=== PATIENT | male | born 1960 | race Caucasian/White ===

== ENCOUNTER 2019-08-20 09:41 | Observation (INO) ==
[2019-08-20] MEDS ORDERED: DiphenhydrAMINE HCL 50 MG/ML VIAL IV STA (10:19)
[2019-08-20] MEDS ORDERED: METOCLOPRAMIDE HCL INJ 5 MG/ML 2 ML VIAL IV STA (10:19)
[2019-08-20] MEDS ORDERED: ACETAMINOPHEN 1,000 MG/100 ML VIAL IV STA (10:19)
[2019-08-20] MEDS ORDERED: SODIUM CHLORIDE 0.9% 500 ML IV ONE (10:19)
[2019-08-20] MEDS ORDERED: FAMOTIDINE 20MG IV PUSH 20 MG/5 ML SYR IV STA (10:23)
[2019-08-20 10:32] LABS: Basophils # (auto) 0.02 K/uL (0-0.2); Basophils % (auto) 0.2 %; Eosinophils # (auto) 0.07 K/uL (0-0.5); Eosinophils % (auto) 0.8 %; Hematocrit (blood only) 44.7 % (42-52); Immature Granulocytes # (auto) 0.02 K/uL (0.00-0.02); Immature Granulocytes % (auto) 0.2 %; Lymphocytes # (auto) 0.55 K/uL (1.2-3.4); Lymphocytes % (auto) 6.3 %; Mean Corpuscular Hemoglobin 32.4 pg (25-34); Mean Corpuscular Hgb Conc 35.8 g/dL (32-36); Mean Corpuscular Volume 90.5 fL (80-100); Mean Platelet Volume 10.7 fL (7.4-10.4); Monocytes # (auto) 0.71 K/uL (0.11-0.59); Monocytes % (auto) 8.1 %; Neutrophils # (auto) 7.36 K/uL (1.4-6.5); Neutrophils % (auto) 84.4 %; Platelet Count 218 K/uL (130-400); RDW Coefficient of Variation 13.5 % (11.5-14.5); RDW Standard Deviation 43.8 fL (36.4-46.3); Red Blood Count 4.94 M/uL (4.7-6.1); White Blood Count 8.73 K/uL (4.8-10.8)
[2019-08-20 10:39] LABS: Alanine Aminotransferase 40 U/L (12-78); Albumin Level 4.2 gm/dl (3.4-5.0); Aspartate Aminotransferase 18 U/L (15-37); BUN Creatinine Ratio 12.9 (10-20); Bilirubin Direct < 0.1 mg/dl (0-0.2); Blood Urea Nitrogen 16 mg/dl (7-18); Calcium 10.1 mg/dl (8.5-10.1); Carbon Dioxide 24 mmol/L (21-32); Chloride 109 mmol/L (98-107); Creatinine Clr Calc Pharmacy 78.5 ml/min; Est GFR (African American) 72.4; Est GFR (Non-African American) 62.5; Glucose 132 mg/dl (70-99); Lipase 205 U/L (73-393); Magnesium 1.7 mg/dl (1.8-2.4); Sodium 139 mmol/L (136-145)
[2019-08-20 10:42] LABS: Albumin Globulin Ratio 1.1 (0.9-2); Alkaline Phosphatase 287 U/L (45-117); Bilirubin,Total 0.6 mg/dl (0.2-1); Globulin 3.7 gm/dl (2.5-4.0); Phosphorus 2.6 mg/dl (2.5-4.9); Total Protein 7.9 gm/dl (6.4-8.2); Troponin I < 0.015 ng/ml (0-0.045)
[2019-08-20 10:43] LABS: Appearance Urine Clear (Clear); Bacteria Urine Automated Negative (Negative); Bilirubin Urine Negative (Negative); Blood Urine Negative (Negative); Cast Urine Automated 0 /lpf (0-5); Color Urine Yellow; Glucose Urine UA Negative (Negative); Ketones Urine Negative (Negative); Leukocyte Esterase Urine Negative (Negative); Nitrite Urine Negative (Negative); Protein Urine 2+ (Negative); RBC Urine Automated 0-4 /hpf (0-4); Specific Gravity Urine 1.014 (1.000-1.030); Urobilinogen Urine Negative (Negative); WBC Urine Automated 0 /hpf (0-5)
[2019-08-20 10:43] LABS: Partial Thromboplastin Ratio 1.1; Partial Thromboplastin Time 31.8 Seconds (21.0-31.0); Prothrombin Time 10.9 Seconds (9.0-12.0)
--- NOTE | 2019-08-20 10:46 | XRay Report ---
XR chest 1V portable CLINICAL HISTORY: 59 years-old Male presenting with Chest Pain. TECHNIQUE: Portable upright AP view of the chest was obtained. COMPARISON: 07/26/2018. FINDINGS: Cardiac silhouette mildly enlarged. Minimal vague right basilar opacity. No other focal opacity. No l arge effusion or pneumothorax. The prior tunneled right internal jugular central venous catheter has been removed. Osseous structures normal. Upper abdomen normal. IMPRESSION: 1. Minimal vague right basilar opacity may represent atelectasis or vascular crowding. A focal infil trate is possible though not favored. 2. Mild cardiomegaly without evidence of significant volume overload or congestive change. ACT 112: Negative or not required by law. Electronically signed by: Zion Rodriguez M.D. 08/20/2019 10:45 AM
[2019-08-20] MEDS ORDERED: MoRPHine SULFATE 10 MG/ML CARP/VIAL IV STA (11:22)
[2019-08-20] MEDS ORDERED: MoRPHine SULFATE 4 MG/ML 1 ML CARP\\VIAL ONE (11:25)
[2019-08-20] MEDS ORDERED: MAGNESIUM SULFATE / D5W 1 GM/100 ML BAG IV ONE (11:48)
--- NOTE | 2019-08-20 12:20 | Ultrasound Report ---
US gallbladder CLINICAL HISTORY: 59 years-old Male presenting with RUQ pain since last night, history of kidney estrada splant February. TECHNIQUE: Real-time grayscale and limited color Doppler ultrasound imaging of the abdomen limited to the right upper quadrant was performed. COMPARISON: None. FINDINGS: Pancreas: Visualized portions of the pancreatic head and body normal. Top normal prominence of the pa ncreatic duct measuring 3 mm. Liver: Mildly hyperechogenic parenchyma, although the right hemidiaphragm remains visible, likely ind icating mild steatosis. The liver measures 22.3 cm in maximal sagittal dimension. No sonographic evid ence of hepatic mass. Main portal vein patent with normal directional flow. Biliary: No intrahepatic biliary ductal dilatation. Common bile duct measures up to 7-8 mm in diamete r. Gallbladder: Large mobile gallstone measuring 3 cm. Gallbladder wall thickening measuring 5 mm. Trace pericholecystic fluid. Gallbladder mildly distended. Sonographic Montalvo's sign not reported. Right [place] kidney: Atrophic renal parenchyma of the [place] right kidney. Right lower quadrant transplant kidney: Right lower quadrant evaluated at the site of the reported tr ansplant kidney with tenderness to the sonographic probe. The transplant kidney measures 10.3 cm. No hydronephrosis. Urothelial thickening is not definitely visualized. Hyperechogenicity of renal sinus fat. There is a hypoechoic anechoic avascular collection at the lower pole, measuring 3.9 x 3.8 x 5.1 cm. This is intimately associated with the adjacent transplant vessels. Normal flow within the trans plant renal vein. Focally elevated arterial velocity with a peak systolic velocity of 381 cm/s within the transplant renal artery near or at the anastomosis. Ascites: None. Other: None. IMPRESSION: 1. Cholelithiasis with gallbladder wall thickening and trace pericholecystic fluid concerning for ch olecystitis. Nuclear medicine HIDA scan could confirm this finding if necessary. 2. Mild extrahepatic ductal dilatation. 3. Mild hepatic steatosis and hepatomegaly. 4. Right lower quadrant transplant kidney with elevated renal artery velocity near or at the anastom osis concerning for stenosis. With a history of transplant in February, postoperative edema would no t be expected to persist this long period. Stenosis may relate to surgical technique or developing po stsurgical stenosis. 5. 5 cm collection adjacent to the lower pole of the transplant kidney intimately associated with th e vessels though avascular. This may represent a chronic hematoma/seroma. No evidence of pseudoaneury sm. ACT 112: Negative or not required by law. Electronically signed by: Zion Rodriguez M.D. 08/20/2019 12:19 PM
[2019-08-20] MEDS ORDERED: PIPERACILLIN/TAZOBACTAM 4.5 GM/120 ML BAG IV ONE (12:47)
[2019-08-20] MEDS ORDERED: PIPERACILL/TAZOBAC CONSULT ACTIVE PRN (12:47)
[2019-08-20] MEDS ORDERED: SODIUM CHLORIDE 0.9% 1000ML 1,000 ML IV SCH (14:15)
--- NOTE | 2019-08-20 15:28 | History & Physical Report ---
Date of Service August 20, 2019 Assessment & Plan (1) Acute cholecystitis: Presents with biliary colic, acute onset of severe pain on right upper quadrant and epigastric area started after fatty meal Right upper quadrant ultrasound shows a stiff of acute cholecystitis with pericholecystic fluid Admit to medical telemetry No evidence of sepsis patient is afebrile with normal white count Bowel rest, clear liquid diet, pain control aggressive IV fluid hydration General surgery consult requested HIDA scan ordered for Thursday (nuclear biliary scan cannot be done over the weekend) (2) Renal transplant recipient: Status post living donor renal transplant on 02/17/[address] [facility] Patient is on chronic immunosuppressant on Prograf and CellCept-which will be continued Tacrolimus level on 08/16/2019 was 5.3 Creatinine 1.2 (creatinine 08/15/2019 was 1.6) Continue IV fluids, Avoid nephrotoxins, contrast studies We will consult nephrology with any evidence of acute kidney injury, patient follows with [facility] technology services manager Dr. Shira Bullock Gallbladder ultrasound: Right lower quadrant transplant kidney with elevated renal artery velocity near or at the anastomosis concerning for stenosis. With a history of transplant in February, postoperative edema would not be expected to persist this long period. Stenosis may relate to surgical technique or developing postsurgical stenosis. ER physician discussed the ultrasound finding with renal transplant center in [facility] in [place] Given patient has normal creatinine no evidence of volume overload, Does not feel that ultrasound finding was clinically significant Order for CT abdomen pelvis noncontrast study for further assessment Hypertensive urgency Patient has baseline accelerated hypertension requiring multiple antihypertensive secondary to renal disease BP noted to be 190 in the ER possibly secondary to pain response Continue adequate pain control, Patient is continued with Lopressor 50 mg twice daily, nifedipine 30 mg twice daily Ordered for PRN hydralazine Hyperparathyroidism: Secondary to kidney disease Continue Sensipar, Follow labs closely Code status: Full code DVT prophylaxis: Low risks, at baseline patient is very active SCD and teds Disposition: Expected to be discharged home when medically stable Medicine follow-up with Dr. bhat History of Present Illness Chief Complaint: Pain in abdomen Primary Care Provider: Michael Marvin MD Is a 59-year-old male status post recent renal transplant on 02/2019, hyperparathyroidism, hypertension Presented to ER with complaint of pain on right upper quadrant, Last night patient had dinner with deli sandwich with cheese and mayonnaise Woke up around 3 AM in the morning with severe epigastric and right upper quadrant abdominal pain, pain radiating to back, 10 out of 10, Associated with nausea, dry heaves no vomiting Patient reports pain was excruciating got no relief with change of position Did not had any fever or chills In the ER gallbladder ultrasound shows : Cholelithiasis with gallbladder wall thickening and trace pericholecystic fluid concerning for cholecystitis. Mild extrahepatic ductal dilatation He was afebrile normal white count, LFTs, lipase level within normal limit Will be admitted to medical telemetry, general surgery consulted Allergies Allergy/AdvReac Type Severity Reaction Status Date / Time No Known Allergies Allergy Verified 08/10/18 10:36 Home Medications Home Medications Medication Instructions Recorded Confirmed Type cetirizine 10 mg PO PM 04/24/18 08/20/19 History cinacalcet 30 mg PO PM 04/24/18 08/20/19 History ergocalciferol (vitamin D2) 50,000 units PO WK 07/26/18 08/20/19 History [Drisdol] aspirin [Aspirin Low Dose] 81 mg PO QAM 08/10/18 08/20/19 History lisinopril 20 mg PO PM 08/10/18 08/20/19 History metoprolol tartrate 50 mg PO BID 08/10/18 08/20/19 History sevelamer carbonate [Renvela] 3,200 mg PO TIDM 08/10/18 08/20/19 History Past Med/Surg History Medical History (Updated 08/20/19 @ 17:20 by Patty Foster MD) Asthma A CHILD (NO CURRENT PROBLEMS) Atrial fibrillation A FIB EVENT X 1 (WITH 2ND DIALYSIS) End stage renal failure on dialysis (Chronic) GERD (gastroesophageal reflux disease) Gout Hemodialysis patient [id number] M/W/F [facility] HTN (hypertension) (Chronic) Hyperparathyroidism due to renal insufficiency (Chronic) Hyperphosphatemia (Chronic) New onset atrial fibrillation (Acute) Osteoarthritis Surgical History (Updated 08/20/19 @ 17:17 by Patty Foster MD) History of tooth extraction Renal transplant recipient Date of transplant 02/17/2019, at [facility] Living donor transplant S/P arteriovenous (AV) fistula creation (Resolved) LEFT ARM Family History Brother Family hx colonic polyps Other Dementia Hypertension Skin cancer Stroke Social History Preferred Language: Malay Communication Ability: Effective Visual Impairment: No Limitations Portrait Consultant Required: No Beliefs That Will Affect Care: None marital status: Current Living Situation: Spouse current occupational status: employed Other Information That Helps Us Care for You: No Feels Safe at Home: Yes Safety Concerns: Feels Safe At This Time Smoking Status: Never smoker Do You Dip or Chew Tobacco: No ; Second Hand Exposure: No ; Tobacco Cessation Education Requested by Patient: No Hx Alcohol Use: No Hx Substance Use: No Review of Systems Review of Systems: All systems reviewed & are unremarkable except as noted in HPI & below Constitutional: + anorexia and + problem reported (Right upper quadrant and epigastric abdominal pain) Gastrointestinal: + abdominal pain and + nausea; no vomiting Physical Exam Constitutional: WD/WN, vitals as above + acute distress (Due to abdominal pain) Eyes: PERRL, conjunctivae normal, anicteric sclerae ENMT: external ear and nose normal, oropharynx normal Neck: trachea midline, no thyromegaly Respiratory: normal respiratory effort, lungs clear to auscultation Cardiovascular: RRR, no murmur, no edema Gastrointestinal (Abdomen): Inspection/Auscultation: + abdomen abnormal to inspection (Right lower abdomen transplant surgery scar well-healed, tenderness on right upper quadrant, epigastric area) and + abnormal bowel sounds (Bowel sounds diminished) Percussion/Palpation: + abdomen tender (Tenderness at righ t upper quadrant and epigastric area) Neurologic: PERRL, EOMI, accommodation nl, no face palsy, no dysarthria Psychiatric: Orientation: alert and oriented x 3 Affect: + anxious affect Results & Data Vital Signs (Past 12 Hours) Vital Signs Temp Pulse Pulse Resp BP BP Pulse Ox 08/20/19 15:00 69 17 158/103 H 98 08/20/19 14:30 63 18 147/92 H 99 08/20/19 14:16 62 19 99 08/20/19 14:15 65 15 154/96 H 99 08/20/19 14:00 65 11 L 171/105 H 96 08/20/19 13:30 64 16 164/98 H 94 08/20/19 13:00 67 11 L 170/107 H 94 08/20/19 12:41 64 11 L 173/108 H 94 08/20/19 11:00 67 16 180/117 H 97 08/20/19 10:47 66 24 179/112 H 99 08/20/19 10:08 67 23 180/115 H 100 08/20/19 10:05 66 18 180/115 H 100 08/20/19 09:44 36.8 C 70 20 209/116 H 97 Diagnostic Findings Right upper quadrant ultrasound IMPRESSION: 1. Cholelithiasis with gallbladder wall thickening and trace pericholecystic fluid concerning for cholecystitis. Nuclear medicine HIDA scan could confirm this finding if necessary. 2. Mild extrahepatic ductal dilatation. 3. Mild hepatic steatosis and hepatomegaly. 4. Right lower quadrant transplant kidney with elevated renal artery velocity near or at the anastomosis concerning for stenosis. With a history of transplant in February, postoperative edema would not be expected to persist this long period. Stenosis may relate to surgical technique or developing postsurgical stenosis. 5. 5 cm collection adjacent to the lower pole of the transplant kidney intimately associated with the vessels though avascular. This may represent a chronic hematoma/seroma. No evidence of pseudoaneurysm. Medications Administered Current Inpatient Medications Acetaminophen (Tylenol) 650 mg PO Q4H PRN PRN Reason: pain/fever Stop: 09/19/19 15:59 Hydralazine HCl (Hydralazine Hcl) 10 mg IV Q8 PRN PRN Reason: SBP > 160 Stop: 09/19/19 17:09 Hydromorphone HCl (Dilaudid) 1 mg IV Q4 PRN PRN Reason: pain Stop: 09/03/19 16:51 Piperacillin Sod/Tazobactam (Sod 4.5 gm/ Dextrose) 120 mls @ 30 mls/hr IV Q8H MANNY; Protocol Stop: 08/30/19 19:59 Lactated Ringer's (Lr) 1,000 mls @ 125 mls/hr IV .Q8H MANNY Stop: 09/19/19 16:59 Last Admin: 08/20/19 16:59 Dose: 125 mls/hr Documented by: Metoprolol Tartrate (Lopressor) 50 mg PO BID MANNY Stop: 09/19/19 20:59 Miscellaneous (Order Awaiting Action) 1 ea N/A QS MANNY Stop: 09/19/19 16:59 Miscellaneous Information (Consult) 1 ea N/A UD PRN PRN Reason: Consult Stop: 09/19/19 12:46 Mycophenolate Mofetil (Cellcept) 500 mg PO BID MANNY Stop: 09/19/19 20:59 Nifedipine (Procardia Xl) 30 mg PO BID MANNY Stop: 09/19/19 20:59 Ondansetron HCl (Zofran) 4 mg IV Q6H PRN PRN Reason: Nausea Stop: 09/19/19 15:59 Pantoprazole Sodium (Protonix) 40 mg PO QAM MANNY Stop: 09/20/19 08:59 Sevelamer HCl (Renagel) 3,200 mg PO TIDM MANNY Stop: 09/19/19 16:59 Last Admin: 08/20/19 17:06 Dose: Not Given Documented by: Tacrolimus (Prograf) 2 mg PO DAILY [facility] Stop: 09/20/19 08:59 Code Status & VTE Plan VTE Prophylaxis Plan VTE Prophylaxis will be ordered: Yes
[2019-08-20] MEDS ORDERED: ACETAMINOPHEN 325 MG TAB PO PRN (16:00)
[2019-08-20] MEDS ORDERED: ONDANSETRON INJ 2 MG/ML 2 ML VIAL IV PRN (16:00)
[2019-08-20] MEDS ORDERED: HYDROmorphone INJ 2 MG/ML SYR/VIAL IV STA (16:49)
[2019-08-20] MEDS: LACTATED RINGER'S 1,000 ML IV SCH (16:59)
[2019-08-20] MEDS: SEVELAMER HCL 800 MG TABLET PO SCH (17:06)
[2019-08-20] MEDS ORDERED: HydrALAZINE HCL 20 MG/ML VIAL IV PRN (17:10)
--- NOTE | 2019-08-20 17:26 | Emergency Department Note ---
Entered by Cece Esquivel acting as a scribe for Tu James MD History of Present Illness General Chief complaint: Abdominal Pain Stated complaint: CHEST PAIN/HX KIDNEY TRANSPLANT Time Seen by Provider: 08/20/19 10:04 Source: patient History of Present Illness Onset (ago): day(s) (2229 last night) Location: chest and abdomen (right side) Radiation: abdomen (right side) Maximum Pain Intensity: 9 Quality: + other (right sided abdominal pain) Associated symptoms: + other (Positive nausea and feeling of dehydration. Negative vomiting, diarrhea. ); no fever/chills The patient is a 59 year old male who presents to the ED with complaints of righ t sided abdominal pain beginning at 2229 last night. He has a hx of a kidney transplant in February. He reports his pain originates in his chest and radiates to the right side of his abdomen. The patient states he is nauseous and feels dehydrated but denies any fevers, chills, vomiting, diarrhea. He reports he still has his gallbladder and he has a stone. He notes he had a turkey sandwich with cheese and mayonnaise for dinner last night. He states his kidney transplant has been functioning well and he is no longer on dialysis. Home Medications Home Medications Medication Instructions Recorded Confirmed Type cetirizine 10 mg PO PM 04/24/18 08/20/19 History cinacalcet 30 mg PO PM 04/24/18 08/20/19 History ergocalciferol (vitamin D2) 50,000 units PO WK 07/26/18 08/20/19 History [Drisdol] aspirin [Aspirin Low Dose] 81 mg PO QAM 08/10/18 08/20/19 History lisinopril 20 mg PO PM 08/10/18 08/20/19 History metoprolol tartrate 50 mg PO BID 08/10/18 08/20/19 History sevelamer carbonate [Renvela] 3,200 mg PO TIDM 08/10/18 08/20/19 History Allergies Allergy/AdvReac Type Severity Reaction Status Date / Time No Known Allergies Allergy Verified 08/10/18 10:36 Past Med/Surg History Medical History Asthma A CHILD (NO CURRENT PROBLEMS) Atrial fibrillation A FIB EVENT X 1 (WITH 2ND DIALYSIS) End stage renal failure on dialysis (Chronic) GERD (gastroesophageal reflux disease) Gout Hemodialysis patient [id number] M/W/F [facility] HTN (hypertension) (Chronic) Hyperparathyroidism due to renal insufficiency (Chronic) Hyperphosphatemia (Chronic) New onset atrial fibrillation (Acute) Osteoarthritis Surgical History History of tooth extraction Renal transplant recipient Date of transplant 02/17/2019, at [facility] Living donor transplant S/P arteriovenous (AV) fistula creation (Resolved) LEFT ARM Family History Brother Family hx colonic polyps Other Dementia Hypertension Skin cancer Stroke Social History Preferred Language: Nepali Communication Ability: Effective Visual Impairment: No 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 and A total of 10 systems reviewed and were otherwise negative Physical Exam Vital Signs Vital Signs - 24 hr 08/20/19 09:44 08/20/19 10:05 08/20/19 10:08 Temperature 36.8 C Temperature Source Oral Pulse Rate 70 67 Pulse Rate [Apical] 66 Pulse Rate from SpO2 Sensor 66 Pulse Rhythm [Apical] Regular Respiratory Rate 20 18 23 Respiratory Effort / Characteristics Non-Labored Spontaneous Non-Labored Respiratory Depth Normal Blood Pressure 209/116 H 180/115 H Blood Pressure [Right Arm] 180/115 H Blood Pressure Mean 147 150 Blood Pressure Mean [Right Arm] 136 Blood Pressure Position [Right Arm] Sitting Pulse Oximetry 97 100 100 Oxygen Delivery Method Room Air Room Air Sepsis Recent Fever Within 48 Hours No Sepsis New/Unexplained Change in Mental Status No Sepsis Action Taken by Nursing No Action Required 08/20/19 10:47 08/20/19 11:00 08/20/19 12:41 Temperature Temperature Source Pulse Rate 66 67 64 Pulse Rate [Apical] Pulse Rate from SpO2 Sensor 66 66 64 Pulse Rhythm [Apical] Respiratory Rate 24 16 11 L Respiratory Effort / Characteristics Respiratory Depth Blood Pressure 179/112 H 180/117 H 173/108 H Blood Pressure [Right Arm] Blood Pressure Mean 141 143 130 Blood Pressure Mean [Right Arm] Blood Pressure Position [Right Arm] Pulse Oximetry 99 97 94 Oxygen Delivery Method Room Air Sepsis Recent Fever Within 48 Hours Sepsis New/Unexplained Change in Mental Status Sepsis Action Taken by Nursing 08/20/19 13:00 08/20/19 13:30 08/20/19 14:00 Temperature Temperature Source Pulse Rate 67 64 65 Pulse Rate [Apical] Pulse Rate from SpO2 Sensor 67 64 65 Pulse Rhythm [Apical] Respiratory Rate 11 L 16 11 L Respiratory Effort / Characteristics Respiratory Depth Blood Pressure 170/107 H 164/98 H 171/105 H Blood Pressure [Right Arm] Blood Pressure Mean 120 125 128 Blood Pressure Mean [Right Arm] Blood Pressure Position [Right Arm] Pulse Oximetry 94 94 96 Oxygen Delivery Method Sepsis Recent Fever Within 48 Hours Sepsis New/Unexplained Change in Mental Status Sepsis Action Taken by Nursing 08/20/19 14:15 08/20/19 14:16 Temperature Temperature Source Pulse Rate 65 62 Pulse Rate [Apical] Pulse Rate from SpO2 Sensor 67 63 Pulse Rhythm [Apical] Respiratory Rate 15 19 Respiratory Effort / Characteristics Respiratory Depth Blood Pressure 154/96 H Blood Pressure [Right Arm] Blood Pressure Mean 118 Blood Pressure Mean [Right Arm] Blood Pressure Position [Right Arm] Pulse Oximetry 99 99 Oxygen Delivery Method Sepsis Recent Fever Within 48 Hours Sepsis New/Unexplained Change in Mental Status Sepsis Action Taken by Nursing GENERAL: Awake, alert, uncomfortable-appearing but nontoxic, in no distress HENT: Normocephalic, atraumatic. Oropharynx with dry mucous membranes and otherwise unremarkable. EYES: Normal conjunctiva. Sclera non-icteric. NECK: Supple. No nuchal rigidity. FROM. No JVD. RESPIRATORY: CTAB CARDIAC: Regular rate, normal rhythm. Extremities warm and well perfused. Pulses equal. ABDOMEN: Soft, non-distended. Mild RUQ and epigastric tenderness. Soft umbilical hernia, nontender. No rebound or guarding. No masses. RECTAL: Deferred. MUSCULOSKELETAL: Chest examination reveals no tenderness. The back is symmetrical on inspection without obvious abnormality. There is no CVA tenderness to palpation. No joint edema. LOWER EXTREMITIES: Calves are equal size bilaterally and non-tender. No edema. No discoloration. NEURO: Normal sensorium. No sensory or motor deficits noted. SKIN: No rash or jaundice noted. Course Course 1018: Past medical records reviewed. The patient was evaluated in room B4. A complete history and physical exam was performed. 1355: Discussed the patient's case with Dr. Monroe, Transplant Surgery. He does not think his findings are related to the transplant or kidney given the patients renal function is normal. Given that he has no fevers, leukocytosis and is nontoxic, he states the patient does not need transfer. He agrees with local admission and HIDA scan. If any concerns arise, admitting team can reach out to arrange transfer. 1416: Discussed the patient's case with Dr. Foster, [facility] Hospitalist. The patient will be evaluated for further management. She states to consult Dr. Mendiola, General Surgery. 1441: Discussed the patient's case with Dr. Mendiola, General Surgery on behalf of the admitting team. He states the HIDA scan would dictate his need for surgery or transfer assuming he does not become clinically worse, at which point he would be transferred. He would not be able to add any additional recommendations. Administered Medications Lactated Ringer's (Lr) 1,000 mls @ 125 mls/hr IV .Q8H MANNY Stop: 09/19/19 16:59 Last Admin: 08/20/19 16:59 Dose: 125 mls/hr Documented by: [id number] Sevelamer HCl (Renagel) 3,200 mg PO TIDM MANNY Stop: 09/19/19 16:59 Last Admin: 08/20/19 17:06 Dose: Not Given Documented by: [id number] Discontinued Medications Diphenhydramine HCl (Benadryl) 25 mg IV NOW STA Stop: 08/20/19 10:20 Last Admin: 08/20/19 10:54 Dose: 25 mg Documented by: [id number] Hydromorphone HCl (Dilaudid) 2 mg IV NOW STA Stop: 08/20/19 16:50 Last Admin: 08/20/19 16:58 Dose: 2 mg Documented by: [id number] Sodium Chloride (Nss) 500 mls @ 999 mls/hr IV .Q31M ONE Stop: 08/20/19 10:49 Last Infusion: 08/20/19 11:23 Dose: 0 mls/hr Documented by: [id number] Admin: 08/20/19 10:52 Dose: 999 mls/hr Documented by: [id number] Acetaminophen (Ofirmev) 1,000 mg in 100 mls @ 400 mls/hr IV NOW STA Stop: 08/20/19 10:33 Last Infusion: 08/20/19 11:10 Dose: 0 mls/hr Documented by: [id number] Admin: 08/20/19 10:55 Dose: 400 mls/hr Documented by: [id number] Famotidine (Pepcid 20mg Iv Push) 20 mg in 5 mls @ 2.5 mls/min IV NOW STA Stop: 08/20/19 10:24 Last Admin: 08/20/19 10:53 Dose: 2.5 mls/min Documented by: [id number] Magnesium Sulfate/Dextrose (Magnesium Sulfate / D5w) 1 gm in 100 mls @ 100 mls/hr IV ONE ONE Stop: 08/20/19 12:47 Last Infusion: 08/20/19 13:42 Dose: 0 mls/hr Documented by: [id number] Admin: 08/20/19 12:42 Dose: 100 mls/hr Documented by: [id number] Piperacillin Sod/Tazobactam Sod (Zosyn) 4.5 gm in 120 mls @ 240 mls/hr IV NOW ONE Stop: 08/20/19 13:16 Last Infusion: 08/20/19 16:01 Dose: 0 mls/hr Documented by: [id number] Admin: 08/20/19 14:02 Dose: 240 mls/hr Documented by: [id number] Sodium Chloride (Nss 1000ml) 1,000 mls @ 125 mls/hr IV .Q8H MANNY Stop: 09/19/19 14:14 Last Infusion: 08/20/19 17:20 Dose: 0 mls/hr Documented by: [id number] Admin: 08/20/19 14:15 Dose: 125 mls/hr Documented by: [id number] Metoclopramide HCl (Reglan) 10 mg IV NOW STA Stop: 08/20/19 10:20 Last Admin: 08/20/19 10:54 Dose: 10 mg Documented by: [id number] Miscellaneous (Order Awaiting Action) 1 ea N/A QS MANNY Stop: 09/19/19 16:59 Last Admin: 08/20/19 18:00 Dose: Not Given Documented by: [id number] Morphine Sulfate (Morphine Sulfate) 8 mg IV NOW STA Stop: 08/20/19 11:23 Last Admin: 08/20/19 12:42 Dose: Not Given Documented by: [id number] Morphine Sulfate (Morphine Sulfate) Confirm Administered Dose 8 mg .ROUTE .STK- MED ONE Stop: 08/20/19 11:26 Last Admin: 08/20/19 11:27 Dose: 8 mg Documented by: [id number] Medical Decision Making Differential Diagnosis Differential diagnosis: Etiologies such as appendicitis, diverticulitis, PUD, biliary pathology, UTI, pancreatitis, obstruction, mesenteric ischemia, aortic pathology, infections, inflammatory bowel disease, renal colic, as well as others were entertained. Medical Records Attestation: I reviewed the patient's medical records. Home Medications Current Medication List: was personally reviewed by me Laboratory Data Attestation: I reviewed the patient's lab results. Result diagrams: 08/20/19 10:06 08/20/19 10:06 Lab Results 08/20/19 08/20/19 08/20/19 Range/Units 10:06 10:06 10:06 WBC 8.73 (4.8-10.8) K/uL RBC 4.94 (4.7-6.1) M/uL Hgb 16.0 (14.0-18.0) g/dL Hct 44.7 (42-52) % MCV 90.5 (80-100) fL MCH 32.4 (25-34) pg MCHC 35.8 (32-36) g/dL RDW Std Deviation 43.8 (36.4-46.3) fL RDW Coeff of Christian 13.5 (11.5-14.5) % Plt Count 218 (130-400) K/uL MPV 10.7 H (7.4-10.4) fL Immature Gran % (Auto) 0.2 % Neut % (Auto) 84.4 % Lymph % (Auto) 6.3 % Nolan % (Auto) 8.1 % Eos % (Auto) 0.8 % Baso % (Auto) 0.2 % Immature Gran # (Auto) 0.02 (0.00-0.02) K/uL Neut # (Auto) 7.36 H (1.4-6.5) K/uL Lymph # (Auto) 0.55 L (1.2-3.4) K/uL Nolan # (Auto) 0.71 H (0.11-0.59) K/uL Eos # (Auto) 0.07 (0-0.5) K/uL Baso # (Auto) 0.02 (0-0.2) K/uL PT 10.9 (9.0-12.0) Seconds INR 1.0 (0.9-1.1) APTT 31.8 H (21.0-31.0) Seconds PTT Ratio 1.1 Sodium 139 (136-145) mmol/L Potassium 4.0 (3.5-5.1) mmol/L Chloride 109 H (98-107) mmol/L Carbon Dioxide 24 (21-32) mmol/L Anion Gap 6.0 (3-11) BUN 16 (7-18) mg/dl Creatinine 1.26 (0.6-1.4) mg/dl Est Cr Clr Drug Dosing 78.5 ml/min Est GFR ( Amer) 72.4 Est GFR (Non-Af Amer) 62.5 BUN/Creatinine Ratio 12.9 (10-20) Glucose 132 H (70-99) mg/dl Lactate (0.4-2.0) mmol/L Calcium 10.1 (8.5-10.1) mg/dl Phosphorus 2.6 (2.5-4.9) mg/dl Magnesium 1.7 L (1.8-2.4) mg/dl Total Bilirubin 0.6 (0.2-1) mg/dl Direct Bilirubin < 0.1 (0-0.2) mg/dl AST 18 (15-37) U/L ALT 40 (12-78) U/L Alkaline Phosphatase 287 H (45-117) U/L Troponin I < 0.015 (0-0.045) ng/ml Total Protein 7.9 (6.4-8.2) gm/dl Albumin 4.2 (3.4-5.0) gm/dl Globulin 3.7 (2.5-4.0) gm/dl Albumin/Globulin Ratio 1.1 (0.9-2) Lipase 205 (73-393) U/L Urine Color Urine Appearance (Clear) Urine pH (4.5-7.5) Ur Specific [place] (1.000-1.030) Urine Protein (Negative) Urine Glucose (UA) (Negative) Urine Ketones (Negative) Urine Blood (Negative) Urine Nitrite (Negative) Urine Bilirubin (Negative) Urine Urobilinogen (Negative) Ur Leukocyte Esterase (Negative) Urine WBC (Auto) (0-5) /hpf Urine RBC (Auto) (0-4) /hpf U Hyaline Cast (Auto) (0-5) /lpf U Epithel Cells (Auto) (0-5) /lpf Urine Bacteria (Auto) (Negative) 08/20/19 08/20/19 Range/Units 10:10 14:00 WBC (4.8-10.8) K/uL RBC (4.7-6.1) M/uL Hgb (14.0-18.0) g/dL Hct (42-52) % MCV (80-100) fL MCH (25-34) pg MCHC (32-36) g/dL RDW Std Deviation (36.4-46.3) fL RDW Coeff of Christian (11.5-14.5) % Plt Count (130-400) K/uL MPV (7.4-10.4) fL Immature Gran % (Auto) % Neut % (Auto) % Lymph % (Auto) % Nolan % (Auto) % Eos % (Auto) % Baso % (Auto) % Immature Gran # (Auto) (0.00-0.02) K/uL Neut # (Auto) (1.4-6.5) K/uL Lymph # (Auto) (1.2-3.4) K/uL Nolan # (Auto) (0.11-0.59) K/uL Eos # (Auto) (0-0.5) K/uL Baso # (Auto) (0-0.2) K/uL PT (9.0-12.0) Seconds INR (0.9-1.1) APTT (21.0-31.0) Seconds PTT Ratio Sodium (136-145) mmol/L Potassium (3.5-5.1) mmol/L Chloride (98-107) mmol/L Carbon Dioxide (21-32) mmol/L Anion Gap (3-11) BUN (7-18) mg/dl Creatinine (0.6-1.4) mg/dl Est Cr Clr Drug Dosing ml/min Est GFR ( Amer) Est GFR (Non-Af Amer) BUN/Creatinine Ratio (10-20) Glucose (70-99) mg/dl Lactate 0.8 (0.4-2.0) mmol/L Calcium (8.5-10.1) mg/dl Phosphorus (2.5-4.9) mg/dl Magnesium (1.8-2.4) mg/dl Total Bilirubin (0.2-1) mg/dl Direct Bilirubin (0-0.2) mg/dl AST (15-37) U/L ALT (12-78) U/L Alkaline Phosphatase (45-117) U/L Troponin I (0-0.045) ng/ml Total Protein (6.4-8.2) gm/dl Albumin (3.4-5.0) gm/dl Globulin (2.5-4.0) gm/dl Albumin/Globulin Ratio (0.9-2) Lipase (73-393) U/L Urine Color Yellow Urine Appearance Clear (Clear) Urine pH 7.0 (4.5-7.5) Ur Specific [place] 1.014 (1.000-1.030) Urine Protein 2+ H (Negative) Urine Glucose (UA) Negative (Negative) Urine Ketones Negative (Negative) Urine Blood Negative (Negative) Urine Nitrite Negative (Negative) Urine Bilirubin Negative (Negative) Urine Urobilinogen Negative (Negative) Ur Leukocyte Esterase Negative (Negative) Urine WBC (Auto) 0 (0-5) /hpf Urine RBC (Auto) 0-4 (0-4) /hpf U Hyaline Cast (Auto) 0 (0-5) /lpf U Epithel Cells (Auto) 5-10 H (0-5) /lpf Urine Bacteria (Auto) Negative (Negative) Imaging Data Radiologist's Impression: Radiology results as stated below per my review and the radiologist's interpretation: XR chest 1V portable CLINICAL HISTORY: 59 years-old Male presenting with Chest Pain. TECHNIQUE: Portable upright AP view of the chest was obtained. COMPARISON: 07/26/2018. FINDINGS: Cardiac silhouette mildly enlarged. Minimal vague right basilar opacity. No other focal opacity. No large effusion or pneumothorax. The prior tunneled right internal jugular central venous catheter has been removed. Osseous structures normal. Upper abdomen normal. IMPRESSION: 1. Minimal vague right basilar opacity may represent atelectasis or vascular crowding. A focal infiltrate is possible though not favored. 2. Mild cardiomegaly without evidence of significant volume overload or congestive change. ACT 112: Negative or not required by law. Electronically signed by: Zion Rodriguez M.D. 08/20/2019 10:45 AM US gallbladder CLINICAL HISTORY: 59 years-old Male presenting with RUQ pain since last night, history of kidney transplant February. TECHNIQUE: Real-time grayscale and limited color Doppler ultrasound imaging of the abdomen limited to the right upper quadrant was performed. COMPARISON: None. FINDINGS: Pancreas: Visualized portions of the pancreatic head and body normal. Top normal prominence of the pancreatic duct measuring 3 mm. Liver: Mildly hyperechogenic parenchyma, although the right hemidiaphragm remains visible, likely indicating mild steatosis. The liver measures 22.3 cm in maximal sagittal dimension. No sonographic evidence of hepatic mass. Main portal vein patent with normal directional flow. Biliary: No intrahepatic biliary ductal dilatation. Common bile duct measures up to 7-8 mm in diameter. Gallbladder: Large mobile gallstone measuring 3 cm. Gallbladder wall thickening measuring 5 mm. Trace pericholecystic fluid. Gallbladder mildly distended. Sonographic Montalvo's sign not reported. Right [place] kidney: Atrophic renal parenchyma of the [place] right kidney. Right lower quadrant transplant kidney: Right lower quadrant evaluated at the site of the reported transplant kidney with tenderness to the sonographic probe. The transplant kidney measures 10.3 cm. No hydronephrosis. Urothelial thickening is not definitely visualized. Hyperechogenicity of renal sinus fat. There is a hypoechoic anechoic avascular collection at the lower pole, measuring 3.9 x 3.8 x 5.1 cm. This is intimately associated with the adjacent transplant vessels. Normal flow within the transplant renal vein. Focally elevated arterial velocity with a peak systolic velocity of 381 cm/s within the transplant renal artery near or at the anastomosis. Ascites: None. Other: None. IMPRESSION: 1. Cholelithiasis with gallbladder wall thickening and trace pericholecystic fluid concerning for cholecystitis. Nuclear medicine HIDA scan could confirm this finding if necessary. 2. Mild extrahepatic ductal dilatation. 3. Mild hepatic steatosis and hepatomegaly. 4. Right lower quadrant transplant kidney with elevated renal artery velocity near or at the anastomosis concerning for stenosis. With a history of transplant in February, postoperative edema would not be expected to persist this long period. Stenosis may relate to surgical technique or developing postsurgical stenosis. 5. 5 cm collection adjacent to the lower pole of the transplant kidney intimately associated with the vessels though avascular. This may represent a chronic hematoma/seroma. No evidence of pseudoaneurysm. ACT 112: Negative or not required by law. Electronically signed by: Zion Rodriguez M.D. 08/20/2019 12:19 PM ECG Data Attestation: I personally reviewed and interpreted this ECG as follows: Indication: + abdominal pain Rate (beats per minute): 67 Rhythm: + normal sinus ECG Intervals/blocks: + Right Bundle branch block (incomplete) ECG Vincent: + Normal ECG ST segments: + Nonspecific ST abnormalities (laterally); no ST depression and no ST elevation ECG Findings: + Other (QT-c 456, QRS 96 ) Blood Pressure Blood Pressure Findings: Elevated blood pressure Blood Pressure Disposition: further management by hospitalist REFUGIO Bravo The patient is a pleasant 59-year-old gentleman with a past medical history of end-stage renal disease status post kidney transplant in February 2019 at [facility] who presents emergency department with right upper quadrant jameson pain and nausea which began last night in setting of eating a turkey sandwich with cheese and mayonnaise with pain that persisted throughout the night and into today per HPI. Patient denies any fevers. On arrival patient is uncomfort able no acute distress, afebrile stable vital signs. EKG without overt acute ischemia. Chest x-ray is most likely atelectasis and otherwise no acute process. WBC, H/H and platelets within normal limits. Chemistry without acidosis. Creatinine 1.26. Magnesium 1.7 with repletion provided. Alk phos 287. Otherwise, electrolytes and LFTs otherwise unremarkable with total bilirubin at 0.6. Lipase within normal limits. Troponin negative/undetectable. UA negative for infection. Right upper quadrant ultrasound demonstrates cholelithiasis with gallbladder wall thickening and trace pericholecystic fluid that is suspicious for cholecystitis. HIDA scan suggested for confirmation. There is mild extrahepatic ductal dilatation. Mild hepatic steatosis and hepatomegaly. Additionally, the patient's transplanted kidney is observed with observation of elevated renal artery velocity near the anastomosis suggestive of possible helping stenosis. Additionally, 5 cm collection adjacent to the lower pole of the transplant kidney which is avascular could suggest chronic hematoma or seroma. Patient was ordered for Empiric Zosyn. Findings were reviewed with Dr. Monroe, transplant surgery at [facility] who did not believe the transplant kidney findings on ultrasound were clinically significant at this time given the patient's reassuring renal function with creatinine of 1.2. Moreover, regarding the patient's gallbladder findings given he is afebrile without leukocytosis and improvement in symptoms after initial IV fluids and analgesia does not believe emergent transfer is required at this time. However agrees with inpatient admission locally and HIDA scan when available. Certainly, if the patient's clinical state changes or if the HIDA scan is suggestive of cholecystitis then transfer of the patient at that point is reasonable. Case was discussed with Dr. Berry, [facility] hospitalist who evaluate the patient for admission. Admitting team requesting we reviewed the case with general surgery. Case was discussed with Dr. Mendiola, general surgery on-call who recommends that determining factor will be the results of the HIDA scan to determine need for surgery of if the patient develops worsening clinical symptoms then he would recommend transfer and would not plan to perform surgery on this relatively recent kidney transplant patient. Cardiac monitoring: An order was placed for continuous cardiac monitoring. The monitor shows a rate of 67 with normal sinus rhythm. Impression & Plan RUQ abdominal pain, Cholelithiasis, History of kidney transplant, Hypomagnesemia Discharge Plan Visit Data *Final* Discharge Date/Time: 08/20/19 15:14 Chief Complaint: Abdominal Pain Stated Complaint: CHEST PAIN/HX KIDNEY TRANSPLANT ED Provider: Tu James Discharge Problem: RUQ abdominal pain, Cholelithiasis, History of kidney transplant, Hypomagnesemia Patient Disposition: Admitted As Inpatient Discharge Instructions Interventions: ED Discharge Assessment Last Done: 08/20/19 15:14 The scribe's documentation has been prepared under my direction and personally reviewed by me in its entirety. I confirm that the note above accurately reflects all work, treatment, procedures, and medical decision making performed by me.
--- NOTE | 2019-08-20 18:33 | CT Scan Report ---
CT abd pelvis wo con CLINICAL HISTORY: 59 years-old Male presenting with s/p renal transplant /acute cholecystitis. TECHNIQUE: Multidetector CT of the abdomen and pelvis was performed without the use of intravenous co ntrast. IV contrast: None. One or more dose lowering techniques were used consistent with the princip les of ALA (as low as reasonably achievable), including automatic exposure control, mA or kV adjust ment to individual patient size, and/or use of iterative reconstruction. COMPARISON: Right upper quadrant ultrasound from 08/20/2019. CT DOSE (mGy.cm): The estimated cumulative dose is 1103.84 mGy.cm. 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 Lung bases: Mild multichamber enlargement of the heart. Trace coronary artery calcification. No peric ardial or pleural effusion. Extensive dependent reticular opacities at the lung bases likely atelecta sis. Numerous solid pulmonary nodules at the lung bases bilaterally measuring up to 6 mm. Liver: Normal morphology. Density suggestive of mild hepatic steatosis. Biliary: No gross biliary ductal dilatation allowing for noncontrast technique. The gallbladder is di stended with significant wall thickening and pericholecystic fluid. Prominent gallstone noted. Pancreas: Normal noncontrast appearance. Spleen: Normal noncontrast appearance. Adrenal glands: Normal noncontrast appearance. Kidneys and ureters: Absence left kidney. Atrophic right kidney with few underlying cysts. Nonspecifi c right perinephric fat stranding. No hydronephrosis or nephrolithiasis. Right ureter nondistended. R ight lower quadrant renal transplant with perinephric fat infiltration. Prominent lobular low-density collection at the lower pole and a perinephric location measuring 6 x 4.2 cm in maximal axial dimens ions. This is immediately abutted by the transplant ureter (series 3 image 391). [place] external brayan c vasculature noted immediately posterior. No hydronephrosis. Urothelial thickening may be present as well as periureteral fat stranding. Transplant ureter nondistended. Bladder: Circumferential bladder wall thickening. Pelvic organs: Prostate enlargement likely secondary to benign prostatic hyperplasia. Bowel: Normal appendix. No bowel obstruction. High density material in the appendix could represent a ppendicoliths. Peritoneal cavity: No free fluid or intraperitoneal gas. Lymph nodes: Enlarged right external iliac lymph node measuring 12 mm in short axis in the obturator region. No other pathologically enlarged lymph nodes in the abdomen or pelvis. Vasculature: Mild atherosclerosis of the normal caliber abdominal aorta. Abdominal wall: Fat-containing left inguinal hernia. Post surgical changes of the right lower quadran t abdominal wall. No evidence of a fluid collection within the incision site. Musculoskeletal: Degenerative changes of the spine. Osseous structures diffusely sclerotic likely rel ated to renal osteodystrophy. Severe degenerative changes of the hips. IMPRESSION: 1. Acute calculus cholecystitis. Surgical consultation is necessary. 2. Urothelial thickening and periureteral fat stranding at the transplant kidney raises concern for acute tubular necrosis among other etiologies. Please ensure the absence of infection with urinalysis . 3. 6 x 4.2 cm collection adjacent to the right lower quadrant transplant kidney. This could either r epresent an evolving hematoma/seroma, lymphocele, or urinoma. The proximity to the right ureter raise s concern for urinoma. Attention on follow-up. 4. Chronic bladder outlet obstruction secondary to prostatomegaly. 5. Numerous pulmonary nodules measuring up to 6 mm at the lung bases. This raises concern for metast atic disease among other possible etiologies. Correlation with prior exams would be helpful. The report will be called/faxed according to standard departmental protocol. ACT 112: Negative or not required by law. Electronically signed by: Zion Rodriguez M.D. 08/20/2019 6:32 PM
[2019-08-20] MEDS ORDERED: CINACALCET PO SCH (19:30)
[2019-08-20] MEDS: MYCOPHENOLATE MOFETIL 250 MG CAP PO SCH (20:26)
[2019-08-20] MEDS: NIFEdipine EXTENDED REL 30 MG TABCR PO SCH (20:27)
[2019-08-20] MEDS: METOPROLOL TARTRATE 50 MG TAB PO SCH (20:28)
[2019-08-20] MEDS: PIPERACILLIN/TAZOBACTAM 4.5 GM in DEXTROSE 5% 100 ML IV SCH (20:35)
[2019-08-20] MEDS: HYDROmorphone INJ 1 MG/ML SYRINGE IV PRN (21:09)
[2019-08-21] MEDS: LACTATED RINGER'S 1,000 ML IV SCH ×2 (03:47→10:25)
[2019-08-21] MEDS: PIPERACILLIN/TAZOBACTAM 4.5 GM in DEXTROSE 5% 100 ML IV SCH ×2 (04:05→11:52)
[2019-08-21 06:43] LABS: Albumin Level 3.4 gm/dl (3.4-5.0); BUN Creatinine Ratio 9.9 (10-20); Calcium 9.5 mg/dl (8.5-10.1); Creatinine Clr Calc Pharmacy 83.8 ml/min; Est GFR (African American) 78.4; Est GFR (Non-African American) 67.6; Magnesium 1.6 mg/dl (1.8-2.4); Potassium 3.8 mmol/L (3.5-5.1)
[2019-08-21 06:51] LABS: Bilirubin,Total 1.4 mg/dl (0.2-1); Globulin 3.3 gm/dl (2.5-4.0); Total Protein 6.7 gm/dl (6.4-8.2)
[2019-08-21] MEDS: HYDROmorphone INJ 1 MG/ML SYRINGE IV PRN ×2 (07:10→12:21)
[2019-08-21] MEDS: SEVELAMER HCL 800 MG TABLET PO SCH ×2 (07:10→10:48)
--- NOTE | 2019-08-21 08:58 | Surgery Consultation ---
Date of Consultation August 21, 2019 Assessment & Plan (1) Acute cholecystitis: The conversation that I had with the ER physician at approximately 430 last evening was such that he had spoken to the transplant clinic at [facility] and they recommended that the patient undergo a HIDA scan since did not have any evidence of acute cholecystitis clinically and should be admitted locally until HIDA scan is done The ER physician said that he had spoken to the medical service and was going to admit the patient and wanted surgery to know I related to him the fact that implants were already in order on how to proceed with this patient that there was no need for surgery to be consulted Surgery consult was placed by the medical service last evening I evaluated the patient last evening and reevaluate him this morning he does have findings of acute cholecystitis even though his white count is normal he did have a left shift and we did his immunosuppressive therapy I think the patient be best transferred to a tertiary center today this was communicated with the hospitalist and also with the patient and he is 100% agreeable to be transferred to [facility] [address] those arrangements will be made by the primary service Thank you for allowing us participate in care of this very pleasant gentleman Present on Admission?: Yes History of Present Illness Attending Physician: Patty Foster MD History of Present Illness Patient was seen in the emergency room yesterday afternoon with abdominal pain work-up showed him to have gallstone with some wall thickening Apparently the patient had some problem with certain foods in the past and asked that he contemplate the removing the gallbladder at the same time as renal transplant approximately 5 months ago and according to the patient and justifiably so they did not run the risk jeopardizing the transplant and did not do cholecystectomy His latest pain developed after eating a turkey sandwich yesterday Allergies Allergy/AdvReac Type Severity Reaction Status Date / Time No Known Allergies Allergy Verified 08/10/18 10:36 Home Medications Home Medications Medication Instructions Recorded Confirmed Type cetirizine 10 mg PO PM 04/24/18 08/20/19 History cinacalcet 30 mg PO PM 04/24/18 08/20/19 History ergocalciferol (vitamin D2) 50,000 units PO WK 07/26/18 08/20/19 History [Drisdol] aspirin [Aspirin Low Dose] 81 mg PO QAM 08/10/18 08/20/19 History lisinopril 20 mg PO PM 08/10/18 08/20/19 History metoprolol tartrate 50 mg PO BID 08/10/18 08/20/19 History sevelamer carbonate [Renvela] 3,200 mg PO TIDM 08/10/18 08/20/19 History Patient History Medical History Asthma A CHILD (NO CURRENT PROBLEMS) Atrial fibrillation A FIB EVENT X 1 (WITH 2ND DIALYSIS) End stage renal failure on dialysis (Chronic) GERD (gastroesophageal reflux disease) Gout Hemodialysis patient 3XWK M/W/F [facility] HTN (hypertension) (Chronic) Hyperparathyroidism due to renal insufficiency (Chronic) Hyperphosphatemia (Chronic) New onset atrial fibrillation (Acute) Osteoarthritis Surgical History History of tooth extraction Renal transplant recipient Date of transplant 02/17/2019, at [facility] Living donor transplant S/P arteriovenous (AV) fistula creation (Resolved) LEFT ARM Family History Brother Family hx colonic polyps Other Dementia Hypertension Skin cancer Stroke Social History Preferred Language: Venezuelan Communication Ability: Effective Visual Impairment: No Limitations Dado Operator Required: No Beliefs That Will Affect Care: None marital status: Current Living Situation: Spouse current occupational status: employed Other Information That Helps Us Care for You: No Feels Safe at Home: Yes Safety Concerns: Feels Safe At This Time Smoking Status: Never smoker Do You Dip or Chew Tobacco: No ; Second Hand Exposure: No ; Tobacco Cessation Education Requested by Patient: No Hx Alcohol Use: No Hx Substance Use: No Physical Exam Physical Exam: I saw the patient last evening approximately 5:00 where he was being wheeled down to get a CT scan of the abdomen he did have some right upper quadrant guarding at that time Results & Data Vital Signs (Past 12 Hours) Vital Signs Temp Pulse Pulse Pulse Resp BP Pulse Ox 08/21/19 07:41 77 08/21/19 07:08 37.3 C 77 18 150/90 H 94 08/21/19 03:34 37.4 C 85 22 167/98 H 97 08/20/19 23:43 37.5 C 69 20 156/75 H 96 08/20/19 23:33 68 PG Care Time/CCT Total # of Minutes Spent Total Time Spent with Patient: Total time spent is greater than 50% in coordination of care (as documented) at patient's floor/unit and/or counseling patient: Coding Level of Care Code 14970 Inpt Consult Level 4 Diagnoses Acute cholecystitis K81.0
[2019-08-21] MEDS ORDERED: PANTOprazole 40 MG TAB PO SCH (09:00)
[2019-08-21] MEDS ORDERED: NON-FORMULARY PATIENT'S OWN MED SCH (09:00)
[2019-08-21] MEDS ORDERED: TACROLIMUS 1 MG CAP PO SCH (09:00)
--- NOTE | 2019-08-21 09:01 | Hospitalist Progress Note ---
Date of Service August 21, 2019 Assessment & Plan (1) Acute cholecystitis: Patient had uneventful night, remains afebrile, Vitals stable and white count normal CT abdomen pelvis noncontrast: 1. Acute calculus cholecystitis. Surgical consultation is necessary. 2. Urothelial thickening and periureteral fat stranding at the transplanted kidney raises concern for acute tubular necrosis among other etiologies. Discussed with on-call surgical team at [facility], Patient's clinical picture, imaging suggestive of acute cholecystitis, needs surgery: Cholecystectomy recommends patient should be transferred to [facility], cholecystectomy procedure should be coordinated with his renal transplant team Called [facility] transfer center, Patient will be transferred to [facility] today via ground/ACLS Accepting physician/surgeon Dr. Tinajero Patient care will also be coordinated with [facility] renal transplant team/physician Dr. Yanick Monroe Patient admitted yesterday 08/20/2019 with biliary colic, acute onset of severe pain on right upper quadrant and epigastric area started after fatty meal Right upper quadrant ultrasound shows a stiff of acute cholecystitis with pericholecystic fluid No evidence of sepsis patient is afebrile with normal white count Treated with bowel rest, clear liquid diet, pain control/IV hydration Patient's vitals remained stable overnight, normal white count, LFTs General surgery consult requested-recommends transfer to [facility] for further care Vital Signs Temp Pulse Pulse Pulse Resp BP BP 08/21/19 07:41 77 08/21/19 07:08 37.3 C 77 18 150/90 H 08/21/19 03:34 37.4 C 85 22 167/98 H 08/20/19 23:43 37.5 C 69 20 156/75 H 08/20/19 23:33 68 08/20/19 19:31 36.5 C 64 18 160/87 H 08/20/19 17:24 73 18 149/89 H 08/20/19 16:05 36.8 C 68 18 198/102 H 08/20/19 15:00 69 17 158/103 H 08/20/19 14:30 63 18 147/92 H 08/20/19 14:16 62 19 08/20/19 14:15 65 15 154/96 H 08/20/19 14:00 65 11 L 171/105 H 08/20/19 13:30 64 16 164/98 H 08/20/19 13:00 67 11 L 170/107 H 08/20/19 12:41 64 11 L 173/108 H 08/20/19 11:00 67 16 180/117 H 08/20/19 10:47 66 24 179/112 H 08/20/19 10:08 67 23 180/115 H 08/20/19 10:05 66 18 180/115 H 08/20/19 09:44 36.8 C 70 20 209/116 H Pulse Ox 08/21/19 07:41 08/21/19 07:08 94 08/21/19 03:34 97 08/20/19 23:43 96 08/20/19 23:33 08/20/19 19:31 96 08/20/19 17:24 08/20/19 16:05 99 08/20/19 15:00 98 08/20/19 14:30 99 08/20/19 14:16 99 08/20/19 14:15 99 08/20/19 14:00 96 08/20/19 13:30 94 08/20/19 13:00 94 08/20/19 12:41 94 08/20/19 11:00 97 08/20/19 10:47 99 08/20/19 10:08 100 08/20/19 10:05 100 08/20/19 09:44 97 Intake and Output 08/20/19 08/21/19 08/21/19 21:59 06:59 14:59 Intake Total 120 / 120 Balance 120 / 120 Intake: IV 120 / 120 Lr 1,000 ml @ 125 mls/hr IV . Q8H MANNY Rx#:[id number] ZOSYN 4.5 gm In 120 ml @ 240 mls/hr IV NOW ONE Rx#:[id number] Zosyn 4.5 gm In D5 100 ml @ 30 120 / 120 mls/hr IV Q8H MANNY Rx#:[id number] Nss 1000ML 1,000 ml @ 125 mls/ hr IV .Q8H MANNY Rx#:[id number] Other: Weight (2) Renal transplant recipient: Status post living donor renal transplant on 02/17/2019 at [facility] by Dr. Leonard Seth Patient is on chronic immunosuppressant on Prograf and CellCept-which was continued Tacrolimus level on 08/16/2019 was 5.3 Creatinine 1.2 (creatinine 08/15/2019 was 1.6) CT abdomen pelvis noncontrast: Urothelial thickening and periureteral fat stranding at the transplanted kidney raises concern for acute tubular necrosis among other etiologies. Patient is being transferred to [facility] in [place], will be followed by renal transplant team Dr. Yanick Monroe Hypertensive urgency Patient has baseline accelerated hypertension requiring multiple antihypertensive secondary to renal disease BP noted to be 190 in the ER possibly secondary to pain response Continue adequate pain control, Patient is continued with Lopressor 50 mg twice daily, nifedipine 30 mg twice daily Patient much improved today, BP 150/90 Hyperparathyroidism: Secondary to kidney disease Continue Sensipar, Code status: Full code DVT prophylaxis: Low risks, at baseline patient is very active SCD and teds Disposition: Transferred to [facility] for further care today Current Inpatient Medications Acetaminophen (Tylenol) 650 mg PO Q4H PRN PRN Reason: pain/fever Stop: 09/19/19 15:59 Hydralazine HCl (Hydralazine Hcl) 10 mg IV Q8 PRN PRN Reason: SBP > 160 Stop: 09/19/19 17:09 Hydromorphone HCl (Dilaudid) 1 mg IV Q4 PRN PRN Reason: pain Stop: 09/03/19 16:51 Last Admin: 08/21/19 07:10 Dose: 1 mg Documented by: Piperacillin Sod/Tazobactam (Sod 4.5 gm/ Dextrose) 120 mls @ 30 mls/hr IV Q8H MANNY; Protocol Stop: 08/30/19 19:59 Last Infusion: 08/21/19 08:30 Dose: Infused Documented by: Lactated Ringer's (Lr) 1,000 mls @ 125 mls/hr IV .Q8H MANNY Stop: 09/19/19 16:59 Last Infusion: 08/21/19 05:07 Dose: 125 mls/hr Documented by: Metoprolol Tartrate (Lopressor) 50 mg PO BID MANNY Stop: 09/19/19 20:59 Last Admin: 08/21/19 09:07 Dose: 50 mg Documented by: Miscellaneous Information (Consult) 1 ea N/A UD PRN PRN Reason: Consult Stop: 04/06/20 12:46 Mycophenolate Mofetil (Cellcept) 500 mg PO BID [facility] Stop: 09/19/19 20:59 Last Admin: 08/21/19 09:07 Dose: 500 mg Documented by: Nifedipine (Procardia Xl) 30 mg PO BID MANNY Stop: 09/19/19 20:59 Last Admin: 08/21/19 09:14 Dose: Not Given Documented by: Cinacalcet~~Non- Formulary Patient's Own Med 1 ea PO QDD MANNY Stop: 09/19/19 19:29 Last Admin: 08/20/19 20:25 Dose: 30 mg Documented by: Ondansetron HCl (Zofran) 4 mg IV Q6H PRN PRN Reason: Nausea Stop: 09/19/19 15:59 Pantoprazole Sodium (Protonix) 40 mg PO QAM MANNY Stop: 09/20/19 08:59 Last Admin: 08/21/19 09:10 Dose: 40 mg Documented by: Sevelamer HCl (Renagel) 3,200 mg PO TIDM MANNY Stop: 09/19/19 16:59 Last Admin: 08/21/19 07:10 Dose: Not Given Documented by: Tacrolimus (Prograf) 2 mg PO DAILY [facility] Stop: 09/20/19 08:59 Admission and Anticipated Discharge Date Admission Date: August 20, 2019 Subjective Patient had an uneventful night, no fever or chills Has persistent right upper quadrant pain, which is currently controlled with IV pain meds No nausea vomiting Vitals remained stable Patient will need cholecystectomy, which needs to be done at [facility] with coordination of surgical team and renal transplant team Patient is agreeable for transfer to [facility] today Review of Systems Constitutional: + anorexia and + problem reported (Right upper quadrant and epigastric abdominal pain); no fever and no chills Gastrointestinal: + abdominal pain and + nausea; no vomiting Physical Exam Constitutional: WD/WN, vitals as above + acute distress (Due to abdominal pain) Eyes: PERRL, conjunctivae normal, anicteric sclerae ENMT: external ear and nose normal, oropharynx normal Neck: trachea midline, no thyromegaly Respiratory: normal respiratory effort, lungs clear to auscultation Cardiovascular: RRR, no murmur, no edema Gastrointestinal (Abdomen): Inspection/Auscultation: + abdomen abnormal to inspection (Right lower abdomen transplant surgery scar well-healed, tenderness on right upper quadrant, epigastric area) and + abnormal bowel sounds (Bowel sounds diminished) Percussion/Palpation: + abdomen tender (Tenderness at right upper quadrant and epigastric area) Neurologic: PERRL, EOMI, accommodation nl, no face palsy, no dysarthria Psychiatric: Orientation: alert and oriented x 3 Results & Data ([facility]) Vital Signs (Past 12 Hours) Vital Signs Temp Pulse Pulse Pulse Resp BP Pulse Ox 08/21/19 07:41 77 08/21/19 07:08 37.3 C 77 18 150/90 H 94 08/21/19 03:34 37.4 C 85 22 167/98 H 97 08/20/19 23:43 37.5 C 69 20 156/75 H 96 08/20/19 23:33 68
[2019-08-21] MEDS: MYCOPHENOLATE MOFETIL 250 MG CAP PO SCH (09:07)
[2019-08-21] MEDS: METOPROLOL TARTRATE 50 MG TAB PO SCH (09:07)
[2019-08-21] MEDS: NIFEdipine EXTENDED REL 30 MG TABCR PO SCH (09:14)
--- NOTE | 2019-08-21 09:34 | Discharge Summary ---
Date of Service August 21, 2019 Admission HPI Per Admitting Provider Is a 59-year-old male status post recent renal transplant on 02/2019, hyperparathyroidism, hypertension Presented to ER with complaint of pain on right upper quadrant, Last night patient had dinner with deli sandwich with cheese and mayonnaise Woke up around 3 AM in the morning with severe epigastric and right upper quadrant abdominal pain, pain radiating to back, 10 out of 10, Associated with nausea, dry heaves no vomiting Patient reports pain was excruciating got no relief with change of position Did not had any fever or chills In the ER gallbladder ultrasound shows : Cholelithiasis with gallbladder wall thickening and trace pericholecystic fluid concerning for cholecystitis. Mild extrahepatic ductal dilatation He was afebrile normal white count, LFTs, lipase level within normal limit Will be admitted to medical telemetry, general surgery consulted Principal Diagnosis ACUTE CHOLECYSTITIS / S/P RENAL TRANSPLANT ON RT SIDE Discharge Exam Constitutional WD/WN, vitals as above + acute distress (Due to abdominal pain) Eyes PERRL, conjunctivae normal, anicteric sclerae ENMT external ear and nose normal, oropharynx normal Neck trachea midline, no thyromegaly Respiratory normal respiratory effort, lungs clear to auscultation Cardiovascular RRR, no murmur, no edema Gastrointestinal (Abdomen) Inspection/Auscultation: + abdomen abnormal to inspection (Right lower abdomen transplant surgery scar well-healed, tenderness on right upper quadrant, epigastric area) and + abnormal bowel sounds (Bowel sounds diminished) Percussion/Palpation: + abdomen tender (Tenderness at right upper quadrant and epigastric area) Neurologic PERRL, EOMI, accommodation nl, no face palsy, no dysarthria Psychiatric Orientation: alert and oriented x 3 Affect: + anxious affect Discharge Data Allergies Allergy/AdvReac Type Severity Reaction Status Date / Time No Known Allergies Allergy Verified 08/10/18 10:36 Consultations 08/20/19 14:02 ED Decision to Admit Stat 08/20/19 14:23 Consult General Surgery Routine Ordered Studies 08/20/19 10:32 US gallbladder Stat 08/20/19 17:08 CT abd pelvis wo con Routine Hospital Course (1) Acute cholecystitis: Patient had uneventful night, remains afebrile, Vitals stable and white count normal CT abdomen pelvis noncontrast: 1. Acute calculus cholecystitis. Surgical consultation is necessary. 2. Urothelial thickening and periureteral fat stranding at the transplanted kidney raises concern for acute tubular necrosis among other etiologies. Discussed with on-call surgical team at [facility], Patient's clinical picture, imaging suggestive of acute cholecystitis, needs surgery: Cholecystectomy recommends patient should be transferred to [facility], cholecystectomy procedure should be coordinated with his renal transplant team [facility], Patient will be transferred to [facility] today via ground/ACLS Accepting physician/surgeon Dr. Tinajero Patient care will also be coordinated with [facility] renal transplant team/physician Dr. Yanick Monroe Patient admitted yesterday 08/20/2019 with biliary colic, acute onset of severe pain on right upper quadrant and epigastric area started after fatty meal Right upper quadrant ultrasound shows a stiff of acute cholecystitis with pericholecystic fluid No evidence of sepsis patient is afebrile with normal white count Treated with bowel rest, clear liquid diet, pain control/IV hydration Patient's vitals remained stable overnight, normal white count, LFTs General surgery consult requested-recommends transfer to [facility] for further care Vital Signs Temp Pulse Pulse Pulse Resp BP BP 08/21/19 07:41 77 08/21/19 07:08 37.3 C 77 18 150/90 H 08/21/19 03:34 37.4 C 85 22 167/98 H 08/20/19 23:43 37.5 C 69 20 156/75 H 08/20/19 23:33 68 08/20/19 19:31 36.5 C 64 18 160/87 H 08/20/19 17:24 73 18 149/89 H 08/20/19 16:05 36.8 C 68 18 198/102 H 08/20/19 15:00 69 17 158/103 H 08/20/19 14:30 63 18 147/92 H 08/20/19 14:16 62 19 08/20/19 14:15 65 15 154/96 H 08/20/19 14:00 65 11 L 171/105 H 08/20/19 13:30 64 16 164/98 H 08/20/19 13:00 67 11 L 170/107 H 08/20/19 12:41 64 11 L 173/108 H 08/20/19 11:00 67 16 180/117 H 08/20/19 10:47 66 24 179/112 H 08/20/19 10:08 67 23 180/115 H 08/20/19 10:05 66 18 180/115 H 08/20/19 09:44 36.8 C 70 20 209/116 H Pulse Ox 08/21/19 07:41 08/21/19 07:08 94 08/21/19 03:34 97 08/20/19 23:43 96 08/20/19 23:33 08/20/19 19:31 96 08/20/19 17:24 08/20/19 16:05 99 08/20/19 15:00 98 08/20/19 14:30 99 08/20/19 14:16 99 08/20/19 14:15 99 08/20/19 14:00 96 08/20/19 13:30 94 08/20/19 13:00 94 08/20/19 12:41 94 08/20/19 11:00 97 08/20/19 10:47 99 08/20/19 10:08 100 08/20/19 10:05 100 08/20/19 09:44 97 Intake and Output 08/20/19 08/21/19 08/21/19 21:59 06:59 14:59 Intake Total 120 / 120 Balance 120 / 120 Intake: IV 120 / 120 Lr 1,000 ml @ 125 mls/hr IV . Q8H [facility] Rx#:[id number] ZOSYN 4.5 gm In 120 ml @ 240 mls/hr IV NOW ONE Rx#:[id number] Zosyn 4.5 gm In D5 100 ml @ 30 120 / 120 mls/hr IV Q8H [facility] Rx#:[id number] Nss 1000ML 1,000 ml @ 125 mls/ hr IV .Q8H [facility] Rx#:[id number] Other: Weight (2) Renal transplant recipient: Status post living donor renal transplant on 02/17/[address] [facility] by Dr. Leonard Seth Patient is on chronic immunosuppressant on Prograf and CellCept-which was continued Tacrolimus level on 08/16/2019 was 5.3 Creatinine 1.2 (creatinine 08/15/2019 was 1.6) CT abdomen pelvis noncontrast: Urothelial thickening and periureteral fat stranding at the transplanted kidney raises concern for acute tubular necrosis among other etiologies. Patient is being transferred to [facility] in [place], will be followed by renal transplant team Dr. Yanick Monroe Hypertensive urgency Patient has baseline accelerated hypertension requiring multiple antihypertensive secondary to renal disease BP noted to be 190 in the ER possibly secondary to pain response Continue adequate pain control, Patient is continued with Lopressor 50 mg twice daily, nifedipine 30 mg twice daily Patient much improved today, BP 150/90 Hyperparathyroidism: Secondary to kidney disease Continue Sensipar, Code status: Full code DVT prophylaxis: Low risks, at baseline patient is very active SCD and teds Disposition: Transferred to [facility] for further care today Current Inpatient Medications Acetaminophen (Tylenol) 650 mg PO Q4H PRN PRN Reason: pain/fever Stop: 09/19/19 15:59 Hydralazine HCl (Hydralazine Hcl) 10 mg IV Q8 PRN PRN Reason: SBP > 160 Stop: 09/19/19 17:09 Hydromorphone HCl (Dilaudid) 1 mg IV Q4 PRN PRN Reason: pain Stop: 09/03/19 16:51 Last Admin: 08/21/19 07:10 Dose: 1 mg Documented by: Piperacillin Sod/Tazobactam (Sod 4.5 gm/ Dextrose) 120 mls @ 30 mls/hr IV Q8H [facility]; Protocol Stop: 08/30/19 19:59 Last Infusion: 08/21/19 08:30 Dose: Infused Documented by: Lactated Ringer's (Lr) 1,000 mls @ 125 mls/hr IV .Q8H MANNY Stop: 09/19/19 16:59 Last Infusion: 08/21/19 05:07 Dose: 125 mls/hr Documented by: Metoprolol Tartrate (Lopressor) 50 mg PO BID MANNY Stop: 09/19/19 20:59 Last Admin: 08/21/19 09:07 Dose: 50 mg Documented by: Miscellaneous Information (Consult) 1 ea N/A UD PRN PRN Reason: Consult Stop: 09/19/19 12:46 Mycophenolate Mofetil (Cellcept) 500 mg PO BID MANNY Stop: 09/19/19 20:59 Last Admin: 08/21/19 09:07 Dose: 500 mg Documented by: Nifedipine (Procardia Xl) 30 mg PO BID [facility] Stop: 09/19/19 20:59 Last Admin: 08/21/19 09:14 Dose: Not Given Documented by: Cinacalcet~~Non- Formulary Patient's Own Med 1 ea PO QDD [facility] Stop: 09/19/19 19:29 Last Admin: 08/20/19 20:25 Dose: 30 mg Documented by: Ondansetron HCl (Zofran) 4 mg IV Q6H PRN PRN Reason: Nausea Stop: 09/19/19 15:59 Pantoprazole Sodium (Protonix) 40 mg PO QAM [facility] Stop: 09/20/19 08:59 Last Admin: 08/21/19 09:10 Dose: 40 mg Documented by: Sevelamer HCl (Renagel) 3,200 mg PO TIDM [facility] Stop: 09/19/19 16:59 Last Admin: 08/21/19 07:10 Dose: Not Given Documented by: Tacrolimus (Prograf) 2 mg PO DAILY [facility] Stop: 09/20/19 08:59 Total Time Total Time Spent Total Time Spent (In Minutes): 40 minutes Total Time Includes: Examination of the Patient, Discharge Planning, Medication Reconciliation and Communication With Other Providers Discharge Plan Discharge Items Patient Disposition: Transfer Acute Care Hospital Reason For Visit: RT UPPER QUADRANT PAIN Discharge Diagnosis: ACUTE CHOLECYSTITIS / S/P RENAL TRANSPLANT ON RT SIDE Activity: As commented below Activity Comment: TOLERATED Non-emergency contact: Primary Care Provider and Surgeon Call non-emergency contact if: you have any medication questions Follow-up/Referrals: Michael Marvin MD [Primary Care Provider] - Diet: Clear liquid Addtl Attending Provider Instructions: Patient is transferred to [facility]: Accepting physician/surgeon Dr. Tinajero Patient care will also be coordinated with [facility] renal transplant team/physician Dr. Yanick Monroe Pending Studies at Discharge: No Stand-Alone Forms: My [facility] [employer] Skilled Items Patient informed of condition?: Yes DNR: No Discharge Level of Care: Other Communicable Disease: No Discharge Prognosis: Other Lines: None Urinary Catheter: No Medications and DC Order Prescriptions: New piperacillin-tazobactam [Zosyn] 4.5 gram recon soln 4.5 gm IV Q8H 10 Days RF: 0 mycophenolate mofetil 250 mg Capsule 500 mg PO BID Qty: 0 RF: 0 tacrolimus 1 mg Capsule 2 mg PO DAILY Qty: 0 RF: 0 Continued cinacalcet 30 mg tablet 30 mg PO PM RF: 0 metoprolol tartrate 50 mg tablet 50 mg PO BID RF: 0 Discontinued cetirizine 10 mg tablet 10 mg PO PM RF: 0 lisinopril 20 mg tablet 20 mg PO PM RF: 0 sevelamer carbonate [Renvela] 800 mg tablet 3,200 mg PO TIDM RF: 0 aspirin [Aspirin Low Dose] 81 mg tablet,delayed release (DR/EC) 81 mg PO QAM RF: 0 ergocalciferol (vitamin D2) [Drisdol] 50,000 unit capsule 50,000 units PO WK RF: 0 Discharge Orders: Discharge Order (Routine); Ordered 08/21/19 Ordered By: Patty Foster Admission Data Admit Date/Time: 08/20/19 14:23 Attending Provider: Patty Foster Admit Provider: Patty Foster Primary Care Provider: Michael Marvin Other Providers: Patty Foster ; Simon Mendiola
[2019-08-21] MEDS ORDERED: MAGNESIUM SULFATE / D5W 1 GM/100 ML BAG IV ONE (10:30)
--- NOTE | 2019-08-22 12:29 | Electrocardiogram Report ---
Test Reason : Blood Pressure : / mmHG Vent. Rate : 067 BPM Atrial Rate : 067 BPM P-R Int : 206 ms QRS Dur : 096 ms QT Int : 432 ms P-R-T Axes : 065 -59 098 degrees QTc Int : 456 ms Normal sinus rhythm Possible Left atrial enlargement Left axis deviation Pulmonary disease pattern Incomplete right bundle branch block T wave abnormality, consider lateral ischemia Abnormal ECG When compared with ECG of 26-JUL-2018 14:16, Incomplete right bundle branch block is now Present T wave inversion now evident in Lateral leads Confirmed by Ramon Jimenez ([id number]) on 08/22/2019 12:29:00 PM Referred By: REFERRED SELF Confirmed By:Ramon Jimenez
== END 2019-08-21 12:54 | disposition short-term general hospital (02) ==
LOC: 2N 09:41 → ED 09:41 → 2N 15:14

== ENCOUNTER 2023-05-22 07:50 | Inpatient (IN) ==
--- OUTSIDE RECORDS SUMMARY | 2023-05-22 08:25 | External Medical Summary | Summary of Care ---
Author Name Unknown Organization [facility] Address [address] [place] [address] Phone [phone] Care Team Providers Care Habilitation Assistant Name Role Phone Michael Marvin MD Primary Care Provider Reason for Visit * Reason Onset Date Comments Test Results 05/19/2023 Encounter Details Date Type Department Care Team (Late st Contact Info) Description 05/19/2023 Telephone Family Medicine [address] [phone] Michael Marvin MD [address] [place] [address] [place] [address] Test Results Allergies No known active allergiesdocumented as of this encounter (statuses as of 05/20/2023) Medications Medication Sig Dispensed Refills Start Date End Date Status aspirin enteric coated 81 MG TBECIndications:Timo ey replaced by transplant,Need for prophylactic immunotherapy Take 1 Tab by mouth daily. 30 Tab 11 03/18/2019 Active acetaminophen (TYLENOL) 500 MG Tablet Take 1 Tablet by mouth every 6 hours as needed for Pain. 0 Active Magnesium Oxide 400 MG TabletIndications:CK D (chronic kidney disease), stage III (HCC) Take 1 Tab by mouth daily. 30 Tab 5 12/02/2019 Active Betamethasone Dipropionate 0.05 % External OintmentIndications: LSC (lichen simplex chronicus) apply to rash on skin 2 times daily or more if itchy in stead of scratching 90 g 0 10/29/2021 Active Cinacalcet HCl 30 MG Oral Tablet (Sensipar) TAKE 1 TABLET BY MOUTH IN THE EVENING 90 Tablet 2 04/05/2022 Active Simvastatin 20 MG Oral Tablet (Zocor)Indications:K idney replaced by transplant,Hyperlipi demia with target LDL less than 70 TAKE ONE TABLET BY MOUTH EVERY DAY 90 Tablet 3 11/05/2022 Active Lisinopril 40 MG Oral Tablet TAKE 1 TABLET BY MOUTH EVERY MORNING 90 Tablet 1 12/12/2022 Active Mycophenolate Sodium 180 MG Oral Tablet Delayed Release (Myfortic) Take 540 mg by mouth in the morning and 540 mg before bedtime. 180 Tablet 5 12/12/2022 Active Tacrolimus ER 0.75 MG Oral Tablet Extended Release 24 Hour (Envarsus XR) Take 2 Tablets by mouth in the morning. 60 Tablet 5 12/31/2022 Active Cinacalcet HCl 30 MG Oral Tablet (Sensipar) TAKE 1 TABLET BY MOUTH IN THE EVENING 90 Tablet 2 01/20/2023 01/20/2024 Active Carvedilol 25 MG Oral Tablet (Coreg)Indications:H TN, goal below 130/80 TAKE ONE TABLET BY MOUTH TWICE DAILY 180 Tablet 3 02/18/2023 Active cloNIDine HCl 0.1 MG Oral Tablet (Catapres)Indication s:Primary hypertension TAKE ONE TABLET BY MOUTH TWICE DAILY 180 Tablet 0 04/11/2023 Active Doxycycline Hyclate 100 MG Oral Capsule Take 1 Capsule by mouth in the morning and 1 Capsule before bedtime. Do all this for 10 days. Until gone.. 20 Capsule 0 05/18/2023 05/28/2023 Active Hospital, Clinic, or Other Facility Administered Medication Ordered Dose Route Frequency Start Date End Date Status Tixagevimab inj 150 mgIndications:Kidney replaced by transplant 150 mg IM [id number] 08/02/2021 Active Cilgavimab inj 150 mgIndications:Kidney replaced by transplant 150 mg IM [id number] 08/02/2021 Active documented as of this encounter (statuses as of 05/20/2023) Active Problems Problem Noted Date Diagnosed Date Dyslipidemia, goal LDL below 70 10/24/2022 H/O dysplastic nevus 10/08/2022 Overview: Early MIS/severely atypical nevus (L upper back 10/05) Body mass index (BMI) of 40.0 to 44.9 in adult 0 02/21/2020 Overview: Per Obesity protocol Kidney transplant rejection 10/24/2019 Need for prophylactic immunotherapy 05/25/2019 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 Renal transplant, status post 02/19/2019 Overview: Living donor renal transplant during admission Paroxysmal atrial fibrillation 04/28/2018 Lytic bone lesions on xray 04/28/2018 Hyperphosphatemia 04/09/2018 Hyperparathyroidism, secondary renal 04/09/2018 Allergic rhinitis due to allergen 10/19/2017 Primary hypertension documented as of this encounter (statuses as of 05/20/2023) Resolved Problems Problem Noted Date Diagnosed Date Resolved Date BMI 36.0-36.9,adult 09/06/2019 02/23/20 Overview: Per Obesity protocol Acute cholecystitis 08/24/2019 09/06/19 Umbilical hernia 08/24/2019 08/24/2019 Encounter for surveillance of abnormal nevi 07/13/2019 09/06/2019 Dependence on renal dialysis 06/03/2018 03/08/2019 CKD (chronic kidney disease), stage III 02/19/2018 09/06/2019 Allergic rhinitis 02/19/2018 documented as of this encounter (statuses as of 05/20/2023) Immunizations Name Administration Dates Next Due COVID-19, MRNA-LNP, 23-24, P F, 30 MCG/0.3 mL, 12 YRS AND ABOVE, IM (PFIZER-Comirnaty) 04/02/2023 Covid-19 Ad26, Single Dose (Allmoxy/J&J) 09/24/2020 Covid-19, Mrna, Lnp-s, Pf, B ivalent, 30 Mcg, IM, 12 yrs and above (Pfizer) 05/05/2022 Pneumococcal Polysaccharide PPV23 (Pneumovax) 09/02/2018 SEASONAL INFLUENZA, PF, 6 M & Above, IM , (FLULAVAL or FLUZONE) 02/28/2023,03/22/2022,03/30/2021,03/14,06/01/2019,04/28/2018 TDAP (age 10 and older)(Boostrix) 10/19/2017 documented as of this encounter Social History Tobacco Use Types Packs/Day Years Used Date Smoking Tobacco: Never Smokeless Tobacco: Never Alcohol Use Standard Drinks/Week Comments Not Currently 0 (1 standard drink = 0.6 oz pur e alcohol) PHQ-2 Answer Date Recorded PHQ-2 Score -1 03/04/2020 Sex and Gender Information Value Date Recorded Sex Assigned at Not on file Gender Identity Not on file Sexual Orientation Not on file Job Start Date Occupation Industry Not on file Not on file Not on file documented as of this encounter Functional Status Functional Status Response Date of Assess ment Are you deaf or do you have serious difficulty h earing? No 08/21/2019 Are you blind or do you have serious difficulty seeing, even when wearing glasses? No 08/21/2019 Do you have serious difficul ty walking or climbing stairs? (5 years old or older) No 08/21/2019 Do you have difficulty dress ing or bathing? (5 years old or older) No 08/21/2019 Because of a physical, menta l, or emotional condition, do you have difficulty doing errands alone such as visiting a doctor s office or shopping? (15 years old or older) No 08/21/19 Cognitive Status Response Date of Assessm ent Because of a physical, menta l, or emotional condition, do you have serious difficulty concentrating, remembering, or making decisions? (5 years old or older) No 08/21/2019 documented as of this encounter Miscellaneous Notes * Telephone Encounter - Yamila Schwartz LPN - 05/20/2023 3:51 PM EST Pt aware of letter sent yesterday, results normal. Pt said he is currently at the Er getting checked out, due to feeling sick. * Telephone Encounter - Brooklyn Presley OSA - 05/20/2023 11:37 AM EST Patient calling in to check on the status of previous message. Patient Called within 48 hour timeframe. Reminded patient of 48 hour turn-around time. * Telephone Encounter - Maria De Jesus Mccord OSA - 05/19/2023 5:24 PM EST Who is Requesting Test Results: Patient Primary Care Provider : Michael Marvin MD Tests Results Requested : Xray Date of Test : 05/18 Location of Test: [facility] Ordering Provider: Donaldo Duran Callback Number: [phone] Patient has been made aware that the turnaround time for test results are typically as follows: Laboratory results = within 2-3 days ([facility]), 3-5 days (Non-[facility], ie. [facility]) Urine Cultures = within 2-3 days depending on growth within the culture Pathology results (biopsy results/PAP) = 1-2 weeks Radiology results = about 1 week Cologuard results = within 2 weeks from the shipment date COVID testing = about 24 hours documented in this encounter Plan of Treatment Upcoming Encounters Date Type Department Care Team (Late st Contact Info) Description 07/13/2023 2:20 PM EST Office Visit Dermatology [address] [place] [address] Jennifer Avelar PA-C [address] [place] [address] [place] [phone] 08/28/2023 11:00 AM EDT Office Visit NephrologyBao [address] [facility] [place] [phone] Edwin Guerrero MD [address] [facility] [place] [id number] Scheduled Procedures Name Priority Associated Diagnoses Date/Ti me COLONOSCOPY FLEXIBLE PROXIMA L DIAGNOSTIC Recall Family history of colonic polyps Health Maintenance Due Date Last Done Comments Zoster Vaccines (1 of 2) 1980 Pneumococcal Vaccine: Pediatrics (0 to 5 Years) and At-Risk Patients (6 to 64 Years) (2 - PCV) 09/03/2019 09/02/2018 Depression Screening 03/14/2021 03/14/2020 COLONOSCOPY-EVERY 5 YRS AGES 18-100 06/29/2023 06/29/2018 GFR 12/07/2023 12/06/2022, 04/0 06/2022, 06/07/2022, Additional history exists Albumin/Creatinine Ratio 12/06/2025 023, 09/13/2022, 03/08/2022, Additional history exists Diabetes Screening 12/06/2025 12/06/2022, 0 09/13/2022, 06/07/2022, Additional history exists Lipid Panel 08/02/2026 08/02/2021, 08/14, 09/01/2020, Additional history exists DTaP,Tdap,and Td Vaccines (2 - Td or Tdap) 10/20/2027 10/19/2017 Influenza Vaccine (FLU shot) Completed , 03/22/2022, 03/30/2021, Additional history exists COVID-19 Vaccine Completed 04/02/2023, , 09/24/2020 GARDASIL-HPV IMMUNIZATION SERIES Aged Out No longer eligible based on patient's age to complete this topic MENINGOCOCCAL (MENACTRA/MENVEO) Aged Out No longer eligible based on patient's age to complete this topic documented as of this encounter Medical Devices Implanted Type Area Arc Welder Device Identifier Shelf Expiration Date Model / Serial / Lot Coil Vortex 35 [id number] - [id number] Implanted:Qty: 1 on 07/13/2018 by Collin Stroud MD at OR [facility] Left: Lower Arm [employer] : NEURO INTR 03/31/2021 [id number] / / [id number] documented as of this encounter Advance Directives Latest Code Status on File Code Status Date Activated Date Inactivated Comments Full Code 08/21/2019 3:01 PM 08/24/2019 6:09 PM This o rder reflects the patients wishes and were consensually agreed upon. Code Status History Code Status Date Activated Date Inactivated Comments Full Code 02/16/2019 1:28 PM 02/19/2019 8:12 PM This or alta reflects the patients wishes and were consensually agreed upon. Question Answer Comments Discussion of Advance Directives occurred with: Patient Does the patient have a Living Will? Yes, not currently available Does the patient have Health Care Power of Tablet Machine Operator? No Care Teams Habilitation Assistant Relationship Specialty Start Date End Date Michael Marvin MD [address] [place] [address] [place] [phone] PCP - General Family Medicine 09/16/17 documented as of this encounter
--- OUTSIDE RECORDS SUMMARY | 2023-05-22 08:25 | External Medical Summary | Summary of Care ---
Author Name Unknown Organization [facility] Address [address] [place] [address] Phone [phone] Care Team Providers Care Nutrition Aide Name Role Phone Michael Marvin MD Primary Care Provider [phone] Encounter Details Date Type Department Care Team ([facility] st Contact Info) Description 05/21/2023 Specialty Pharmacy [facility], [address] [address] Medication, [facility] Specialty Refill, [address] [address] Allergies No known active allergiesdocumented as of this encounter (statuses as of 05/21/2023) Medications Medication Sig Dispensed Refills Start Date End Date Status aspirin enteric coated 81 MG TBECIndications:Kiddurga ey replaced by transplant,Need for prophylactic immunotherapy [...] gone.. 20 Capsule 0 05/18/2023 05/28/2023 Active Phospha 250 Neutral 155-852-130 MG Oral Tablet TAKE ONE TABLET BY MOUTH EVERY DAY 30 Tablet 11 05/20/2023 Active Hospital, Clinic, or Other Facility Administered Medication Ordered Dose Route Frequency Start Date End Date Status Tixagevimab inj 150 mgIndications:Kidney replaced by transplant 150 mg IM [id number] 08/02/2021 Active Cilgavimab inj 150 mgIndications:Kidney replaced by transplant 150 mg IM [id number] 08/02/2021 Active documented as of this encounter (statuses as of 05/21/2023) Active Problems Problem Noted Date Diagnosed Date [...] as of this encounter (statuses as of 05/21/2023) Resolved Problems Problem Noted Date Diagnosed Date Resolved Date BMI 36.0-36.9,adult 09/06/2019 02/23/20 20 Overview: Per Obesity protocol Acute cholecystitis 08/24/2019 09/06/19 Umbilical hernia 08/24/2019 08/24/2019 Encounter for surveillance of abnormal nevi 07/13/2019 09/06/2019 Dependence on renal dialysis 06/03/2018 03/08/2019 CKD (chronic kidney disease), stage III 02/19/2018 09/06/2019 Allergic rhinitis 02/19/2018 documented as of this encounter (statuses as of 05/21/2023) Immunizations Name Administration Dates Next Due COVID-19, MRNA-LNP, 23-24, P F, 30 MCG/0.3 mL, 12 YRS AND ABOVE, IM (Nuiku-Comirnaty) 04/02/2023 Covid-19 Ad26, Single Dose ([employer]/J&J) 09/24/2020 Covid-19, Mrna, Lnp-s, Pf, B ivalent, [...] (15 years old or older) No 08/21/19 20 Cognitive Status Response Date of Assessm ent Because of a physical, menta l, or emotional condition, do you have serious difficulty concentrating, remembering, or making decisions? (5 years old or older) No 08/21/2019 documented as of this encounter Progress Notes * Kassandra Rodriguez CPhT - 05/21/2023 11:27 AM EST Prescribed medication: Medication: cinacalcet/envarsus Shipment date: 05/25 Delivery method: Specialty Mail Location Medication Delivered too? [address] Rodriguez CPhT [facility] 05/21/2023,11:27 AM documented in this encounter Plan of Treatment Upcoming Encounters Date Type Department Care Team (Late st Contact Info) Description 07/13/2023 2:20 PM EST Office Visit Dermatology [address] [place] [address] Jennifer Avelar PA-C [address] [place] [address] [place] [id number] 08/28/2023 11:00 AM EDT Office Visit Nephrology, Bao Szymanski [address] [facility] [place] [address] Edwin Guerrero MD [address] [facility] [place] [address] Scheduled Procedures Name Priority Associated Diagnoses Date/Ti [...] this encounter Medical Devices Implanted Type Area Billiard Parlor Manager Device Identifier Shelf Expiration Date Model / Serial / Lot Coil Vortex 35 [id number] [id number] - [id number] Implanted:Qty: 1 on 07/13/2018 by Collin Storud MD at [facility] Left: Lower Arm [employer] : NEURO INTR 03/31/2021 [id number] documented as of this encounter Advance Directives Latest Code Status on File Code Status Date Activated Date Inactivated Comments Full Code 08/21/2019 3:01 PM 08/24/2019 6:09 PM This o rder reflects the patients wishes and were consensually agreed upon. Code Status History Code Status Date Activated Date Inactivated Comments Full Code 02/16/2019 1:28 PM 02/19/2019 8:12 PM This or alat reflects the patients wishes and were consensually agreed upon. Question Answer Comments Discussion of Advance Directives occurred with: Patient Does the patient have a Living Will? Yes, not currently available Does the patient have Health Care Power of Welding Equipment Repairer? No Care Teams Nutrition Aide Relationship Specialty Start Date End Date Michael Marvin MD [address] [place] [address] [place] [address] PCP - General Family Medicine 09/16/17 documented as of this encounter
--- OUTSIDE RECORDS SUMMARY | 2023-05-22 08:26 | External Medical Summary | Summary of Care ---
Author Name Unknown Organization [facility] Address [address] [facility] [place] [address] Phone [phone] Care Team Providers Care Ironworker Apprentice Name Role Phone Michael Marvin MD Primary Care Provider [phone] Reason for Visit * Reason Comments eRx-Medication Refill Encounter Details Date Type Department Care Team (Late st Contact Info) Description 05/19/2023 Refill Nephrology, Bao Szymanski [address] [place] [address] Zeeshan Guerrero MD 200 [facility] [place] [address] Allergies No known active allergiesdocumented as of this encounter (statuses as of 05/20/2023) Medications Medication Sig Dispensed Refills Start Date End Date Status aspirin enteric coated 81 MG TBECIndications:Ki dney replaced by transplant,Need for prophylactic immunotherapy Take 1 Tab by mouth daily. 30 Tab 11 03/18/2019 Active acetaminophen (TYLENOL) 500 MG Tablet Take 1 Tablet by mouth every 6 hours as needed for Pain. 0 Active Magnesium Oxide 400 MG TabletIndications: CKD (chronic kidney disease), stage III (HCC) Take 1 Tab by mouth daily. 30 Tab 5 12/02/2019 Active Betamethasone Dipropionate 0.05 % External OintmentIndication s:LSC (lichen simplex chronicus) apply to rash on skin 2 times daily or more if itchy in stead of scratching 90 g 0 10/29/2021 Active Cinacalcet HCl 30 MG Oral Tablet (Sensipar) TAKE 1 TABLET BY MOUTH IN THE EVENING 90 Tablet 2 04/05/2022 Active Simvastatin 20 MG Oral Tablet (Zocor)Indications :Kidney replaced by transplant,Hyperli pidemia with target LDL less than 70 TAKE [...] IN THE EVENING 90 Tablet 2 01/20/2023 01/20/20 24 Active Carvedilol 25 MG Oral Tablet (Coreg)Indications :HTN, goal below 130/80 TAKE ONE TABLET BY MOUTH TWICE DAILY 180 Tablet 3 02/18/2023 Active cloNIDine HCl 0.1 MG Oral Tablet (Catapres)Indicati ons:Primary hypertension TAKE ONE TABLET BY MOUTH TWICE DAILY 180 Tablet 0 04/11/2023 Active Doxycycline Hyclate 100 MG Oral Capsule Take 1 Capsule by mouth in the morning and 1 Capsule before bedtime. Do all this for 10 days. Until gone.. 20 Capsule 0 05/18/2023 05/28/20 23 Active Phospha 250 Neutral 155-852-130 MG Oral Tablet TAKE ONE TABLET BY MOUTH EVERY DAY 30 Tablet 11 05/20/2023 Active Phospha 250 Neutral 155-852-130 MG Oral Tablet TAKE ONE TABLET BY MOUTH EVERY DAY 30 Tablet 5 11/24/2022 05/20/20 23 Discontinued Hospital, Clinic, or Other Facility Administered Medication Ordered Dose Route Frequency Start Date End Date Status Tixagevimab inj 150 mgIndications:Kidney replaced by transplant 150 mg IM [id number] 08/02/2021 Active Cilgavimab inj 150 mgIndications:Kidney replaced by transplant 150 mg IM [id number] 08/02/2021 Active documented as of this encounter [...] MCG/0.3 mL, 12 YRS AND ABOVE, IM ([employer]ir[employer]) 04/02/2023 Covid-19 Ad26, Single Dose ([employer]/J&J) 09/24/2020 Covid-19, Mrna, Lnp-s, Pf, B ivalent, [...] encounter Miscellaneous Notes * Telephone Encounter - Zeeshan Guerrero MD - 05/20/2023 11:46 AM ESTSigned Prescriptions: Disp Refills Phospha 250 Neutral 155-852-130 MG Oral Ta*30 Tab*11 Sig: TAKE ONE TABLET BY MOUTH EVERY DAY Authorizing Provider: ZEESHAN GUERRERO * Telephone Encounter - Shanda Huang, RN - 05/20/2023 8:16 AM ESTPending Prescriptions: Disp Refills Phospha 250 Neutral 155-852-130 MG Oral Ta*30 Tab*11 Sig: TAKE ONE TABLET BY MOUTH EVERY DAY * Telephone Encounter - Shanda Huang RN - 05/20/2023 8:15 AM EST Prescription request received from pharmacy pending. Please authorize. Last ov 01/19/23 Needs scheduled follow up for July. Note sent to sports teacher. documented in this encounter Plan of Treatment Upcoming Encounters Date Type Department Care Team (Late st Contact Info) Description 07/13/2023 2:20 PM EST Office Visit Dermatology [address] [place] [address] Jennifer Avelar PA-C [address] [place] [address] [place] [address] 08/28/2023 11:00 AM EDT Office Visit Nephrology, Bao Szymanski [facility] [place] [address] Zeeshan Guerrero MD [address] [facility] [place] [address] Scheduled Procedures Name Priority Associated Diagnoses Date/Ti [...] this encounter Medical Devices Implanted Type Area Hand Scraper Device Identifier Shelf Expiration Date Model / Serial / Lot Coil Vortex 35 Pltinm [id number] - [id number] Implanted:Qty: 1 on 07/13/2018 by Collin Stroud MD [place] [facility] [place]: Lower Arm [employer] : NEURO INTR 03/31/2021 [id number] / / [id number] documented as of this encounter Advance Directives [...] the patient have Health Care Power of Manager Treasury? No Care Teams Ironworker Apprentice Relationship Specialty Start Date End Date Michael Marvin MD [address] [place] [address] [place] [address] PCP - General Family Medicine 09/16/17 documented as of this encounter
[2023-05-22 08:34] LABS: Basophils # (auto) 0.02 K/uL (0.00-0.20); Basophils % (auto) 0.3 %; Eosinophils # (auto) 0.01 K/uL (0.00-0.50); Eosinophils % (auto) 0.1 %; Hematocrit (blood only) 44.9 % (42.0-52.0); Hemoglobin 15.2 g/dl (14.0-18.0); Immature Granulocytes # (auto) 0.03 K/uL (0.01-0.20); Immature Granulocytes % (auto) 0.4 %; Lymphocytes # (auto) 0.77 K/uL (1.20-3.40); Lymphocytes % (auto) 10.1 %; Mean Corpuscular Hemoglobin 30.2 pg (25.0-34.0); Mean Corpuscular Hgb Conc 33.9 g/dL (32.0-36.0); Mean Corpuscular Volume 89.3 fL (80.0-100.0); Mean Platelet Volume 11.3 fL (9.4-12.4); Monocytes # (auto) 0.77 K/uL (0.11-0.59); Monocytes % (auto) 10.1 %; Neutrophils # (auto) 6.03 K/uL (1.40-6.50); Platelet Count 190 K/uL (130-400); RDW Coefficient of Variation 13.2 % (11.5-14.5); RDW Standard Deviation 42.7 fL (36.4-46.3); Red Blood Count 5.03 M/uL (4.70-6.10); White Blood Count 7.63 K/ul (4.8-10.8)
[2023-05-22] MEDS ORDERED: ALBUT/IPRATROP 3MG/0.5MG NEB 3 ML VIAL NEB ONE (08:38)
--- NOTE | 2023-05-22 08:41 | Emergency Department Note ---
Impression & Plan Respiratory syncytial virus (RSV), Immunosuppressed status, Breathlessness ED Provider Note Provider: Abhijeet Desouza MD DATE OF SERVICE: 05/22/2023 CHIEF COMPLAINT: Shortness of breath HISTORY OF PRESENT ILLNESS: Patient is a 62-year-old gentleman history of kidney transplant, hypertension, and recent evaluation here 2 days ago diagnosed with RSV presenting EMS for worsening shortness of breath. Not sleeping much at home and now having difficulty ambulating even a few steps at home due to worsening breathing. Cough but not productive. Some chronic leg swelling. Denies significant abdominal pain or nausea or vomiting. No fevers reported. History of childhood asthma but denies history of asthma, reactive airway disease, or smoking otherwise. States some improvement after receiving albuterol for EMS. States a little bit discomfort with coughing but denies chest pain otherwise. PAST MEDICAL HISTORY: As noted above MEDICATIONS: No medication SOCIAL HISTORY: Non-smoker PHYSICAL EXAM: GENERAL: alert and oriented in no acute distress on stretcher Head: normocephalic and atraumatic EYES: No injection, discharge or icterus. NECK: Trachea midline. ENT: Mucous membranes pink and moist. LUNGS: Airway patent. No retractions but mildly tachypneic. Diffuse expiratory wheeze. HEART: Regular rate and rhythm. No chest wall tenderness ABDOMEN: Soft and non-tender, without guarding or rebound. SKIN: Acyanotic, warm, dry, without rashes EXTREMITIES: Without tenderness with 1+ edema of the lower extremities bilaterally without erythema NEUROLOGICAL: No focal deficits. No aphasia. No facial droop or slurred speech. Ambulatory to bathroom without assistance. EK beats minute sinus rhythm first-degree AV block. PACs noted. No acute ST segment elevation or depression. QTc 442. Left axis. CONTINUOUS CARDIAC MONITORING: was ordered and showed a heart rate of 50s to 70s bpm in sinus rhythm first-degree AV block occasional PACs Patient's laboratory studies and imaging reviewed. Differential includes Reactive airway disease, pneumonia, pneumothorax, COPD, CHF, infections, cardiac ischemia, pulmonary embolism, musculoskeletal, gastrointestinal, as well as other pathologies. IMPRESSION/MEDICAL DECISION MAKING: Patient immunosuppressed for renal transplant RSV diagnosed on Thursday. Back due to worsening breathing and significant wheezing on exam. Received some nebulizer prior to arrival for EMS given additional here. Not hypoxic. Little bit of chest pain believe musculoskeletal from coughing low suspicion for ACS but troponin EKG completed. Blood work repeated here without evidence of leukocytosis or anemia. No significant electrolyte abnormality or signs of renal dysfunction. LFT abnormalities. Urinalysis sent. Given additional DuoNeb here. Received dexamethasone on Thursday. Not a smoker but may be some childhood asthma may be contributing to his wheeziness with the RSV. Chest x- ray per radiology without evidence of consolidation concerning for pneumonia and again without leukocytosis here today. Stable renal function. No troponin elevation. No significant electrolyte abnormality. Patient still quite short of breath. States he does not wear CPAP at night and does not believe he can tolerate a mask. Given some oxygen for comfort and given DuoNeb here. Will give a small dose of IV steroid for presumed reactive airway disease. Requires further care at the hospital given significant dyspnea. No clinical stigmata of heart failure at this time given his significant wheeze I doubt this represents PE. DIAGNOSIS: RSV, shortness of breath DISPOSITION: Hospitalist will evaluate Patient was agreeable with this plan. Past Med/Surg History Medical History (Updated 05/22/23 @ 10:50 by Abhijeet Desouza M.D.) HLD (hyperlipidemia) ESRD (end stage renal disease) s/p 2019 renal txplt Immunosuppressed status Gout Osteoarthritis GERD (gastroesophageal reflux disease) Atrial fibrillation A FIB EVENT X 1 (WITH 2ND DIALYSIS) Asthma A CHILD (NO CURRENT PROBLEMS) Hyperparathyroidism due to renal insufficiency HTN (hypertension) New onset atrial fibrillation Surgical History History of cholecystectomy Renal transplant recipient Date of transplant 02/17/2019, at [facility] Living donor transplant History of tooth extraction S/P arteriovenous (AV) fistula creation LEFT ARM Family History Brother Family hx colonic polyps Father Heart disease Stroke Mother Coronary heart disease Other Dementia Hypertension Skin cancer Social History Smoking Status: Never smoker Second Hand Exposure: No; Do You Dip or Chew Tobacco: No; Hx Alcohol Use: No Hx Substance Use: No Preferred Language: Italian Communication Ability: Effective Visual Impairment: No Limitations Tilt Tray Driver Required: No Beliefs That Will Affect Care: None marital status: Current Living Situation: Spouse current occupational status: employed Feels Safe at Home: Yes Assistive Devices: None Allergies Allergies Allergy/AdvReac Type Severity Reaction Status Date / Time No Known Allergies Allergy Verified 10/18/20 17:36 Home Meds Home Medications Medication Instructions Recorded Confirmed cinacalcet 30 mg tablet 30 mg PO PM 04/24/18 10/18/20 acetaminophen 500 mg tablet 500 mg PO Q6H PRN Pain 06/18/20 10/18/20 (Tylenol Extra Strength) aspirin 81 mg tablet,delayed 81 mg PO DAILY 06/18/20 10/18/20 release magnesium oxide 400 mg PO DAILY 06/18/20 10/18/20 mycophenolate mofetil 250 mg 250 mg PO BID 06/18/20 10/18/20 capsule simvastatin 20 mg tablet 20 mg PO DAILY 06/18/20 10/18/20 sodium di- and 1 tab PO DAILY 06/18/20 10/18/20 monophosphate-potassium phos monobasic 250 mg tablet ([id number]) carvedilol 25 mg tablet 25 mg PO DAILY 10/18/20 10/18/20 lisinopril 10 mg tablet 10 mg PO BID 10/18/20 10/18/20 Previous Rx's Medication Instructions Recorded tacrolimus 1 mg capsule, 2 mg (2 x 1 mg) PO DAILY #0 caps 08/21/19 immediate-release Results & Data (ED) Vital Signs Vital Signs - 24 hr 05/22/23 07:56 05/22/23 07:56 05/22/23 07:56 Temperature 36.6 C Temperature Source Oral Pulse Rate 78 Pulse Rate [Apical] Pulse Rhythm Regular Pulse Strength Normal Respiratory Rate 38 H Respiratory Effort / Characteristics Spontaneous Accessory Muscle Use Labored Short of Breath SOB on Exertion Tripoding Spontaneous Accessory Muscle Use Labored Retracting Short of Breath SOB on Exertion Tripoding Respiratory Depth Retractive Retractive Respiratory Pattern Tachypnea Tachypnea Blood Pressure 162/101 H Blood Pressure [Right Arm] Blood Pressure Mean 121 Blood Pressure Mean [Right Arm] Blood Pressure Position Sitting Blood Pressure Position [Right Arm] Pulse Oximetry 91 91 Oxygen Delivery Method Room Air Room Air Nasal Cannula Oxygen Flow Rate 0 Sepsis Recent Fever Within 48 Hours No Sepsis New/Unexplained Change in Mental Status No Sepsis Action Taken by Nursing No Action Required Oxygen Flow Rate - Titration 2 Pulse Oximetry Post Tiitration 94 05/22/23 08:14 05/22/23 08:19 05/22/23 08:19 Temperature 36.6 C Temperature Source Oral Pulse Rate 66 64 Pulse Rate [Apical] 63 Pulse Rhythm Regular Pulse Strength Respiratory Rate 26 H 26 H Respiratory Effort / Characteristics Labored Respiratory Depth Respiratory Pattern Tachypnea Blood Pressure Blood Pressure [Right Arm] 162/101 H Blood Pressure Mean Blood Pressure Mean [Right Arm] 121 Blood Pressure Position Blood Pressure Position [Right Arm] Sitting Pulse Oximetry 96 96 Oxygen Delivery Method Nasal Cannula Nasal Cannula Oxygen Flow Rate 2 2 Sepsis Recent Fever Within 48 Hours Sepsis New/Unexplained Change in Mental Status Sepsis Action Taken by Nursing Oxygen Flow Rate - Titration Pulse Oximetry Post Tiitration 05/22/23 09:36 Temperature Temperature Source Pulse Rate Pulse Rate [Apical] 62 Pulse Rhythm Pulse Strength Respiratory Rate 20 Respiratory Effort / Characteristics Spontaneous Respiratory Depth Respiratory Pattern Blood Pressure Blood Pressure [Right Arm] Blood Pressure Mean Blood Pressure Mean [Right Arm] Blood Pressure Position Blood Pressure Position [Right Arm] Pulse Oximetry 96 Oxygen Delivery Method Nasal Cannula Oxygen Flow Rate 2 Sepsis Recent Fever Within 48 Hours Sepsis New/Unexplained Change in Mental Status Sepsis Action Taken by Nursing Oxygen Flow Rate - Titration Pulse Oximetry Post Tiitration Laboratory Data 05/22/23 08:00 05/22/23 08:00 Lab Results 05/22/23 Range/Units 08:00 WBC 7.63 (4.8-10.8) K/ul RBC 5.03 (4.70-6.10) M/uL Hgb 15.2 (14.0-18.0) g/dl Hct 44.9 (42.0-52.0) % MCV 89.3 (80.0-100.0) fL MCH 30.2 (25.0-34.0) pg MCHC 33.9 (32.0-36.0) g/dL RDW Std Deviation 42.7 (36.4-46.3) fL RDW Coeff of Christian 13.2 (11.5-14.5) % Plt Count 190 (130-400) K/uL MPV 11.3 (9.4-12.4) fL Immature Gran % (Auto) 0.4 % Neut % (Auto) 79.0 % Lymph % (Auto) 10.1 % [place] % (Auto) 10.1 % Eos % (Auto) 0.1 % Baso % (Auto) 0.3 % Neut # (Auto) 6.03 (1.40-6.50) K/uL Lymph # (Auto) 0.77 L (1.20-3.40) K/uL [place] # (Auto) 0.77 H (0.11-0.59) K/uL Eos # (Auto) 0.01 (0.00-0.50) K/uL Baso # (Auto) 0.02 (0.00-0.20) K/uL Immature Gran # (Auto) 0.03 (0.01-0.20) K/uL PT 11.2 (9.0-12.0) Seconds INR 1.0 (0.9-1.1) APTT 29 (21-31) Seconds PTT Ratio 1.0 Sodium 139 (136-145) mmol/L Potassium 4.5 (3.5-5.1) mmol/L Chloride 105 (98-107) mmol/L Carbon Dioxide 29 (21-32) mmol/L Anion Gap 5 (3-11) BUN 22 (6-23) mg/dl Creatinine 1.11 (0.6-1.4) mg/dl Est Cr Clr Drug Dosing 92.1 ml/min Est GFR ( Amer) 82.6 ml/min Est GFR (Non-Af Amer) 71.3 ml/min BUN/Creatinine Ratio 19.8 (10-20) Glucose 114 H (70-99(Fasting)) mg/dl Calcium 10.1 (8.6-10.3) mg/dl Phosphorus 3.3 (2.5-4.9) mg/dl Magnesium 1.7 (1.7-2.4) mg/dl Total Bilirubin 0.6 (0.2-1.0) mg/dl AST 26 (13-39) U/L ALT 26 (7-52) U/L Alkaline Phosphatase 91 (34-104) U/L Troponin I High Sens 14.6 (0-20) pg/ml Total Protein 7.1 (6.0-8.3) gm/dl Albumin 4.3 (3.4-5.0) gm/dl Globulin 2.8 (2.5-4.0) gm/dl Albumin/Globulin Ratio 1.5 (0.9-2) Administered Medications Discontinued Medications Albuterol (Albut/Ipratrop 3mg/0.5mg Neb 3 Ml Vial) 12 ml NEB ONE ONE; Protocol Stop: 05/22/23 08:39 Last Admin: 05/22/23 09:36 Dose: 12 ml Documented By: MARC Imaging Data Radiologist's Impression: Chest X-Ray 05/22/23 08:11 XR chest 1V portable HISTORY: 62 years-old Male Dyspnea acute shortness of breath COMPARISON: Chest radiograph 05/20/2023, CT abdomen and pelvis 06/18/2020. TECHNIQUE: AP view of the chest FINDINGS: Cardiomediastinal and hilar silhouettes are within normal limits. No pneumothorax, pleural effusion or pulmonary edema. Chronic reticulonodular opacities. No lobar space consolidation. Bones appear grossly intact. IMPRESSION: 1. Chronic reticular nodular opacities are likely infectious or inflammatory. 2. No airspace consolidation typical for pneumonia. ACT 112: Negative or not required by law. The above report was generated using voice recognition software. It may contain grammatical, syntax or spelling errors. Electronically signed by: Jerome Toribio M.D. 05/22/2023 8:44 AM Discharge Plan Visit Data Chief Complaint: Shortness of Breath/Dyspnea Stated Complaint: SOB ED Provider: Abhijeet Desouza Discharge Problem: Respiratory syncytial virus (RSV), Immunosuppressed status, Breathlessness Patient Disposition: Admitted As Inpatient Forms Stand Alone Forms: My [facility] Prescriptions Prescriptions: No Action cinacalcet 30 mg tablet 30 mg PO PM Rx Instructions: TAKE THIS MEDICATION ONCE DAILY WITH EVENING MEAL tacrolimus 1 mg Capsule 2 mg PO DAILY Qty: 0 0RF mycophenolate mofetil 250 mg Capsule 250 mg PO BID aspirin 81 mg Tablet,Delayed Release (Dr/Ec) 81 mg PO DAILY acetaminophen [Tylenol Extra Strength] 500 mg Tablet 500 mg PO Q6H PRN (Reason: Pain) simvastatin 20 mg Tablet 20 mg PO DAILY magnesium oxide 400 mg magnesium Tablet 400 mg PO DAILY C-Pkry-Xlconci 250 mg Tablet 1 tab PO DAILY Patient Comments: Patient rarely takes because its hard to get a a new RX. 10/18/20 carvedilol 25 mg tablet 25 mg PO DAILY lisinopril 10 mg Tablet 10 mg PO BID Referrals Referrals: Michael Marvin MD [Primary Care Provider] -
--- NOTE | 2023-05-22 08:46 | XRay Report ---
XR chest 1V portable HISTORY: 62 years-old Male Dyspnea acute shortness of breath COMPARISON: Chest radiograph 05/20/2023, CT abdomen and pelvis 06/18/2020. TECHNIQUE: AP view of the chest FINDINGS: Cardiomediastinal and hilar silhouettes are within normal limits. No pneumothorax, pleural effusion o r pulmonary edema. Chronic reticulonodular opacities. No lobar space consolidation. Bones appear solis sly intact. IMPRESSION: 1. Chronic reticular nodular opacities are likely infectious or inflammatory. 2. No airspace consolidation typical for pneumonia. ACT 112: Negative or not required by law. The above report was generated using voice recognition software. It may contain grammatical, syntax o r spelling errors. Electronically signed by: Jerome Toribio M.D. 05/22/2023 8:44 AM
[2023-05-22 08:53] LABS: Albumin Globulin Ratio 1.5 (0.9-2); Albumin Level 4.3 gm/dl (3.4-5.0); BUN Creatinine Ratio 19.8 (10-20); Bilirubin,Total 0.6 mg/dl (0.2-1.0); Calcium 10.1 mg/dl (8.6-10.3); Creatinine Clr Calc Pharmacy 92.1 ml/min; Est GFR (African American) 82.6 ml/min; Est GFR (Non-African American) 71.3 ml/min; Globulin 2.8 gm/dl (2.5-4.0); Magnesium 1.7 mg/dl (1.7-2.4); Potassium 4.5 mmol/L (3.5-5.1); Total Protein 7.1 gm/dl (6.0-8.3)
[2023-05-22 08:58] LABS: Troponin I High Sensitivity 14.6 pg/ml (0-20)
[2023-05-22 09:04] LABS: Partial Thromboplastin Time 29 Seconds (21-31); Prothrombin Time 11.2 Seconds (9.0-12.0)
[2023-05-22] MEDS ORDERED: methylPREDNISolone 125 MG/2 ML VIAL IV STA (09:25)
[2023-05-22] MEDS ORDERED: POLYETHYLENE (MIRALAX) 17 GM PACK PO PRN (09:41)
[2023-05-22] MEDS ORDERED: ALUMINUM/MAGNESIUM SUSP 30 ML UDC PO PRN (09:41)
[2023-05-22] MEDS ORDERED: ACETAMINOPHEN 325 MG TAB PO PRN (09:41)
[2023-05-22] MEDS ORDERED: MAGNESIUM HYDROXIDE SUSP 30 ML UDC PO PRN (09:41)
[2023-05-22] MEDS ORDERED: ONDANSETRON INJ 2 MG/ML 2 ML VIAL IV PRN (09:41)
--- NOTE | 2023-05-22 09:52 | History & Physical Report ---
Date of Service May 22, 2023 Assessment & Plan (1) Respiratory syncytial virus (RSV): (2) ESRD (end stage renal disease): (3) Immunosuppressed status: (4) HTN (hypertension): (5) Hyperparathyroidism due to renal insufficiency: (6) HLD (hyperlipidemia): Plan Mr. Munson is a 62-year-old male who has a past medical history of ESRD s/p kidney transplant in 2019 at [facility] with a living donor, history of atrial fibrillation while receiving dialysis during the transplant, HTN, HLD, and hyperparathyroid hormone related to immunosuppression and kidney disease presents today for shortness of breath that has worsened since Sunday 05/20 when he was here and tested positive for RSV. He went to his PCP on Sunday 05/20 and was prescribed antibiotics for questionable pneumonia. To note, patient only born with one kidney. When he was here in 05/20 he was given a dose of p.o. dexamethasone while here. On Thursday BNP was 322. ECHO on 01/05/23: EF 60 to 64% with LV wall moderate concentric, mild MR/TR with right lateral pericardial effusion and grade 2 LV DDx. No leukocytosis, or other lab abnormalities. Creatinine 1.11; baseline 1.2 per review of recent outpatient lab. Today chest x-ray Chronic reticular nodular opacities are likely infectious or inflammatory without signs of pneumonia. review. Received methylprednisone 40 mg IV and 12 mL DuoNeb in the ED today. Suspect this individual has a complicated course of RSV due to his immunosuppression. Will continue supportive treatment with neb treatments, daily IV steroids taking into consideration his renal transplant history, Mucinex, flutter valve, ISB, and will follow Procalcitonin, Sputum cx, and BNP. Based on BNP results, consider repeating ECHO. RSV +: Wheezing: Acute RSV positive on Sunday 05/20 Positive wheezes without hypoxia Positive tachypnea Received p.o. dexamethasone in the ED on 05/20 and was discharged home without further steroids CXR today Chronic reticular nodular opacities are likely infectious or inflamm atory without signs of pneumonia No leukocytosis, hypoxia or tachycardia Received methylprednisone IV 40 mg in ED; continue with 40 mg IV tonight and continue 40 mg IV daily Received 12 mL DuoNeb in ED; continue QID and PRN Check Procalcitonin, Phos+, BNP, and sputum culture. Flutter valve and ISB ordered ESRD status post renal transplant: Immunosuppressed status: Hyperparathyroidism due to renal insufficiency: Transplant 03/03 at [facility] with living donor Not requiring hemodialysis; makes urine Takes K-Phos, Cinacalcet, mycophenolate mofetil, and tacrolimus; continue serum creatinine 1.11; baseline 1.2-1.3 HTN: Chronic stable BP normally 150/90; follows with [employer]. Last Cards appt 10/2022; reportedly difficult - to - control HTN Had issues with LE edema on Amlodipine and Nifedipine Not a good candidate for diuretics due to worsening transplant function If HTN uncontrolled; outpatient Cards records suggest increasing Clonidine vs adding terazosin Consider Nephro input for guidance if necessary. Takes Coreg, Clonidine, and lisinopril; continue HLD: Chronic stable last lipid panel: 07/2021: TG 150, HDL 27, LDL 68. takes Simvastatin;continue Disposition: PCP: Dr. Marvin CODE STATUS: Full code VTE prophylaxis: Lovenox SQ I spent a total of 87 minutes coordinating, documenting, and providing care for this patient excluding time spent in the performance of separately billed services. All of the aforementioned completed while collaborating with the assigned attending physician for a full treatment plan. Please see their addendum for further details. History of Present Illness Chief Complaint: SOB Primary Care Provider: Michael Marvin MD Mr. Munson is a 62-year-old male who has a past medical history of ESRD s/p kidney transplant in 2019 at [facility] with a living donor, history of atrial fibrillation while receiving dialysis during the transplant, HTN, HLD, and hyperparathyroid hormone related to immunosuppression and kidney disease presents today for shortness of breath that has worsened since Sunday 05/20 when he was here and tested positive for RSV. He went to his PCP on Sunday 05/20 and was prescribed antibiotics for questionable pneumonia. To note, patient only born with one kidney. When he was here in 05/20 he was given a dose of p.o. dexamethasone while here. On Thursday BNP was 322. ECHO on 01/05/23: EF 60 to 64% with LV wall moderate concentric, mild MR/TR with right lateral pericardial effusion and grade 2 LV DDx. In the ED today no leukocytosis, or other lab abnormalities. Creatinine 1.11; baseline 1.2 per review of recent outpatient lab. Today chest x-ray Chronic reticular nodular opacities are likely infectious or inflammatory without signs of pneumonia. review. Received methylprednisone 40 mg IV and 12 mL DuoNeb in the ED today. Pt sitting on the side of his bed in no apparent distress with a one hour neb in process. He states that he is feeling considerably better, but does have continued expiratory wheezing and rhonchi. He reports having intermittent fluttering in his chest, he does have a history of atrial fibrillation that occurred while he was receiving dialysis after his transplant. Most recent ECHO as outlined above. Suspect this individual has a complicated course of RSV due to his immunosuppression. Will continue supportive treatment with neb treatments, daily IV steroids taking into consideration his renal transplant history, Mucinex, flutter valve, ISB, and will follow Procalcitonin, Sputum cx, and BNP. Based on BNP results, consider repeating ECHO. Patient will be admitted for further evaluation and management. Please see A/P for further details. Allergies Allergy/AdvReac Type Severity Reaction Status Date / Time No Known Allergies Allergy Verified 10/18/20 17:36 Home Medications Medication Instructions Recorded Confirmed Type cinacalcet 30 mg tablet 30 mg PO PM 04/24/18 05/22/23 History tacrolimus 1 mg capsule, 2 mg (2 x 1 mg) PO DAILY #0 caps 08/21/19 05/22/23 Rx immediate-release acetaminophen 500 mg tablet 500 mg PO Q6H PRN Pain 06/18/20 05/22/23 History (Tylenol Extra Strength) aspirin 81 mg tablet,delayed 81 mg PO DAILY 06/18/20 05/22/23 History release magnesium oxide 400 mg PO DAILY 06/18/20 05/22/23 History mycophenolate mofetil 250 mg 250 mg PO BID 06/18/20 05/22/23 History capsule simvastatin 20 mg tablet 20 mg PO DAILY 06/18/20 05/22/23 History sodium di- and 1 tab PO DAILY 06/18/20 05/22/23 History monophosphate-potassium phos monobasic 250 mg tablet (C-[id number]) carvedilol 25 mg tablet 25 mg PO DAILY 10/18/20 05/22/23 History lisinopril 10 mg tablet 10 mg PO BID 10/18/20 05/22/23 History Past Med/Surg History Medical History (Updated 12/08/23 @ 10:50 by Abhijeet Desouza M.D.) HLD (hyperlipidemia) ESRD (end stage renal disease) s/p 2019 renal txplt Immunosuppressed status Gout Osteoarthritis GERD (gastroesophageal reflux disease) Atrial fibrillation A FIB EVENT X 1 (WITH 2ND DIALYSIS) Asthma A CHILD (NO CURRENT PROBLEMS) Hyperparathyroidism due to renal insufficiency HTN (hypertension) New onset atrial fibrillation Surgical History History of cholecystectomy Renal transplant recipient Date of transplant 02/17/2019, at [facility] Living donor transplant History of tooth extraction S/P arteriovenous (AV) fistula creation LEFT ARM Family History Brother Family hx colonic polyps Father Heart disease Stroke Mother Coronary heart disease Other Dementia Hypertension Skin cancer Social History Smoking Status: Never smoker Second Hand Exposure: No; Do You Dip or Chew Tobacco: No; Hx Alcohol Use: No Hx Substance Use: No Preferred Language: Divehi Communication Ability: Effective Visual Impairment: No Limitations Metal Expediter Required: No Beliefs That Will Affect Care: None marital status: Current Living Situation: Spouse current occupational status: employed Feels Safe at Home: Yes Assistive Devices: None Review of Systems Review of Systems: Neuro: (-) Falls, trauma, slurred speech HEENT: (-) VILLASENOR, dizziness, dysphagia, visual or auditory changes CV: (-) CP, palpitations, swelling Resp: (+) SOB (+) wheezes GI: (-) appetite changes, N/V/D, bowel changes : (-) urinary changes Skin: (-) rashes Psych: (-) anxiety, depression Physical Exam Physical Exam: Neuro: AAOx4, PERRLA, no aphagia, memory changes, CNII-XII grossly intact HEENT: head normocephalic, moist mucus membranes CV: S1/S2, (-) M/G/R, (+) 2 bilateral pitting edema, cap refill < 3 seconds Resp: Lungs + expiratory wheezes throughout. on 2LNC GI: Abdomen S/NT/ND, Ax4 bowel sounds, (-) CVA tenderness Musculoskeletal: 5/5 B/L UE strength, 5/5 B/L LE strength. No gait disturbance Skin: (-) rashes , (-) erythema. Psych: euthymic mood Results & Data Results & Data Vital Signs (Past 12 Hours) Vital Signs Temp Pulse Pulse Resp BP BP Pulse Ox 05/22/23 09:36 62 20 96 05/22/23 08:19 64 26 H 96 05/22/23 08:19 36.6 C 63 26 H 162/101 H 96 05/22/23 08:14 66 05/22/23 07:56 91 05/22/23 07:56 05/22/23 07:56 36.6 C 78 38 H 162/101 H 91 O2 Del Method O2 Flow Rate 05/22/23 09:36 Nasal Cannula 2 05/22/23 08:19 Nasal Cannula 2 05/22/23 08:19 Nasal Cannula 2 05/22/23 08:14 05/22/23 07:56 Nasal Cannula 0 05/22/23 07:56 Room Air 05/22/23 07:56 Room Air Laboratory Results Short CBC 05/22/23 Range/Units 08:00 WBC 7.63 (4.8-10.8) K/ul Hgb 15.2 (14.0-18.0) g/dl Hct 44.9 (42.0-52.0) % Plt Count 190 (130-400) K/uL BMP 05/22/23 08:00 Sodium 139 Potassium 4.5 Chloride 105 Carbon Dioxide 29 BUN 22 Creatinine 1.11 Glucose 114 H Calcium 10.1 Liver Function 05/22/23 Range/Units 08:00 Total Bilirubin 0.6 (0.2-1.0) mg/dl AST 26 (13-39) U/L ALT 26 (7-52) U/L Alkaline Phosphatase 91 (34-104) U/L Albumin 4.3 (3.4-5.0) gm/dl Diagnostic Findings Chest X-Ray 05/22/23 08:11 XR chest 1V portable HISTORY: 62 years-old Male Dyspnea acute shortness of breath COMPARISON: Chest radiograph 05/20/2023, CT abdomen and pelvis 06/18/2020. TECHNIQUE: AP view of the chest FINDINGS: Cardiomediastinal and hilar silhouettes are within normal limits. No pneumothorax, pleural effusion or pulmonary edema. Chronic reticulonodular opacities. No lobar space consolidation. Bones appear grossly intact. IMPRESSION: 1. Chronic reticular nodular opacities are likely infectious or inflammatory. 2. No airspace consolidation typical for pneumonia. ACT 112: Negative or not required by law. The above report was generated using voice recognition software. It may contain grammatical, syntax or spelling errors. Electronically signed by: Jerome Toribio M.D. 05/22/2023 8:44 AM Code Status & VTE Plan Code Status Full Code in the event of cardiac or respiratory arrest VTE Prophylaxis Plan VTE Prophylaxis will be ordered: Yes Supervising Physician Co-Signing Physician Notes Pt was seen and examined. Agreed with José Antonio BARCENAS exam, assessment and plan. 62 year-old male who has a past medical history of ESRD s/p kidney transplant in 2019 at [facility] with a living donor, history of atrial fibrillation while receiving dialysis during the transplant, HTN, HLD, and hyperparathyroid hormone related to immunosuppression and kidney disease presents today with worsening shortness of breath. Pt came in the ER on Thursday for SOB and he was testing positive for RSV. He was given dexamethasone and discharged. Pt said that his breathing became worst in the last few days. On exam, wheezing noted on expiratory. CXR showed chronic reticular nodular opacities are likely infectious or inflammatory. No airspace consolidation typical for pneumonia. Received Solumedrol IV 40 mg x1 and nebulizer treatment with Duoneb given. Continue conservative management with IV solumerol 40mg daily, Incentive spirometry, flutter alfreda and guaifenesin. Will hold on abx for now, but if procalcitonin elevates, will start on abx therapy. Continue oxygen supplement. Continue monitor closely. MD Brittni (4) HTN (hypertension) Hypertension type: unspecified Qualified Code(s): I10 - Essential (primary) hypertension
[2023-05-22 10:36] LABS: Phosphorus 3.3 mg/dl (2.5-4.9)
--- NOTE | 2023-05-22 12:38 | Electrocardiogram Report ---
Test Reason : Blood Pressure : / mmHG Vent. Rate : 078 BPM Atrial Rate : 078 BPM P-R Int : 228 ms QRS Dur : 086 ms QT Int : 388 ms P-R-T Axes : 064 -80 081 degrees QTc Int : 442 ms Sinus rhythm with 1st degree A-V block with Premature atrial complexes Possible Left atrial enlargement Left axis deviation Inferior infarct , age undetermined Abnormal ECG When compared with ECG of 20-MAY-2023 16:31, Sinus rhythm has replaced Ectopic atrial rhythm Incomplete right bundle branch block is no longer Present Inferior infarct is now Present Confirmed by Arden Treadwell ([id number]) on 05/22/2023 12:38:06 PM Referred By: REFERRED SELF Confirmed By:Arden Treadwell
[2023-05-22] MEDS: ALBUT/IPRATROP 3MG/0.5MG NEB 3 ML VIAL NEB SCH ×2 (13:32→20:23)
[2023-05-22] MEDS ORDERED: MYCOPHENOLATE SODIUM 180 MG TAB PO SCH ×2 (18:30→21:00)
[2023-05-22] MEDS ORDERED: hydrALAZINE HCL 20 MG/ML VIAL IV STA (19:52)
[2023-05-22] MEDS: CINACALCET HCL 30 MG TAB PO SCH (20:42)
[2023-05-22] MEDS: lisinopril 10 MG TAB PO SCH (20:42)
[2023-05-22] MEDS: guaiFENesin 600 MG TABCR PO SCH (20:42)
[2023-05-22] MEDS: carvediloL 25 MG TAB PO SCH (20:42)
[2023-05-22] MEDS ORDERED: NON-FORMULARY PATIENT'S OWN MED SCH (21:00)
[2023-05-22] MEDS ORDERED: methylPREDNISolone 40 MG in SYRINGE 0 ML IV ONE (21:00)
[2023-05-22] MEDS ORDERED: MYCOPHENOLATE MOFETIL 250 MG CAP PO SCH ×2 (21:00)
[2023-05-22] MEDS: MYCOPHENOLIC 180 MG PO SCH (21:20)
[2023-05-22] MEDS ORDERED: LABETALOL HCL IV 5 MG/ML 20ML IV STA (21:44)
[2023-05-22 22:56] LABS: Appearance Urine Clear (Clear); Bacteria Urine Automated Negative (Negative); Bilirubin Urine Negative (Negative); Blood Urine Negative (Negative); Cast Urine Automated 0 /lpf (0-5); Color Urine Yellow; Epithelial Cell Urine Auto 0-5 /lpf (0-5); Glucose Urine UA Negative (Negative); Ketones Urine Negative (Negative); Leukocyte Esterase Urine Negative (Negative); Nitrite Urine Negative (Negative); Protein Urine 1+ (Negative); RBC Urine Automated 0-4 /hpf (0-4); Urobilinogen Urine Negative (Negative); WBC Urine Automated 0 /hpf (0-5); pH Urine 6.5 (4.5-7.5)
[2023-05-23 06:58] LABS: Hematocrit (blood only) 45.5 % (42.0-52.0); Hemoglobin 15.7 g/dl (14.0-18.0); Mean Corpuscular Hgb Conc 34.5 g/dL (32.0-36.0); Mean Corpuscular Volume 86.8 fL (80.0-100.0); Mean Platelet Volume 11.1 fL (9.4-12.4); Platelet Count 235 K/uL (130-400); RDW Coefficient of Variation 13.2 % (11.5-14.5); RDW Standard Deviation 41.3 fL (36.4-46.3); Red Blood Count 5.24 M/uL (4.70-6.10); White Blood Count 8.55 K/ul (4.8-10.8)
[2023-05-23 07:16] LABS: Albumin Globulin Ratio 1.6 (0.9-2); Albumin Level 4.5 gm/dl (3.4-5.0); BUN Creatinine Ratio 23.1 (10-20); Bilirubin,Total 0.7 mg/dl (0.2-1.0); Creatinine Clr Calc Pharmacy 96.3 ml/min; Est GFR (African American) 89.4 ml/min; Est GFR (Non-African American) 77.1 ml/min; Globulin 2.8 gm/dl (2.5-4.0); Potassium 4.4 mmol/L (3.5-5.1); Total Protein 7.3 gm/dl (6.0-8.3)
[2023-05-23] MEDS: ENVARSUS 0.75 MG PO SCH (07:35)
[2023-05-23] MEDS: MYCOPHENOLIC 180 MG PO SCH ×2 (07:36→18:15)
[2023-05-23] MEDS: carvediloL 25 MG TAB PO SCH ×2 (07:38→18:16)
[2023-05-23] MEDS: SIMVASTATIN 20 MG TAB PO SCH (07:38)
[2023-05-23] MEDS: lisinopril 10 MG TAB PO SCH ×2 (07:38→18:16)
[2023-05-23] MEDS: guaiFENesin 600 MG TABCR PO SCH ×2 (07:39→18:15)
[2023-05-23] MEDS: ASPIRIN 81 MG ECTAB PO SCH (07:39)
[2023-05-23] MEDS: MAGNESIUM OXIDE 400 MG TAB PO SCH (07:39)
[2023-05-23] MEDS: POT PHOSPHATE MONOBASIC W/ SOD TAB PO SCH (07:39)
[2023-05-23] MEDS: ALBUT/IPRATROP 3MG/0.5MG NEB 3 ML VIAL NEB SCH ×4 (07:53→19:26)
[2023-05-23] MEDS ORDERED: methylPREDNISolone 40 MG in SYRINGE 0 ML IV SCH (09:00)
[2023-05-23] MEDS ORDERED: TACROLIMUS 1 MG CAP PO SCH (09:00)
[2023-05-23] MEDS: AZITHROMYCIN 250 MG TAB PO SCH (09:41)
--- NOTE | 2023-05-23 10:08 | Nephrology Consultation ---
Date of Consultation May 23, 2023 Assessment & Plan (1) History of kidney transplant: Patient is s/p renal transplant in 2019 with excellent graft function. Creatinine is 1.04 today which is his baseline. He will continue his immunosuppression with Envarsus 1.5 mg daily and Myfortic 3 tablets twice daily. Patient is also getting steroids for his RSV. -Avoid nephrotoxins such as contrast (2) Immunosuppressed status: Will continue Envarsus and Myfortic using patient supply as above. (3) Respiratory syncytial virus (RSV): Continue conservative management per primary team. Patient is also getting steroids (4) HTN (hypertension): Blood pressure is very high today. Will start him on nifedipine XL 60 mg daily. Side effects were discussed including edema. He has had edema in the past with calcium channel blockers. History of Present Illness Reason for Consultation: Renal transplant with RSV Requesting Physician: Jai Billingsley MD Attending Physician: Jai Billingsley MD History of Present Illness 62 year-old male who has a past medical history of ESRD s/p kidney transplant in 2019 at [facility] with a living donor, history of atrial fibrillation, HTN, HLD, and hyperparathyroidism who was admitted with worsening shortness of breath found to have RSV. Patient normally takes Envarsus 1.5 mg daily and Myfortic 3 tablets twice daily. Patient brought home supply of his immunosuppressive's. His baseline creatinine is around 1-1.1. Main complaint today shortness of breath. His blood pressure has been running high with systolic ranging between 1 80-215. He has a history of edema with calcium channel blockers and currently takes lisinopril and Coreg. Chest x-ray showed C hronic reticular nodular opacities are likely infectious or inflammatory. He is making urine. Breathing is now comfortable on oxygen nasal cannula. Allergies Allergy/AdvReac Type Severity Reaction Status Date / Time No Known Allergies Allergy Verified 10/18/20 17:36 Home Medications Medication Instructions Recorded Confirmed Type cinacalcet 30 mg tablet 30 mg PO PM 04/24/18 05/22/23 History tacrolimus 1 mg capsule, 2 mg (2 x 1 mg) PO DAILY #0 caps 08/21/19 05/22/23 Rx immediate-release acetaminophen 500 mg tablet 500 mg PO Q6H PRN Pain 06/18/20 05/22/23 History (Tylenol Extra Strength) aspirin 81 mg tablet,delayed 81 mg PO DAILY 06/18/20 05/22/23 History release magnesium oxide 400 mg PO DAILY 06/18/20 05/22/23 History simvastatin 20 mg tablet 20 mg PO DAILY 06/18/20 05/22/23 History sodium di- and 1 tab PO DAILY 06/18/20 05/22/23 History monophosphate-potassium phos monobasic 250 mg tablet (H-[id number]-Ildwcuy) carvedilol 25 mg tablet 25 mg PO DAILY 10/18/20 05/22/23 History lisinopril 10 mg tablet 10 mg PO BID 10/18/20 05/22/23 History mycophenolate sodium 180 mg 540 mg PO BID 05/22/23 05/22/23 History tablet,delayed release Patient History Medical History (Updated 05/22/23 @ 10:50 by Abhijeet Desouza M.D.) HLD (hyperlipidemia) ESRD (end stage renal disease) s/p 2019 renal txplt Immunosuppressed status Gout Osteoarthritis GERD (gastroesophageal reflux disease) Atrial fibrillation A FIB EVENT X 1 (WITH 2ND DIALYSIS) Asthma A CHILD (NO CURRENT PROBLEMS) Hyperparathyroidism due to renal insufficiency HTN (hypertension) New onset atrial fibrillation Surgical History History of cholecystectomy Renal transplant recipient Date of transplant 02/17/2019, at [facility] Living donor transplant History of tooth extraction S/P arteriovenous (AV) fistula creation LEFT ARM Family History Brother Family hx colonic polyps Father Heart disease Stroke Mother Coronary heart disease Other Dementia Hypertension Skin cancer Social History Smoking Status: Never smoker Second Hand Exposure: Yes; Do You Dip or Chew Tobacco: No; Hx Alcohol Use: No Hx Substance Use: No Preferred Language: Somali Communication Ability: Effective Visual Impairment: No Limitations Baker Helper Required: No Beliefs That Will Affect Care: None marital status: Current Living Situation: Spouse current occupational status: employed Other Information That Helps Us Care for You: No Feels Safe at Home: Yes Safety Concerns: Feels Safe At This Time Assistive Devices: Oxygen - Continuous Assistive Devices Comment: oxygen now not at home Review of Systems 2 Review of Systems: All other systems were reviewed and negative except as noted in HPI Physical Exam 2 Physical Exam: General exam: Appears comfortable, no acute distress HEENT: Pupils are equal and reactive to light Neck: No JVD, neck is supple trachea is midline Respiratory system: Clear breath sounds bilaterally. Gastrointestinal: Abdomen is soft, non distended, non tender, bowel sounds are present CVS: Regular rate and rhythm. No murmurs, rubs or gallops Musculoskeletal: No joint or muscle tenderness Extremities: Non tender, no edema, peripheral pulses are present Neuro: Oriented, no tremors, no focal neurological deficits Skin: No rashes Results & Data Vital Signs (Past 12 Hours) Vital Signs Temp Pulse Pulse Resp BP BP Pulse Ox 05/23/23 09:52 64 165/89 H 92 05/23/23 07:53 66 20 95 05/23/23 07:46 36.4 C L 68 18 215/125 H 91 05/23/23 07:30 05/23/23 07:14 61 05/23/23 02:53 37 C 69 18 168/100 H 91 05/22/23 23:23 64 05/22/23 23:16 05/22/23 23:04 63 159/91 H 05/22/23 22:41 36.4 C L 71 18 158/84 H 94 05/22/23 22:07 186/106 H O2 Del Method O2 Flow Rate 05/23/23 09:52 Nasal Cannula 3 05/23/23 07:53 Nasal Cannula 2 05/23/23 07:46 Room Air 05/23/23 07:30 Nasal Cannula 2 05/23/23 07:14 05/23/23 02:53 Nasal Cannula 2 05/22/23 23:23 05/22/23 23:16 Nasal Cannula 2 05/22/23 23:04 05/22/23 22:41 Nasal Cannula 2 05/22/23 22:07 Laboratory Results 05/23/23 06:29 05/22/23 05/23/23 08:00 06:29 WBC 8.55 RBC 5.24 MCV 86.8 MCH 30.0 MCHC 34.5 RDW Std Deviation 41.3 RDW Coeff of Christian 13.2 Plt Count 235 MPV 11.1 Phosphorus 3.3 Albumin 4.5 (4) HTN (hypertension) Hypertension type: unspecified Qualified Code(s): I10 - Essential (primary) hypertension
[2023-05-23] MEDS: NIFEdipine EXTENDED REL 30 MG TABCR PO SCH (10:20)
--- NOTE | 2023-05-23 12:08 | Electrocardiogram Report ---
Test Reason : Blood Pressure : / mmHG Vent. Rate : 065 BPM Atrial Rate : 065 BPM P-R Int : 172 ms QRS Dur : 088 ms QT Int : 426 ms P-R-T Axes : 000 214 026 degrees QTc Int : 443 ms Normal sinus rhythm Right superior axis deviation Abnormal ECG When compared with ECG of 22-MAY-2023 07:56, Premature atrial complexes are no longer Present MD interval has decreased Criteria for Inferior infarct are no longer Present Nonspecific T wave abnormality no longer evident in Lateral leads Confirmed by Timothy Morel ([id number]) on 05/23/2023 12:07:36 PM Referred By: REFERRED SELF Confirmed By:Eloy Morel
--- NOTE | 2023-05-23 14:00 | Hospitalist Progress Note ---
Date of Service May 23, 2023 Assessment & Plan (1) Respiratory syncytial virus (RSV): (2) ESRD (end stage renal disease): (3) Immunosuppressed status: (4) HTN (hypertension): (5) Hyperparathyroidism due to renal insufficiency: (6) HLD (hyperlipidemia): Plan Mr. Munson is a 62-year-old male who has a past medical history of ESRD s/p kidney transplant in 2019 at [facility] with a living donor, history of atrial fibrillation while receiving dialysis during the transplant, HTN, HLD, and hyperparathyroid hormone related to immunosuppression and kidney disease presents today for shortness of breath that has worsened since Sunday 05/20 when he was here and tested positive for RSV. Patient admitted to the hospital for acute hypoxic respiratory failure. RSV infection Acute hypoxic respiratory failure RSV positive on Sunday 05/20 Chest x-ray on admission personally reviewed; no airway consultation. Reticulonodular opacities present. Requiring 3 L of oxygen by nasal cannula Continue DuoNeb every 6 hours Wean off oxygen as tolerated Azithromycin 500 mg daily for 3 days ESRD status post renal transplant: Immunosuppressed status: Hyperparathyroidism due to renal insufficiency: Transplant 03/03 at [facility] with living donor Not requiring hemodialysis; makes urine Takes K-Phos, Cinacalcet, mycophenolate mofetil, and tacrolimus; continue serum creatinine 1.11; baseline 1.2-1.3 Nephrology consulted Hypertensive urgency Blood pressure noted to be on higher side. Last Cards appt 10/2022; reportedly difficult - to - control HTN Consulted nephrology for comanagement of high blood pressure. Patient is on Coreg and lisinopril. Nifedipine added by nephrology. HLD: Chronic stable last lipid panel: 07/2021: TG 150, HDL 27, LDL 68. takes Simvastatin;continue Disposition: PCP: Dr. Marvin CODE STATUS: Full code VTE prophylaxis: Lovenox SQ Disposition; patient has acute hypoxic respiratory failure secondary to RSV infection. He also has hypertensive urgency. Requires close monitoring inpatient. Time spent evaluating patient, direct bedside care, chart review, placing orders, interpretation of diagnostic studies, discussion with consultants, patient, and family members, as well as other required patient management activities is 50 minutes Please note the above document was generated using voice recognition software. It may contain grammatical, syntax or spelling errors. Any formal questions or concerns about the content, text or information contained within the body of this dictation should be directly addressed to the provider for clarification Admission and Anticipated Discharge Date Admission Date: May 22, 2023 Subjective Patient seen and examined at bedside. He is sitting up on the side of the bed; reports chest pressure. He is saturating at 3 L/min by nasal cannula. Review of Systems Review of Systems: All systems reviewed & are unremarkable except as noted in Subjective Physical Exam Physical Exam: Constitutional: Alert oriented x 3; not in distress. Respiratory: normal respiratory effort, lungs clear to auscultation, no wheeze, rales, rhonchi. Normal insp/exp effort, no accessory muscle use Cardiovascular: RRR, no murmur, no edema Vessels: no JVD or carotid bruit Chest: Bilateral vesicular breath sounds. Decreased air entry at bases. Abdomen: normal bowel sounds, soft, nontender, no hepatosplenomegaly Musculoskeletal: no cyanosis or clubbing, extremities motor strength 5/5 Skin: no rashes, warm and dry normal turgor Neurologic: PERRL, EOMI, accommodation nl, no face palsy, no dysarthria CN's II- XI intact bilaterally and moves all extremities Psychiatric: A+Ox3, euthymic affect Results & Data Results & Data Vital Signs (Past 12 Hours) Vital Signs Temp Pulse Pulse Resp BP Pulse Ox Pulse Ox 05/23/23 11:24 93 05/23/23 11:14 65 24 92 05/23/23 10:19 65 18 199/98 H 92 05/23/23 09:52 64 165/89 H 92 05/23/23 07:53 66 20 95 05/23/23 07:46 36.4 C L 68 18 215/125 H 91 05/23/23 07:30 05/23/23 07:14 61 05/23/23 02:53 37 C 69 18 168/100 H 91 O2 Del Method O2 Del Method O2 Flow Rate O2 Flow Rate 05/23/23 11:24 Nasal Cannula 3 05/23/23 11:14 Nasal Cannula 3 05/23/23 10:19 Nasal Cannula 3 05/23/23 09:52 Nasal Cannula 3 05/23/23 07:53 Nasal Cannula 2 05/23/23 07:46 Room Air 05/23/23 07:30 Nasal Cannula 2 05/23/23 07:14 05/23/23 02:53 Nasal Cannula 2 Laboratory Results Laboratory Results WBC 8.55 K/ul (4.8-10.8) 05/23/23 06:29 RBC 5.24 M/uL (4.70-6.10) 05/23/23 06:29 Hgb 15.7 g/dl (14.0-18.0) 05/23/23 06:29 Hct 45.5 % (42.0-52.0) 05/23/23 06:29 MCV 86.8 fL (80.0-100.0) 05/23/23 06: MCH 30.0 pg (25.0-34.0) 05/23/23 06: MCHC 34.5 g/dL (32.0-36.0) 05/23/23 06: RDW Std Deviation 41.3 fL (36.4-46.3) 05/23/23 06: RDW Coeff of Christian 13.2 % (11.5-14.5) 05/23/23 06:29 Plt Count 235 K/uL (130-400) 05/23/23 06:29 MPV 11.1 fL (9.4-12.4) 05/23/23 06:29 Immature Gran % (Auto) 0.4 % 05/22/23 08:00 Neut % (Auto) 79.0 % 05/22/23 08:00 Lymph % (Auto) 10.1 % 05/22/23 08:00 [place] % (Auto) 10.1 % 05/22/23 08:00 Eos % (Auto) 0.1 % 05/22/23 08:00 Baso % (Auto) 0.3 % 05/22/23 08:00 Neut # (Auto) 6.03 K/uL (1.40-6.50) 05/22/23 08:00 Lymph # (Auto) 0.77 K/uL (1.20-3.40) L 05/22/23 08:00 [place] # (Auto) 0.77 K/uL (0.11-0.59) H 05/22/23 08:00 Eos # (Auto) 0.01 K/uL (0.00-0.50) 05/22/23 08:00 Baso # (Auto) 0.02 K/uL (0.00-0.20) 05/22/23 08:00 Immature Gran # (Auto) 0.03 K/uL (0.01-0.20) 05/22/23 08:00 PT 11.2 Seconds (9.0-12.0) 05/22/23 08:00 INR 1.0 (0.9-1.1) 05/22/23 08:00 APTT 29 Seconds (21-31) 05/22/23 08:00 PTT Ratio 1.0 05/22/23 08:00 Sodium 139 mmol/L (136-145) 05/23/23 06:29 Potassium 4.4 mmol/L (3.5-5.1) 05/23/23 06:29 Chloride 106 mmol/L (98-107) 05/23/23 06:29 Carbon Dioxide 26 mmol/L (21-32) 05/23/23 06:29 Anion Gap 7 (3-11) 05/23/23 06:29 BUN 24 mg/dl (6-23) H 05/23/23 06:29 Creatinine 1.04 mg/dl (0.6-1.4) 05/23/23 06:29 Est Cr Clr Drug Dosing 96.3 ml/min 05/23/23 06:29 Est GFR ( Amer) 89.4 ml/min 05/23/23 06:29 Est GFR (Non-Af Amer) 77.1 ml/min 05/23/23 06:29 BUN/Creatinine Ratio 23.1 (10-20) H 05/23/23 06:29 Glucose 140 mg/dl (70-99(Fasting)) H 05/23/23 06:29 Calcium 10.0 mg/dl (8.6-10.3) 05/23/23 06:29 Phosphorus 3.3 mg/dl (2.5-4.9) 05/22/23 08:00 Magnesium 1.7 mg/dl (1.7-2.4) 05/22/23 08:00 Total Bilirubin 0.7 mg/dl (0.2-1.0) 05/23/23 06:29 AST 24 U/L (13-39) 05/23/23 06:29 ALT 25 U/L (7-52) 05/23/23 06:29 Alkaline Phosphatase 93 U/L (34-104) 05/23/23 06:29 Troponin I High Sens 14.6 pg/ml (0-20) 05/22/23 08:00 B-Natriuretic Peptide 388 pg/ml (0-100) H 05/22/23 21:33 Total Protein 7.3 gm/dl (6.0-8.3) 05/23/23 06:29 Albumin 4.5 gm/dl (3.4-5.0) 05/23/23 06:29 Globulin 2.8 gm/dl (2.5-4.0) 05/23/23 06:29 Albumin/Globulin Ratio 1.6 (0.9-2) 05/23/23 06:29 Procalcitonin 0.19 ng/ml (0-0.5) 05/22/23 08:00 Urine Color Yellow 05/22/23 22:46 Urine Appearance Clear (Clear) 05/22/23 22:46 Urine pH 6.5 (4.5-7.5) 05/22/23 22:46 Ur Specific [place] 1.010 (1.000-1.030) 05/22/23 22:46 Urine Protein 1+ (Negative) H 05/22/23 22:46 Urine Glucose (UA) Negative (Negative) 05/22/23 22:46 Urine Ketones Negative (Negative) 05/22/23 22:46 Urine Blood Negative (Negative) 05/22/23 22:46 Urine Nitrite Negative (Negative) 05/22/23 22:46 Urine Bilirubin Negative (Negative) 05/22/23 22:46 Urine Urobilinogen Negative (Negative) 05/22/23 22:46 Ur Leukocyte Esterase Negative (Negative) 05/22/23 22:46 Urine WBC (Auto) 0 /hpf (0-5) 05/22/23 22:46 Urine RBC (Auto) 0-4 /hpf (0-4) 05/22/23 22:46 U Hyaline Cast (Auto) 0 /lpf (0-5) 05/22/23 22:46 U Epithel Cells (Auto) 0-5 /lpf (0-5) 05/22/23 22:46 Urine Bacteria (Auto) Negative (Negative) 05/22/23 22:46 Impressions Chest X-Ray 05/22/23 08:11 XR chest 1V portable HISTORY: 62 years-old Male Dyspnea acute shortness of breath COMPARISON: Chest radiograph 05/20/2023, CT abdomen and pelvis 06/18/2020. TECHNIQUE: AP view of the chest FINDINGS: Cardiomediastinal and hilar silhouettes are within normal limits. No pneumothorax, pleural effusion or pulmonary edema. Chronic reticulonodular opacities. No lobar space consolidation. Bones appear grossly intact. IMPRESSION: 1. Chronic reticular nodular opacities are likely infectious or inflammatory. 2. No airspace consolidation typical for pneumonia. ACT 112: Negative or not required by law. The above report was generated using voice recognition software. It may contain grammatical, syntax or spelling errors. Electronically signed by: Jerome Toribio M.D. 05/22/2023 8:44 AM (4) HTN (hypertension) Hypertension type: unspecified Qualified Code(s): I10 - Essential (primary) hypertension
[2023-05-23] MEDS ORDERED: AZITHROMYCIN 250 MG TAB PO SCH (14:45)
[2023-05-23] MEDS ORDERED: SODIUM CHLORIDE 0.65% NA SOLN 45 ML (OCEAN) PRN (16:16)
[2023-05-23] MEDS: CINACALCET HCL 30 MG TAB PO SCH (18:16)
[2023-05-24] MEDS: MYCOPHENOLIC 180 MG PO SCH ×2 (06:05→21:26)
[2023-05-24] MEDS: ENVARSUS 0.75 MG PO SCH (06:05)
[2023-05-24] MEDS: AZITHROMYCIN 250 MG TAB PO SCH (06:06)
[2023-05-24] MEDS: ASPIRIN 81 MG ECTAB PO SCH (06:07)
[2023-05-24] MEDS: SIMVASTATIN 20 MG TAB PO SCH (06:07)
[2023-05-24] MEDS: MAGNESIUM OXIDE 400 MG TAB PO SCH (06:07)
[2023-05-24] MEDS: NIFEdipine EXTENDED REL 30 MG TABCR PO SCH (06:07)
[2023-05-24] MEDS: POT PHOSPHATE MONOBASIC W/ SOD TAB PO SCH (06:07)
[2023-05-24] MEDS: lisinopril 10 MG TAB PO SCH (06:08)
[2023-05-24] MEDS: guaiFENesin 600 MG TABCR PO SCH ×2 (06:08→22:05)
[2023-05-24] MEDS: carvediloL 25 MG TAB PO SCH ×2 (06:08→21:27)
[2023-05-24] MEDS: ALBUT/IPRATROP 3MG/0.5MG NEB 3 ML VIAL NEB SCH ×4 (07:07→20:06)
[2023-05-24 07:23] LABS: Basophils # (auto) 0.02 K/uL (0.00-0.20); Basophils % (auto) 0.2 %; Hematocrit (blood only) 49.1 % (42.0-52.0); Hemoglobin 16.6 g/dl (14.0-18.0); Immature Granulocytes # (auto) 0.06 K/uL (0.01-0.20); Immature Granulocytes % (auto) 0.7 %; Lymphocytes # (auto) 1.01 K/uL (1.20-3.40); Lymphocytes % (auto) 11.1 %; Mean Corpuscular Hgb Conc 33.8 g/dL (32.0-36.0); Mean Corpuscular Volume 88.8 fL (80.0-100.0); Mean Platelet Volume 11.2 fL (9.4-12.4); Monocytes # (auto) 0.82 K/uL (0.11-0.59); Neutrophils # (auto) 7.17 K/uL (1.40-6.50); Platelet Count 187 K/uL (130-400); RDW Standard Deviation 41.9 fL (36.4-46.3); Red Blood Count 5.53 M/uL (4.70-6.10); White Blood Count 9.08 K/ul (4.8-10.8)
[2023-05-24 08:09] LABS: BUN Creatinine Ratio 29.1 (10-20); Calcium 10.2 mg/dl (8.6-10.3); Creatinine Clr Calc Pharmacy 96.6 ml/min; Est GFR (African American) 90.4 ml/min; Potassium 4.3 mmol/L (3.5-5.1)
--- NOTE | 2023-05-24 10:37 | Hospitalist Progress Note ---
Date of Service May 24, 2023 Assessment & Plan (1) Respiratory syncytial virus (RSV): (2) ESRD (end stage renal disease): (3) Immunosuppressed status: (4) HTN (hypertension): (5) Hyperparathyroidism due to renal insufficiency: (6) HLD (hyperlipidemia): Plan Mr. Munson is a 62-year-old male who has a past medical history of ESRD s/p kidney transplant in 2019 at [facility] [place] with a living donor, history of atrial fibrillation while receiving dialysis during the transplant, HTN, HLD, and hyperparathyroid hormone related to immunosuppression and kidney disease presents today for shortness of breath that has worsened since Sunday 05/20 when he was here and tested positive for RSV. Patient admitted to the hospital for acute hypoxic respiratory failure. RSV infection Acute hypoxic respiratory failure RSV positive on Sunday 05/20 Chest x-ray on admission personally reviewed; no airway consolidation. Reticulonodular opacities present. Requiring 1 L of oxygen by nasal cannula Continue DuoNeb every 6 hours Wean off oxygen as tolerated Azithromycin 500 mg daily for 3 days ESRD status post renal transplant: Immunosuppressed status: Hyperparathyroidism due to renal insufficiency: Transplant 03/03 at [facility] [place] with living donor Not requiring hemodialysis; makes urine Takes K-Phos, Cinacalcet, mycophenolate mofetil, and tacrolimus; continue serum creatinine 1.11; baseline 1.2-1.3 Nephrology on board for comanagement. Hypertensive urgency Blood pressure noted to be on higher side. Last Cards appt 10/2022; reportedly difficult - to - control HTN Consulted nephrology for comanagement of high blood pressure. Patient is on Coreg and lisinopril. Nifedipine added by nephrology. Overall improved blood pressure. HLD: Chronic stable last lipid panel: 07/2021: TG 150, HDL 27, LDL 68. takes Simvastatin;continue Disposition: PCP: Dr. Marvin CODE STATUS: Full code VTE prophylaxis: Lovenox SQ Disposition; patient has acute hypoxic respiratory failure secondary to RSV infection. He also has hypertensive urgency. Requires close monitoring inpatient. Possible DC in a.m. Time spent evaluating patient, direct bedside care, chart review, placing orders, interpretation of diagnostic studies, discussion with consultants, patient, and family members, as well as other required patient management activities is 50 minutes Please note the above document was generated using voice recognition software. It may contain grammatical, syntax or spelling errors. Any formal questions or concerns about the content, text or information contained within the body of this dictation should be directly addressed to the provider for clarification Admission and Anticipated Discharge Date Admission Date: May 22, 2023 Subjective Patient seen and examined at bedside. He reports that he is feeling slightly better today. Shortness of breath has improved. Blood pressure overall improved as well Review of Systems Review of Systems: All systems reviewed & are unremarkable except as noted in Subjective Physical Exam Physical Exam: Constitutional: Alert oriented x 3; not in distress. Respiratory: normal respiratory effort, lungs clear to auscultation, no wheeze, rales, rhonchi. Normal insp/exp effort, no accessory muscle use Cardiovascular: RRR, no murmur, no edema Vessels: no JVD or carotid bruit Chest: Bilateral vesicular breath sounds. Decreased air entry at bases. Abdomen: normal bowel sounds, soft, nontender, no hepatosplenomegaly Musculoskeletal: no cyanosis or clubbing, extremities motor strength 5/5 Skin: no rashes, warm and dry normal turgor Neurologic: PERRL, EOMI, accommodation nl, no face palsy, no dysarthria CN's II- XI intact bilaterally and moves all extremities Psychiatric: A+Ox3, euthymic affect Results & Data Results & Data Vital Signs (Past 12 Hours) Vital Signs Temp Pulse Pulse Resp BP Pulse Ox O2 Del Method 05/24/23 10:24 76 18 93 Nasal Cannula 05/24/23 08:31 Nasal Cannula 05/24/23 07:38 36.5 C 72 16 138/76 91 Nasal Cannula 05/24/23 07:16 73 05/24/23 07:07 75 20 92 Nasal Cannula 05/24/23 02:55 78 05/24/23 02:49 36.5 C 67 18 135/84 93 Nasal Cannula O2 Flow Rate 05/24/23 10:24 1 05/24/23 08:31 2 05/24/23 07:38 1 05/24/23 07:16 05/24/23 07:07 1 05/24/23 02:55 05/24/23 02:49 Laboratory Results Laboratory Results WBC 9.08 K/ul (4.8-10.8) 05/24/23 06:05 RBC 5.53 M/uL (4.70-6.10) 05/24/23 06:05 Hgb 16.6 g/dl (14.0-18.0) 05/24/23 06:05 Hct 49.1 % (42.0-52.0) 05/24/23 06:05 MCV 88.8 fL (80.0-100.0) 05/24/23 06:05 MCH 30.0 pg (25.0-34.0) 05/24/23 06:05 MCHC 33.8 g/dL (32.0-36.0) 05/24/23 06:05 RDW Std Deviation 41.9 fL (36.4-46.3) 05/24/23 06:05 RDW Coeff of Christian 13.0 % (11.5-14.5) 05/24/23 06:05 Plt Count 187 K/uL (130-400) 05/24/23 06:05 MPV 11.2 fL (9.4-12.4) 05/24/23 06:05 Immature Gran % (Auto) 0.7 % 05/24/23 06:05 Neut % (Auto) 79.0 % 05/24/23 06:05 Lymph % (Auto) 11.1 % 05/24/23 06:05 [place] % (Auto) 9.0 % 05/24/23 06:05 Eos % (Auto) 0.0 % 05/24/23 06:05 Baso % (Auto) 0.2 % 05/24/23 06:05 Neut # (Auto) 7.17 K/uL (1.40-6.50) H 05/24/23 06:05 Lymph # (Auto) 1.01 K/uL (1.20-3.40) L 05/24/23 06:05 [place] # (Auto) 0.82 K/uL (0.11-0.59) H 05/24/23 06:05 Eos # (Auto) 0.00 K/uL (0.00-0.50) 05/24/23 06:05 Baso # (Auto) 0.02 K/uL (0.00-0.20) 05/24/23 06:05 Immature Gran # (Auto) 0.06 K/uL (0.01-0.20) 05/24/23 06:05 PT 11.2 Seconds (9.0-12.0) 05/22/23 08:00 INR 1.0 (0.9-1.1) 05/22/23 08:00 APTT 29 Seconds (21-31) 05/22/23 08:00 PTT Ratio 1.0 05/22/23 08:00 Sodium 139 mmol/L (136-145) 05/24/23 06:05 Potassium 4.3 mmol/L (3.5-5.1) 05/24/23 06:05 Chloride 104 mmol/L (98-107) 05/24/23 06:05 Carbon Dioxide 27 mmol/L (21-32) 05/24/23 06:05 Anion Gap 8 (3-11) 05/24/23 06:05 BUN 30 mg/dl (6-23) H 05/24/23 06:05 Creatinine 1.03 mg/dl (0.6-1.4) 05/24/23 06:05 Est Cr Clr Drug Dosing 96.6 ml/min 05/24/23 06:05 Est GFR ( Amer) 90.4 ml/min 05/24/23 06:05 Est GFR (Non-Af Amer) 78.0 ml/min 05/24/23 06:05 BUN/Creatinine Ratio 29.1 (10-20) H 05/24/23 06:05 Glucose 111 mg/dl (70-99(Fasting)) H 05/24/23 06:05 Calcium 10.2 mg/dl (8.6-10.3) 05/24/23 06:05 Phosphorus 3.3 mg/dl (2.5-4.9) 05/22/23 08:00 Magnesium 1.7 mg/dl (1.7-2.4) 05/22/23 08:00 Total Bilirubin 0.7 mg/dl (0.2-1.0) 05/23/23 06:29 AST 24 U/L (13-39) 05/23/23 06:29 ALT 25 U/L (7-52) 05/23/23 06:29 Alkaline Phosphatase 93 U/L (34-104) 05/23/23 06:29 Troponin I High Sens 14.6 pg/ml (0-20) 05/22/23 08:00 B-Natriuretic Peptide 388 pg/ml (0-100) H 05/22/23 21:33 Total Protein 7.3 gm/dl (6.0-8.3) 05/23/23 06:29 Albumin 4.5 gm/dl (3.4-5.0) 05/23/23 06:29 Globulin 2.8 gm/dl (2.5-4.0) 05/23/23 06:29 Albumin/Globulin Ratio 1.6 (0.9-2) 05/23/23 06:29 Procalcitonin 0.19 ng/ml (0-0.5) 05/22/23 08:00 Urine Color Yellow 05/22/23 22:46 Urine Appearance Clear (Clear) 05/22/23 22:46 Urine pH 6.5 (4.5-7.5) 05/22/23 22:46 Ur Specific [place] 1.010 (1.000-1.030) 05/22/23 22:46 Urine Protein 1+ (Negative) H 05/22/23 22:46 Urine Glucose (UA) Negative (Negative) 05/22/23 22:46 Urine Ketones Negative (Negative) 05/22/23 22:46 Urine Blood Negative (Negative) 05/22/23 22:46 Urine Nitrite Negative (Negative) 05/22/23 22:46 Urine Bilirubin Negative (Negative) 05/22/23 22:46 Urine Urobilinogen Negative (Negative) 05/22/23 22:46 Ur Leukocyte Esterase Negative (Negative) 05/22/23 22:46 Urine WBC (Auto) 0 /hpf (0-5) 05/22/23 22:46 Urine RBC (Auto) 0-4 /hpf (0-4) 05/22/23 22:46 U Hyaline Cast (Auto) 0 /lpf (0-5) 05/22/23 22:46 U Epithel Cells (Auto) 0-5 /lpf (0-5) 05/22/23 22:46 Urine Bacteria (Auto) Negative (Negative) 05/22/23 22:46 Impressions Chest X-Ray 05/22/23 08:11 XR chest 1V portable HISTORY: 62 years-old Male Dyspnea acute shortness of breath COMPARISON: Chest radiograph 05/20/2023, CT abdomen and pelvis 06/18/2020. TECHNIQUE: AP view of the chest FINDINGS: Cardiomediastinal and hilar silhouettes are within normal limits. No pneumothorax, pleural effusion or pulmonary edema. Chronic reticulonodular opacities. No lobar space consolidation. Bones appear grossly intact. IMPRESSION: 1. Chronic reticular nodular opacities are likely infectious or inflammatory. 2. No airspace consolidation typical for pneumonia. ACT 112: Negative or not required by law. The above report was generated using voice recognition software. It may contain grammatical, syntax or spelling errors. Electronically signed by: Jerome Toribio M.D. 05/22/2023 8:44 AM (4) HTN (hypertension) Hypertension type: unspecified Qualified Code(s): I10 - Essential (primary) hypertension
[2023-05-24] MEDS ORDERED: FUROSEMIDE 40 MG/4 ML VIAL IV ONE (11:03)
--- NOTE | 2023-05-24 11:05 | Nephrology Progress Note ---
Date of Service May 24, 2023 Assessment & Plan (1) History of kidney transplant: Plan: Patient is s/p renal transplant in 2019 with excellent graft function. Creatinine is 1.04 today which is his baseline. He will continue his immunosuppression with Envarsus 1.5 mg daily and Myfortic 3 tablets twice daily. Patient is also getting steroids for his RSV. -Avoid nephrotoxins such as contrast (2) Immunosuppressed status: Plan: Will continue Envarsus and Myfortic using patient supply as above. (3) Respiratory syncytial virus (RSV): Plan: Continue conservative management per primary team. Given continued respiratory distress, will give him Lasix IV 40 mg one-time. (4) HTN (hypertension): Plan: Blood pressure is controlled today. Will reduce lisinopril to 10 mg daily and continue nifedipine XL 60 mg daily. Admission and Anticipated Discharge Date Admission Date: May 22, 2023 Subjective Seen for renal transplant. Main complaint is shortness of breath. He is getting a nebulizer at the time of my visit. He has some leg swelling. Blood pressure is better. Review of Systems 2 Review of Systems: All other systems were reviewed and negative except as noted in HPI Physical Exam 2 Physical Exam: General exam: Appears comfortable, no acute distress HEENT: Pupils are equal and reactive to light Neck: No JVD, neck is supple trachea is midline Respiratory system: Clear breath sounds bilaterally. Gastrointestinal: Abdomen is soft, non distended, non tender, bowel sounds are present CVS: Regular rate and rhythm. No murmurs, rubs or gallops Musculoskeletal: No joint or muscle tenderness Extremities: Non tender, no edema, peripheral pulses are present Neuro: Oriented, no tremors, no focal neurological deficits Skin: No rashes Results & Data Vital Signs (Past 12 Hours) Vital Signs Temp Pulse Pulse Resp BP Pulse Ox O2 Del Method 05/24/23 10:24 76 18 93 Nasal Cannula 05/24/23 08:31 Nasal Cannula 05/24/23 07:38 36.5 C 72 16 138/76 91 Nasal Cannula 05/24/23 07:16 73 05/24/23 07:07 75 20 92 Nasal Cannula 05/24/23 02:55 78 05/24/23 02:49 36.5 C 67 18 135/84 93 Nasal Cannula O2 Flow Rate 05/24/23 10:24 1 05/24/23 08:31 2 05/24/23 07:38 1 05/24/23 07:16 05/24/23 07:07 1 05/24/23 02:55 05/24/23 02:49 Laboratory Results 05/24/23 06:05 05/24/23 06:05 WBC 9.08 RBC 5.53 MCV 88.8 MCH 30.0 MCHC 33.8 RDW Std Deviation 41.9 RDW Coeff of Christian 13.0 Plt Count 187 MPV 11.2 (4) HTN (hypertension) Hypertension type: unspecified Qualified Code(s): I10 - Essential (primary) hypertension
[2023-05-24] MEDS: CINACALCET HCL 30 MG TAB PO SCH (21:26)
[2023-05-25] MEDS ORDERED: NIFEdipine EXTENDED REL 30 MG TABCR PO SCH
[2023-05-25] MEDS: MYCOPHENOLIC 180 MG PO SCH ×2 (05:54→06:00)
[2023-05-25] MEDS: ENVARSUS 0.75 MG PO SCH ×2 (05:55→06:00)
[2023-05-25] MEDS: carvediloL 25 MG TAB PO SCH ×2 (05:57→06:00)
[2023-05-25] MEDS: lisinopril 10 MG TAB PO SCH ×2 (05:57→06:01)
[2023-05-25] MEDS: MAGNESIUM OXIDE 400 MG TAB PO SCH ×2 (05:58→06:01)
[2023-05-25] MEDS: ASPIRIN 81 MG ECTAB PO SCH ×2 (05:58→06:01)
[2023-05-25] MEDS: POT PHOSPHATE MONOBASIC W/ SOD TAB PO SCH ×2 (05:59→06:01)
[2023-05-25 07:13] LABS: BUN Creatinine Ratio 28.9 (10-20); Calcium 9.7 mg/dl (8.6-10.3); Est GFR (African American) 74.4 ml/min; Est GFR (Non-African American) 64.2 ml/min; Potassium 4.1 mmol/L (3.5-5.1)
[2023-05-25] MEDS: ALBUT/IPRATROP 3MG/0.5MG NEB 3 ML VIAL NEB SCH ×3 (07:22→14:52)
[2023-05-25] MEDS: guaiFENesin 600 MG TABCR PO SCH (08:33)
[2023-05-25] MEDS: SIMVASTATIN 20 MG TAB PO SCH (08:34)
[2023-05-25] MEDS: NIFEdipine EXTENDED REL 30 MG TABCR PO SCH (08:34)
[2023-05-25] MEDS: AZITHROMYCIN 250 MG TAB PO SCH (08:34)
--- NOTE | 2023-05-25 11:16 | Nephrology Progress Note ---
Date of Service May 25, 2023 Assessment & Plan (1) HTN (hypertension): Plan: Blood pressure is acceptable today on coreg 25 mg bid, lisinopril 10 mg daily, nifedipine 60 mg daily. As OP he takes clonidine 0.1 mg bid, coreg 25 mg bid, lisinopril 40 mg daily Optimal bp meds d/w pt and Dr Billingsley >> pt w/ hx of unacceptable edema on CCB in the past though tolerating low dose so far and willing to continue; hx of challenging to control HTN since even prior to renal txplt; clonidine in combination with BB can have unacceptable side effects (though he's not having) and be hard to titrate NEPHRO D/C RECS -d/c on coreg, lisinopril 10 mg daily, nifedipine daily 60 mg -hospital d/c appt w/ Dr Guerrero in 2 wks w/ RENAL RN to call pt and have him bring 3 day BP log and to order bmp, tacrolimus TROUGH, ACR prior to OV Care coordinated w/ Dr Billingsley I spent a total of 55 minutes coordinating, documenting, and providing care for this patient excluding time spent in the performance of separately billed services. This included personally reviewing all current laboratories and imaging studies, medication reconciliation, outpatient chart review, and discussion with other physicians, with nursing, and as applicable with the patient and family (2) History of kidney transplant: Plan: Patient is s/p renal transplant in 2019 with excellent graft function. Creatinine is 1.2 today which is his baseline (1.1-1.3). He will continue his immunosuppression with Envarsus 1.5 mg daily and Myfortic 3 tablets twice daily. Patient is also getting steroids for his RSV. -Avoid nephrotoxins such as contrast (3) Immunosuppressed status: Plan: Will continue Envarsus and Myfortic OP doses using patient supply as above. (4) Respiratory syncytial virus (RSV): Plan: Continue conservative management per primary team. no further lasix needed today Admission and Anticipated Discharge Date Admission Date: May 22, 2023 Subjective ongoing mild LE edema; can't wear compression hose/too hard to get them on; has not tried tubigrips; so far tolerating nifedipine. 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 Review of Systems 2 Review of Systems: All systems reviewed & are unremarkable except as noted in Subjective Physical Exam 2 Constitutional: well developed, well nourished, + obese and cooperative (sitting up in chair on RA); no acute distress Eyes: EOM intact bilaterally ENMT: Ears: no external ear abnormality Nose: no external nose abnormality Mouth: + dry oral mucous membranes Neck: no nuchal rigidity Respiratory: normal respiratory effort Auscultation: + diminished lung sounds, + rhonchi and + wheezes Cardiovascular: Rate/Rhythm: regular rate and regular rhythm Extremities: + edema (trace-1+ BL ankles) and + AV fistula (L RC + t/b) Gastrointestinal (Abdomen): Inspection/Auscultation: normal bowel sounds P ercussion/Palpation: abdomen soft; abdomen nontender Musculoskeletal: Extremities: strength 5/5 throughout Skin: no rashes, warm and dry Neurologic: fletcher, fluent speech, no tremor Psychiatric: Orientation: alert and oriented x 3 Results & Data Vital Signs (Past 12 Hours) Vital Signs Temp Pulse Pulse Pulse Pulse Resp Resp 05/25/23 09:45 05/25/23 08:19 36.4 C L 70 16 05/25/23 08:18 94 H 70 20 05/25/23 07:22 85 18 05/25/23 07:22 77 05/25/23 04:00 36.4 C L 73 18 05/25/23 00:17 84 Resp BP Pulse Ox Pulse Ox Pulse Ox O2 Del Method O2 Flow Rate 05/25/23 09:45 Room Air 05/25/23 08:19 139/85 91 Room Air 05/25/23 08:18 16 92 91 05/25/23 07:22 96 Nasal Cannula 1 05/25/23 07:22 05/25/23 04:00 130/81 94 Nasal Cannula 1 05/25/23 00:17 Laboratory Results 05/24/23 06:05 05/25/23 05:55 (1) HTN (hypertension) Hypertension type: unspecified Qualified Code(s): I10 - Essential (primary) hypertension
--- NOTE | 2023-05-25 15:04 | Electrocardiogram Report ---
Test Reason : Blood Pressure : / mmHG Vent. Rate : 073 BPM Atrial Rate : 073 BPM P-R Int : 126 ms QRS Dur : 086 ms QT Int : 406 ms P-R-T Axes : -23 -31 151 degrees QTc Int : 447 ms Normal sinus rhythm Left axis deviation Inferior infarct , age undetermined Abnormal ECG When compared with ECG of 23-MAY-2023 11:07, Questionable change in QRS axis T wave inversion now evident in Lateral leads Confirmed by Ramon Jimenez ([id number]) on 05/25/2023 3:04:32 PM Referred By: REFERRED SELF Confirmed By:Ramon Jimenez
--- NOTE | 2023-05-25 15:24 | Discharge Summary ---
Date of Service May 25, 2023 Admission HPI Per Admitting Provider Mr. Munson is a 62-year-old male who has a past medical history of ESRD s/p kidney transplant in 2019 at [facility] with a living donor, history of atrial fibrillation while receiving dialysis during the transplant, HTN, HLD, and hyperparathyroid hormone related to immunosuppression and kidney disease presents today for shortness of breath that has worsened since Sunday 05/20 when he was here and tested positive for RSV. He went to his PCP on Sunday 05/20 and was prescribed antibiotics for questionable pneumonia. To note, patient only born with one kidney. When he was here in 05/20 he was given a dose of p.o. dexamethasone while here. On Thursday BNP was 322. ECHO on 01/05/23: EF 60 to 64% with LV wall moderate concentric, mild MR/TR with right lateral pericardial effusion and grade 2 LV DDx. In the ED today no leukocytosis, or other lab abnormalities. Creatinine 1.11; baseline 1.2 per review of recent outpatient lab. Today chest x-ray Chronic reticular nodular opacities are likely infectious or inflammatory without signs of pneumonia. review. Received methylprednisone 40 mg IV and 12 mL DuoNeb in the ED today. Pt sitting on the side of his bed in no apparent distress with a one hour neb in process. He states that he is feeling considerably better, but does have continued expiratory wheezing and rhonchi. He reports having intermittent fluttering in his chest, he does have a history of atrial fibrillation that occurred while he was receiving dialysis after his transplant. Most recent ECHO as outlined above. Suspect this individual has a complicated course of RSV due to his immunosuppression. Will continue supportive treatment with neb treatments, daily IV steroids taking into consideration his renal transplant history, Mucinex, flutter valve, ISB, and will follow Procalcitonin, Sputum cx, and BNP. Based on BNP results, consider repeating ECHO. Patient will be admitted for further evaluation and management. Please see A/P for further details. Admission Exam Per Admitting Provider Neuro: AAOx4, PERRLA, no aphagia, memory changes, CNII-XII grossly intact HEENT: head normocephalic, moist mucus membranes CV: S1/S2, (-) M/G/R, (+) 2 bilateral pitting edema, cap refill < 3 seconds Resp: Lungs + expiratory wheezes throughout. on 2LNC GI: Abdomen S/NT/ND, Ax4 bowel sounds, (-) CVA tenderness Musculoskeletal: 5/5 B/L UE strength, 5/5 B/L LE strength. No gait disturbance Skin: (-) rashes , (-) erythema. Psych: euthymic mood Principal Diagnosis RSV infection Acute hypoxic respiratory failure Discharge Exam Constitutional: Alert oriented x 3; not in distress. Respiratory: normal respiratory effort, lungs clear to auscultation, no wheeze, rales, rhonchi. Normal insp/exp effort, no accessory muscle use Cardiovascular: RRR, no murmur, no edema Vessels: no JVD or carotid bruit Chest: Bilateral vesicular breath sounds. Decreased air entry at bases. Abdomen: normal bowel sounds, soft, nontender, no hepatosplenomegaly Musculoskeletal: no cyanosis or clubbing, extremities motor strength 5/5 Skin: no rashes, warm and dry normal turgor Neurologic: PERRL, EOMI, accommodation nl, no face palsy, no dysarthria CN's II- XI intact bilaterally and moves all extremities Psychiatric: A+Ox3, euthymic affect Discharge Data Allergies Allergy/AdvReac Type Severity Reaction Status Date / Time No Known Allergies Allergy Verified 10/18/20 17:36 Consultations 05/22/23 09:39 ED Decision to Admit Stat 05/23/23 07:53 Consult Nephrology Routine Hospital Course (1) Respiratory syncytial virus (RSV): (2) ESRD (end stage renal disease): (3) Immunosuppressed status: (4) HTN (hypertension): (5) Hyperparathyroidism due to renal insufficiency: (6) HLD (hyperlipidemia): Plan Mr. Munson is a 62-year-old male who has a past medical history of ESRD s/p kidney transplant in 2019 at [facility] with a living donor, history of atrial fibrillation while receiving dialysis during the transplant, HTN, HLD, and hyperparathyroid hormone related to immunosuppression and kidney disease presents today for shortness of breath that has worsened since Sunday 05/20 when he was here and tested positive for RSV. Patient admitted to the hospital for acute hypoxic respiratory failure. RSV infection Acute hypoxic respiratory failure RSV positive on Sunday 05/20 Chest x-ray on admission personally reviewed; no airway consolidation. Reticulonodular opacities present. During the hospitalization, patient was treated with supportive care, DuoNeb and azithromycin. His oxygen requirement down trended and he was seen room air at the time of discharge. Two-step oxygen evaluation was done; patient did not need any oxygen at rest and exertion. Hypertensive urgency Blood pressure noted to be on higher side. Last Cards appt 10/2022; reportedly difficult - to - control HTN Consulted nephrology for comanagement of high blood pressure. At discharge, patient was placed on lisinopril 10 mg once a day, nifedipine 60 mg once a day and Coreg. He was asked to stop clonidine that was just prescribed to him by cardiology. Please note the above document was generated using voice recognition software. It may contain grammatical, syntax or spelling errors. Any formal questions or concerns about the content, text or information contained within the body of this dictation should be directly addressed to the provider for clarification Total Time Total Time Spent Total Time Spent (In Minutes): 45 Total Time Includes: Examination of the Patient, Discharge Planning, Medication Reconciliation, Communication With Other Providers and Other Discharge Plan Discharge Items Patient Disposition: Home - Self-Care Reason For Visit: SOB Discharge Diagnosis: RSV infection Hypertensive urgency. Activity: Resume your previous activity Non-emergency contact: Primary Care Provider Call non-emergency contact if: you have any medication questions and your symptoms worsen Follow-up/Referrals: Michael Marvin MD [Primary Care Provider] - (Date & Time 05/28/2023 3:00 PM Provider Michael Marvin MD Department Family Medicine [facility] ) Diet: Regular Addtl Attending Provider Instructions: You were admitted to the hospital due to RSV infection. Your chest x-ray showed some reticular opacities likely from the infection. You have an appointment with your primary care doctor set up. Please repeat chest x-ray in 4 weeks to follow-up on the reticular opacities. You may need further CT of the chest and pulmonary referral based on the findings. You can use nebulizer at home every 6 hours as needed for shortness of breath. You can do this for the next 2 days and then stop it. For the high blood pressure, modification has been done to your regimen: 1) decrease lisinopril 10 mg once a day, from twice a day 2 continue taking Coreg 25 mg twice daily 3) start taking nifedipine 60 mg once a day Pending Studies at Discharge: No Stand-Alone Forms: My [facility], Work/School Release, Smoking Cessation Medications and DC Order Prescriptions: New ipratropium-albuterol 0.5 mg-3 mg(2.5 mg base)/3 mL Solution For Nebulization 3 ml NEB QIDR PRN (Reason: shortness of breath) Qty: 90 0RF lisinopril 10 mg Tablet 10 mg PO DAILY Qty: 30 0RF Saline Mist 0.65 % Aerosol,[place] 2 spray NA NOW PRN (Reason: dry nasal passages) Qty: 45 0RF nifedipine 60 mg tablet extended release 60 mg PO DAILY Qty: 30 0RF Continued cinacalcet 30 mg tablet 30 mg PO PM Rx Instructions: TAKE THIS MEDICATION ONCE DAILY WITH EVENING MEAL tacrolimus 1 mg Capsule 2 mg PO DAILY Qty: 0 0RF aspirin 81 mg Tablet,Delayed Release (Dr/Ec) 81 mg PO DAILY acetaminophen [Tylenol Extra Strength] 500 mg Tablet 500 mg PO Q6H PRN (Reason: Pain) simvastatin 20 mg Tablet 20 mg PO DAILY magnesium oxide 400 mg magnesium Tablet 400 mg PO DAILY S-Xjyt-Lmvlvlt 250 mg Tablet 1 tab PO DAILY Patient Comments: Patient rarely takes because its hard to get a a new RX. 10/18/20 carvedilol 25 mg tablet 25 mg PO DAILY mycophenolate sodium 180 mg tablet,delayed release (DR/EC) 540 mg PO BID Discontinued lisinopril 10 mg Tablet 10 mg PO BID Discharge Orders: Discharge Order (Routine); Ordered 05/25/23 Ordered By: Jai Billingsley Admission Data Admit Date/Time: 05/22/23 09:41 Attending Provider: Jai Billingsley Admit Provider: Giovanny Elkins Primary Care Provider: Michael Marvin Other Providers: Giovanny Elkins; Shira Stern; Edwin Guerrero; Michelle Iqbal; Maile Elaine; Janet Schulz; Betty Hancock Other Interventions: Discharge Summary Assessment (RN) Last Done: 05/25/23 11:45
== END 2023-05-25 15:30 | disposition home or self-care (01) | DRG 189 ==
LOC: ED 07:50 → EDINP 09:41 → SUATTDRO 09:41 → 2W 14:47

== ENCOUNTER 2024-09-27 09:54 | Inpatient (IN) ==
--- NOTE | 2024-09-27 10:27 | Emergency Department Note ---
History of Present Illness General Chief complaint: Swelling/Edema to Extremity Stated complaint: RT HAND/ARM EDEMA Time Seen by Provider: 09/27/24 10:12 History of Present Illness Maximum Pain Intensity: 7 This is a 64-year-old male that presents to the emergency department via private vehicle with complaints of "right arm pain, swelling". 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 He denies any distinct trauma or injury. Then he noted this past Thursday swelling to the right elbow region that now has been progressing towards the right hand. He notes that as of this past Thursday he cannot move the right hand secondary to pain and swelling now within the hand. He currently is on Eliquis he notes for the past month secondary to history of atrial fibrillation. Patient also notes he is immunocompromised as he is on immunosuppressant secondary to renal transplant 2018. Patient does have associated nausea with the pain and swelling of the arm. He denies any fevers, chills or vomiting. No chest pain or shortness of breath. Home Medications Medication Instructions Recorded Confirmed Type cinacalcet 30 mg tablet 30 mg PO PM 04/24/18 09/27/24 History acetaminophen 500 mg tablet 500 mg PO Q6H PRN Pain 06/18/20 09/27/24 History (Tylenol Extra Strength) aspirin 81 mg tablet,delayed 81 mg PO DAILY 06/18/20 09/27/24 History release magnesium oxide 400 mg PO DAILY 06/18/20 09/27/24 History simvastatin 20 mg tablet 20 mg PO DAILY 06/18/20 09/27/24 History carvedilol 25 mg tablet 25 mg PO BID 10/18/20 09/27/24 History mycophenolate sodium 180 mg 540 mg PO BID 05/22/23 09/27/24 History tablet,delayed release sodium chloride 0.65 % nasal spray 2 spray NA NOW PRN dry nasal 05/25/23 09/27/24 Rx aerosol (Saline Mist) passages #45 mL apixaban 5 mg tablet (Eliquis) 5 mg PO BID 09/27/24 09/27/24 History clonidine HCl 0.1 mg tablet 0.1 mg PO BID 09/27/24 09/27/24 History levalbuterol tartrate 45 1 puff inhalation Q4 PRN SOB 09/27/24 09/27/24 History mcg/actuation aerosol inhaler lisinopril 10 mg tablet 10 mg PO QAM 09/27/24 09/27/24 History tacrolimus 0.75 mg tablet,extended 1.5 mg PO QAM 09/27/24 09/27/24 History release 24 hr (Envarsus XR) torsemide 20 mg tablet 20 mg PO PM 09/27/24 09/27/24 History Allergies Allergy/AdvReac Type Severity Reaction Status Date / Time No Known Allergies Allergy Verified 10/18/20 17:36 Past Med/Surg History Problem List (Updated 09/27/24 @ 15:20 by Shaw Santos PA-C) Swelling of right upper extremity (Acute) Cellulitis of right hand (Acute) HLD (hyperlipidemia) ESRD (end stage renal disease) s/p 2019 renal txplt Immunosuppressed status (Acute) History of kidney transplant (Acute) Atrial fibrillation A FIB EVENT X 1 (WITH 2ND DIALYSIS) Hyperparathyroidism due to renal insufficiency (Chronic) HTN (hypertension) (Chronic) Medical History Breathlessness Respiratory syncytial virus (RSV) Fever of unknown origin DVT prophylaxis SIRS (systemic inflammatory response syndrome) Cholelithiasis Family hx colonic polyps Hyperphosphatemia End stage renal failure on dialysis Gout Osteoarthritis GERD (gastroesophageal reflux disease) Asthma A CHILD (NO CURRENT PROBLEMS) New onset atrial fibrillation Surgical History History of cholecystectomy Renal transplant recipient Date of transplant 02/17/2019, at [facility] Living donor transplant History of tooth extraction S/P arteriovenous (AV) fistula creation LEFT ARM Family History Brother Family hx colonic polyps Father Heart disease Stroke Mother Coronary heart disease Other Dementia Hypertension Skin cancer Social History Smoking Status: Never smoker Second Hand Exposure: Yes; Do You Dip or Chew Tobacco: No; Hx Alcohol Use: No Hx Substance Use: No Preferred Language: Ghanaian Communication Ability: Effective Visual Impairment: No Limitations Screen Door Maker Required: No Beliefs That Will Affect Care: None marital status: Current Living Situation: Spouse current occupational status: employed Feels Safe at Home: Yes Assistive Devices: Oxygen - Continuous Review of Systems A total of 10 systems reviewed and were otherwise negative Physical Exam Vital Signs Vital Signs - 24 hr 09/27/24 10:03 09/27/24 13:03 Temperature 36.7 C Temperature Source Temporal Artery Scan Pulse Rate 85 Pulse Rate [Left Finger] 82 Pulse Rhythm [Left Finger] Regular Pulse Strength [Left Finger] Normal Respiratory Rate 18 18 Respiratory Effort / Characteristics Non-Labored Spontaneous Non-Labored Respiratory Depth Normal Normal Respiratory Pattern Regular Blood Pressure 157/86 H Blood Pressure [Right Arm] 163/128 H Blood Pressure Mean 109 Blood Pressure Mean [Right Arm] 139 Blood Pressure Position [Right Arm] Sitting Pulse Oximetry 94 96 Oxygen Delivery Method Room Air Room Air Sepsis Recent Fever Within 48 Hours No Sepsis New/Unexplained Change in Mental Status N/A Sepsis Action Taken by Nursing No Action Required VITAL SIGNS - Vital signs and nursing notes were reviewed. Hypertensive, otherwise stable and afebrile. GENERAL -64-year-old male appearing his stated age who is in no acute distress. Communicates well with provider and answers questions appropriately. SKIN -right upper extremity edematous beginning at the elbow and tracking distally towards the right hand region. There is erythema to the dorsal right hand tracking into the dorsal right wrist region. HEAD - NC/AT. EYES - Sclera anicteric. NOSE - Midline and without cyanosis. No epistaxis or purulent drainage noted. MOUTH/OROPHARYNX - Without perioral cyanosis. NECK - Neck with FROM. No nuchal rigidity. LUNGS - CTA CARDIAC - RRR EXTREMITIES - No clubbing or peripheral cyanosis. Skin as above. Decreased range of motion of the right hand, digits of the right hand and right wrist secondary to pain and swelling per patient. Right radial pulse within normal limits. Cap refill of the right hand within normal limits. Minimal tenderness throughout the forearm and right elbow without evidence of septic bursitis clinically. +5/5 strength noted in UE/LE bilaterally. Fistula to left upper extremity noted. NEUROLOGIC - Cranial nerves II through XII grossly intact. Sensory intact throughout the right upper extremity without deficit. PSYCH -alert, oriented and pleasant on exam. Course Administered Medications Discontinued Medications Cefepime HCl (Maxipime 2000mg) 2,000 mg in 20 mls @ 5 mls/min IV NOW STA; Protocol Stop: 09/27/24 12:30 Last Admin: 09/27/24 13:04 Dose: 5 mls/min Documented By: [facility] Medical Decision Making Laboratory Data 09/27/24 11:50 09/27/24 11:50 Lab Results 09/27/24 09/27/24 Range/Units 11:50 13:02 WBC 8.35 (4.8-10.8) K/ul RBC 4.69 L (4.70-6.10) M/uL Hgb 13.8 L (14.0-18.0) g/dl Hct 40.3 L (42.0-52.0) % MCV 85.9 (80.0-100.0) fL MCH 29.4 (25.0-34.0) pg MCHC 34.2 (32.0-36.0) g/dL RDW Std Deviation 39.6 (36.4-46.3) fL RDW Coeff of Christian 12.9 (11.5-14.5) % Plt Count 197 (130-400) K/uL MPV 11.4 (9.4-12.4) fL Immature Gran % (Auto) 0.2 % Neut % (Auto) 73.1 % Lymph % (Auto) 9.0 % Emery % (Auto) 11.9 % Eos % (Auto) 5.3 % Baso % (Auto) 0.5 % Neut # (Auto) 6.11 (1.40-6.50) K/uL Lymph # (Auto) 0.75 L (1.20-3.40) K/uL Emery # (Auto) 0.99 H (0.11-0.59) K/uL Eos # (Auto) 0.44 (0.00-0.50) K/uL Baso # (Auto) 0.04 (0.00-0.20) K/uL Immature Gran # (Auto) 0.02 (0.01-0.20) K/uL ESR 50 H (0-20) mm/hr PT 11.9 (9.0-12.0) Seconds INR 1.1 (0.9-1.1) APTT 38 H (21-31) Seconds PTT Ratio 1.4 Sodium 138 (136-145) mmol/L Potassium 3.7 (3.5-5.1) mmol/L Chloride 102 (98-107) mmol/L Carbon Dioxide 29 (21-32) mmol/L Anion Gap 7 (3-11) BUN 20 (6-23) mg/dl Creatinine 1.31 (0.6-1.4) mg/dl Est Cr Clr Drug Dosing 76.4 ml/min eGFR 61.16 BUN/Creatinine Ratio 15.3 (10-20) Glucose 104 H (70-99(Fasting)) mg/dl Uric Acid 10.5 H (2.6-7.2) mg/dl Calcium 10.2 (8.6-10.3) mg/dl Total Bilirubin 1.3 H (0.2-1.0) mg/dl AST 20 (13-39) U/L ALT 19 (7-52) U/L Alkaline Phosphatase 99 (34-104) U/L Total Creatine Kinase 48 (30-223) U/L C-Reactive Protein 8.07 H (0-0.5) mg/dl Total Protein 7.4 (6.0-8.3) gm/dl Albumin 4.3 (3.4-5.0) gm/dl Globulin 3.1 (2.5-4.0) gm/dl Albumin/Globulin Ratio 1.4 (0.9-2) Procalcitonin 0.38 (0-0.5) ng/ml Nasal Screen MRSA (PCR) Negative (Negative) Lyme Disease Screen Negative (Negative) Imaging Data Radiologist's Impression: Venous Doppler Study 09/27/24 10:23 ULTRASOUND RIGHT UPPER EXTREMITY VENOUS CLINICAL HISTORY: Acute pain of the right upper extremity. COMPARISON STUDY: None. TECHNIQUE: Real-time, grayscale, and color Doppler sonography of the deep veins of the right upper extremity is performed. Compression and augmentation were utilized. FINDINGS: There is no sonographic evidence of deep venous thrombosis identified in the right upper extremity. The right internal jugular, axillary, and brachial veins are patent and normally compressible. Normal venous waveforms and augmentation are seen within the right subclavian vein. The cephalic and basilic veins are clear. The visualized radial and ulnar veins are patent. IMPRESSION: There is no sonographic evidence of deep venous thrombosis identified in the right upper extremity. ACT 112: Negative or not required by law. Electronically signed by: Jerome Toribio M.D. 09/27/2024 11:[address] 09/27/24 14:22 CT elbow RT wo con HISTORY: 64 years-old Male right elbow swelling and pain acute pain and swelling of the right upper extremity COMPARISON: CT right forearm of same day TECHNIQUE: Multiple axial CT images of the right elbow were obtained without IV contrast. A dose lowering technique was used consistent with the principals of JOVANY. FINDINGS: There is moderate subcutaneous and deep tissue edema of the elbow, proximal to mid forearm which is most pronounced along the dorsal and dorsomedial margins. No drainable fluid collection or discrete mass identified by CT. Arterial calcifications are noted. There is also heterogeneity and edema noted within the anterior and posterior compartment musculature of the forearm and also within the distal myotendinous junction of the triceps. No intra-articular loose bodies identified. There is moderate joint space narrowing with subcortical cystic changes and marginal osteophytic spurring involving the radiocapitellar and trochlear olecranon articulations. The radial head appears intact. No acute fracture, dislocation or definite acute osseous erosion identified by CT. Small joint effusion of the elbow. IMPRESSION: 1. Moderate osteoarthritis of the elbow without acute fracture, dislocation or acute osseous erosion. 2. Small joint effusion with moderate nonspecific subcutaneous and deep tissue edema of the elbow and imaged forearm suspicious for cellulitis/myositis. 3. No discrete fluid collection. ACT 112: Negative or not required by law. The above report was generated using voice recognition software. It may contain grammatical, syntax or spelling errors. Electronically signed by: Jerome Toribio M.D. 09/27/2024 3:07 PM MDM Narrative Patient was seen and evaluated as above in room D05. Review was performed of triage nursing notes and vital signs. I did review pertinent previous visits and patient history. After obtaining a thorough history and physical examination the above work up was performed. Patient presents to us today for evaluation of atraumatic right upper extremity pain and swelling. This is mostly involving the right hand, right wrist and forearm but does track to the dorsal right elbow region. Tenderness noted to the right hand with associated erythema to the dorsal right hand and wrist region. No bony tenderness. There is no fluctuance. No crepitus. Low suspicion for necrotizing fasciitis. He denies any fevers or systemic infectious symptoms. Options of care were discussed with the patient. IV access was established. Labs were drawn. Ultrasound right upper extremity was obtained. ultrasound negative for DVT. Labs reveal no leukocytosis. Minor anemia noted with hemoglobin 13.8. No emergent metabolic disturbance. Mild hyperbilirubinemia 1.3. Lyme screen negative. Uric acid elevated. Although gout is possible, the involved areas would be more than expected as this would traverse multiple joints. We will cover for potential infection at the present time. I do believe that further evaluation and management in the inpatient setting is warranted for the suspected infection in this immunocompromised patient noting amount of involvement of the right upper extremity. IV cefepime ordered. MRSA nasal swab pending. I discussed presentation with the hospitalist service. Please read to further documentation regarding his stay. GCS: 15 In the evaluation and treatment of this patient the following differential diagnoses were entertained: Cellulitis, necrotizing fasciitis, tenosynovitis, septic joint, among others Impression & Plan Swelling of right upper extremity, Cellulitis of right hand Discharge Plan Visit Data Chief Complaint: Swelling/Edema to Extremity Stated Complaint: RT HAND/ARM EDEMA ED Provider: Karen Fong ED Midlevel Provider: Shaw Santos Discharge Problem: Swelling of right upper extremity, Cellulitis of right hand Patient Disposition: Admitted As Inpatient Condition: Good Forms Stand Alone Forms: My [facility] Prescriptions Prescriptions: No Action cinacalcet 30 mg tablet 30 mg PO PM Rx Instructions: TAKE THIS MEDICATION ONCE DAILY WITH EVENING MEAL aspirin 81 mg Tablet,Delayed Release (Dr/Ec) 81 mg PO DAILY acetaminophen [Tylenol Extra Strength] 500 mg Tablet 500 mg PO Q6H PRN (Reason: Pain) simvastatin 20 mg Tablet 20 mg PO DAILY magnesium oxide 400 mg magnesium Tablet 400 mg PO DAILY carvedilol 25 mg tablet 25 mg PO BID mycophenolate sodium 180 mg tablet,delayed release (DR/EC) 540 mg PO BID Saline Mist 0.65 % Aerosol,[place] 2 spray NA NOW PRN (Reason: dry nasal passages) Qty: 45 0RF clonidine HCl 0.1 mg tablet 0.1 mg PO BID torsemide 20 mg tablet 20 mg PO PM Eliquis 5 mg tablet 5 mg PO BID Envarsus XR 0.75 mg tablet extended release 24 hr 1.5 mg PO QAM Rx Instructions: 0.75mg x2 po qam lisinopril 10 mg tablet 10 mg PO QAM levalbuterol tartrate 45 mcg/actuation HFA aerosol inhaler 1 puff INHALATION Q4 PRN (Reason: SOB) Referrals Referrals: Michael Marvin MD [Outside Practitioners] -
--- NOTE | 2024-09-27 11:44 | Ultrasound Report ---
ULTRASOUND RIGHT UPPER EXTREMITY VENOUS CLINICAL HISTORY: Acute pain of the right upper extremity. COMPARISON STUDY: None. TECHNIQUE: Real-time, grayscale, and color Doppler sonography of the deep veins of the right upper ex tremity is performed. Compression and augmentation were utilized. FINDINGS: There is no sonographic evidence of deep venous thrombosis identified in the right upper ex tremity. The right internal jugular, axillary, and brachial veins are patent and normally compressibl e. Normal venous waveforms and augmentation are seen within the right subclavian vein. The cephalic a nd basilic veins are clear. The visualized radial and ulnar veins are patent. IMPRESSION: There is no sonographic evidence of deep venous thrombosis identified in the right upper extremity. ACT 112: Negative or not required by law. Electronically signed by: Jerome Toribio M.D. 09/27/2024 11:43 AM
[2024-09-27 12:37] LABS: Basophils # (auto) 0.04 K/uL (0.00-0.20); Basophils % (auto) 0.5 %; Eosinophils # (auto) 0.44 K/uL (0.00-0.50); Eosinophils % (auto) 5.3 %; Hematocrit (blood only) 40.3 % (42.0-52.0); Hemoglobin 13.8 g/dl (14.0-18.0); Immature Granulocytes # (auto) 0.02 K/uL (0.01-0.20); Immature Granulocytes % (auto) 0.2 %; Lymphocytes # (auto) 0.75 K/uL (1.20-3.40); Mean Corpuscular Hemoglobin 29.4 pg (25.0-34.0); Mean Corpuscular Hgb Conc 34.2 g/dL (32.0-36.0); Mean Corpuscular Volume 85.9 fL (80.0-100.0); Mean Platelet Volume 11.4 fL (9.4-12.4); Monocytes # (auto) 0.99 K/uL (0.11-0.59); Monocytes % (auto) 11.9 %; Neutrophils # (auto) 6.11 K/uL (1.40-6.50); Neutrophils % (auto) 73.1 %; Platelet Count 197 K/uL (130-400); RDW Coefficient of Variation 12.9 % (11.5-14.5); RDW Standard Deviation 39.6 fL (36.4-46.3); Red Blood Count 4.69 M/uL (4.70-6.10); White Blood Count 8.35 K/ul (4.8-10.8)
[2024-09-27 12:58] LABS: Albumin Level 4.3 gm/dl (3.4-5.0); Bilirubin,Total 1.3 mg/dl (0.2-1.0); Calcium 10.2 mg/dl (8.6-10.3); Potassium 3.7 mmol/L (3.5-5.1)
[2024-09-27 13:00] LABS: Procalcitonin 0.38 ng/ml (0-0.5)
[2024-09-27 13:04] LABS: Albumin Globulin Ratio 1.4 (0.9-2); BUN Creatinine Ratio 15.3 (10-20); Creatinine Clr Calc Pharmacy 76.4 ml/min; Globulin 3.1 gm/dl (2.5-4.0); Total Protein 7.4 gm/dl (6.0-8.3); Uric Acid 10.5 mg/dl (2.6-7.2)
[2024-09-27] MEDS: CEFEPIME 2000MG 2,000 MG/20 ML SYR IV STA (13:04)
[2024-09-27 13:18] LABS: INR 1.1 (0.9-1.1); Partial Thromboplastin Ratio 1.4; Partial Thromboplastin Time 38 Seconds (21-31); Prothrombin Time 11.9 Seconds (9.0-12.0)
[2024-09-27 13:25] LABS: Lyme Screen Rflx Confirmation Negative (Negative)
--- NOTE | 2024-09-27 14:02 | History & Physical Report ---
Date of Service September 27, 2024 Assessment & Plan (1) Cellulitis of right hand: (2) Swelling of right upper extremity: (3) History of kidney transplant: (4) Immunosuppressed status: (5) Atrial fibrillation: (6) HTN (hypertension): (7) HLD (hyperlipidemia): (8) Hyperparathyroidism due to renal insufficiency: Plan 64 year old male with PMH significant for PAF, HTN, HLD, hyperparathyroidism, s/p renal transplant (2019) with chronic immunotherapy who presented to the ED today with right upper extremity pain and swelling for 5 days. Cellulitis of right hand, right upper extremity swelling Work up thus far consistent with cellulitis - CRP and ESR elevated CT forearm, elbow, hand suggest cellulitis without abscess, hematoma, or osteomyelitis Gout possible given elevated uric acid - ordered methylprednisolone Venous doppler negative for DVT Negative WBCs, lyme disease, CK Blood cultures pending IV daptomycin initiated for cellulitis IV cefepime continued given immunocompromised state s/p renal transplant, immunocompromised state Closely monitor for infection given immunocompromised state Renal labs at baseline - creat 1.3, GFR 61 Continue tacrolimus and mycophenolate per home dosing Continue torsemide per home dosing for chronic LE edema PAF Continue Eliquis and carvedilol per home dosing HTN Continue lisinopril and clonidine per home dosing HLD Holding statin Hyperparathyroidism Continue cinacalcet per home dosing DVT Prophylaxis: on Eliquis Code Status: FULL CODE - As per discussion at bedside with the patient. PCP: Dr Julia Rascon DO Disposition: admit to med/surg tele for observation Patient seen in collaboration with Dr Billingsley. Please see addendum. I spent a total of 80 minutes coordinating, documenting and providing care for this patient excluding time spent in the performance of separately billed services or time spent by another provider/QHP. Admission and Anticipated Discharge Date Admission Date: 09/27/2024 History of Present Illness Chief Complaint: right arm pain and swelling Primary Care Provider: Julia Garcia DO 64 year old male with PMH significant for PAF, HTN, HLD, hyperparathyroidism, s/p renal transplant (2019) with chronic immunotherapy who presented to the ED today with right upper extremity pain and swelling for 5 days. Patient states that he noticed swelling of his right elbow that started on and attributed it to overuse of his right arm. 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 He notes that he has had problems with joint swelling in the past that usually resolve after a few days. However, he noticed the swelling and pain started to spread to his right hand on Thursday. He is now having 7/10 pain, decreased mobility of his right elbow and hand, numbness/tingling, chills, and nausea which prompted him to seek evaluation in the ED. He denies any recent trauma or injury to his right arm as well as any chest pain or SOB. He notes that he used to have gout which was managed with colchicine but he has not taken that for the last few years due to his kidney disease. He lives at home with his and dog. He denies tobacco, alcohol, and drug use. He eats a mostly well balanced diet. Allergies Allergy/AdvReac Type Severity Reaction Status Date / Time No Known Allergies Allergy Verified 10/18/20 17:36 Home Medications Medication Instructions Recorded Confirmed Type cinacalcet 30 mg tablet 30 mg PO PM 04/24/18 09/27/24 History acetaminophen 500 mg tablet 500 mg PO Q6H PRN Pain 06/18/20 09/27/24 History (Tylenol Extra Strength) aspirin 81 mg tablet,delayed 81 mg PO DAILY 06/18/20 09/27/24 History release magnesium oxide 400 mg PO DAILY 06/18/20 09/27/24 History simvastatin 20 mg tablet 20 mg PO DAILY 06/18/20 09/27/24 History carvedilol 25 mg tablet 25 mg PO BID 10/18/20 09/27/24 History mycophenolate sodium 180 mg 540 mg PO BID 05/22/23 09/27/24 History tablet,delayed release sodium chloride 0.65 % nasal spray 2 spray NA NOW PRN dry nasal 05/25/23 09/27/24 Rx aerosol (Saline Mist) passages #45 mL apixaban 5 mg tablet (Eliquis) 5 mg PO BID 09/27/24 09/27/24 History clonidine HCl 0.1 mg tablet 0.1 mg PO BID 09/27/24 09/27/24 History levalbuterol tartrate 45 1 puff inhalation Q4 PRN SOB 09/27/24 09/27/24 History mcg/actuation aerosol inhaler lisinopril 10 mg tablet 10 mg PO QAM 09/27/24 09/27/24 History tacrolimus 0.75 mg tablet,extended 1.5 mg PO QAM 09/27/24 09/27/24 History release 24 hr (Envarsus XR) torsemide 20 mg tablet 20 mg PO PM 09/27/24 09/27/24 History Past Med/Surg History Problem List (Updated 09/27/24 @ 15:20 by Shaw Santos PA-C) Swelling of right upper extremity (Acute) Cellulitis of right hand (Acute) HLD (hyperlipidemia) ESRD (end stage renal disease) s/p 2019 renal txplt Immunosuppressed status (Acute) History of kidney transplant (Acute) Atrial fibrillation A FIB EVENT X 1 (WITH 2ND DIALYSIS) Hyperparathyroidism due to renal insufficiency (Chronic) HTN (hypertension) (Chronic) Medical History Breathlessness Respiratory syncytial virus (RSV) Fever of unknown origin DVT prophylaxis SIRS (systemic inflammatory response syndrome) Cholelithiasis Family hx colonic polyps Hyperphosphatemia End stage renal failure on dialysis Gout Osteoarthritis GERD (gastroesophageal reflux disease) Asthma A CHILD (NO CURRENT PROBLEMS) New onset atrial fibrillation Surgical History History of cholecystectomy Renal transplant recipient Date of transplant 02/17/2019, at [facility] Living donor transplant History of tooth extraction S/P arteriovenous (AV) fistula creation LEFT ARM Family History Brother Family hx colonic polyps Father Heart disease Stroke Mother Coronary heart disease Other Dementia Hypertension Skin cancer Social History Smoking Status: Never smoker Second Hand Exposure: Yes; Do You Dip or Chew Tobacco: No; Hx Alcohol Use: No Hx Substance Use: No Preferred Language: Macedonian Communication Ability: Effective Visual Impairment: No Limitations Test Deck Supervisor Required: No Beliefs That Will Affect Care: None marital status: Current Living Situation: Spouse current occupational status: employed Feels Safe at Home: Yes Assistive Devices: Oxygen - Continuous Review of Systems Review of Systems: All systems reviewed & are unremarkable except as noted in HPI & below Physical Exam Physical Exam: General/Psych: WD/WN, sitting up in bed, NAD, conversing easily, euthymic affect Head: normocephalic, atraumatic Eyes: normal inspection, PERRL, conjunctivae pink, anicteric sclerae ENT: external ear and nose normal, oropharynx normal Neck: normal visual inspection, trachea midline, no thyromegaly Respiratory: normal respiratory effort, lungs clear to auscultation, no wheeze/rales/rhonchi, no accessory muscle use Cardiovascular: regular rate and rhythm, no murmur/rub/gallop, no JVD Extremities: right elbow with edema and slight erythema, right hand and digits with edema and bright erythema, BLE 3+ pitting edema, normal peripheral pulses Abdomen/GI: normal bowel sounds, soft, nontender, no hepatosplenomegaly Neurologic/MSK: A+Ox3, decreased ROM in right elbow and hand Skin: warm and dry Results & Data Results & Data Vital Signs (Past 12 Hours) Vital Signs Temp Pulse Pulse Resp BP BP Pulse Ox 09/27/24 13:03 82 18 163/128 H 96 09/27/24 10:03 36.7 C 85 18 157/86 H 94 O2 Del Method 09/27/24 13:03 Room Air 09/27/24 10:03 Room Air Laboratory Results Short CBC 09/27/24 Range/Units 11:50 WBC 8.35 (4.8-10.8) K/ul Hgb 13.8 L (14.0-18.0) g/dl Hct 40.3 L (42.0-52.0) % Plt Count 197 (130-400) K/uL BMP 09/27/24 11:50 Sodium 138 Potassium 3.7 Chloride 102 Carbon Dioxide 29 BUN 20 Creatinine 1.31 Glucose 104 H Calcium 10.2 Liver Function 09/27/24 Range/Units 11:50 Total Bilirubin 1.3 H (0.2-1.0) mg/dl AST 20 (13-39) U/L ALT 19 (7-52) U/L Alkaline Phosphatase 99 (34-104) U/L Albumin 4.3 (3.4-5.0) gm/dl I have independently reviewed and interpreted patient's admitting labs including CBC, CMP, PTT, PT/INR, uric acid, procalcitonin, and lyme disease screen. Code Status & VTE Plan Code Status Full Code Supervising Physician Co-Signing Physician Notes Patient seen and examined independently. Discussed with above provider. Patient presents to the hospital with acute onset of increased swelling, redness and warmth on his right hand extending to the elbow. On examination; there is redness, swelling with increased warmth on the dorsal aspect of his hand and small area in his elbow; no area open wounds. No recent history of trauma. Venous duplex did not suggest any DVT. The CT of the elbow and forearm did not show fluid collection; was found to have subcutaneous and deep tissue edema of the joint suspicious for cellulitis/m yositis. CK is within normal limits. Plan to start empiric cefepime and vancomycin for suspicion of cellulitis. He is also started on methylprednisolone given his history of gout and elevated uric acid level. Elevate the hand, ice twice daily. I have reviewed the advanced practitioner's documentation, and I agree with, and take responsibility for the plan of care I spent a total of 30 minutes coordinating, documenting, and providing care for this patient excluding time spent in the performance of separately billed services. All of the aforementioned completed while collaborating with the assigned advanced practitioner for a full treatment plan (6) HTN (hypertension) Hypertension type: unspecified Qualified Code(s): I10 - Essential (primary) hypertension
[2024-09-27 14:39] LABS: C Reactive Protein 8.07 mg/dl (0-0.5)
--- NOTE | 2024-09-27 15:09 | CT Scan Report ---
CT elbow RT wo con HISTORY: 64 years-old Male right elbow swelling and pain acute pain and swelling of the right upper extremity COMPARISON: CT right forearm of same day TECHNIQUE: Multiple axial CT images of the right elbow were obtained without IV contrast. A dose lowe ring technique was used consistent with the principals of ALARA. FINDINGS: There is moderate subcutaneous and deep tissue edema of the elbow, proximal to mid forearm which is m ost pronounced along the dorsal and dorsomedial margins. No drainable fluid collection or discrete ma ss identified by CT. Arterial calcifications are noted. There is also heterogeneity and edema noted w ithin the anterior and posterior compartment musculature of the forearm and also within the distal my otendinous junction of the triceps. No intra-articular loose bodies identified. There is moderate joint space narrowing with subcortical cystic changes and marginal osteophytic spur ring involving the radiocapitellar and trochlear olecranon articulations. The radial head appears int act. No acute fracture, dislocation or definite acute osseous erosion identified by CT. Small joint e ffusion of the elbow. IMPRESSION: 1. Moderate osteoarthritis of the elbow without acute fracture, dislocation or acute osseous erosion. 2. Small joint effusion with moderate nonspecific subcutaneous and deep tissue edema of the elbow and imaged forearm suspicious for cellulitis/myositis. 3. No discrete fluid collection. ACT 112: Negative or not required by law. The above report was generated using voice recognition software. It may contain grammatical, syntax o r spelling errors. Electronically signed by: Jerome Toribio M.D. 09/27/2024 3:07 PM
--- NOTE | 2024-09-27 15:26 | CT Scan Report ---
CT hand RT wo con HISTORY: 64 years-old Male right hand swelling and pain acute pain and swelling of the right upper e xtremity COMPARISON: CT right elbow and forearm studies of same day TECHNIQUE: Multiple axial CT images of the right hand were obtained without IV contrast. A dose lower ing technique was used consistent with the principals of JOVANY. FINDINGS: Moderate dorsal prominent subcutaneous and deep tissue edema of the hand and distal forearm. A cortic al extensor tenosynovitis. No discrete fluid collections. Tendons and ligaments are not well evaluate d by CT technique. Multifocal osteoarthritis, moderate to severe within the first carpometacarpal mike nt with chronic remodeling. No acute fracture, dislocation or osseous erosion is identified. Probable small radiocarpal effusion. IMPRESSION: 1. Osteoarthritis without acute osseous abnormality identified. 2. Moderate dorsal predominant subcutaneous and deep tissue edema favors cellulitis/myositis. 3. Equivocal extensor tenosynovitis. Correlate with physical exam findings. 4. No drainable fluid collections identified. ACT 112: Negative or not required by law. The above report was generated using voice recognition software. It may contain grammatical, syntax o r spelling errors. Electronically signed by: Jerome Toribio M.D. 09/27/2024 3:25 PM
--- NOTE | 2024-09-27 15:27 | CT Scan Report ---
CT forearm RT wo con CLINICAL HISTORY: swelling and erythema of right elbow and hand COMPARISON STUDY: None FINDINGS: There is motion artifact. There is soft tissue edema at the visualized elbow and proximal f orearm. No focal soft tissue abscess or hematoma seen. No evidence of osteomyelitis. There are mild d egenerative changes at the elbow and wrist. IMPRESSION: 1. Findings suggesting cellulitis without focal abscess or hematoma. 2. No evidence of osteomyelitis seen. ACT 112: Negative or not required by law. Electronically signed by: Peter Godinez M.D. 09/27/2024 3:26 PM
[2024-09-27] MEDS: DAPTOmycin 600 MG in SYRINGE 0 ML IV SCH (15:47)
--- OUTSIDE RECORDS SUMMARY | 2024-09-27 16:20 | External Medical Summary | Summary of Care ---
Author Name Unknown Organization [facility] Address [address] [place] [address] Phone [phone] Care Team Providers Care Sole Buffer Name Role Phone GarciaJulia DO Primary Care Provider [phone] Reason for Referral * Precert (Within 10 days (routine)) - Pending Review Specialty Diagnoses / Procedures Referred By Contac t Referred To Contact Radiology Diagnoses LVH (left ventricular hypertrophy) Procedures NM MYOCARD PERF IMG SPECT MULT STUDIES WITH PHARM INTERV Sarai Nash PA-C [address] [place] [address] Phone: tel: fax: Referral ID Status Reason Start Date Expiration Date Visits Requested Visits Authorized [id number] Pending Review Precert 08/30/[phone] * Precert (Within 10 days (routine)) - Pending Review Specialty Diagnoses / Procedures Referred By Contac t Referred To Contact Radiology Diagnoses LVH (left ventricular hypertrophy) Procedures MRI CARDIAC, ADULT W WO CONTRAST Sarai Nash PA-C [address] [place] [address] Phone: tel: fax: Referral ID Status Reason Start Date Expiration Date Visits Requested Visits Authorized [id number] Pending Review Precert 08/30/[phone] Reason for Visit * Reason Onset Date Comments Test Results 08/26/2024 Appointment 08/26/2024 Encounter Details Date Type Department Care Team (Late st Contact Info) Description 08/26/2024 Telephone Cardiology, [facility] [address] [place] [id number] Sarai Nash, DIMA [address] [place] [id number] Test Results; Appointment Allergies No known active allergiesdocumented as of this encounter (statuses as of 09/06/2024) Medications aspirin enteric coated 81 MG TBECIndications:K idney replaced by transplant,Need for prophylactic immunotherapy Take 1 Tab by mouth daily. 30 Tab 11 9 Active acetaminophen (TYLENOL) 500 MG Tablet Take 1 Tablet by mouth every 6 hours as needed for Pain. Active Magnesium Oxide 400 MG TabletIndications :CKD (chronic kidney disease), stage III (HCC) Take 1 Tab by mouth daily. 30 Tab 5 0 Active Ipratropium-Albut timothy 0.5-2.5 (3) MG/3ML Inhalation Solution (Duoneb) Inhale 3 mL via nebulizer every 6 hours as needed. 3 Active Saline Nasal [place] 0.65 % Nasal Solution ([place]) Administer 2 Sprays into nostril as needed. 3 Active Magnesium 300 MG Oral Capsule Take by mouth. Ac tive Simvastatin 20 MG Oral Tablet (Zocor)Indication s:Kidney replaced by transplant,Hyperl ipidemia with target LDL less than 70 TAKE ONE TABLET BY MOUTH EVERY DAY 90 Tablet 3 4 Active Carvedilol 25 MG Oral Tablet (Coreg)Indication s:HTN, goal below 130/80 Take 1 Tablet by mouth in the morning and 1 Tablet before bedtime. 60 Tablet 5 4 Active Levalbuterol Tartrate 45 MCG/ACT Inhalation Aerosol (Xopenex HFA)Indications:S hortness of breath Inhale 1 Puff by mouth every 4 hours as needed for Wheezing or Shortness of Breath. 15 g 2 4 Active cloNIDine HCl 0.1 MG Oral Tablet (Catapres)Indicat ions:Primary hypertension TAKE ONE TABLET BY MOUTH TWICE DAILY 180 Tablet 1 5 Active Lisinopril 40 MG Oral Tablet Take 1 Tablet by mouth in the morning. 30 Tablet 5 5 Active Torsemide 20 MG Oral Tablet (Demadex) Take 1 Tablet by mouth in the morning. 30 Tablet 5 5 Active Mycophenolate Sodium 180 MG Oral Tablet Delayed Release (Myfortic) take 3 tablets by mouth in the morning and 3 tablets before bedtime 180 Tablet 3 5 Active Cinacalcet HCl 30 MG Oral Tablet (Sensipar) Take 1 tablet by mouth every evening. 90 Tablet 2 08/16/2024 4:02 PM EST 5 07/19/19 26 Active Tacrolimus ER 0.75 MG Oral Tablet Extended Release 24 Hour (Envarsus XR) Take 2 tablets by mouth in the morning. 60 Tablet 5 08/16/2024 4:02 PM EST 5 Active Apixaban 5 MG Oral Tablet (Eliquis) Take 1 Tablet by mouth in the morning and 1 Tablet before bedtime. 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 Dyslipidemia, goal LDL below 70 10/24/2022 H/O dysplastic nevus 10/08/2022 Overview (10/08/2022): Early MIS/severely atypical nevus (L upper back 10/05) Body mass index (BMI) of 40.0 to 44.9 in adult 0 02/21/2020 Overview: Per Obesity protocol Kidney transplant rejection 10/24/2019 Need for prophylactic immunotherapy 05/25/2019 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 Renal transplant, status post 02/19/2019 Overview (02/19/2019): Living donor renal transplant during admission Paroxysmal atrial fibrillation 04/28/2018 Hyperphosphatemia 04/09/2018 Hyperparathyroidism, secondary renal 04/09/2018 Allergic rhinitis due to allergen 10/19/2017 Primary hypertension documented as of this encounter (statuses as of 09/06/2024) Resolved Problems Problem Noted Date Diagnosed Date Resolved Date Chronic obstructive pulmonary disease 08/08/2023 08/08/2023 BMI 36.0-36.9,adult 09/06/2019 02/23/20 Overview: Per Obesity protocol Acute cholecystitis 08/24/2019 09/06/19 Umbilical hernia 08/24/2019 08/24/2019 Encounter for surveillance of abnormal nevi 07/13/2019 09/06/2019 Dependence on renal dialysis 06/03/2018 03/08/2019 Lytic bone lesions on xray 04/28/2018 0 08/08/2023 CKD (chronic kidney disease), stage III 02/19/2018 09/06/2019 Allergic rhinitis 02/19/2018 documented as of this encounter (statuses as of 09/06/2024) Immunizations Name Administration Dates Next Due COVID-19, MRNA-LNP, PF, 30 M CG/0.3 mL, 12 YRS AND ABOVE, IM ([email or web address]) 04/02/2023 Covid-19 Ad26, Single Dose (Sue/J&J) 09/24/2020 Covid-19, Mrna, Lnp-s, Pf, B ivalent, 30 Mcg, IM, 12 yrs and above ([email or web address]) 03/15/2024,05/05/2022 Pneumococcal Conjugate Vacci ne, 20-valent (Toumyvj22) 03/29/2024 Pneumococcal Polysaccharide PPV23 (Pneumovax) 09/02/2018 RSV Vac., Recomb, Adjuvant, PF,0.5 Ml (Arexvy) 03/15/2024 Seasonal Influenza Virus Vac cine, Unspecified Formulation 03/15/2024,03/14/2020,06/01/2019,04/28 Seasonal Influenza, PF, 6 M & above, IM , (FluLaval or Fluzone) 02/28/2023,03/22/2022,03/30/2021,03/14,06/01/2019,04/28/2018 TDAP (age 10 and older)(Boostrix) 10/19/2017 [...] Recorded Sex Assigned at Not on file Legal Sex Male 5:50 AM EST Gender Identity Not on file Sexual Orientation Not on file documented as of this encounter Functional Status * Are you deaf or do you have serious difficulty hearing? Answer Date of Assessment Author No 08/21/2019 3:36 PM EDT Praveena Garcia RN * Are you blind or do you have serious difficulty seeing, even when wearing glasses? Answer Date of Assessment Author No 08/21/2019 3:36 PM Praveena Pastrana RN * Do you have serious difficulty walking or climbing stairs? (5 years old or older) Answer Date of Assessment Author No 08/21/2019 3:36 PM Praveena Pastrana RN * Do you have difficulty dressing or bathing? (5 years old or older) Answer Date of Assessment Author No 08/21/2019 3:36 PM Praveena Pastrana RN * Because of a physical, mental, or emotional condition, do you have difficulty doing errands alone such as visiting a doctor’s office or shopping? (15 years old or older) Answer Date of Assessment Author No 08/21/2019 3:36 PM Praveena Pastrana RN documented as of this encounter Mental Status * Because of a physical, mental, or emotional condition, do you have serious difficulty concentrating, remembering, or making decisions? (5 years old or older) Answer Entry Date Author No 08/21/2019 3:36 PM EDT D'Alexand er, Praveena, RN documented in this encounter Miscellaneous Notes * Telephone Encounter - Jemima Le OSA - 09/02/2024 10:49 AM EDT 09/02/24 lmam/djm 09/01/24 lmam/djm * Telephone Encounter - Keagan Barr OSA - 08/29/2024 3:59 PM EDT Patient is ordered a cardiac study, please assist patient to schedule, thank you. MRI CARDIAC, ADULT W WO CONTRAST [[id number]] (Order [id number] NM MYOCARD PERF IMG SPECT MULT STUDIES WITH PHARM INTERV [28248.02] (Order [id number]) * Telephone Encounter - Pamela Chaudhry LPN - 08/29/2024 3:57 PM EDT Spoke with pt, verbalized understanding. All orders have been placed. * Telephone Encounter - Logan Bose LPN - 08/26/2024 9:59 AM EDT Called patient and left a message for a return call on an unidentified voicemail. Awaiting call back. ----- Message from Sarai Nash sent at 08/26/2024 9:19 AM EDT ----- Echo results reviewed LVH noted - severely thickened. Possible infiltrative process? Recommend cardiac MRI and amyloid labs/nuclear scan if patient is agreeable to additional imaging No significant valvular disease noted Mild pulm hypertension noted. Keep follow up as scheduled in October with Dr. Delatorre documented in this encounter Plan of Treatment Upcoming Encounters Date Type Department Care Team (Late st Contact Info) Description 09/12/2024 8:30 AM EDT Office Visit Dermatology [facility] [place] [address] [facility] [place] [address] Kai Mcclain MD [address] [facility] [place] [address] 10/19/2024 12:30 PM EDT [facility] [address] [place] [phone] Gw, Excess Time Radiology [address] [place] [address] 11/08/2024 11:00 AM EDT Office Visit Cardiology, [facility] [address] [place] [phone] Toni Delatorre, [address] [place] [address] 11/25/2024 2:10 PM EDT Office Visit Family Medicine [address] [place] [address] [place] [address] 03/29/2025 5:00 PM EDT Office Visit Nephrology, [facility] [address] [facility] [place] [address] Edwin Guerrero MD [address] [facility] [place] [address] Scheduled Orders Name Type Priority Associated Diagnoses Orde r Schedule MRI CARDIAC, ADULT W WO CONTRAST Medical Imaging Routine LVH (left ventricular hypertrophy) Expected: 08/30/2024, Expires: 09/26/2025 MONOCLONAL GAMMOPATHIES SCREENING PANEL Lab Routine LVH (left ventricular hypertrophy) Expected: 08/30/2024 (Approximate), Expires: 08/29/2025 NM MYOCARD PERF IMG SPECT MULT STUDIES WITH PHARM INTERV Cardiology Routine LVH (left ventricular hypertrophy) Expected: 08/30/2024 (Approximate), Expires: 09/29/2025 Scheduled Procedures Name Priority Associated Diagnoses Date/Ti me COLONOSCOPY FLEXIBLE PROXIMA L DIAGNOSTIC Recall Family history of colonic polyps Health Maintenance Due Date Last Done Comments Zoster Vaccines (1 of 2) 1980 Cologuard 2006 Fecal Occult Blood Test 2006 Sigmoidoscopy 2006 Depression Screening 03/14/2021 03/14/2020 Colonoscopy 06/29/2023 06/29/2018 Colorectal Cancer Screening 06/29/2023 COVID-19 Vaccine ( season) 2024 03/15/2024, 03/14/2024, 04/02/2023, Additional history exists GFR 07/20/2025 07/20/2024, 08/0 08/2023, 06/27/2023, Additional history exists Albumin/Creatinine Ratio 06/27/2026 024, 12/06/2022, 09/13/2022, Additional history exists Diabetes Screening 07/20/2027 07/20/2024, 0 01/16/2024, 06/27/2023, Additional history exists DTap/Tdap Vaccines (2 - Td or Tdap) 10/20/2027 10/19/2017 Lipid Panel 06/27/2028 06/27/2023, 07/16, 09/08/2020, Additional history exists RETIRED - COLONOSCOPY-EVERY 5 YRS AGES 18-100 Discontinued 06/29/2018 Influenza Vaccine (FLU shot) Completed 03/15/2024, 03/14/2024, 02/28/2023, Additional history exists Pneumococcal Vaccine: 50+ Years Completed 03/29/2024, 09/02/2018 HPV (Gardasil) Vaccine Aged Out No lo nger eligible based on patient's age to complete this topic MENINGOCOCCAL (MENACTRA/MENVEO) Aged Out No longer eligible based on patient's age to complete this topic Meningitis B Vaccine (Bexsero/Trumemba) Aged Out No longer eligible based on patient's age to complete this topic documented as of this encounter Medical Devices Implanted Type Area Program Director/Morning Show Host Device Identifier Shelf Expiration Date Model / Serial / Lot Coil Vortex 35 [id number] [id number] - [id number] Implanted:Qty: 1 on 07/13/2018 by Collin Struod MD at [facility] Left: Lower Arm [employer] : NEURO INTR 03/31/2021 [id number] / / [id number] Description:[email or web address] ENH 08/31/24 Static magnetic field of 1.5 Juliet or 3.0 Juliet Static magnetic field gradient < 25 T/m (2500 g/cm) Normal operating mode of the MR system with a maximum whole body averaged specific absorption rate of 2 W/kg and use of transmit/receive head coil and/or whole body transmit coils Coil Vortex 35 Pltinm [id number] - [id number] Implanted:Qty: 1 on 07/13/2018 by Collin Stroud MD [place] [facility] [place]: Lower Arm [employer] : NEURO INTR 03/31/2021 [id number] / / [id number] Description:[email or web address] ENH 08/31/24 Static magnetic field of 1.5 Juliet or 3.0 Juliet Static magnetic field gradient < 25 T/m (2500 g/cm) Normal operating mode of the MR system with a maximum whole body averaged specific absorption rate of 2 W/kg and use of transmit/receive head coil and/or whole body transmit coils documented as of this encounter Visit Diagnoses Diagnosis LVH (left ventricular hypertrophy)- Primary Cardiomegaly documented in this encounter Advance Directives * Full Code (Latest Code Status on File) Date Activated Date Inactivated Comments 08/21/2019 3:01 PM 08/24/2019 6:09 PM This order re flects the patients wishes and were consensually agreed upon. * Full Code Date Activated Date Inactivated Comments 02/16/2019 1:28 PM 02/19/2019 8:12 PM This order ref lects the patients wishes and were consensually agreed upon. Question Answer Comments Discussion of Advance Directives occurred with: Patient Does the patient have a Living Will? Yes, not cu rrently available Does the patient have Health Care Power of Power And Recovery Supervisor? No Care Teams Sole Buffer Relationship Specialty Start Date End Date Julia Garcia DO [address] [place] [address] [place] [phone] PCP - General Internal Medicine 05/28/23 documented as of this encounter
--- OUTSIDE RECORDS SUMMARY | 2024-09-27 16:20 | External Medical Summary | Summary of Care ---
Author Name Unknown Organization [facility] Address [address] [facility] [place] [address] Phone [phone] Care Team Providers Care Research Program Assistant Name Role Phone Elio Kern DO Primary Care Provider [phone] Reason for Visit * Reason Comments Skin Check Pt presents for rout ine skin check, has a few areas of concern.Hx: MIS, hx of kidney transplant * Evaluate & Treat - Unlimited Visits (Within 30 days (routine)) - Authorized Specialty Diagnoses / Procedures Referred By Contnelly t Referred To Contact Dermatology Diagnoses Renal transplant, status post Elio Kern DO [address] [place] [address] [place] [address] Phone: tel: fax: Referral ID Status Reason Start Date Expiration Date Visits Requested Visits Authorized [id number] Authorized Specialty Services Required 03/22/2024 [id number] Encounter Details Date Type Department Care Team (Late st Contact Info) Description 09/12/2024 8:30 AM EDT Office Visit Dermatology [place] [facility] [place] [address] Kai Mcclain MD 200 [facility] [place] [address] Stasis dermatitis of both legs*; Immunosuppressed status (HCC); Actinic skin damage; Seborrheic keratoses; Scar; History of atypical nevus; Dermatitis Allergies No known active allergiesdocumented as of this encounter (statuses as of 09/12/2024) Medications aspirin enteric coated 81 MG TBECIndications:K [...] hours as needed. 3 Active Saline Nasal [place] 0.65 % Nasal Solution ([place]a) Administer 2 Sprays into nostril as needed. [...] 2 08/16/2024 4:02 PM EST 5 07/19/19 Active Tacrolimus ER 0.75 MG Oral Tablet Extended Release 24 Hour (Envarsus XR) Take 2 tablets by mouth in the morning. 60 Tablet 5 08/16/2024 4:02 PM EST Active Apixaban 5 MG Oral Tablet (Eliquis) Take 1 Tablet by mouth in the morning and 1 Tablet before bedtime. 180 Tablet 3 5 Active Triamcinolone Acetonide 0.1 % External Cream (Aristocort)Indic ations:Stasis dermatitis of both legs Apply to eczema on arms and legs twice daily for up to 2 weeks 80 g 5 5 Active Hospital, Clinic, or Other Facility Administered Medication Ordered Dose Route Frequency Start Date End Date Status Tixagevimab inj 150 mgIndications:Kidney replaced by transplant 150 mg IM [id number] 08/02/2021 Active Cilgavimab inj 150 mgIndications:Kidney replaced by transplant 150 mg IM [id number] 08/02/2021 Active documented as of this encounter (statuses as of 09/12/2024) Active Problems Problem Noted Date Diagnosed Date [...] as of this encounter (statuses as of 09/12/2024) Resolved Problems Problem Noted Date Diagnosed Date Resolved Date Chronic obstructive pulmonary disease 08/08/2023 08/08/2023 BMI 36.0-36.9,adult 09/06/2019 02/23/20 Overview: Per Obesity protocol Acute cholecystitis 08/24/2019 09/06/19 20 Umbilical hernia 08/24/2019 08/24/2019 Encounter for surveillance of abnormal nevi 07/13/2019 09/06/2019 Dependence on renal dialysis 06/03/2018 03/08/2019 Lytic bone lesions on xray 04/28/2018 0 08/08/2023 CKD (chronic kidney disease), stage III 02/19/2018 09/06/2019 Allergic rhinitis 02/19/2018 documented as of this encounter (statuses as of 09/12/2024) Immunizations Name Administration Dates Next Due COVID-19, MRNA-LNP, PF, 30 M CG/0.3 mL, 12 YRS AND ABOVE, IM (Periscape-FlowgearirMindBodyGreen) 04/02/2023 Covid-19 Ad26, Single Dose (Agendize/J&J) 09/24/2020 Covid-19, Mrna, Lnp-s, Pf, B ivalent, 30 Mcg, IM, 12 yrs and above (RxAdvance) 03/15/2024,05/05/2022 Pneumococcal Conjugate Vacci ne, 20-valent ([id number]) 03/29/2024 Pneumococcal Polysaccharide PPV23 (Pneumovax) 09/02/2018 RSV [...] of Assessment Author No 08/21/2019 3:36 PM BRAYDENT Praveena Garcia RN * Do you have serious difficulty walking or climbing stairs? (5 years old or older) Answer Date of Assessment Author No 08/21/2019 3:36 PM Praveena Pastrana RN * Do you have difficulty dressing or bathing? (5 years old or older) Answer Date of Assessment Author No 08/21/2019 3:36 PM EDT Praveena Garcia RN * Because of a physical, mental, [...] Date Author No 08/21/2019 3:36 PM EDT Praveena Garcia RN documented in this encounter Progress Notes * Kai Mcclain MD - 09/12/2024 8:33 AM EDT Chief Complaint Patient presents with Skin Check Pt presents for routine skin check, has a few areas of concern. Hx: MIS, hx of kidney transplant Martinez Steele is a 64 year old male with history of atypical nevus and kidney transplant (2019), seen today to be monitored for recurrence at previously treated sites and to be evaluated for the development of new lesions. Melanoma History: 2022 - Severely atypical mole, could not r/o MIS, left lateral back Hx of kidney transplant 2019 On Tacrolimus, mycophenaolate Hx of atopic dermatitis Review of Systems: Complete review of systems performed with attention to potential metastatic disease Physical Examination: Constitutional: Patient is well-appearing and in no acute distress. Skin: Exam of the scalp, face, conjunctivae, neck, chest, back, abdomen, buttocks, and all four extremities is performed. All areas are normal except for the following findings. -There is a well-healed primary site without clinical evidence of local, satellite, or in-transit recurrence. Scattered on face, chest, back - diffuse mottled hypopigmented and hyperpigmented macules without significant irregularity. Associated telangiectasias At the trunk and extremities are several scattered [place]ledo/brown hyperkeratotic stuck on appearing waxypapules. Lower legs and arms with edema, scattered thin eczematous plaques ASSESSMENT and PLAN: History of Atypical Nevus, could not r/o MIS. History of immunosuppression (Transplant patient) -History was obtained regarding new or changing moles. -Complete physical skin exam performed. -Patient counseled on self-examination for new or changing moles. The signs and symptoms of skin cancer were reviewed and the patient was advised to practice sun protection and sun avoidance, use daily sunscreen (SPF > 30), and perform regular self-skin and lymph node exams on a monthly basis. I reviewed changes to watch for including changes in the A-B-C-D's,asymmetry of a lesion, changes in border, color or diameter as well as non healing lesions. I instructed the patient to call if any new lesions appear or current lesions change. Additional Problems: Scar. - Well healed. No evidence of disease recurrence. Chronic Actinic Damage - Discussed that skin changes are due to chronic sun exposure. - Daily sun protection recommended Seborrheic keratoses - The benign nature of these lesions was discussed with the patient and that no treatment is indicated today. Stasis and nummular dermatitis - Recommended short lukewarm showers, gentle soaps, frequent moisturizers - compression/elevation of legs - Orders Placed This Encounter Medications Triamcinolone Acetonide 0.1 % External Cream (Aristocort) Sig: Apply to eczema on arms and legs twice daily for up to 2 weeks Dispense: 80 g Refill: 5 Follow up high priority melanoma clinic 12 months. Kai Mcclain MD 09/12/2024, 8:33 AM CC: PCP: ELIO KERN [address] [place] [address] [place] [address] [phone] documented in this encounter Nursing Notes * Peggy Storm CMA - 09/12/2024 8:28 AM EDT Chief Complaint Patient presents with Skin Check Pt presents for routine skin check, has a few areas of concern. Hx: MIS, hx of kidney transplant documented in this encounter Plan of Treatment Upcoming Encounters Date Type Department Care Team (Late st Contact Info) Description 10/19/2024 12:30 PM EDT [facility] [address] [place] [address] Gw, Excess Time Radiology [address] [place] [address] 11/08/2024 11:00 AM EDT Office Visit Cardiology, [facility] [address] [place] [phone] Toni Delatorre, [address] [place] [address] 11/25/2024 2:10 PM EDT Office Visit Family Medicine [address] [place] [address] Elio Kern DO [address] [place] [address] [place] [address] 03/29/2025 5:00 PM EDT Office Visit Nephrology, [address] [place] [address] Edwin Guerrero MD 200 [facility] [place], [place] [address] 10/02/2025 3:45 PM EDT Office Visit Dermatology [place] 200 [facility] [place] [address] Kai Mcclain MD 200 [facility] [place], [place] [address] Scheduled Procedures Name Priority Associated Diagnoses Date/Ti [...] this encounter Medical Devices Implanted Type Area Hot Kettle Tender Device Identifier Shelf Expiration Date Model / Serial / Lot Coil Vortex 35 Pltin [id number] - [id number] Implanted:Qty: 1 on 07/13/2018 by Collin Stroud MD at OR [facility] Left: Lower Arm [employer] : NEURO INTR 03/31/2021 [id number] Description:[email or web address] ENH 08/31/24 Static magnetic field of 1.5 Juliet or 3.0 Juliet Static magnetic field gradient < 25 T/m (2500 g/cm) Normal operating mode of the MR system with a maximum whole body averaged specific absorption rate of 2 W/kg and use of transmit/receive head coil and/or whole body transmit coils Coil Vortex 35 Pltin [id number] - [id number] Implanted:Qty: 1 on 07/13/2018 by Collin Stroud MD at OR [facility] Left: Lower Arm [employer] : NEURO INTR 03/31/2021 [id number] Description:[email or web address] ENH 08/31/24 Static magnetic field of 1.5 Juliet or 3.0 Juliet Static magnetic field gradient < 25 T/m (2500 g/cm) Normal operating mode of the MR system with a maximum whole body averaged specific absorption rate of 2 W/kg and use of transmit/receive head coil and/or whole body transmit coils documented as of this encounter Visit Diagnoses Diagnosis Stasis dermatitis of both legs- Primary Varicose veins of lower extremities with inflammation Immunosuppressed status (HCC) Unspecified disorder of immune mechanism Actinic skin damage Other dermatitis due to solar radiation Seborrheic keratoses Scar Scar condition and fibrosis of skin History of atypical nevus Personal history of diseases of skin and subcutaneous tissue Dermatitis Contact dermatitis and other eczema, due to unspecified cause documented in this encounter Advance Directives * [...] the patient have Health Care Power of Industrial Roofer Helper? No Care Teams Research Program Assistant Relationship Specialty Start Date End Date Elio Kern DO [address] [place] [address] [place] [address] PCP - General Internal Medicine 05/28/23 documented as of this encounter
--- OUTSIDE RECORDS SUMMARY | 2024-09-27 16:20 | External Medical Summary | Summary of Care ---
Author Name Unknown Organization [facility] Address [address] [place] [address] Phone [phone] Care Team Providers Care Bingo Attendant Name Role Phone Jose Julia Wiley DO Primary Care Provider [phone] Reason for Visit * Reason Onset Date Comments FYI 09/01/2024 Encounter Details Date Type Department Care Team (Late st Contact Info) Description 09/01/2024 Telephone Access Center, [facility] [address] [facility] *DO NOT REMOVE THIS DEPARTMENT* [place] [address] Services, Scheduling [address] [place], [place] Allergies No known active allergiesdocumented as of this encounter (statuses as of 09/07/2024) Medications aspirin enteric coated 81 MG TBECIndications:K [...] hours as needed. 3 Active Saline Nasal [place] 0.65 % Nasal Solution ([place]) Administer 2 Sprays into nostril as needed. [...] mgIndications:Kidney replaced by transplant 150 mg IM [id number] 08/02/2021 Active Cilgavimab inj 150 mgIndications:Kidney replaced by transplant 150 mg IM [id number] 08/02/2021 Active documented as of this encounter (statuses as of 09/07/2024) Active Problems Problem Noted Date Diagnosed Date [...] as of this encounter (statuses as of 09/07/2024) Resolved Problems Problem Noted Date Diagnosed Date [...] as of this encounter (statuses as of 09/07/2024) Immunizations Name Administration Dates Next Due COVID-19, MRNA-LNP, PF, 30 M CG/0.3 mL, 12 YRS AND ABOVE, IM ([facility]) 04/02/2023 Covid-19 Ad26, Single Dose (Sue/J&J) 09/24/2020 Covid-19, Mrna, Lnp-s, Pf, B ivalent, 30 Mcg, IM, 12 yrs and above (Pfizer) 03/15/2024,05/05/2022 Pneumococcal Conjugate Vacci ne, 20-valent (Qwtsqlv26) 03/29/2024 Pneumococcal Polysaccharide PPV23 (Pneumovax) 09/02/2018 RSV [...] Assessment Author No 08/21/2019 3:36 PM BRAYDENT Prvaeena Garcia RN * Are you blind or [...] Assessment Author No 08/21/2019 3:36 PM EDT [facility] kaylen, Praveena, RN * Because of a physical, mental, or emotional condition, do you have difficulty doing errands alone such as visiting a doctor’s office or shopping? (15 years old or older) Answer Date of Assessment Author No 08/21/2019 3:36 PM EDT [facility] kaylen, Praveena, RN documented as of this encounter Mental Status * Because of a physical, mental, or emotional condition, do you have serious difficulty concentrating, remembering, or making decisions? (5 years old or older) Answer Entry Date Author No 08/21/2019 3:36 PM EDT [facility] kaylen, Praveena RN documented in this encounter Miscellaneous Notes * Telephone Encounter - Elizabeth Carrizales RN - 09/02/2024 8:45 AM EDT This patient has been triaged and cleared by the cardiac nurse to be scheduled for the [facility]. A message has been sent to the schedulers to please call the patient and will need labs within 30 days prior to CMRI. Elizabeth Carrizales RN * Telephone Encounter - Amaris Lombardi OSA - 09/01/2024 1:35 PM EDT Please triage mi cardiac documented in this encounter Plan of Treatment Upcoming Encounters Date Type Department Care Team (Late st Contact Info) Description 09/12/2024 8:30 AM EDT Office Visit Dermatology [facility] [place] [address] [place] [address] Kai Mcclain MD [address] [place] [address] 10/19/2024 12:30 PM EDT Imaging [facility] 2nd Floor Cardiology, [place] [address] [facility] [place] [address] Gw, Excess Time Radiology [address] [place] [address] 11/08/2024 11:00 AM EDT Office Visit Cardiology, [facility] [address] [place] [phone] Toni Delatorre, [address] [place] [address] 11/25/2024 2:10 PM EDT Office Visit Family Medicine [address] [place] [phone] Julia Garcia, [address] [place] [address] 03/29/2025 5:00 PM EDT Office Visit Nephrology, [facility] 200 [facility] [place] [address] Edwin Guerrero MD [address] [place] [address] Scheduled Procedures Name Priority Associated Diagnoses Date/Ti [...] this encounter Medical Devices Implanted Type Area Supervisor Mattress And Boxsprings Device Identifier Shelf Expiration Date Model / Serial / Lot Coil Vortex 35 Pltinm [id number] - [id number] Implanted:Qty: 1 on 07/13/2018 by Collin Stroud MD at [place] [facility] Left: Lower Arm [employer] : NEURO INTR 03/31/2021 [id number] Description:[email or web address] ENH 08/31/24 Static magnetic field of 1.5 Juliet or 3.0 Juliet Static magnetic field gradient < 25 T/m (2500 g/cm) Normal operating mode of the MR system with a maximum whole body averaged specific absorption rate of 2 W/kg and use of transmit/receive head coil and/or whole body transmit coils Coil Vortex 35 Pltinm [id number] - [id number] Implanted:Qty: 1 on 07/13/2018 by Collin Stroud MD at [place] [facility] Left: Lower Arm [employer] : NEURO INTR 03/31/2021 [id number] Description:[email or web address] ENH 08/31/24 Static magnetic field of 1.5 Juliet or 3.0 Juliet Static magnetic field gradient < 25 T/m (2500 g/cm) Normal operating mode of the MR system with a maximum whole body averaged specific absorption rate of 2 W/kg and use of transmit/receive head coil and/or whole body transmit coils documented as of this encounter Advance Directives * Full Code [...] the patient have Health Care Power of Jewel Grinder? No Care Teams Bingo Attendant Relationship Specialty Start Date End Date Julia Garcia DO [address] [place] [address] [place] [address] PCP - General Internal Medicine 05/28/23 documented as of this encounter
--- OUTSIDE RECORDS SUMMARY | 2024-09-27 16:21 | External Medical Summary | Summary of Care ---
Author Name Unknown Organization [facility] Address [address] [place] [address] Phone [phone] Care Team Providers Care Mental Health Advanced Practice Nurse Name Role Phone GarciaJulia DO Primary Care Provider [phone] Reason for Referral * Precert (Within 10 days (routine)) - Pending Review Specialty Diagnoses / Procedures Referred By Contac t Referred To Contact Radiology Diagnoses LVH (left ventricular hypertrophy) Procedures NM MYOCARD PERF IMG SPECT MULT STUDIES WITH PHARM INTERV Sarai Nash PA-C [address] [place] [address] Phone: tel: fax: Referral ID Status Reason Start Date Expiration Date Visits Requested Visits Authorized [id number] Pending Review Precert 08/30/2024 999 [id number] * Precert (Within 10 days (routine)) - Pending Review Specialty Diagnoses / Procedures Referred By Contac t Referred To Contact Radiology Diagnoses LVH (left ventricular hypertrophy) Procedures MRI CARDIAC, ADULT W WO CONTRAST Sarai Nash PA-C [address] [place] [address] Phone: tel: fax: Referral ID Status Reason Start Date Expiration Date Visits Requested Visits Authorized [id number] Pending Review Precert 08/30/[phone] Reason for Visit * Reason Onset Date Comments Test Results 08/26/2024 Appointment 08/26/2024 Encounter Details Date Type Department Care Team (Late st Contact Info) Description 08/26/2024 Telephone Cardiology, [facility] [address] [place] [address] Sarai Nash, DIMA [address] [place] [address] Test Results; Appointment Allergies No known active allergiesdocumented as of this encounter (statuses as of 08/30/2024) Medications aspirin enteric coated 81 MG TBECIndications:K [...] hours as needed. 3 Active Saline Nasal [place] 0.65 % Nasal Solution ([place]) Administer 2 Sprays into nostril as needed. [...] mgIndications:Kidney replaced by transplant 150 mg IM [id number] 08/02/2021 Active Cilgavimab inj 150 mgIndications:Kidney replaced by transplant 150 mg IM [id number] 08/02/2021 Active documented as of this encounter (statuses as of 08/30/2024) Active Problems Problem Noted Date Diagnosed Date [...] as of this encounter (statuses as of 08/30/2024) Resolved Problems Problem Noted Date Diagnosed Date [...] as of this encounter (statuses as of 08/30/2024) Immunizations Name Administration Dates Next Due COVID-19, MRNA-LNP, PF, 30 M CG/0.3 mL, 12 YRS AND ABOVE, IM (reQall-ComirnatKosmos Biotherapeutics) 04/02/2023 Covid-19 Ad26, Single Dose (Sue/J&J) 09/24/2020 Covid-19, Mrna, Lnp-s, Pf, B ivalent, 30 Mcg, IM, 12 yrs and above (Innofidei) 03/15/2024,05/05/2022 Pneumococcal Conjugate Vacci ne, 20-valent (Ymxgvjv28) 03/29/2024 Pneumococcal Polysaccharide PPV23 (Pneumovax) 09/02/2018 RSV [...] Entry Date Author No 08/21/2019 3:36 PM Praveena Pastrana RN documented in this encounter Miscellaneous Notes * Telephone Encounter - Keagan Barr OSA - 08/29/2024 3:59 PM EDT Patient is ordered a cardiac study, please assist patient to schedule, thank you. MRI CARDIAC, ADULT W WO CONTRAST [MRCFMB] (Order [id number] NM MYOCARD PERF IMG SPECT MULT STUDIES WITH PHARM INTERV [85426.02] (Order [id number]) * Telephone Encounter - Pamela Chaudhry LPN [...] AM EDT Office Visit Dermatology [facility] [place] 200 [facility] [place] [address] Kai Mcclain MD [address] [facility] [place] [address] 11/08/2024 11:00 AM EDT Office Visit Cardiology, [facility] [address] [place] [address] Toni Delatorre, [address] [place] [address] 11/25/2024 2:10 PM EDT Office Visit Family Medicine [address] [address] Julia Garcia, [address] [place] [address] 03/29/2025 5:00 PM EDT Office Visit Nephrology, [facility] [address] [place] [address] Edwin Guerrero MD [address] [place] [address] Scheduled Orders Name Type Priority Associated Diagnoses [...] this encounter Medical Devices Implanted Type Area Cupola Tapper Helper Device Identifier Shelf Expiration Date Model / Serial / Lot Coil Vortex 35 Pltinm [id number] - [id number] Implanted:Qty: 1 on 07/13/2018 by Collin Stroud MD at [place] [facility] Left: Lower Arm [employer] : NEURO INTR 03/31/2021 [id number] Coil Vortex 35 Pltinm [id number] - [id number] Implanted:Qty: 1 on 07/13/2018 by Collin Stroud MD at [place] [facility] [place] Left: Lower Arm [employer] : NEURO INTR 03/31/2021 [id number] documented as of this encounter Visit Diagnoses [...] the patient have Health Care Power of Agricultural Commodities Grader? No Care Teams Mental Health Advanced Practice Nurse Relationship Specialty Start Date End Date Julia Garcia DO [address] [place] [address] [place] [phone] PCP - General Internal Medicine 05/28/23 documented as of this encounter
--- OUTSIDE RECORDS SUMMARY | 2024-09-27 16:21 | External Medical Summary | Summary of Care ---
Author Name Unknown Organization [facility] Address [address] [facility] [place] [address] Phone [phone] Care Team Providers Care Stonecutter Assistant Name Role Phone Julia Garcia DO Primary Care Provider Reason for Visit * Reason Onset Date Comments Test Results 07/21/2024 Encounter Details Date Type Department Care Team (Late st Contact Info) Description 07/21/2024 Telephone Nephrology, [facility] [address] [place] [address] Edwin Guerrero MD 200 [facility] [place] [address] Test Results Allergies No known active allergiesdocumented as of this encounter (statuses as of 07/21/2024) Medications aspirin enteric coated 81 MG TBECIndications:K [...] hours as needed. 3 Active Saline Nasal [place] 0.65 % Nasal Solution ([place]) Administer 2 Sprays into nostril as needed. [...] by mouth every evening. 90 Tablet 2 07/20/2024 3:41 PM EST 5 07/19/19 26 Active Tacrolimus ER 0.75 MG Oral Tablet Extended Release 24 Hour (Envarsus XR) Take 2 tablets by mouth in the morning. 60 Tablet 5 07/20/2024 3:41 PM EST 5 Active Hospital, Clinic, or Other Facility Administered Medication Ordered Dose Route Frequency Start Date End Date Status Tixagevimab inj 150 mgIndications:Kidney replaced by transplant 150 mg IM [id number] 08/02/2021 Active Cilgavimab inj 150 mgIndications:Kidney replaced by transplant 150 mg IM [id number] 08/02/2021 Active documented as of this encounter (statuses as of 07/21/2024) Active Problems Problem Noted Date Diagnosed Date [...] as of this encounter (statuses as of 07/21/2024) Resolved Problems Problem Noted Date Diagnosed Date [...] as of this encounter (statuses as of 07/21/2024) Immunizations Name Administration Dates Next Due COVID-19, MRNA-LNP, PF, 30 M CG/0.3 mL, 12 YRS AND ABOVE, IM (PFIZER-Comirnaty) 04/02/2023 Covid-19 Ad26, Single Dose ([place]/J&J) 09/24/2020 Covid-19, Mrna, Lnp-s, Pf, B ivalent, 30 Mcg, IM, 12 yrs and above (Pfizer) 03/15/2024,05/05/2022 Pneumococcal Conjugate Vacci ne, 20-valent ([id number]) 03/29/2024 Pneumococcal Polysaccharide PPV23 (Pneumovax) 09/02/2018 RSV [...] 08/21/2019 3:36 PM Praveena Pastrana RN * Are you blind or do [...] 3:36 PM EDT Praveena Garcia RN documented as of this encounter Mental Status * Because of a physical, mental, or emotional condition, do you have serious difficulty concentrating, remembering, or making decisions? (5 years old or older) Answer Entry Date Author No 08/21/2019 3:36 PM EDT Praveena Garcia RN documented in this encounter Miscellaneous Notes * Telephone Encounter - Yvette Garrido LPN - 07/21/2024 11:55 AM EST is made aware Pt has made medication changes from OV with little problem He is mad aware TacroLevel at lower end but has been at this level in the past So Dr Guerrero will make make no changes to Envarus at this time * Telephone Encounter - Yvette Garrido LPN - 07/21/2024 11:53 AM EST ----- Message from Edwin Guerrero MD sent at 07/21/2024 11:20 AM EST ----- Renal function stable--confirm he made the med changes last visit. Also if he is having problem with any. He gets problem with all meds. . Prograf level just outside the range we like 4--8. However he has been stable at this level for so long. For now continue same dose of envarsus. documented in this encounter Plan of Treatment Upcoming Encounters Date Type Department Care Team (Late st Contact Info) Description 08/02/2024 2:30 PM EST Office Visit Cardiology, [facility] [address] [place] [address] Sarai Nash PA-C 132 [place] [address] 09/12/2024 8:30 AM EDT Office Visit Dermatology [facility] [place] [address] [place] [address] Kai Mcclain MD [address] [place] [address] 11/25/2024 2:10 PM EDT Office Visit Family Medicine [address] [place] [address] [address] [place] [address] 03/29/2025 5:00 PM EDT Office Visit Nephrology, [facility] [address] [place], [place] [address] Edwin Guerrero MD 200 [facility] [place] [address] Scheduled Procedures Name Priority Associated Diagnoses Date/Ti [...] this encounter Medical Devices Implanted Type Area Trade Embalmer Device Identifier Shelf Expiration Date Model / Serial / Lot Coil Vortex 35 Pltinm [id number] - [id number] Implanted:Qty: 1 on 07/13/2018 by Collin Stroud MD at [place] [facility] [place] Left: Lower Arm [employer] : NEURO INTR 03/31/2021 [id number] Coil Vortex 35 Pltinm [id number] - [id number] Implanted:Qty: 1 on 07/13/2018 by Collin Stroud MD at [facility] [place] Left: Lower Arm [employer] : NEURO INTR 03/31/2021 [id number] documented as of this encounter Advance Directives [...] the patient have Health Care Power of Designer/Writer? No Care Teams Stonecutter Assistant Relationship Specialty Start Date End Date Julia Garcia DO [address] [place] [address] [place] [address] PCP - General Internal Medicine 05/28/23 documented as of this encounter
--- OUTSIDE RECORDS SUMMARY | 2024-09-27 16:21 | External Medical Summary | Summary of Care ---
Author Name Unknown Organization [facility] Address [address] [place] [address] Phone [phone] Care Team Providers Care Planning Lead Name Role Phone GarciaJulia DO Primary Care Provider [phone] Reason for Referral * Precert (Within 10 days (routine)) - Pending Review Specialty Diagnoses / Procedures Referred By Contac t Referred To Contact Radiology Diagnoses LVH (left ventricular hypertrophy) Procedures NM MYOCARD PERF IMG SPECT MULT STUDIES WITH PHARM INTERV Sarai Nash PA-C [address] [place] [address] Phone: tel: fax: Referral ID Status Reason Start Date Expiration Date Visits Requested Visits Authorized [id number] Pending Review Precert 08/30/2024 999 999 * Precert (Within 10 days (routine)) - Pending Review Specialty Diagnoses / Procedures Referred By Contac t Referred To Contact Radiology Diagnoses LVH (left ventricular hypertrophy) Procedures MRI CARDIAC, ADULT W WO CONTRAST Sarai Nash PA-C [address] [place] [address] Phone: tel: fax: Referral ID Status Reason Start Date Expiration Date Visits Requested Visits Authorized [id number] Pending Review Precert 08/30/2024 999 999 Reason for Visit * Reason Onset Date Comments Test Results 08/26/2024 Appointment 08/26/2024 Encounter Details Date Type Department Care Team (Late st Contact Info) Description 08/26/2024 Telephone Cardiology, [facility] [address] [place] [address] Sarai Nash, DIMA [address] [place] [address] Test Results; Appointment Allergies No known active allergiesdocumented as of this encounter (statuses as of 09/02/2024) Medications aspirin enteric coated 81 MG TBECIndications:K [...] hours as needed. 3 Active Saline Nasal [place] 0.65 % Nasal Solution ([place]) Administer 2 Sprays into nostril as needed. [...] mgIndications:Kidney replaced by transplant 150 mg IM [id number] 08/02/2021 Active Cilgavimab inj 150 mgIndications:Kidney replaced by transplant 150 mg IM [id number] 08/02/2021 Active documented as of this encounter (statuses as of 09/02/2024) Active Problems Problem Noted Date Diagnosed Date [...] as of this encounter (statuses as of 09/02/2024) Resolved Problems Problem Noted Date Diagnosed Date [...] as of this encounter (statuses as of 09/02/2024) Immunizations Name Administration Dates Next Due COVID-19, MRNA-LNP, PF, 30 M CG/0.3 mL, 12 YRS AND ABOVE, IM ([place]-ComirnatXova Labs) 04/02/2023 Covid-19 Ad26, Single Dose ([place]ue/J&J) 09/24/2020 Covid-19, Mrna, Lnp-s, Pf, B ivalent, 30 Mcg, IM, 12 yrs and above (Anacomp) 03/15/2024,05/05/2022 Pneumococcal Conjugate Vacci ne, 20-valent (Phinumu12) 03/29/2024 Pneumococcal Polysaccharide PPV23 (Pneumovax) 09/02/2018 RSV [...] CARDIAC, ADULT W WO CONTRAST [MRCFMB] (Order [id number] NM MYOCARD PERF IMG SPECT MULT STUDIES WITH PHARM INTERV [82267.02] (Order [id number]) * Telephone Encounter - Pamela Chaudhry LPN [...] 09/12/2024 8:30 AM EDT Office Visit Dermatology [facility] [place] [address] [facility] [place] [address] Kai Mcclain MD 200 [facility] [place] [address] 11/08/2024 11:00 AM EDT Office Visit Cardiology, [facility] [address] [place] [phone] Toni Delatorre DO [address] [place] [address] 11/25/2024 2:10 PM EDT Office Visit Family Medicine [address] [address] Jluia [address] [address] 03/29/2025 5:00 PM EDT Office Visit Nephrology, [facility] 200 [facility] [place] [address] Edwin Guerrero MD 200 [facility] [place] [address] Scheduled Orders Name Type Priority Associated Diagnoses [...] this encounter Medical Devices Implanted Type Area Glue Machine Operator Device Identifier Shelf Expiration Date Model / Serial / Lot Coil Vortex 35 Pltinm [id number] - [id number] Implanted:Qty: 1 on 07/13/2018 by Collin Stroud MD at [place] [facility] [place] Left: Lower Arm [employer] : NEURO INTR 03/31/2021 [id number] Description:[email or web address] ENH 08/31/24 Static magnetic field of 1.5 Juliet or 3.0 Juliet Static magnetic field gradient < 25 T/m (2500 g/cm) Normal operating mode of the MR system with a maximum whole body averaged specific absorption rate of 2 W/kg and use of transmit/receive head coil and/or whole body transmit coils Coil Vortex 35 Pltinm [id number] - [id number] Implanted:Qty: 1 on 07/13/2018 by Collin Stroud MD at [place] [facility] [place] Left: Lower Arm [employer] : NEURO INTR 03/31/2021 [id number] Description:[email or web address] ENH 08/31/24 Static magnetic field of 1.5 [...] the patient have Health Care Power of Icer Machine? No Care Teams Planning Lead Relationship Specialty Start Date End Date Julia Garcia DO [address] [place] [address] [place] [phone] PCP - General Internal Medicine 05/28/23 documented as of this encounter
--- OUTSIDE RECORDS SUMMARY | 2024-09-27 16:21 | External Medical Summary | Summary of Care ---
Author Name Unknown Organization [facility] Address [address] [facility] [place] [address] Phone [phone] Care Team Providers Care Beer Brewer Name Role Phone Julia Garcia DO Primary Care Provider [phone] Encounter Details Date Type Department Care Team (Late st Contact Info) Description 08/03/2024 Refill Cardiology, [facility] [address] [place] [address] Rosina Burton PA-C [address] [place] [address] Allergies No known active allergiesdocumented as of this encounter (statuses as of 08/04/2024) Medications aspirin enteric coated 81 MG TBECIndications:K [...] hours as needed. 3 Active Saline Nasal [place] 0.65 % Nasal Solution ([place]) Administer 2 Sprays into nostril as needed. [...] 5 07/20/2024 3:41 PM EST 5 Active Apixaban 5 MG Oral Tablet (Eliquis) Take 1 Tablet by mouth in the morning and 1 Tablet before bedtime. 180 Tablet 3 5 Active Hospital, Clinic, or Other Facility Administered Medication Ordered Dose Route Frequency Start Date End Date Status Tixagevimab inj 150 mgIndications:Kidney replaced by transplant 150 mg IM [id number] 08/02/2021 Active Cilgavimab inj 150 mgIndications:Kidney replaced by transplant 150 mg IM [id number] 08/02/2021 Active documented as of this encounter (statuses as of 08/04/2024) Active Problems Problem Noted Date Diagnosed Date [...] as of this encounter (statuses as of 08/04/2024) Resolved Problems Problem Noted Date Diagnosed Date [...] as of this encounter (statuses as of 08/04/2024) Immunizations Name Administration Dates Next Due COVID-19, MRNA-LNP, PF, 30 M CG/0.3 mL, 12 YRS AND ABOVE, IM (PFIZER-Comirnaty) 04/02/2023 Covid-19 Ad26, Single Dose ([place]/J&J) 09/24/2020 Covid-19, Mrna, Lnp-s, Pf, B ivalent, 30 Mcg, IM, 12 yrs and above (Pfizer) 03/15/2024,05/05/2022 Pneumococcal Conjugate Vacci ne, 20-valent ([id number]) 03/29/2024 Pneumococcal Polysaccharide PPV23 (Pneumovax) 09/02/2018 RSV [...] Author No 08/21/2019 3:36 PM EDT Praveena Garcia, RN * Are you blind or do you have serious difficulty seeing, even when wearing glasses? Answer Date of Assessment Author No 08/21/2019 3:36 PM EDT Praveena Garcia, RN * Do you have serious difficulty walking or climbing stairs? (5 years old or older) Answer Date of Assessment Author No 08/21/2019 3:36 PM EDT Praveena Garcia, RN * Do you have difficulty dressing [...] encounter Miscellaneous Notes * Telephone Encounter - Rosina Burton PA-C - 08/04/2024 8:33 AM EST Signed Prescriptions: Disp Refills Apixaban 5 MG Oral Tablet (Eliquis) 180 Ta*3 Sig: Take 1 Tabletby mouth in the morning and 1 Tablet before bedtime.Authorizing Provider: ROSINA BURTON----- * Telephone Encounter - Rosina Burton PA-C - 08/04/2024 8:33 AM EST Noted. Orders signed as requested. * Telephone Encounter - Logan Bose LPN - 08/03/2024 4:52 PM EST Called patient. He is agreeable to try. Pended. * Telephone Encounter - Rosina Burton PA-C - 08/03/2024 4:19 PM EST Thank you for your feedback. I agree, he is very non compliant with his medications, likely contributing to his current state. Nursing - Please notify patient that I would like him to start Eliquis 5 mg - 1 tablet twice per day to prevent strokes. Please make him aware that Dr. Guerrero is in agreement with this plan in regards to his renal transplant. Please also make sure Eliquis is affordable. * Telephone Encounter - Rosina Burton PA-C - 08/03/2024 12:23 PM EST Patient was in cardiology office yesterday for routine f/u. Found to have recurrent atrial flutter, controlled rates and symptoms of acute CHF exacerbation. We discussed anticoagulation for stroke prophylaxis. Patient was fairly adamant that he is not "allowed" to take an anticoagulation due to his renal transplant. Dr. Guerrero - Your input is appreciated on patient starting anticoagulation either Eliquis or Warfarin for stroke prophylaxis. Most recent creatinine was 1.3 Also he was clearly in CHF exacerbation. I encouraged him to go to the hospital for IV diuretics and symptom management with new onset atrial flutter, but he declined. He has been non compliant with torsemide 20 mg daily due to urination at work, but he was agreeableto resuming. I told him if symptoms do not improve in the next few days, ER recommended. LUIS DANIEL Delatorre as well documented in this encounter Plan of Treatment Upcoming Encounters Date Type Department Care Team (Late st Contact Info) Description 08/17/2024 4:00 PM EST Cardiac Studies Cardiac Studies, [facility] 132 [facility] [place] [address] 09/12/2024 8:30 AM EDT Office Visit Dermatology [facility] 200 [facility] [place] [address] Kai Mcclain MD 200 [facility] [place] [address] 11/25/2024 2:10 PM EDT Office Visit Family Medicine [address] [place] [phone] [address] [place] [address] 03/29/2025 5:00 PM EDT Office Visit Nephrology, [facility] 200 [facility] [place] [address] Edwin Guerrero MD 200 [facility] [place] [address] Scheduled Procedures Name Priority Associated Diagnoses Date/Ti [...] this encounter Medical Devices Implanted Type Area Geophysical Prospecting Surveyor Device Identifier Shelf Expiration Date Model / Serial / Lot Coil Vortex 35 Pltinm [id number] - [id number] Implanted:Qty: 1 on 07/13/2018 by Collin Stroud MD at [facility] [address] Left: Lower Arm [employer] : NEURO INTR 03/31/2021 [id number] Coil Vortex 35 Pltinm [id number] - [id number] Implanted:Qty: 1 on 07/13/2018 by Collin Stroud MD at [place] [facility] Left: Lower Arm [employer] : NEURO INTR 03/31/2021 [id number] documented as of this encounter Advance Directives [...] the patient have Health Care Power of Speech And Hearing Clinic Director? No Care Teams Beer Brewer Relationship Specialty Start Date End Date Julia Garcia DO [address] [place] [address] [place] [phone] PCP - General Internal Medicine 05/28/23 documented as of this encounter
--- OUTSIDE RECORDS SUMMARY | 2024-09-27 16:21 | External Medical Summary | Summary of Care ---
Author Name Unknown Organization [facility] Address [address] [facility] [address] Phone [phone] Care Team Providers Care Traction Power Engineer Name Role Phone Julia Garcia DO Primary Care Provider [phone] Reason for Visit * Reason Onset Date Comments Medical Records Request 08/04/2024 Encounter Details Date Type Department Care Team (Late st Contact Info) Description 08/04/2024 Telephone Family Medicine [address] [address] Julia Garcia DO [address] [place], [place] [address] [address] Medical Records Request Allergies No known active allergiesdocumented as of [...] hours as needed. 3 Active Saline Nasal [place] 0.65 % Nasal Solution ([place]) Administer 2 Sprays into nostril as needed. [...] mgIndications:Kidney replaced by transplant 150 mg IM [id number] 08/02/2021 Active Cilgavimab inj 150 mgIndications:Kidney replaced by transplant 150 mg IM [id number] 08/02/2021 Active documented as of this encounter [...] (Pfizer) 03/15/2024,05/05/2022 Pneumococcal Conjugate Vacci ne, 20-valent ([id number]) 03/29/2024 Pneumococcal Polysaccharide PPV23 (Pneumovax) 09/02/2018 RSV [...] 3:36 PM BRAYDENT Praveena Garcia RN * Are you blind or do you have serious difficulty seeing, even when wearing glasses? Answer Date of Assessment Author No 08/21/2019 3:36 PM Praveena Pastrana RN * Do you have serious difficulty walking or climbing stairs? (5 years old or older) Answer Date of Assessment Author No 08/21/2019 3:36 PM EDT D'Alexand er, Praveena, RN * Do you have difficulty dressing [...] encounter Miscellaneous Notes * Telephone Encounter - Blanca Farah OSA - 08/04/2024 3:23 PM EST [employer] under [employer] is requesting Medical Records for the purpose of completing claim processing. Forwarded to [facility] documented in this encounter Plan of Treatment Upcoming Encounters Date Type Department Care Team (Late st Contact Info) Description 08/17/2024 4:00 PM EST Cardiac Studies Cardiac Studies, [facility] 132 [facility] [place] [address] 09/12/2024 8:30 AM EDT Office Visit Dermatology [facility] 200 [facility] [place] [address] Kai Mcclain MD 200 [facility] [place] [address] 11/25/2024 2:10 PM EDT Office Visit Family Medicine [address] [place] [phone] Julia Garcia[address] [place] [address] 03/29/2025 5:00 PM EDT Office Visit Nephrology, [facility] [address] [place] [address] Edwin Guerrero MD 200 [facility] [place] [address] Scheduled Procedures Name Priority Associated Diagnoses Date/Ti [...] this encounter Medical Devices Implanted Type Area Wafer Production Lead Worker Device Identifier Shelf Expiration Date Model / Serial / Lot Coil Vortex 35 Pltinm [id number] - [id number] Implanted:Qty: 1 on 07/13/2018 by Collin Stroud MD at [facility] Left: Lower Arm [employer] : NEURO INTR 03/31/2021 [id number] Coil Vortex 35 Pltinm [id number] - [id number] Implanted:Qty: 1 on 07/13/2018 by Collin Stroud MD at [place] [facility] Left: Lower Arm [employer] : NEURO INTR 03/31/2021 [id number] documented as of this encounter Advance Directives [...] the patient have Health Care Power of Clinical Athletic Instructor? No Care Teams Traction Power Engineer Relationship Specialty Start Date End Date Julia Garcia DO [address] [place] [address] [place] [address] PCP - General Internal Medicine 05/28/23 documented as of this encounter
--- OUTSIDE RECORDS SUMMARY | 2024-09-27 16:21 | External Medical Summary | Summary of Care ---
Author Name Unknown Organization [facility] Address [address] [address] Phone [phone] Care Team Providers Care Manager Java Name Role Phone Julia Garcia DO Primary Care Provider [phone] Reason for Referral * Precert (Diagnostic Medical) (Within 10 days (routine)) - Pending Review Specialty Diagnoses / Procedures Referred By Contac t Referred To Contact Cardiac Studies Diagnoses Typical atrial flutter (HCC) Procedures ECHO, COMPLETE (2D), TRANS-THORACIC Sarai Nash PA-C [address] [place] [address] Phone: tel: fax: Referral ID Status Reason Start Date Expiration Date Visits Requested Visits Authorized [id number] Pending Review Precert 08/02/[phone] Reason for Visit * Reason Comments Follow Up Encounter Details Date Type Department Care Team (Late st Contact Info) Description 08/02/2024 2:30 PM EST Office Visit Cardiology, [facility] [address] [place] [address] Sarai Nash PA-C [address] [place] [address] Typical atrial flutter (HCC)*; Paroxysmal atrial fibrillation (HCC); Dyslipidemia, goal LDL below 70 Allergies No known active allergiesdocumented as of this encounter (statuses as of 08/03/2024) Medications aspirin enteric coated 81 MG TBECIndications:K [...] hours as needed. 3 Active Saline Nasal [place] 0.65 % Nasal Solution (Neihart) Administer 2 Sprays into nostril as needed. [...] 2 07/20/2024 3:41 PM EST 5 07/19/19 Active Tacrolimus ER 0.75 MG Oral Tablet Extended Release 24 Hour (Envarsus XR) Take 2 tablets by mouth in the morning. 60 Tablet 5 07/20/2024 3:41 PM EST 5 Active Hospital, Clinic, or Other Facility Administered Medication Ordered Dose Route Frequency Start Date End Date Status Tixagevimab inj 150 mgIndications:Kidney replaced by transplant 150 mg IM [id number] 08/02/2021 Active Cilgavimab inj 150 mgIndications:Kidney replaced by transplant 150 mg IM [id number] 08/02/2021 Active documented as of this encounter (statuses as of 08/03/2024) Active Problems Problem Noted Date Diagnosed Date [...] as of this encounter (statuses as of 08/03/2024) Resolved Problems Problem Noted Date Diagnosed Date Resolved Date Chronic obstructive pulmonary disease 08/08/2023 08/08/2023 BMI 36.0-36.9,adult 09/06/2019 02/23/20 20 Overview: Per Obesity protocol Acute cholecystitis 08/24/2019 09/06/19 20 Umbilical hernia 08/24/2019 08/24/2019 Encounter for surveillance of abnormal nevi 07/13/2019 09/06/2019 Dependence on renal dialysis 06/03/2018 03/08/2019 Lytic bone lesions on xray 04/28/2018 0 08/08/2023 CKD (chronic kidney disease), stage III 02/19/2018 09/06/2019 Allergic rhinitis 02/19/2018 documented as of this encounter (statuses as of 08/03/2024) Immunizations Name Administration Dates Next Due COVID-19, MRNA-LNP, PF, 30 M CG/0.3 mL, 12 YRS AND ABOVE, IM ([employer]) 04/02/2023 Covid-19 Ad26, Single Dose ([employer]) 09/24/2020 Covid-19, Mrna, Lnp-s, Pf, B ivalent, 30 Mcg, IM, 12 yrs and above (GREE) 03/15/2024,05/05/2022 Pneumococcal Conjugate Vacci ne, 20-valent (Grgqpov91) 03/29/2024 Pneumococcal Polysaccharide PPV23 (Pneumovax) 09/02/2018 RSV [...] on file documented as of this encounter Last Filed Vital Signs Vital Sign Reading Time Taken Comments Blood Pressure 158/98 08/02/2024 2:28 PM EST Pulse 78 08/02/2024 2:28 PM EST Temperature - - Respiratory Rate - - Oxygen Saturation - - Inhaled Oxygen Concentration - - Weight 127.9 kg (282 lb) 08/02/2024 2:28 PM EST Height - - Body Mass Index 42.88 08/21/2019 2:21 PM EDT documented in this encounter Functional Status * Are you deaf or do you have serious difficulty hearing? Answer Date of Assessment Author No 08/21/2019 3:36 PM EDT Praveena Garcia RN * Are you blind or do you have serious difficulty seeing, even when wearing glasses? Answer Date of Assessment Author No 08/21/2019 3:36 PM EDT Praveena Garcia RN * Do you have serious difficulty walking or climbing stairs? (5 years old or older) Answer Date of Assessment Author No 08/21/2019 3:36 PM EDT Praveena Garcia RN * Do you have difficulty dressing [...] documented in this encounter Progress Notes * Sarai Nash PA-C - 08/02/2024 4:05 PM EST 08/02/2024 Cardiology F/U: CHIEF COMPLAINT: Follow up, [id number] hypertension, history of paroxysmal atrial fibrillation, kidney transplant Martinez Litten is a 64 year old male here today for Cardiology follow-up. Last clinic evaluation approximately [address] Delatorre. History includes: PAF - initially diagnosed in 2018 without recurrence. Previously declining anticoagulation Hypertensive heart disease with LVH Difficult to control hypertension Renal transplant in 2019 - following with nephrology History of Present Illness Martinez Steele is a 64 year old male with hypertension, remote history of atrial fibrillation, and renal transplant who presents with worsening shortness of breath and fluid retention. He has been experiencing worsening shortness of breath over the past few months, particularly exacerbated by cold weather and transitions between cold and warm environments. Walking long distances, even indoors, provokes shortness of breath. He was diagnosed with RSV last year, which he believes may have contributed to his current respiratory issues. He uses an inhaler, which provides some reliefbut does not fully alleviate his symptoms. Significant swelling in his legs and knees has been present for about four months, making it difficult for him to walk and forcing him to sleep in a chair as he cannot breathe when lying down. He reports weight gain, although he does not weigh himself regularly. He experiences frequent coughing spells, sometimes productive of phlegm, which have worsened recently. He uses a saline solution to help with sinus drainage, which has reduced the frequency of his coughing spells. He has a history of hypertension and is currently on multiple medications, including lisinopril 40 mg, clonidine 0.1 mg twice daily, carvedilol 25 mg twice daily, and torsemide. His dipper clock and watch hands recently increased his blood pressure medication due to elevated readings. He also takes a lower dose ofLasix during the week to manage fluid retention, as the stronger torsemide affects his ability to work due to frequent urination. He has a history of a kidney transplant and notes that his kidney function has been stable, with recent blood work showing a creatinine level of 1.3. 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 Therefore he is non compliant with torsemide during the week and taking an "old furosemide dose" in its place. Review of Systems: See HPI for pertinent positives. All others negative, other than those noted in HPI. History per past office notes Diagnosis of paroxysmal atrial fibrillation in 2018, having initially presented with an episode that occurred during dialysis. A resting transthoracic echocardiogram performed at [facility] in April, revealed moderate concentric left ventricular hypertrophy consistent with his history of longstanding hypertension and normal LVEF was noted. A follow-up nuclear stress test had been performed in April, and revealed a small sized reversible perfusion defect limited to the basal segment ofthe inferior wall for which medical management was recommended as the patient was describing no symptoms suggestive angina. In February, he underwent a renal transplant. Blood pressure readings have noted to be labilesince transplant. Patient Active Problem List Diagnosis Primary hypertension Allergic rhinitis due to allergen Hyperphosphatemia Hyperparathyroidism, secondary renal (HCC) Paroxysmal atrial fibrillation (HCC) Renal transplant, status post Tertiary hyperparathyroidism (HCC) Need for prophylactic immunotherapy Kidney transplant rejection Body mass index (BMI) of 40.0 to 44.9 in adult (HCC) H/O dysplastic nevus Dyslipidemia, goal LDL below 70 Bile salt-induced diarrhea Social History Tobacco Use Smoking status: Never Smokeless tobacco: Never Vaping Use Vaping status: Never Used Substance Use Topics Alcohol use: Not Currently Drug use: No Family History Problem Relation Name Age of Onset Heart disease Mother Heart disease Father Stroke Father Other (liver problem) Sister Colon polyps Brother Other (testicular cancer) Brother Dementia Other Hypertension Other Skin cancer Other Past Surgical History: Procedure Laterality Date AV ACCESS, DIRECT ANASTOMOSIS Left 04/21/2018 ARTERIOVENOUS ANASTOMOSIS OPEN DIRECT ANY SITE performed by Collin Stroud MD at [facility] COLONOSCOPY, DIAGNOSTIC (RECTUM) 06/29/2018 normal, repeat 5 yrs/[facility] INSER RICHARD CAT,W/O PUMP;5YR/OLD N/A 04/21/2018 INSERT TUNNELED CENTRAL VENOUS CATHETER AGE 5 OR OLDER performed by Collin Stroud MD at OR [facility] INTRO CATH DIALYSIS CIRCUIT W/TRANSCATH PLACEMENT IV STENT Left 10/07/2018 AV FISTULOGRAM STENT & PERIPHERAL ANGIOPLASTY performed by Ward Mills MD at [facility] INTRO CATH DIALYSIS CIRCUIT W/TRANSCATH PLACEMENT IV STENT Left 11/16/2018 AV FISTULOGRAM STENT & PERIPHERAL ANGIOPLASTY performed by Collin Stroud MD at OR [facility] INTRO CATH DIALYSIS CIRCUIT W/TRANSLUM BALLOON ANGIOPLASTY Left 07/13/2018 AV FISTULOGRAM & PERIPHERAL ANGIOPLASTY performed by Collin Stroud MD at [facility] IR BIOPSY 10/21/2019 LAPAROSCOPY; CHOLECYSTECTOMY N/A 08/22/2019 LAPAROSCOPIC CHOLECYSTECTOMY performed by Fransisco Ga MD at [facility] TRANSPLANTATION OF KIDNEY N/A 02/16/2019 RENAL TRANSPLANT performed by Leonard Seth MD at [facility] US RENAL Bilateral 03/16/2018 medical renal disease, 1.4 cm right hypoechoic lesion followup 3 months Review of patient's allergies indicates: No Known Allergies Current Outpatient Medications Medication Sig Dispense Refill aspirin enteric coated 81 MG TBEC Take 1 Tab by mouth daily. 30 Tab 11 acetaminophen (TYLENOL) 500 MG Tablet Take 1 Tablet by mouth every 6 hours as needed for Pain. Magnesium Oxide 400 MG Tablet Take 1 Tab by mouth daily. 30 Tab 5 Ipratropium-Albuterol 0.5-2.5 (3) MG/3ML Inhalation Solution (Duoneb) Inhale 3 mL via nebulizer every 6 hours as needed. Saline Nasal [place] 0.65 % Nasal Solution (Neihart) Administer 2 Sprays into nostril as needed. Magnesium 300 MG Oral Capsule Take by mouth. Simvastatin 20 MG Oral Tablet (Zocor) TAKE ONE TABLET BY MOUTH EVERY DAY 90 Tablet 3 Carvedilol 25 MG Oral Tablet (Coreg) Take 1 Tablet by mouth in the morning and 1 Tablet before bedtime. 60 Tablet 5 Levalbuterol Tartrate 45 MCG/ACT Inhalation Aerosol (Xopenex HFA) Inhale 1 Puff by mouth every 4 hours as needed for Wheezing or Shortness of Breath. 15 g 2 cloNIDine HCl 0.1 MG Oral Tablet (Catapres) TAKE ONE TABLET BY MOUTH TWICE DAILY 180 Tablet 1 Lisinopril 40 MG Oral Tablet Take 1 Tablet by mouth in the morning. 30 Tablet 5 Torsemide 20 MG Oral Tablet (Demadex) Take 1 Tablet by mouth in the morning. 30 Tablet 5 Mycophenolate Sodium 180 MG Oral Tablet Delayed Release (Myfortic) take 3 tablets by mouth in the morning and 3 tablets before bedtime 180 Tablet 3 Cinacalcet HCl 30 MG Oral Tablet (Sensipar) Take 1 tablet by mouth every evening. 90 Tablet 2 Tacrolimus ER 0.75 MG Oral Tablet Extended Release 24 Hour (Envarsus XR) Take 2 tablets by mouth inthe morning. 60 Tablet 5 Current Facility-Administered Medications Medication Dose Route Frequency Provider Last Rate Last Admin Tixagevimab inj 150 mg 150 mg Intramuscular Q6 Months Tanvi Bach, [facility] 150 mg at 08/02/21 1314 Cilgavimab inj 150 mg 150 mg Intramuscular Q6 Months Tanvi Bach, [facility] 150 mg at 08/02/21 1245 OBJECTIVE/PHYSICAL EXAMINATION: BP 158/98 | Pulse 78 | Wt 127.9 kg (282 lb) | BMI 42.88 kg/m² | BSA 2.48 m² Wt Readings from Last 3 Encounters: 08/02/24 127.9 kg (282 lb) 07/15/24 131 kg (288 lb 11.2 oz) 03/22/24 123.7 kg (272 lb 9.6 oz) BP Readings from Last 4 Encounters: 08/02/24 158/98 07/15/24 160/106 03/22/24 174/110 01/11/24 181/108 General: no acute distress and stated age Eyes: conjunctiva are pink and non-injected, sclera clear Neck: normal jugular venous pulse, no hepatojugular reflux Chest: normal shape and normal respiratory effort Lungs: Decreased breath sounds B/L Cardiac Exam: Irregular no murmurs, rubs, or gallops Abdomen: abdomen soft, non-tender, no abnormal masses and no hepatosplenomegaly Musculoskeletal: no gait disturbance, no weakness Extremities: 2-3+ B/L edema to hips Neuro: grossly normal exam Psych: appropriate affect and insight. Data: EKG performed today and reviewed personally: Atrial flutter with PVC LAFB Compared with prior EKG, atrial flutter has replaced NSR Summary of ttecho 01/05/23: The qualitative LV ejection fraction is 60-64% (normal). The LV wall thickness is moderately increased (concentric). There is asymmetric left ventricular hypertrophy involving the base of the joo septum with a maximum diameter of 2.0 cm. Mild mitral regurgitation is present. Mild tricuspid regurgitation is present. The estimated pulmonary artery systolic pressure is 40 mm Hg. Trivial loculated anterior and right lateral pericardial effusion. Cardiac tamponade is absent. Latest Reference Range & Units 06/27/23 08:28 Triglycerides <=174 mg/dL 185 (H) Cholesterol <200 mg/dL 114 Non-HDL Cholesterol <=159 mg/dL 89 HDL Cholesterol >39 mg/dL 25 (L) LDL Cholesterol (Direct Measure) <=129 mg/dL 62 (H): Data is abnormally high (L): Data is abnormally low Assessment & Plan 64 year old male Atrial flutter with controlled rates Recurrent atrial flutter noted on EKG today. Duration unknown. Likely contributing to his worsening fluid retention, causing dyspnea and significant leg swelling.Discussed stroke risks and anticoagulation to prevent stroke. Patient is adamant he is not able to take anticoagulation due to his renal transplant. Will send message to nephrology, Dr. Harrington regarding safe anticoagulants. - Discuss anticoagulation options with Dr. Harrington - Consider hospitalization if symptoms do not improve by the weekend - Schedule echocardiogram to assess heart function -once he starts anticoagulation, consider future CV, but needs volume status optimized. -we discussed inpatient management of his current issues but he declines Edema with CHF exacerbation Significant lower extremity edema noted with orthopnea, weight gain. We discussed likelihood and benefits of inpatient management to aid with Diuretic dosing and monitoring kidney function, but patient declines. We discussed compliance with outpatient diuretics. He will resume torsemide 20 mg daily for now and if symptoms do not improve, causing difficulty walking. Patient prefers outpatient management with increased diuretics due to work constraints. - Consider hospitalization for diuresis if symptoms do not improve by the weekend Hypertension Poorly controlled hypertension with current medications (lisinopril, clonidine, carvedilol, torsemide). Home blood pressure readings around 160/100 mmHg. Medication Nurse recently increased lisinopril dose. - Continue current antihypertensive regimen - Monitor blood pressure regularly Chronic Kidney Disease (Post-Transplant) Well-managed renal function post-transplant with creatinine levels around 1.1- 1.3 mg/dL. Follows with nephrology. Discussed potential interactions of anticoagulation with dipper clock and watch hands. - Monitor renal function regularly - Discuss potential interactions of anticoagulation with dipper clock and watch hands Follow-up - Follow-up appointment in 4-6 weeks - Coordinate with nephrology and cardiology for comprehensive care ER for worsening symptoms highly advised. Patient is being evaluated in the cardiology office for ongoing care/risk management for CHF; HTN; Atrial flutter. I spent a total of 50 minutes on the date of service in preparation, delivery, and documentation ofthe care provided to Martinez Steele excluding any time spent in the performance of separately billedservices. The patient agrees to the above plan and will call with additional questions or concerns. ER with all emergencies advised. Follow-up: Return in about 4 weeks (around 08/30/2024). | Check-out note: 4-6 week follow up with Juan Ramon or Saad Schedule echo Patient needs late in the day as possible Sarai Nash PA-C Department of Cardiology Text in this note was generated using an ambient documentation service. I discussed the use of a device to record and summarize our discussion today. All persons present during the encounter consented to its use. This chart was completed in part utilizing [employer] Speech Voice Recognition Software. Grammatical errors, random word insertions, prounoun errors, and incomplete sentences are an occasional consequence of this system due to software limitations, ambient noise, and hardware issues. Any formal questions or concerns about the content, text, or information contained within the body of this dictation should be directly addressed to the provider for clarification. documented in this encounter Nursing Notes * Angelita Rodrigues CMA - 08/02/2024 2:26 PM EST Examination Room: 6 Name: Martinez Steele Date of : (1960) Reason for Visit: 6m Interim Hospitalization(s): none Problems/Concerns: Leg swelling Chest Pain/SOB: chest pain on and off, SOB [facility] is a way you can talk to your provider online through e-mail. Would you like to sign up? I can activate it for you? DECLINES Patient was instructed to not get up on the exam table until directed and assisted by their provider; patient is to remain seated in the chair/ wheelchair/ exam table for fall prevention and safety reasons. Patient is aware to have assistance to step down off exam table with personnel. Patient voiced full comprehension of instructions. documented in this encounter Plan of Treatment Upcoming Encounters Date Type Department Care Team (Late st Contact Info) Description 08/17/2024 4:00 PM EST Cardiac Studies Cardiac Studies, [facility] [address] [facility] [place] [address] 09/12/2024 8:30 AM EDT Office Visit Dermatology [facility] [address] [place] [address] Kai Mcclain MD [address] [place] [address] 11/25/2024 2:10 PM EDT Office Visit Family Medicine [address] [place] [phone] Julia Garcia[address] [place] [address] 03/29/2025 5:00 PM EDT Office Visit Nephrology, [facility] [address] [facility] [place] [address] Edwin Guerrero MD [address] [place], [place] [address] Scheduled Orders Name Type Priority Associated Diagnoses Orde r Schedule ECHO, COMPLETE (2D), TRANS-THORACIC Echocardiology Routine Typical atrial flutter (HCC) Expected: 08/02/2024 (Approximate), Expires: 08/02/2025 EKG EKG Routine Paroxysmal atrial fibrillation (HCC) Dyslipidemia, goal LDL below 70 Typical atrial flutter (HCC) Expected: 08/03/2024 (Approximate), Expires: 08/31/2025 Scheduled Procedures Name Priority Associated Diagnoses Date/Ti [...] this encounter Medical Devices Implanted Type Area Implementation Services Analyst Device Identifier Shelf Expiration Date Model / Serial / Lot Coil Vortex 35 Pltinm [id number] - [id number] Implanted:Qty: 1 on 07/13/2018 by Collin Stroud MD at [place] [facility] Left: Lower Arm [employer] : NEURO INTR 03/31/2021 [id number] Coil Vortex 35 Pltinm [id number] - [id number] Implanted:Qty: 1 on 07/13/2018 by Collin Stroud MD at [place] [facility] Left: Lower Arm [employer] : NEURO INTR 03/31/2021 [id number] documented as of this encounter Visit Diagnoses Diagnosis Typical atrial flutter (HCC)- Primary Atrial flutter Paroxysmal atrial fibrillation (HCC) Atrial fibrillation Dyslipidemia, goal LDL below 70 Other and unspecified hyperlipidemia documented in this encounter Advance Directives * [...] the patient have Health Care Power of Custom Frame Assembler? No Care Teams Manager Java Relationship Specialty Start Date End Date Julia Garcia DO [address] [place] [address] [place] [phone] PCP - General Internal Medicine 05/28/23 documented as of this encounter
--- OUTSIDE RECORDS SUMMARY | 2024-09-27 16:21 | External Medical Summary | Summary of Care ---
Author Name Unknown Organization [facility] Address [address] [place] [address] Phone [phone] Care Team Providers Care Web Services Developer Name Role Phone GarciaJulia DO Primary Care Provider [phone] Reason for Referral * Precert (Within 10 days (routine)) - Pending Review Specialty Diagnoses / Procedures Referred By Contac t Referred To Contact Radiology Diagnoses LVH (left ventricular hypertrophy) Procedures NM MYOCARD PERF IMG SPECT MULT STUDIES WITH PHARM INTERV Sarai Nash PA-C [address] [place] [address] Phone: tel: fax: Referral ID Status Reason Start Date Expiration Date Visits Requested Visits Authorized [id number] Pending Review Precert 08/30/2024 999 999 * Precert (Within 10 days (routine)) - Pending Review Specialty Diagnoses / Procedures Referred By Contac t Referred To Contact Radiology Diagnoses LVH (left ventricular hypertrophy) Procedures MRI CARDIAC, ADULT W WO CONTRAST Sarai Nash PA-C [address] [place] [address] Phone: tel: fax: Referral ID Status Reason Start Date Expiration Date Visits Requested Visits Authorized [id number] Pending Review Precert 08/30/2024 999 999 Reason for Visit * Reason Onset Date Comments Test Results 08/26/2024 Appointment 08/26/2024 Encounter Details Date Type Department Care Team (Late st Contact Info) Description 08/26/2024 Telephone Cardiology, [facility] [address] [place] [address] Sarai Nash, DIMA [address] [place] [address] Test Results; Appointment Allergies No known active allergiesdocumented as of this encounter (statuses as of 09/01/2024) Medications aspirin enteric coated 81 MG TBECIndications:K [...] hours as needed. 3 Active Saline Nasal [place] 0.65 % Nasal Solution (Cerulean) Administer 2 Sprays into nostril as needed. [...] mgIndications:Kidney replaced by transplant 150 mg IM [id number] 08/02/2021 Active Cilgavimab inj 150 mgIndications:Kidney replaced by transplant 150 mg IM [id number] 08/02/2021 Active documented as of this encounter (statuses as of 09/01/2024) Active Problems Problem Noted Date Diagnosed Date [...] as of this encounter (statuses as of 09/01/2024) Resolved Problems Problem Noted Date Diagnosed Date [...] as of this encounter (statuses as of 09/01/2024) Immunizations Name Administration Dates Next Due COVID-19, MRNA-LNP, PF, 30 M CG/0.3 mL, 12 YRS AND ABOVE, IM (Knowledge Factor-ComirnatrVue) 04/02/2023 Covid-19 Ad26, Single Dose (Sue/J&J) 09/24/2020 Covid-19, Mrna, Lnp-s, Pf, B ivalent, 30 Mcg, IM, 12 yrs and above (Pennant) 03/15/2024,05/05/2022 Pneumococcal Conjugate Vacci ne, 20-valent ([id number]) 03/29/2024 Pneumococcal Polysaccharide PPV23 (Pneumovax) 09/02/2018 RSV [...] CARDIAC, ADULT W WO CONTRAST [MRCFMB] (Order [id number] NM MYOCARD PERF IMG SPECT MULT STUDIES WITH PHARM INTERV [93813.02] (Order [id number]) * Telephone Encounter - Pamela Chaudhry LPN - 08/29/2024 3:57 PM EDT Spoke with pt, verbalized understanding. All orders have been placed. * Telephone Encounter - Logan Bsoe LPN - 08/26/2024 9:59 AM EDT Called [...] AM EDT Office Visit Dermatology [facility] [place] [address] [facility] [place] [address] Kai Mcclain MD [address] [facility] [place] [address] 11/08/2024 11:00 AM EDT Office Visit Cardiology, [facility] [address] [place] [address] Toni Delatorre, [address] [place] [address] 11/25/2024 2:10 PM EDT Office Visit Family Medicine [address] [address] Julia Garcia, [address] [place] [address] 03/29/2025 5:00 PM EDT Office Visit Nephrology, [facility] [address] [place] [address] Edwin Guerrero MD [address] [place] [address] Scheduled Orders Name Type Priority Associated Diagnoses [...] this encounter Medical Devices Implanted Type Area Medicine Technologist Device Identifier Shelf Expiration Date Model / Serial / Lot Coil Vortex 35 Pltinm [id number] - [id number] Implanted:Qty: 1 on 07/13/2018 by Collin Stroud MD at [place] [facility] Left: Lower Arm [employer] : NEURO INTR 03/31/2021 [id number] / / [id number] Description:[email or web address] ENH 08/31/24 Static magnetic field of 1.5 Juliet or 3.0 Juliet Static magnetic field gradient < 25 T/m (2500 g/cm) Normal operating mode of the MR system with a maximum whole body averaged specific absorption rate of 2 W/kg and use of transmit/receive head coil and/or whole body transmit coils Coil Janie [facility] [id number] - [id number] Implanted:Qty: 1 on 07/13/2018 by Collin Stroud MD at OR [facility] Left: Lower Arm [employer] : NEURO INTR 03/31/2021 [id number] Description:[email or web address] ENH 08/31/24 Static magnetic field [...] the patient have Health Care Power of Aeronautical Design Engineer? No Care Teams Web Services Developer Relationship Specialty Start Date End Date Julia Garcia DO [address] [place] [address] [place] [phone] PCP - General Internal Medicine 05/28/23 documented as of this encounter
--- OUTSIDE RECORDS SUMMARY | 2024-09-27 16:21 | External Medical Summary | Summary of Care ---
Author Name Unknown Organization [facility] Address [address] [place] [address] Phone [phone] Care Team Providers Care Board Setter Name Role Phone GarciaJulia DO Primary Care Provider [phone] Reason for Referral * Precert (Within 10 days (routine)) - Pending Review Specialty Diagnoses / Procedures Referred By Contac t Referred To Contact Radiology Diagnoses LVH (left ventricular hypertrophy) Procedures NM MYOCARD PERF IMG SPECT MULT STUDIES WITH PHARM INTERV Sarai Nash PA-C [address] [place] [address] Phone: tel: fax: Referral ID Status Reason Start Date Expiration Date Visits Requested Visits Authorized [id number] Pending Review Precert 08/30/2024 999 999 * Precert (Within 10 days (routine)) - Pending Review Specialty Diagnoses / Procedures Referred By Contac t Referred To Contact Radiology Diagnoses LVH (left ventricular hypertrophy) Procedures MRI CARDIAC, ADULT W WO CONTRAST Sarai Nash PA-C [address] [place] [address] Phone: tel: fax: Referral ID Status Reason Start Date Expiration Date Visits Requested Visits Authorized [id number] Pending Review Precert 08/30/2024 999 999 Reason for Visit * Reason Onset Date Comments Test Results 08/26/2024 Appointment 08/26/2024 Encounter Details Date Type Department Care Team (Late st Contact Info) Description 08/26/2024 Telephone Cardiology, [facility] [address] [place] [address] Sarai Nash, DIMA [address] [place] [address] Test Results; Appointment Allergies No known active [...] hours as needed. 3 Active Saline Nasal [place] 0.65 % Nasal Solution (Berthold) Administer 2 Sprays into nostril as needed. [...] mgIndications:Kidney replaced by transplant 150 mg IM [id number] 08/02/2021 Active Cilgavimab inj 150 mgIndications:Kidney replaced by transplant 150 mg IM [id number] 08/02/2021 Active documented as of this encounter [...] CG/0.3 mL, 12 YRS AND ABOVE, IM (Anobit Technologies-ComirnatTutellus) 04/02/2023 Covid-19 Ad26, Single Dose (Sue/J&J) 09/24/2020 Covid-19, Mrna, Lnp-s, Pf, B ivalent, 30 Mcg, IM, 12 yrs and above (Tango Card) 03/15/2024,05/05/2022 Pneumococcal Conjugate Vacci ne, 20-valent (Ijcetdk09) 03/29/2024 Pneumococcal Polysaccharide PPV23 (Pneumovax) 09/02/2018 RSV [...] CARDIAC, ADULT W WO CONTRAST [MRCFMB] (Order [id number] NM MYOCARD PERF IMG SPECT MULT STUDIES WITH PHARM INTERV [54943.02] (Order [id number]) * Telephone Encounter - Pamela Chaudhry LPN [...] AM EDT Office Visit Dermatology [facility] [place] [address] [place] [address] Kai Mcclain MD [address] [place] [address] 11/08/2024 11:00 AM EDT Office Visit Cardiology, [facility] [address] [place] [address] Toni Delatorre, [address] [place] [address] 11/25/2024 2:10 PM EDT Office Visit Family Medicine [address] [address] Julia Garcia, [address] [place] [address] 03/29/2025 5:00 PM EDT Office Visit Nephrology, [facility] [address] [place] [address] Edwin Guerrero MD [address] [place] [address] Scheduled Orders Name Type Priority Associated Diagnoses [...] this encounter Medical Devices Implanted Type Area Construction Grip Device Identifier Shelf Expiration Date Model / Serial / Lot Coil Vortex 35 Pltinm [id number] - [id number] Implanted:Qty: 1 on 07/13/2018 by Collin Stroud MD at OR [facility] [place] Left: Lower Arm [employer] : NEURO INTR 03/31/2021 [id number] Coil Vortex 35 Pltinm [id number] - [id number] Implanted:Qty: 1 on 07/13/2018 by Collin Stroud MD at OR [facility] [place] Left: Lower Arm [employer] : NEURO INTR 03/31/2021 [id number] documented as of this encounter Visit Diagnoses [...] the patient have Health Care Power of Merchandiser Retail Representative? No Care Teams Board Setter Relationship Specialty Start Date End Date Julia Garcia DO [address] [place] [address] [place] [phone] PCP - General Internal Medicine 05/28/23 documented as of this encounter
--- OUTSIDE RECORDS SUMMARY | 2024-09-27 16:21 | External Medical Summary | Summary of Care ---
Author Name Unknown Organization [facility] Address [address] [place] [address] Phone [phone] Care Team Providers Care College Sports Coach Name Role Phone GarciaJulia DO Primary Care Provider [phone] Reason for Referral * Precert (Within 10 days (routine)) - Pending Review Specialty Diagnoses / Procedures Referred By Contac t Referred To Contact Radiology Diagnoses LVH (left ventricular hypertrophy) Procedures NM MYOCARD PERF IMG SPECT MULT STUDIES WITH PHARM INTERV Sarai Nash PA-C [address] [place] [address] Phone: tel: fax: Referral ID Status Reason Start Date Expiration Date Visits Requested Visits Authorized [id number] Pending Review Precert 08/30/2024 999 999 * Precert (Within 10 days (routine)) - Pending Review Specialty Diagnoses / Procedures Referred By Contac t Referred To Contact Radiology Diagnoses LVH (left ventricular hypertrophy) Procedures MRI CARDIAC, ADULT W WO CONTRAST Sarai Nash PA-C [address] [place] [address] Phone: tel: fax: Referral ID Status Reason Start Date Expiration Date Visits Requested Visits Authorized [id number] Pending Review Precert 08/30/2024 999 999 Reason for Visit * Reason Onset Date Comments Test Results 08/26/2024 Appointment 08/26/2024 Encounter Details Date Type Department Care Team (Late st Contact Info) Description 08/26/2024 Telephone Cardiology, [facility] [address] [place] [address] Sarai Nash, DIMA [address] [place] [address] Test Results; Appointment Allergies No known active [...] hours as needed. 3 Active Saline Nasal [place] 0.65 % Nasal Solution ([place]) Administer 2 Sprays into nostril as needed. [...] mgIndications:Kidney replaced by transplant 150 mg IM [id number] 08/02/2021 Active Cilgavimab inj 150 mgIndications:Kidney replaced by transplant 150 mg IM [id number] 08/02/2021 Active documented as of this encounter [...] CG/0.3 mL, 12 YRS AND ABOVE, IM (SafeTool-ComirnatApp47) 04/02/2023 Covid-19 Ad26, Single Dose (Sue/J&J) 09/24/2020 Covid-19, Mrna, Lnp-s, Pf, B ivalent, 30 Mcg, IM, 12 yrs and above (Circle Technology) 03/15/2024,05/05/2022 Pneumococcal Conjugate Vacci ne, 20-valent (Rsljugu17) 03/29/2024 Pneumococcal Polysaccharide PPV23 (Pneumovax) 09/02/2018 RSV [...] CARDIAC, ADULT W WO CONTRAST [MRCFMB] (Order [id number] NM MYOCARD PERF IMG SPECT MULT STUDIES WITH PHARM INTERV [13878.02] (Order [id number]) * Telephone Encounter - Pamela Chaudhry LPN [...] 09/12/2024 8:30 AM EDT Office Visit Dermatology [facility] [place] [address] [facility] [place] [address] Kai Mcclain MD [address] [facility] [place] [address] 11/08/2024 11:00 AM EDT Office Visit Cardiology, [facility] [address] [place] [address] Toni Delatorre DO [address] [place] [address] 11/25/2024 2:10 PM EDT Office Visit Family Medicine [address] [address] [address] [address] 03/29/2025 5:00 PM EDT Office Visit Nephrology, [facility] [address] [facility] [place] [address] Edwin Guerrero MD [address] [facility] [place] [address] Scheduled Orders Name Type Priority Associated Diagnoses [...] this encounter Medical Devices Implanted Type Area Public Health Teacher Device Identifier Shelf Expiration Date Model / Serial / Lot Coil Vortex 35 Pltinm [id number] - [id number] Implanted:Qty: 1 on 07/13/2018 by Collin Stroud MD at [place] [facility] [place] Left: Lower Arm [employer] : NEURO INTR 03/31/2021 [id number] Description:[email or web address]://[email or web address] ENH 08/31/24 Static magnetic field of 1.5 Juliet or 3.0 Juliet Static magnetic field gradient < 25 T/m (2500 g/cm) Normal operating mode of the MR system with a maximum whole body averaged specific absorption rate of 2 W/kg and use of transmit/receive head coil and/or whole body transmit coils Coil Vortex 35 Pltinm [id number] - [id number] Implanted:Qty: 1 on 07/13/2018 by Collin Stroud MD at [place] [facility] [place] Left: Lower Arm [employer] : NEURO INTR 03/31/2021 [id number] Description:[email or web address] ENH 08/31/24 Static magnetic field of 1.5 [...] the patient have Health Care Power of Resolution Expert? No Care Teams College Sports Coach Relationship Specialty Start Date End Date Julia Garcia DO [address] [place] [address] [place] [phone] PCP - General Internal Medicine 05/28/23 documented as of this encounter
--- OUTSIDE RECORDS SUMMARY | 2024-09-27 16:21 | External Medical Summary | Summary of Care ---
Author Name Unknown Organization [facility] Address [address] [facility] [place] [address] Phone [phone] Care Team Providers Care Assistant Teaching Professor Name Role Phone GarciaJulia DO Primary Care Provider Encounter Details Date Type Department Care Team (Late st Contact Info) Description 08/03/2024 Orders Only [facility]iology [address] [facility] [place] [id number] Sarai Nash PA-C [address] [place] [address] Paroxysmal atrial fibrillation (HCC)* Allergies No known active allergiesdocumented as of this encounter (statuses as of 08/05/2024) Medications aspirin enteric coated 81 MG TBECIndications:K [...] hours as needed. 3 Active Saline Nasal [place] 0.65 % Nasal Solution (Milstead) Administer 2 Sprays into nostril as needed. [...] mgIndications:Kidney replaced by transplant 150 mg IM [id number] 08/02/2021 Active Cilgavimab inj 150 mgIndications:Kidney replaced by transplant 150 mg IM [id number] 08/02/2021 Active documented as of this encounter (statuses as of 08/05/2024) Active Problems Problem Noted Date Diagnosed Date [...] as of this encounter (statuses as of 08/05/2024) Resolved Problems Problem Noted Date Diagnosed Date [...] as of this encounter (statuses as of 08/05/2024) Immunizations Name Administration Dates Next Due COVID-19, MRNA-LNP, PF, 30 M CG/0.3 mL, 12 YRS AND ABOVE, IM (PFIZER-Comirnaty) 04/02/2023 Covid-19 Ad26, Single Dose (Sue/J&J) 09/24/2020 Covid-19, Mrna, Lnp-s, Pf, B ivalent, 30 Mcg, IM, 12 yrs and above (Pfizer) 03/15/2024,05/05/2022 Pneumococcal Conjugate Vacci ne, 20-valent (Cpvdsxz61) 03/29/2024 Pneumococcal Polysaccharide PPV23 (Pneumovax) 09/02/2018 RSV [...] Praveena Garcia RN documented in this encounter Plan of Treatment Upcoming Encounters Date Type Department Care Team (Late st Contact Info) Description 08/17/2024 4:00 PM EST Cardiac Studies Cardiac Studies, [facility] [address] [facility] [place] [address] 09/12/2024 8:30 AM EDT Office Visit Dermatology [place] [facility] [place] [address] Kai Mcclain MD 200 [facility] [place] [address] 11/25/2024 2:10 PM EDT Office Visit Family Medicine [address] [address] [place] [address] 03/29/2025 5:00 PM EDT [facility] [address] [place] [address] [address] Edwin Guerrero MD 200 [facility] [place] [address] Scheduled Procedures Name Priority Associated Diagnoses Date/Ti [...] this encounter Medical Devices Implanted Type Area District Supervisor Device Identifier Shelf Expiration Date Model / Serial / Lot Coil Vortex 35 Pltinm [id number] - [id number] Implanted:Qty: 1 on 07/13/2018 by [place]lin [place] [facility]: Lower Arm [employer] : NEURO INTR 03/31/2021 [id number] / [id number] Coil Vortex 35 Pltinm [id number] - [id number] Implanted:Qty: 1 on 07/13/2018 by Collin Stroud MD at [facility] Left: Lower Arm [employer] : NEURO INTR 03/31/2021 [id number] documented as of this encounter Visit Diagnoses Diagnosis Paroxysmal atrial fibrillation (HCC)- Primary Atrial fibrillation documented in this encounter Advance Directives * [...] the patient have Health Care Power of Home Care Coordinator? No Care Teams Assistant Teaching Professor Relationship Specialty Start Date End Date Julia Garcia DO [address] [place] [address] [place] [address] PCP - General Internal Medicine 05/28/23 documented as of this encounter
--- OUTSIDE RECORDS SUMMARY | 2024-09-27 16:22 | External Medical Summary ---
Author Name Unknown Address Unknown Organization K0G[facility] [address] [place] [address] Laboratory Report Ordering Provider Test Date Status ANIL BYERS 07/20/2024 07:46:21 Final Observation Date Value Abnormality Reference (Units ) Status WBC, Total 07/20/2024 07:46:21 6.95 4.00-10.8 0 (K/uL) Final RBC 07/20/2024 07:46:21 5.01 4.50-5.25 (M/uL) Final Hemoglobin 07/20/2024 07:46:21 14.9 14.0-16.8 (g/dL) Final HCT 07/20/2024 07:46:21 46.3 40.0-48.4 (%) Final MCV 07/20/2024 07:46:21 92.4 82.0-99.5 (fL) Final MCH 07/20/2024 07:46:21 29.7 27.0-34.0 (pg) Final MCHC 07/20/2024 07:46:21 32.2 32.0-36.0 (g/dL) Final RDW 07/20/2024 07:46:21 13.5 11.5-15.5 (%) Final Platelets 07/20/2024 07:46:21 176 140-400 (K /uL) Final MPV 07/20/2024 07:46:21 11.0 6.6-11.1 ( fL) Final Performing Location [facility] [place] [address]
--- OUTSIDE RECORDS SUMMARY | 2024-09-27 16:22 | External Medical Summary | Summary of Care ---
Author Name Unknown Organization [facility] Address [address] [facility] [place] [address] Phone [phone] Care Team Providers Care Slitter Creaser Slotter Helper Name Role Phone GarciaJulia DO Primary Care Provider [phone] Reason for Visit * Reason Comments Outpatient Testing Encounter Details Date Type Department Care Team (Latest Contact Info) Description 07/20/2024 8:10 AM EST Laboratory Laboratory, [facility] [address] [place] [id number] [facility] [address] [place] [address] Screening for prostate cancer; Kidney replaced by transplant; Tertiary hyperparathyroidism (HCC) Allergies No known active allergiesdocumented as of this encounter (statuses as of 07/20/2024) Medications aspirin enteric coated 81 MG TBECIndications:K [...] hours as needed. 3 Active Saline Nasal [place] 0.65 % Nasal Solution (Howell) Administer 2 Sprays into nostril as needed. [...] by mouth every evening. 90 Tablet 2 5 07/19/19 26 Active Tacrolimus ER 0.75 MG Oral Tablet Extended Release 24 Hour (Envarsus XR) Take 2 tablets by mouth in the morning. 60 Tablet 5 5 Active Hospital, Clinic, or Other Facility Administered Medication Ordered Dose Route Frequency Start Date End Date Status Tixagevimab inj 150 mgIndications:Kidney replaced by transplant 150 mg IM [id number] 08/02/2021 Active Cilgavimab inj 150 mgIndications:Kidney replaced by transplant 150 mg IM [id number] 08/02/2021 Active documented as of this encounter (statuses as of 07/20/2024) Active Problems Problem Noted Date Diagnosed Date [...] as of this encounter (statuses as of 07/20/2024) Resolved Problems Problem Noted Date Diagnosed Date [...] as of this encounter (statuses as of 07/20/2024) Immunizations Name Administration Dates Next Due COVID-19, MRNA-LNP, PF, 30 M CG/0.3 mL, 12 YRS AND ABOVE, IM (Zetera-Comirnat) 04/02/2023 Covid-19 Ad26, Single Dose (Sue/J&J) 09/24/2020 Covid-19, Mrna, Lnp-s, Pf, B ivalent, 30 Mcg, IM, 12 yrs and above (Pfizer) 03/15/2024,05/05/2022 Pneumococcal Conjugate Vacci ne, 20-valent ([id number]) 03/29/2024 Pneumococcal Polysaccharide PPV23 (Pneumovax) 09/02/2018 RSV [...] 08/02/2024 2:30 PM EST Office Visit Cardiology, [facility] [address] [place] [address] Sarai Nash PA-C [address] [address] 09/12/2024 8:30 AM EDT Office Visit Dermatology [facility] [place] [place] [address] [facility] [place] [address] Kai Mcclain MD 200 [facility] [place] [address] 11/25/2024 2:10 PM EDT Office Visit Family Medicine [address] [place] [address] [place] [address] 03/29/2025 5:00 PM EDT Office Visit Nephrology, [facility] [address] [facility] [place] [address] Edwin Guerrero MD 200 [facility] [place] [address] Pending Results Name Type Priority Associated Diagnoses Date /Time PSA Lab Routine Screening for prostate cancer 07/20/2024 7:46 AM EST RENAL FUNCTION PANEL Lab Routine Kidney replaced by transplant 07/20/2024 7:46 AM EST TACROLIMUS LEVEL Lab Routine Kidney replaced by transplant 07/20/2024 7:46 AM EST PTH Lab Routine Tertiary hyperparathyroidism (HCC) 07/20/2024 7:46 AM EST PROTEIN/ CREATININE RATIO, URINE Lab Routine Kidney replaced by transplant 07/20/2024 7:51 AM EST URINALYSIS WITH MICROSCOPIC EXAM Lab Routine Kidney replaced by transplant 07/20/2024 7:51 AM EST Scheduled Procedures Name Priority Associated Diagnoses Date/Ti [...] 03/15/2024, 03/14/2024, 04/02/2023, Additional history exists GFR 01/15/2025 01/16/2024, 06/15, 12/06/2022, Additional history exists Albumin/Creatinine Ratio 06/27/2026 024, 12/06/2022, 09/13/2022, Additional history exists Diabetes Screening 01/15/2027 01/16/2024, 0 06/27/2023, 12/06/2022, Additional history exists DTap/Tdap Vaccines (2 - [...] this encounter Medical Devices Implanted Type Area Furniture Removalist'S Assistant Device Identifier Shelf Expiration Date Model / Serial / Lot Coil Vortex 35 Pltinm [id number] - [id number] Implanted:Qty: 1 on 07/13/2018 by Collin Stroud MD at [place] [facility] [place] Left: Lower Arm [employer] : NEURO INTR 03/31/2021 [id number] Coil Vortex 35 Pltinm [id number] - [id number] Implanted:Qty: 1 on 07/13/2018 by Collin Stroud MD at [place] [facility] [place] Left: Lower Arm [employer] : NEURO INTR 03/31/2021 [id number] documented as of this encounter Procedures Procedure Name Priority Date/Time Associated Diagnosis Comments DIFFERENTIAL, AUTOMATED Routine 07/20/2024 7:46 AM EST Kidney replaced by transplant BILIRUBIN, TOTAL Routine 07/20/2024 7:46 AM EST Kidney replaced by transplant BILIRUBIN, DIRECT Routine 07/20/2024 7:4 6 AM EST Kidney replaced by transplant CBC Routine 07/20/2024 7:46 AM EST Kidney replaced by transplant ALT Routine 07/20/2024 7:46 AM EST Kidney replaced by transplant AST Routine 07/20/2024 7:46 AM EST Kidney replaced by transplant PROTEIN Routine 07/20/2024 7:46 AM EST Kidney replaced by transplant ALKALINE PHOSPHATASE Routine 07/20/2024 7:46 AM EST Kidney replaced by transplant CBC Routine 07/20/2024 7:46 AM EST Kidney replaced by transplant documented in this encounter Results * BILIRUBIN, TOTAL (07/20/2024 7:46 AM EST) Bilirubin, Total 1.1 <=1.2 mg/dL 07/20/2024 9:37 AM EST [facility] [place] [facility] Blood Venous blood specimen / Unknown Venipuncture / Unknown 07/20/2024 7:46 AM EST 07/20/2024 7:46 AM EST Edwin Guerrero MD LAB BLOOD ORDERABLES Final Res ult [facility] [place] [facility] [place] [address] * (ABNORMAL) BILIRUBIN, DIRECT (07/20/2024 7:46 AM EST) Bilirubin, Direct 0.4(H) 0.0 - 0.3 mg/dL 07/20/2024 9:37 AM EST [facility] [place] [facility] Blood Venous blood specimen / Unknown Venipuncture / Unknown 07/20/2024 7:46 AM EST 07/20/2024 7:46 AM EST Edwin Guerrero MD LAB BLOOD ORDERABLES Final Res ult [facility] [place] [facility] [place] [address] * ALT (07/20/2024 7:46 AM EST) ALT 24 10 - 50 U/L 07/20/2024 9:37 AM EST [facility] [place] [facility] Blood Venous blood specimen / Unknown Venipuncture / Unknown 07/20/2024 7:46 AM EST 07/20/2024 7:46 AM EST Edwin Guerrero MD LAB BLOOD ORDERABLES Final Res ult [facility] [place] [facility] [place] [address] * AST (07/20/2024 7:46 AM EST) AST 25 10 - 50 U/L 07/20/2024 9:37 AM EST [facility] [place] [facility]10 Blood Venous blood specimen / Unknown Venipuncture / Unknown 07/20/2024 7:46 AM EST 07/20/2024 7:46 AM EST Edwin Guerrero MD LAB BLOOD ORDERABLES Final Res ult [facility] [place] [address] * PROTEIN (07/20/2024 7:46 AM EST) Protein 6.4 6.0 - 8.3 g/dL 07/20/2024 9:37 AM EST [facility] [place] [facility] Blood Venous blood specimen / Unknown Venipuncture / Unknown 07/20/2024 7:46 AM EST 07/20/2024 7:46 AM EST Edwin Guerrero MD LAB BLOOD ORDERABLES Final Res ult Performing Organization Address City/[facility]/ZIP Co de Phone Number [facility] [place] [facility] [place] [address] * ALKALINE PHOSPHATASE (07/20/2024 7:46 AM EST) Alkaline Phosphatase 97 35 - 130 U/L 07/20/2024 9:37 AM EST [facility] [place] [facility] Blood Venous blood specimen / Unknown Venipuncture / Unknown 07/20/2024 7:46 AM EST 07/20/2024 7:46 AM EST Edwin Guerrero MD LAB BLOOD ORDERABLES Final Res ult [facility] [place] [facility] [place] [address] * (ABNORMAL) DIFFERENTIAL, AUTOMATED (07/20/2024 7:46 AM EST) [facility] WBC 6.95 4.00 - 10.80 K/uL 07/20/2024 8:16 AM EST [facility] [place] [facility] Neutrophils % 65.8 40.0 - 75.0 % 07/20/2024 8:16 AM EST [facility] [place] [facility]10 Lymphocytes % 13.8(L) 18.0 - 42.0 % 07/20/2024 8:16 AM EST [facility] [place] [facility]10 Monocytes % 11.9(H) 1.0 - 11.0 % 07/20/2024 8:16 AM EST [facility] [place] [facility]10 Eosinophils % 8.1(H) 0.0 - 6.0 % 07/20/2024 8:16 AM EST [facility] [place] [facility]10 Basophils % 0.4 0.0 - 2.0 % 07/20/2024 8:16 AM EST [facility] [place] [facility]10 Absolute Neutrophils 4.57 1.80 - 7.70 K/uL 07/20/2024 8:16 AM EST [facility] [place] [facility] Absolute Lymphocytes 0.96(L) 1.00 - 4.80 K/ul 07/20/2024 8:16 AM EST [facility] [place] [facility]10 Absolute Monocytes 0.83 0.00 - 1.10 K/uL 07/20/2024 8:16 AM EST [facility] [place] [facility] Absolute Eosinophils 0.56 0.00 - 0.70 K/uL 07/20/2024 8:16 AM EST [facility] [place] [facility] Absolute Basophils 0.03 0.00 - 0.20 K/uL 07/20/2024 8:16 AM EST [facility] [place] [facility]10 Blood Venous blood specimen / Unknown Venipuncture / Unknown 07/20/2024 7:46 AM EST 07/20/2024 7:46 AM EST us Edwin Guerrero MD LAB BLOOD ORDERABLES Final Res ult [facility] [place] [facility] [address] * CBC (07/20/2024 7:46 AM EST) WBC 6.95 4.00 - 10.80 K/uL 07/20/2024 8:16 AM EST [facility] [place] [facility] RBC 5.01 4.50 - 5.25 M/uL 07/20/2024 8:16 AM EST [facility] [place] [facility]10 HGB 14.9 14.0 - 16.8 g/dL 07/20/2024 8:16 AM EST [facility] [place] [facility]10 HCT 46.3 40.0 - 48.4 % 07/20/2024 8:16 AM EST [facility] [place] [facility] MCV 92.4 82.0 - 99.5 fL 07/20/2024 8:16 AM EST [facility] [place] [facility] MCH 29.7 27.0 - 34.0 pg 07/20/2024 8:16 AM EST [facility] [place] [facility] MCHC 32.2 32.0 - 36.0 g/dL 07/20/2024 8:16 AM EST [facility] [place] [facility]10 RDW 13.5 11.5 - 15.5 % 07/20/2024 8:16 AM EST [facility]10 PLT 176 140 - 400 K/uL 07/20/2024 8:16 AM EST [facility]10 MPV 11.0 6.6 - 11.1 fL 07/20/2024 8:16 AM EST [facility]10 Blood Venous blood specimen / Unknown Venipuncture / Unknown 07/20/2024 7:46 AM EST 07/20/2024 7:46 AM EST us Edwin Guerrero MD LAB BLOOD ORDERABLES Final Res ult [facility] [place] [facility] [place] [address] documented in this encounter Visit Diagnoses Diagnosis Screening for prostate cancer Special screening for malignant neoplasm of prostate Kidney replaced by transplant Tertiary hyperparathyroidism (HCC) Other hyperparathyroidism documented in this encounter Advance Directives * [...] the patient have Health Care Power of Director Of Athletics? No Care Teams Slitter Creaser Slotter Helper Relationship Specialty Start Date End Date Julia Garcia DO [address] [place] [address] [place] [phone] PCP - General Internal Medicine 05/28/23 documented as of this encounter
--- OUTSIDE RECORDS SUMMARY | 2024-09-27 16:22 | External Medical Summary | Summary of Care ---
Author Name Unknown Organization [facility] Address [address] [facility] [place] [address] Phone [phone] Care Team Providers Care Design Coordinator Name Role Phone Elio Kern DO Primary Care Provider Reason for Visit * Reason Onset Date Comments Medication Refill 05/19/2024 Encounter Details Date Type Department Care Team (Late st Contact Info) Description 05/19/2024 Refill Family Medicine [address] [phone] Elio Kern DO [address] [place] [address] [place] [address] Shortness of breath Allergies No known active allergiesdocumented as of this encounter (statuses as of 05/20/2024) Medications aspirin enteric coated 81 MG TBECIndications:K idney replaced by transplant,Need for prophylactic immunotherapy Take 1 Tab by mouth daily. 30 Tab 11 03/18/20 19 Active acetaminophen (TYLENOL) 500 MG Tablet Take 1 Tablet by mouth every 6 hours as needed for Pain. Active Magnesium Oxide 400 MG TabletIndications :CKD (chronic kidney disease), stage III (HCC) Take 1 Tab by mouth daily. 30 Tab 5 12/02/19 20 Active Ipratropium-Albut timothy 0.5-2.5 (3) MG/3ML Inhalation Solution (Duoneb) Inhale 3 mL via nebulizer every 6 hours as needed. 12/11/20 23 Active Saline Nasal [place] 0.65 % Nasal Solution (Buchtel) Administer 2 Sprays into nostril as needed. 05/25/20 23 Active Magnesium 300 MG Oral Capsule Take by mouth. Ac tive Cinacalcet HCl 30 MG Oral Tablet (Sensipar) Take 1 tablet by mouth every evening. 90 Tablet 2 05/17/2024 3:12 PM EST 10/15/19 24 025 Active Tacrolimus ER 0.75 MG Oral Tablet Extended Release 24 Hour (Envarsus XR) Take 2 tablets by mouth in the morning. 60 Tablet 5 05/17/2024 3:12 PM EST 12/30/19 24 Active Mycophenolate Sodium 180 MG Oral Tablet Delayed Release (Myfortic) take 3 tablets by mouth in the morning and 3 tablets before bedtime 180 Tablet 5 01/11/20 24 Active cloNIDine HCl 0.1 MG Oral Tablet (Catapres)Indicat ions:Primary hypertension TAKE ONE TABLET BY MOUTH TWICE DAILY 180 Tablet 1 01/12/20 24 Active Lisinopril 20 MG Oral Tablet (Prinivil) TAKE ONE TABLET BY MOUTH IN THE MORNING 30 Tablet 5 01/18/20 24 Active Simvastatin 20 MG Oral Tablet (Zocor)Indication s:Kidney replaced by transplant,Hyperl ipidemia with target LDL less than 70 TAKE ONE TABLET BY MOUTH EVERY DAY 90 Tablet 3 01/22/20 24 Active hydroCHLOROthiazi de 12.5 MG Oral CapsuleIndication s:HTN, goal below 130/80 Take 1 Capsule by mouth in the morning. On days that you do not work.. 30 Capsule 5 03/22/20 24 Active Carvedilol 25 MG Oral Tablet (Coreg)Indication s:HTN, goal below 130/80 Take 1 Tablet by mouth in the morning and 1 Tablet before bedtime. 60 Tablet 5 03/22/20 24 Active Levalbuterol Tartrate 45 MCG/ACT Inhalation Aerosol (Xopenex HFA)Indications:S hortness of breath Inhale 1 Puff by mouth every 4 hours as needed for Wheezing or Shortness of Breath. 15 g 2 05/20/20 24 Active Levalbuterol Tartrate 45 MCG/ACT Inhalation Aerosol (Xopenex HFA)Indications:S hortness of breath Inhale 1 Puff by mouth every 4 hours as needed for Wheezing or Shortness of Breath. 15 g 1 03/22/20 24 024 Discontin ued(Refil l) Hospital, Clinic, or Other Facility Administered Medication Ordered Dose Route Frequency Start Date End Date Status Tixagevimab inj 150 mgIndications:Kidney replaced by transplant 150 mg IM [id number] 08/02/2021 Active Cilgavimab inj 150 mgIndications:Kidney replaced by transplant 150 mg IM [id number] 08/02/2021 Active documented as of this encounter (statuses as of 05/20/2024) Active Problems Problem Noted Date Diagnosed Date [...] as of this encounter (statuses as of 05/20/2024) Resolved Problems Problem Noted Date Diagnosed Date [...] as of this encounter (statuses as of 05/20/2024) Immunizations Name Administration Dates Next Due COVID-19, MRNA-LNP, PF, 30 M CG/0.3 mL, 12 YRS AND ABOVE, IM (Native-ComirnatAntares Vision) 04/02/2023 Covid-19 Ad26, Single Dose (ADstruc/J&J) 09/24/2020 Covid-19, Mrna, Lnp-s, Pf, B ivalent, 30 Mcg, IM, 12 yrs and above (Pfizer) 03/15/2024,05/05/2022 Pneumococcal Conjugate Vacci ne, 20-valent ([id number]) 03/29/2024 Pneumococcal Polysaccharide PPV23 (Pneumovax) 09/02/2018 RSV [...] encounter Miscellaneous Notes * Telephone Encounter - Elio Kern DO - 05/20/2024 8:36 AM ESTSigned Prescriptions: Disp Refills Levalbuterol Tartrate 45 MCG/ACT Inhalatio*15 g 2 Sig: Inhale 1 Puff by mouth every 4 hours as needed for Wheezing or Shortness of Breath. Authorizing Provider: ELIO KERN * Telephone Encounter - Belinda Mckeon CMA - 05/20/2024 8:07 AM ESTPending Prescriptions: Disp Refills Levalbuterol Tartrate 45 MCG/ACT Inhalatio*15 g 2 Sig: Inhale 1 Puff by mouth every 4 hours as needed for Wheezing or Shortness of Breath. * Telephone Encounter - Leah Wright, SIDRA - 05/19/2024 2:58 PM EST Did you pend patient's preferred pharmacy and medication before forwarding?yes Pharmacy: [id number] [facility] Pending Prescriptions: Disp Refills Levalbuterol Tartrate 45 MCG/ACT Inhalati*15 g 1 Sig: Inhale 1 Puff by mouth every 4 hours as needed for Wheezing or Shortness of Breath. Last Visit: 03/22/2024 (in office), Visit date not found (telemedicine) Next Visit: 11/25/2024 If no future appointments scheduled, and last appointment is greater than a year ago, please schedule patient for a follow-up appointment Last date the medication was ordered: 03.22.24 Is this request for a controlled substance?No Urine Drug Screen:No results found. However, due to the size of the patient record, not all encounters were searched. Please check Results Review for a complete set of results. Patient Phone Numbers Labs: Lab Results Component Value Date/Time CREAT 1.3 (H) 01/16/2024 08:21 AM CREAT 1.2 07/13/2020 01:56 PM POTASSIUM 4.6 01/16/2024 08:21 AM POTASSIUM 4.1 07/13/2020 01:56 PM TSH 7.170 (A) 07/26/2018 12:00 AM LDL 62 06/27/2023 08:28 AM LDL 68 08/02/2021 08:36 AM LDL 85 08/16/2019 09:04 AM ALT 23 01/16/2024 08:21 AM ALT 50 06/20/2020 05:58 AM ALT 36 08/24/2019 07:16 AM HGBA1C 5.3 07/13/2020 01:56 PM documented in this encounter Plan of Treatment Upcoming Encounters Date Type Department Care Team (Late st Contact Info) Description 09/12/2024 8:30 AM EDT Office Visit Dermatology [facility] [place] [address] [facility] [place] [address] Kai Mcclain MD [address] [facility] [place] [address] 09/13/2024 11:40 AM EDT Office Visit Nephrology, [facility] [address] [place] [address] Edwin Guerrero MD [address] [facility] [place] [address] 11/25/2024 2:10 PM EDT Office Visit Family Medicine [address] [phone] [address] [place] [address] Scheduled Procedures Name Priority Associated Diagnoses Date/Ti [...] 03/14/2024, 02/28/2023, Additional history exists Pneumococcal Vaccine: Pediatrics (0 to 5 Years) and At-Risk Patients (6 to 64 Years) Completed 03/29/2024, 09/02/2018 HPV (Gardasil) Vaccine Aged Out No lo nger eligible based on patient's age to complete this topic MENINGOCOCCAL (MENACTRA/MENVEO) Aged Out No longer eligible based on patient's age to complete this topic documented as of this encounter Medical Devices Implanted Type Area Price Economist Device Identifier Shelf Expiration Date Model / Serial / Lot Coil Vortex 35 Pltinm [id number] - [id number] Implanted:Qty: 1 on 07/13/2018 by Collin Stroud MD at [place] [facility] [place] Left: Lower Arm [employer] : NEURO INTR 03/31/2021 [id number] Coil Vortex 35 Pltinm [id number] - [id number] Implanted:Qty: 1 on 07/13/2018 by Collin Stroud MD at [place] [facility] [place] Left: Lower Arm [employer] : NEURO INTR 03/31/2021 [id number] documented as of this encounter Visit Diagnoses Diagnosis Shortness of breath documented in this encounter Advance Directives * [...] the patient have Health Care Power of Sheet Tailer? No Care Teams Design Coordinator Relationship Specialty Start Date End Date Eloi Kern DO [address] [place] [address] [place] [phone] PCP - General Internal Medicine 05/28/23 documented as of this encounter
--- OUTSIDE RECORDS SUMMARY | 2024-09-27 16:22 | External Medical Summary ---
Author Name Unknown Address Unknown Organization [facility] [place] [address] Laboratory Report Ordering Provider Test Date Status ANIL BYERS 07/20/2024 07:51:47 Final Observation Date Value Abnormality Reference (Units ) Status Color of Urine by Auto 07/20/2024 07:51:47 Yellow Light Yellow, Yellow, Dark Yellow Final Clarity, Urine 07/20/2024 07:51:47 Clear Clear Final Glucose [Mass/volume] in Urine by Automated test strip 07/20/2024 07:51:47 Negative Negative (mg/dL) Final Bilirubin.total [Presence] in Urine by Automated test strip 07/20/2024 07:51:47 Negative Negative Final Ketones [Mass/volume] in Urine by Automated test strip 07/20/2024 07:51:47 Negative Negative (mg/dL) Final Specific gravity, Urine 07/20/2024 07:51:47 1.020 1.003-1.030 Final Hemoglobin [Presence] in Urine by Automated test strip 07/20/2024 07:51:47 Negative Negative Final pH, Urine 07/20/2024 07:51:47 7.0 5.0-7.5 (Units) Final Protein [Mass/volume] in Urine by Automated test strip 07/20/2024 07:51:47 100 Abnormal Negative (mg/dL) Final Urobilinogen [Mass/volume] in Urine by Automated test strip 07/20/2024 07:51:47 0.2 0.2, 1.0 (mg/dL) Final Nitrite [Presence] in Urine by Automated test strip 07/20/2024 07:51:47 Negative Negative Final Leukocyte esterase [Presence] in Urine by Automated test strip 07/20/2024 07:51:47 Negative Negative Final RBC, Urine 07/20/2024 07:51:47 0-2 0-2 (/HPF) Final WBC, Urine 07/20/2024 07:51:47 0-2 0-2 (/HPF) Final Bacteria [#/area] in Urine sediment by Microscopy high power field 07/20/2024 07:51:47 0-25 0-25 (/HPF) Final Performing Location [facility] [place] [facility]-[address] [place] [facility] [address]
--- OUTSIDE RECORDS SUMMARY | 2024-09-27 16:22 | External Medical Summary | Summary of Care ---
Author Name Unknown Organization [facility] Address [address] [facility] [place] [address] Phone [phone] Care Team Providers Care Engineering Documentation Specialist Name Role Phone GarciaJulia DO Primary Care Provider [phone] Reason for Visit * Reason Comments eRx-Medication Refill Encounter Details Date Type Department Care Team (Late st Contact Info) Description 07/17/2024 Refill Nephrology, [facility] [address] [place] [address] Zeeshan Guerrero MD 200 [facility] [place] [address] Allergies No known active allergiesdocumented as of this encounter (statuses as of 07/18/2024) Medications aspirin enteric coated 81 MG TBECIndications: Kidney replaced by transplant,Need for prophylactic immunotherapy Take 1 Tab by mouth daily. 30 Tab 11 03/18/20 19 Active acetaminophen (TYLENOL) 500 MG Tablet Take 1 Tablet by mouth every 6 hours as needed for Pain. Active Magnesium Oxide 400 MG TabletIndication s:CKD (chronic kidney disease), stage III (HCC) Take 1 Tab by mouth daily. 30 Tab 5 12/02/19 20 Active Ipratropium-Albu terol 0.5-2.5 (3) MG/3ML Inhalation Solution (Duoneb) Inhale 3 mL via nebulizer every 6 hours as needed. 05/25/20 23 Active Saline Nasal [place] 0.65 % Nasal Solution (Pima) Administer 2 Sprays into nostril as needed. 05/25/20 23 Active Magnesium 300 MG Oral Capsule Take by mouth. Active Cinacalcet HCl 30 MG Oral Tablet (Sensipar) Take 1 tablet by mouth every evening. 90 Tablet 2 5 3:04 PM EST 10/15/19 24 025 Active Tacrolimus ER 0.75 MG Oral Tablet Extended Release 24 Hour (Envarsus XR) Take 2 tablets by mouth in the morning. 60 Tablet 5 5 3:04 PM EST 12/30/19 24 Active Simvastatin 20 MG Oral Tablet (Zocor)Indicatio ns:Kidney replaced by transplant,Hyper lipidemia with target LDL less than 70 TAKE ONE TABLET BY MOUTH EVERY DAY 90 Tablet 3 01/22/20 24 Active Carvedilol 25 MG Oral Tablet (Coreg)Indicatio ns:HTN, goal below 130/80 Take 1 Tablet by mouth in the morning and 1 Tablet before bedtime. 60 Tablet 5 03/22/20 24 Active Levalbuterol Tartrate 45 MCG/ACT Inhalation Aerosol (Xopenex HFA)Indications: Shortness of breath Inhale 1 Puff by mouth every 4 hours as needed for Wheezing or Shortness of Breath. 15 g 2 05/20/20 24 Active cloNIDine HCl 0.1 MG Oral Tablet (Catapres)Indica tions:Primary hypertension TAKE ONE TABLET BY MOUTH TWICE DAILY 180 Tablet 1 07/13/19 25 Active Lisinopril 40 MG Oral Tablet Take 1 Tablet by mouth in the morning. 30 Tablet 5 07/15/19 25 Active Torsemide 20 MG Oral Tablet (Demadex) Take 1 Tablet by mouth in the morning. 30 Tablet 5 07/15/19 25 Active Mycophenolate Sodium 180 MG Oral Tablet Delayed Release (Myfortic) take 3 tablets by mouth in the morning and 3 tablets before bedtime 180 Tablet 3 07/18/19 25 Active Mycophenolate Sodium 180 MG Oral Tablet Delayed Release (Myfortic) take 3 tablets by mouth in the morning and 3 tablets before bedtime 180 Tablet 5 01/11/20 24 025 Discontinued Hospital, Clinic, or Other Facility Administered Medication Ordered Dose Route Frequency Start Date End Date Status Tixagevimab inj 150 mgIndications:Kidney replaced by transplant 150 mg IM [id number] 08/02/2021 Active Cilgavimab inj 150 mgIndications:Kidney replaced by transplant 150 mg IM [id number] 08/02/2021 Active documented as of this encounter (statuses as of 07/18/2024) Active Problems Problem Noted Date Diagnosed Date [...] as of this encounter (statuses as of 07/18/2024) Resolved Problems Problem Noted Date Diagnosed Date [...] as of this encounter (statuses as of 07/18/2024) Immunizations Name Administration Dates Next Due COVID-19, MRNA-LNP, PF, 30 M CG/0.3 mL, 12 YRS AND ABOVE, IM (PFIZER-Comirnat) 04/02/2023 Covid-19 Ad26, Single Dose (Sue/J&J) 09/24/2020 Covid-19, Mrna, Lnp-s, Pf, B ivalent, 30 Mcg, IM, 12 yrs and above (Pfizer) 03/15/2024,05/05/2022 Pneumococcal Conjugate Vacci ne, 20-valent ([id number]) 03/29/2024 Pneumococcal Polysaccharide PPV23 (Pneumovax) 09/02/2018 RSV [...] Telephone Encounter - Zeeshan Guerrero MD - 07/18/2024 12:02 PM ESTSigned Prescriptions: Disp Refills Mycophenolate Sodium 180 MG Oral Tablet De*180 Ta*3 Sig: take 3 tablets by mouth in the morning and 3 tablets before bedtime Authorizing Provider: ZEESHAN GUERRERO * Telephone Encounter - Shanda Huang RN - 07/18/2024 7:37 AM ESTPending Prescriptions: Disp Refills Mycophenolate Sodium 180 MG Oral Tablet De*180 Ta*3 Sig: take 3 tablets by mouth in the morning and 3 tablets before bedtime * Telephone Encounter - Shanda Huang RN - 07/18/2024 7:35 AM EST Prescription request received from pharmacy pending. Please authorize. Last OV 07/15/24 Next OV 03/29/25 documented in this encounter Plan of Treatment Upcoming Encounters Date Type Department Care Team (Late st Contact Info) Description 08/02/2024 2:30 PM EST Office Visit Cardiology, [facility] [address] [place] [address] Sarai Nash PA-C [address] [place] [address] 09/12/2024 8:30 AM EDT Office Visit Dermatology [facility] 200 [facility] [place] [address] Kai Mcclain MD 200 [facility] [place] [address] 11/25/2024 2:10 PM EDT Office Visit Family Medicine [address] [phone] Julia Garcia[address] [place] [address] 03/29/2025 5:00 PM EDT Office Visit Nephrology, [facility] 200 [facility] [place] [address] Zeeshan Guerrero MD 200 [facility] [place] [address] Scheduled Procedures Name Priority Associated Diagnoses Date/Ti [...] this encounter Medical Devices Implanted Type Area [employer] Stitcher Device Identifier Shelf Expiration Date Model / Serial / Lot Coil Vortex 35 Pltinm [id number] - [id number] Implanted:Qty: 1 on 07/13/2018 by [place]lin Stroud [place] [facility] [place] Lower Arm [employer] : NEURO INTR 03/31/2021 [id number] Coil Vortex 35 Pltinm [id number] - [id number] Implanted:Qty: 1 on 07/13/2018 by Collin Stroud MD [place] [facility] [place]: Lower Arm [employer] : NEURO INTR 03/31/2021 [id number] documented as of this encounter Advance Directives [...] the patient have Health Care Power of Medicaid Eligibility Specialist? No Care Teams Engineering Documentation Specialist Relationship Specialty Start Date End Date Julia Garcia DO [address] [place] [address] [place] [phone] PCP - General Internal Medicine 05/28/23 documented as of this encounter
--- OUTSIDE RECORDS SUMMARY | 2024-09-27 16:22 | External Medical Summary | Summary of Care ---
Author Name Unknown Organization [facility] Address [address] [place] [address] Phone [phone] Care Team Providers Care Bead Wire Taper Name Role Phone Julia Garcia Primary Care Provider Reason for Visit * Reason Comments Medication Refill Encounter Details Date Type Department Care Team (Late st Contact Info) Description [facility] [address] [place], [place] [phone] Lesley Reed MD [address] [place], [place] [phone] Allergies No known active allergiesdocumented as of this encounter (statuses as of 07/19/2024) Medications aspirin enteric coated 81 MG TBECIndications:K [...] as needed. 05/25/20 23 Active Saline Nasal [place] 0.65 % Nasal Solution (Wharton) Administer 2 Sprays into nostril as needed. [...] bedtime 180 Tablet 3 07/18/19 25 Active Cinacalcet HCl 30 MG Oral Tablet (Sensipar) Take 1 tablet by mouth every evening. 90 Tablet 2 07/19/19 25 026 Active Tacrolimus ER 0.75 MG Oral Tablet Extended Release 24 Hour (Envarsus XR) Take 2 tablets by mouth in the morning. 60 Tablet 5 07/19/19 25 Active Tacrolimus ER 0.75 MG Oral Tablet Extended Release 24 Hour (Envarsus XR) Take 2 tablets by mouth in the morning. 60 Tablet 5 06/23/2024 3:04 PM EST 12/30/19 24 025 Discontin ued(Refil l) Hospital, Clinic, or Other Facility Administered Medication Ordered Dose Route Frequency Start Date End Date Status Tixagevimab inj 150 mgIndications:Kidney replaced by transplant 150 mg IM [id number] 08/02/2021 Active Cilgavimab inj 150 mgIndications:Kidney replaced by transplant 150 mg IM [id number] 08/02/2021 Active documented as of this encounter (statuses as of 07/19/2024) Active Problems Problem Noted Date Diagnosed Date [...] as of this encounter (statuses as of 07/19/2024) Resolved Problems Problem Noted Date Diagnosed Date [...] as of this encounter (statuses as of 07/19/2024) Immunizations Name Administration Dates Next Due COVID-19, MRNA-LNP, PF, 30 M CG/0.3 mL, 12 YRS AND ABOVE, IM (PFIZER-Comirnaty) 04/02/2023 Covid-19 Ad26, Single Dose (Sue/J&J) 09/24/2020 Covid-19, Mrna, Lnp-s, Pf, B ivalent, 30 Mcg, IM, 12 yrs and above (Pfizer) 03/15/2024,05/05/2022 Pneumococcal Conjugate Vacci ne, 20-valent ([id number]) 03/29/2024 Pneumococcal Polysaccharide PPV23 (Pneumovax) 09/02/2018 RSV [...] encounter Miscellaneous Notes * Telephone Encounter - Lesley Reed MD - 07/19/2024 12:32 PM ESTSigned Prescriptions: Disp Refills Tacrolimus ER 0.75 MG Oral Tablet Extended*60 Tab*5 Sig: Take 2 tablets by mouth in the morning.Authorizing Provider: LESLEY REED documented in this encounter Plan of Treatment Upcoming Encounters Date Type Department Care Team (Late st Contact Info) Description 08/02/2024 2:30 PM EST Office Visit Cardiology, [facility] [address] [place] [address] Sarai Nash PA-C [address] [place] [address] 09/12/2024 8:30 AM EDT Office Visit Dermatology [facility] [address] [place] [address] Kai Mcclain MD [address] [place] [address] 11/25/2024 2:10 PM EDT Office Visit Family Medicine [address] [place] [phone] [place] [address] 03/29/2025 5:00 PM EDT Office Visit Nephrology, [facility] [address] [facility] [address] [place] [address] Edwin Guerrero MD 200 [facility] [place] [address] Scheduled Procedures Name Priority Associated Diagnoses Date/Ti [...] this encounter Medical Devices Implanted Type Area Dispatcher Radio Device Identifier Shelf Expiration Date Model / Serial / Lot Coil Vortex 35 Pltinm [id number] - [id number] Implanted:Qty: 1 on 07/13/2018 by Collin Stroud MD at [place] [facility] [place] Left: Lower Arm [employer] : NEURO INTR 03/31/2021 [id number] Coil Vortex 35 Pltinm [id number] - [id number] Implanted:Qty: 1 on 07/13/2018 by Collin Stroud MD at OR [facility] [place] Left: Lower Arm [employer] : NEURO INTR 03/31/2021 [id number] documented as of this encounter Advance Directives [...] the patient have Health Care Power of Tone Artist Apprentice? No Care Teams Bead Wire Taper Relationship Specialty Start Date End Date Julia Garcia DO [address] [place] [address] [place] [phone] PCP - General Internal Medicine 05/28/23 documented as of this encounter
--- OUTSIDE RECORDS SUMMARY | 2024-09-27 16:22 | External Medical Summary ---
Author Name Unknown Address Unknown Organization [id number] [address] [place] [address] Laboratory Report Ordering Provider Test Date Status CESAR BYERSCLARISSA 07/20/2024 07:46:21 Final Observation Date Value Abnormality Reference (Units ) Status AST (Aspartate aminotransferase) 07/20/2024 07:46:21 25 10-50 (U/L) Final Performing Location [facility] 0 - [address] [place] [address]
--- OUTSIDE RECORDS SUMMARY | 2024-09-27 16:22 | External Medical Summary ---
Author Name Unknown Address Unknown Organization [id number] [address] [place] [address] Laboratory Report Ordering Provider Test Date Status ANIL BYERS 07/20/2024 07:46:21 Final Observation Date Value Abnormality Reference (Units ) Status ALT (Alanine aminotransferase) 07/20/2024 07:46:21 24 10-50 (U/L) Final Performing [facility] - [address] [place] [address]
--- OUTSIDE RECORDS SUMMARY | 2024-09-27 16:22 | External Medical Summary ---
Author Name Unknown Address Unknown Organization [id number]:[facility] - [address] [place] [address] Laboratory Report Ordering Provider Test Date Status ERLIN BALLARD 07/20/2024 07:46:21 Final Observation Date Value Abnormality Reference (Units ) Status PSA 07/20/2024 07:46:21 3.77 <4.10 (ng/ mL) Final Performing Location [facility] - [address] [place] [address]
--- OUTSIDE RECORDS SUMMARY | 2024-09-27 16:22 | External Medical Summary ---
Author Name Unknown Address Unknown Organization [id number]:[facility] [place] [address] [place] [address] Laboratory Report Ordering Provider Test Date Status ANIL BYERS 07/20/2024 07:46:21 Final Observation Date Value Abnormality Reference (Units ) Status BUN 07/20/2024 07:46:21 17 6-20 (mg/dL) Final Creatinine 07/20/2024 07:46:21 1.3 Above high normal 0.6-1.2 (mg/dL) Final Glomerular filtration rate/1.73 sq M.predicted [Volume Rate/Area] in Serum, Plasma or Blood by Creatinine-based formula (CKD-EPI) 07/20/2024 07:46:21 62 >=60 (mL/min) Final eGFR is calculated based on the CKD-EPI 2020 equation. Sodium 07/20/2024 07:46:21 143 135-146 (m mol/L) Final Potassium 07/20/2024 07:46:21 4.2 3.5-5.1 (m mol/L) Final Cl 07/20/2024 07:46:21 103 98-107 (mm ol/L) Final CO2 07/20/2024 07:46:21 31 22-32 (mmo l/L) Final Anion gap 07/20/2024 07:46:21 9 7-15 (mmol /L) Final Glucose 07/20/2024 07:46:21 116 70-120 (mg /dL) Final Calcium 07/20/2024 07:46:21 9.8 8.4-10.2 ( mg/dL) Final Albumin 07/20/2024 07:46:21 4.2 3.8-5.0 (g /dL) Final Phosphate 07/20/2024 07:46:21 2.7 2.5-4.8 (m g/dL) Final Performing Location LABORATORY C - [address] [facility] [address]
--- OUTSIDE RECORDS SUMMARY | 2024-09-27 16:22 | External Medical Summary | Summary of Care ---
Author Name Unknown Organization [facility] Address [address] [facility] [place] [address] Phone [phone] Care Team Providers Care Control Officer Name Role Phone GarciaJulia DO Primary Care Provider Reason for Visit * Reason Comments Return Visit Hx of kidney transpl ant 07/19/18 Hypertension Encounter Details Date Type Department Care Team (Latest Contact Info) Description 07/15/2024 11:40 AM EST Office Visit Nephrology, [facility] [address] [facility] [place] [address] Edwin Guerrero MD [address] [facility] [place] [address] Kidney replaced by transplant*; Tertiary hyperparathyroidism (HCC); HTN, goal below 140/90 Allergies No known active allergiesdocumented as of this encounter (statuses as of 07/15/2024) Medications aspirin enteric coated 81 MG TBECIndications:K [...] as needed. 05/25/20 23 Active Saline Nasal [place] 0.65 % Nasal Solution ([place]) Administer 2 Sprays into nostril as needed. 05/25/20 23 Active Magnesium 300 MG Oral Capsule Take by mouth. Ac tive Cinacalcet HCl 30 MG Oral Tablet (Sensipar) Take 1 tablet by mouth every evening. 90 Tablet 2 06/23/2024 3:04 PM EST 10/15/19 24 025 Active Tacrolimus ER 0.75 MG Oral Tablet Extended Release 24 Hour (Envarsus XR) Take 2 tablets by mouth in the morning. 60 Tablet 5 06/23/2024 3:04 PM EST 12/30/19 24 Active Mycophenolate Sodium 180 MG Oral Tablet Delayed Release (Myfortic) take 3 tablets by mouth in the morning and 3 tablets before bedtime 180 Tablet 5 01/11/20 24 Active Simvastatin 20 MG Oral Tablet [...] morning. 30 Tablet 5 07/15/19 25 Active hydroCHLOROthiazi de 12.5 MG Oral CapsuleIndication s:HTN, goal below 130/80 Take 1 Capsule by mouth in the morning. On days that you do not work.. 30 Capsule 5 03/22/20 24 01/31/2 025 Discontin ued(Disch arged) Lisinopril 20 MG Oral Tablet (Prinivil) TAKE ONE TABLET BY MOUTH IN THE MORNING 30 Tablet 5 07/13/19 25 025 Discontin ued(Medic ation/Dos e Changed) Hospital, Clinic, or Other Facility Administered Medication Ordered Dose Route Frequency Start Date End Date Status Tixagevimab inj 150 mgIndications:Kidney replaced by transplant 150 mg IM [id number] 08/02/2021 Active Cilgavimab inj 150 mgIndications:Kidney replaced by transplant 150 mg IM [id number] 08/02/2021 Active documented as of this encounter (statuses as of 07/15/2024) Active Problems Problem Noted Date Diagnosed Date [...] as of this encounter (statuses as of 07/15/2024) Resolved Problems Problem Noted Date Diagnosed Date [...] as of this encounter (statuses as of 07/15/2024) Immunizations Name Administration Dates Next Due COVID-19, MRNA-LNP, PF, 30 M CG/0.3 mL, 12 YRS AND ABOVE, IM (PFIZER-Comirnaty) 04/02/2023 Covid-19 Ad26, Single Dose ([employer]J) 09/24/2020 Covid-19, Mrna, Lnp-s, Pf, B ivalent, 30 Mcg, IM, 12 yrs and above ([employer]) 03/15/2024,05/05/2022 Pneumococcal Conjugate Vacci ne, 20-valent (Qemuisu31) 03/29/2024 Pneumococcal Polysaccharide PPV23 (Pneumovax) 09/02/2018 RSV [...] Sign Reading Time Taken Comments Blood Pressure 160/106 07/15/2024 12:26 PM EST Pulse 78 07/15/2024 12:26 PM EST Temperature 36.9 °C (98.5 °F) 07/15/2024 12:[address] Respiratory Rate 22 07/15/2024 12:23 PM EST Oxygen Saturation 95% 07/15/2024 12:23 PM EST Inhaled Oxygen Concentration - - Weight 131 kg (288 lb 11.2 oz) 07/15/2024 12:23 PM EST Height - - Body Mass Index 43.9 08/21/2019 2:21 PM EDT documented in this [...] documented in this encounter Progress Notes * Edwin Guerrero MD - 07/15/2024 12:45 PM EST Images from the original note were not included. Chief Complaint Patient presents with Return Visit Hx of kidney transplant 07/19/18 Hypertension Renal transplant status Hypertension SUBJECTIVE: HPI:Patient is a 64 year old male for Transplant follow up. 02/2019---Living donor from friend. ESRDfrom HTN. Also has Major issues with Lot of BP meds. Either dont work or he cannot tolerate. Recent telemedicine with transplant. Reported renal function stable. Current Management of Immunosuppression. Tacrolimus target 5-7. Envarsus - 1.5 mg daily Myfortic - 540 mg bid Will check immunosuppressant levels every 2 months and adjust as needed. Most recent labs 12/06/22 with elevated tac levels noted in November and September Medication reduced but patient has not yet started will start in upcoming wk. To derm several months ago - fu every 6 months. Area removed from back due to changes in mole color/size- removed as if melona but results were negative Status-post kidney transplant. Renal function: Stable. Last creatinine and GFR: 12/06/2022: Creatinine 1.2; Estimated Glomerular Filtration Rate 68. Since last visit December 2023----Blood pressure medication is an ongoing challenge---mainly because ofside-effect. Currently he takes lisinopril and clonidine which he seems to be doing okay from side-effect standpoint. Also takes hydrochlorothiazide 12.5 and carvedilol He has significant subjective problem with lots of medications. He also does not feel good when theblood pressure is "normal".Renal labs however looks good based on the last blood work from January 2024 No acute symptoms right now HISTORY: Current Outpatient Medications Medication Sig Dispense Refill [...] every 6 hours as needed. Saline Nasal [place] 0.65 % Nasal Solution ([place]) Administer 2 Sprays into nostril as needed. Cinacalcet HCl 30 MG Oral Tablet (Sensipar) Take 1 tablet by mouth every evening. 90 Tablet 2 Tacrolimus ER 0.75 MG Oral Tablet Extended Release 24 Hour (Envarsus XR) Take 2 tablets by mouth inthe morning. 60 Tablet 5 Mycophenolate Sodium 180 MG Oral Tablet Delayed Release (Myfortic) take 3 tablets by mouth in the morning and 3 tablets before bedtime 180 Tablet 5 Simvastatin 20 MG Oral Tablet (Zocor) TAKE ONE TABLET BY MOUTH EVERY DAY 90 Tablet 3 hydroCHLOROthiazide 12.5 MG Oral Capsule Take 1 Capsule by mouth in the morning. On days that you do not work.. 30 Capsule 5 Carvedilol 25 MG Oral Tablet (Coreg) Take 1 Tablet by mouth in the morning and 1 Tablet before bedtime. 60 Tablet 5 Levalbuterol Tartrate 45 MCG/ACT Inhalation Aerosol (Xopenex HFA) Inhale 1 Puff by mouth every 4 hours as needed for Wheezing or Shortness of Breath. 15 g 2 Lisinopril 20 MG Oral Tablet (Prinivil) TAKE ONE TABLET BY MOUTH IN THE MORNING 30 Tablet 5 cloNIDine HCl 0.1 MG Oral Tablet (Catapres) TAKE ONE TABLET BY MOUTH TWICE DAILY 180 Tablet 1 Magnesium 300 MG Oral Capsule Take by mouth. (Patient not taking: Reported on 07/15/2024) Current Facility-Administered Medications Medication Dose Route Frequency Provider Last Rate Last Admin Tixagevimab inj 150 mg 150 mg Intramuscular Q6 Months Tanvi Bach, RP 150 mg at 08/02/21 1314 Cilgavimab inj 150 mg 150 mg Intramuscular Q6 Months Tanvi Bach, RPh 150 mg at 08/02/21 1245 Review of patient's allergies indicates: No Known Allergies Past Medical History: Diagnosis Date Allergic rhinitis Blood type B+ BMI 38.0-38.9,adult CKD (chronic kidney disease), stage V ([facility]) 02/19/2018 GFR 9 COVID-19 03/04/2021 Dialysis patient ([facility]) [place] Essential hypertension with goal blood pressure less than 140/90 Kidney transplant recipient 02/16/2019 living donor Lytic bone lesions on xray RSV (acute bronchiolitis due to respiratory syncytial virus) 05/20/2023 Admitted 05/22 to [facility] with hypoxia Systemic inflammatory response syndrome (HCC) 06/22/2020 [facility] Past Surgical History: Procedure Laterality Date AV ACCESS, DIRECT ANASTOMOSIS Left 04/21/2018 ARTERIOVENOUS ANASTOMOSIS OPEN DIRECT ANY SITE performed by Collin Stroud MD at OR [facility] [place] [place] COLONOSCOPY, DIAGNOSTIC (RECTUM) 06/29/2018 normal, repeat 5 yrs/[facility] INSER RICHARD CAT,W/O PUMP;5YR/OLD N/A 04/21/2018 INSERT TUNNELED CENTRAL VENOUS CATHETER AGE 6 OR OLDER performed by Collin Stroud MD at OR [facility] [place] [place] INTRO CATH DIALYSIS CIRCUIT W/TRANSCATH PLACEMENT IV STENT Left 10/07/2018 AV FISTULOGRAM STENT & PERIPHERAL ANGIOPLASTY performed by Ward Mills MD at OR [facility] [place] [place] INTRO CATH DIALYSIS CIRCUIT W/TRANSCATH PLACEMENT IV STENT Left 11/16/2018 AV FISTULOGRAM STENT & PERIPHERAL ANGIOPLASTY performed by Collin Stroud MD at OR [facility] [place] [place] INTRO CATH DIALYSIS CIRCUIT W/TRANSLUM BALLOON ANGIOPLASTY Left 07/13/2018 AV FISTULOGRAM & PERIPHERAL ANGIOPLASTY performed by Collin Stroud MD at OR [facility] [place] [place] IR BIOPSY 10/21/2019 LAPAROSCOPY; CHOLECYSTECTOMY N/A 08/22/2019 LAPAROSCOPIC CHOLECYSTECTOMY performed by Fransisco Ga MD at OR [facility] [place] [place] TRANSPLANTATION OF KIDNEY N/A 02/16/2019 RENAL TRANSPLANT performed by Leonard Seth MD at OR [facility] [place] [place] US RENAL Bilateral 03/16/2018 medical renal disease, 1.4 cm right hypoechoic lesion followup 3 months Family History Problem Relation Name Age of Onset Heart disease Mother Heart disease Father Stroke Father Other (liver problem) Sister Colon polyps Brother Other (testicular cancer) Brother Dementia Other Hypertension Other Skin cancer Other Social History Socioeconomic History Marital status: Spouse name: Not on file Number of children: Not on file Years of education: Not on file Highest education level: Not on file Occupational History Not on file Tobacco Use Smoking status: Never Smokeless tobacco: Never Vaping Use Vaping status: Never Used Substance and Sexual Activity Alcohol use: Not Currently Drug use: No Sexual activity: Not on file Other Topics Concern Not on file Social History Narrative Lived near [facility] [place] as a kid. Social Needs Financial Resource Strain: Not on file Food Insecurity: Not on file Transportation Needs: Not on file Social Connections: Not on file Housing Stability: Not on file Ambulation: Without assisted device REVIEW OF SYSTEMS General: + fatigue, Head: No significant headache Respiratory:+cough,+ wheezing, +shortness of breath more with movement on occasion Cardiovascular:No chest pain, No palpitations, and No syncope Gastrointestinal: No nausea, vomiting, diarrhea No blood in stools No abdominal pain Urinary: No dysuira, No hematuria. No flank pain Musculoskeletal: No muscle/joint pains , No edema Skin: No itching All other systems were reviewed and were negative. OBJECTIVE: BP 160/106 (BP Site: Right Arm, BP Position: Sitting, BP Cuff Size: Large) | Pulse 78 | Temp 36.9 °C (98.5 °F) (Tympanic) | Resp 22 | Wt 131 kg (288 lb 11.2 oz) | SpO2 95% | BMI 43.90 kg/m² | BSA 2.51 m² Wt Readings from Last 1 Encounters: 07/15/24 131 kg (288 lb 11.2 oz) General appearance: alert, no apparent distress. HEAD: Normocephalic, No masses, lesions, tenderness Respiratory: clear to auscultation and no wheezes Heart: regular rate and regular rhythm Abdomen: abdomen soft, non-tender, normal bowel sounds, and no masses or organomegaly EXTREMITIES: 2+ edema with significant skin changes Skin: skin color, texture, turgor are normal NEURO: alert & oriented x 3 with fluent speech, no focal motor/sensory deficits No tremor Patient is a reliable historian of events Last 4 BP Readings: BP Readings from Last 4 Encounters: 07/15/24 160/106 03/22/24 174/110 01/11/24 181/108 08/08/23 168/104 Last 3 Weights: Wt Readings from Last 3 Encounters: 07/15/24 131 kg (288 lb 11.2 oz) 03/22/24 123.7 kg (272 lb 9.6 oz) 01/11/24 122.9 kg (271 lb) Estimated body mass index is 43.9 kg/m² as calculated from the following: Height as of 08/21/19: 1.727 m (5' 8"). Weight as of this encounter: 131 kg (288 lb 11.2 oz). LABS: Latest Reference Range & Units 08/31/21 09:05 12/07/21 08:38 03/08/22 08:37 06/07/22 08:52 09/13/22 09:19 12/06/22 08:29 Sodium 135 - 146 mmol/L 138 143 141 142 142 142 Potassium 3.5 - 5.1 mmol/L 4.8 4.3 4.5 4.9 4.5 4.4 Chloride 98 - 107 mmol/L 105 108 (H) 106 108 (H) 105 107 CO2 22 - 32 mmol/L 23 26 24 27 28 26 BUN 6 - 20 mg/dL 19 16 17 19 19 17 Creatinine 0.6 - 1.2 mg/dL 1.1 1.3 (H) 1.1 1.2 1.3 (H) 1.2 Estimated Glomerular Filtration Rate >=60 mL/min 74 65 75 67 65 68 Anion Gap 7 - 15 mmol/L 10 9 11 7 9 9 Glucose 70 - 120 mg/dL 103 113 113 108 119 118 Calcium 8.4 - 10.2 mg/dL 10.1 10.1 10.1 10.0 10.2 9.9 (H): Data is abnormally high Latest Reference Range & Units 08/31/21 09:05 12/07/21 08:38 03/08/22 08:37 06/07/22 08:55 09/13/22 09:21 12/06/22 08:33 Albumin / Creatinine Ratio, Urine <30 mg/g Creat 957 (H) 1,308 (H) 109 (H) 272 (H) 1,349 (H) ALBUMIN / CREATININE RATIO, URINE Rpt ! Rpt ! Rpt ! Rpt ! Rpt ! Protein/ Creatinine Ratio, Urine <150 mg/g 2,140 (H) (H): Data is abnormally high !: Data is abnormal Rpt: View report in Results Review for more information 12/06/22 Component Ref Range & Units 1 mo ago Tacrolimus 4.0 - 12.0 ng/mL 8.8 (T) Panic Resulting Agency LAB[facility]ATORY [facility] [place] [place] Narrative IMAGING: US KIDNEY TRANSPLANT W/DOPPLER - 10/14/2019 3:08 pm HISTORY S/P renal transplant with elevated creatinine COMPARISON US KIDNEY TRANSPLANT W/DOPPLER dated 08/21/2019 TECHNIQUE Real-time sonography of renal transplant was obtained with Doppler analysis. FINDINGS Right lower quadrant renal transplant: 13.6 cmx9.1 cmx7.6 cm. Echogenicity and cortical thickness are unremarkable. There is mild hydronephrosis. No shadowing calculi. There is a hypoechoic perinephric fluid collection measuring 5.2 x 4.6 x 4.9 cm, similar to prior. Upper pole arcuate artery RI: 0.64 Mid pole arcuate artery RI: 0.68 Lower pole arcuate artery RI: 0.63 Renal artery: 124 cm/s Arterial anastomosis: 266 cm/s, previously measuring 446 cm/s. Iliac artery above the anastomosis: 237 cm/s Iliac artery below the anastomosis: 69 cm/s Renal vein: 112 cm/s Venous anastomosis: 67 cm/s IMPRESSION IMPRESSION 1. The velocities at the renal artery anastomosis are within normal limits on this exam. 2. Mild hydronephrosis compared to 2 months prior. 3. Redemonstration of likely perinephric seroma or lymphocele. Recent Labs Units 01/16/24 0806/27/23 0828 12/06/22 0829 SODIUM - [facility] mmol/L 142 141 142 POTASSIUM - [facility] mmol/L 4.6 4.7 4.4 CHLORIDE - [facility] mmol/L 106 105 107 CO2 - [facility] mmol/L 27 27 26 ESTIMATED GLOMERULAR FILTRATION RATE - [facility] mL/min 63 69 68 BUN - [facility] mg/dL 17 17 17 CREATININE - [facility] mg/dL 1.3* 1.2 1.2 Recent Labs Units 01/16/24 0821 06/27/23 0828 12/06/22 0829 HGB g/dL 14.8 14.5 14.2 Recent Labs Units 01/16/24 0821 06/27/23 0828 12/06/22 0829 CALCIUM - [facility] mg/dL 10.0 9.9 9.9 PHOSPHORUS - [facility] mg/dL 3.0 -- -- PTH - [facility] pg/mL 228* -- -- No results for input(s): "HGBA1C" in the last 93395 hours. Recent Labs Units 01/16/24 0824 06/27/23 0828 12/06/22 0833 09/13/22 0921 ALBUMIN / CREATININE RATIO, URINE - [facility] mg/g Creat -- 1,486* 1,349* 272* PROTEIN/ CREATININE RATIO, URINE - [facility] mg/g 872* -- -- -- ASSESSMENT/PLAN: Kidney replaced by transplant (Primary) Status post living unrelated kidney transplant February 2019. ESRD secondary to hypertension Current renal labs are very good. Creatinine 1.0--1.3 and GFR 60+ Tolerating current immunosuppressive regimen which includes Envarsus and MMF Management of Immunosuppression done by transplant with labs of immunosuppressant levels every 2 months. Tacrolimus target 5-7. Current management with: Envarsus - 1.5 mg daily and Mortic - 540 mg bid - CBC WITH WBC DIFFERENTIAL; Future; Expected date: 07/15/2024 - HEPATIC FUNCTION PANEL; Future; Expected date: 07/15/2024 - RENAL FUNCTION PANEL; Future; Expected date: 07/15/2024 - PROTEIN/ CREATININE RATIO, URINE; Future; Expected date: 07/15/2024 - URINALYSIS WITH MICROSCOPIC EXAM; Future; Expected date: 07/15/2024 - TACROLIMUS LEVEL; Future; Expected date: 07/15/2024 - NEPHROLOGY FOLLOW UP APPT (DEPARTMENT USE ONLY); Future; Expected date: 01/12/2025 Tertiary hyperparathyroidism (HCC) Currently on cinacalcet. Check PTH and Phos with next labs. Not sure whether we need to continue cinacalcet and the phosphorus supplement forever. We will adjust after the labs - PTH; Future; Expected date: 07/15/2024 HTN, goal below 140/90 Has issues with Lot of BP meds. Either dont work or he cannot tolerate. Has had issues with Hydralazine, Labaetolol, Norvasc, losartan and nifedipine. He also does not feel good when his blood pressure is so called normal Did -refer him to hypertension remote 365 monitoring.---it did not enroll Challenge with him his more with subjective side-effect of blood pressure medication than anything but given his young age and transplant status we do need to try to control the blood pressure. Also does have significant edema even after stopping Norvasc and nifedipine. He was previously hesitant in using loop diuretics but today he is agreeable so will do torsemide 20 daily and stop hydrochlorothiazide. Other orders - Lisinopril 40 MG Oral Tablet; Take 1 Tablet by mouth in the morning.--dose increased - Torsemide 20 MG Oral Tablet (Demadex); Take 1 Tablet by mouth in the morning. Stop hydrochlorothiazide and start torsemide Edwin Guerrero MD documented in this encounter Nursing Notes * Yvette Garrido LPN - 07/15/2024 12:21 PM EST Patient identified by verbal name and date of . Chief Complaint Patient presents with Return Visit Hx of kidney transplant 07/19/18 Hypertension No recent inpatient hospital stays or ED visits Pt notes SOB with fatigue Notes increased lower extremity edema Last labs 01/16/24 documented in this encounter Plan of Treatment Upcoming Encounters Date Type Department Care Team (Late st Contact Info) Description 08/02/2024 2:30 PM EST Office Visit Cardiology, [facility] [address] [place] [address] Sarai Nash PA-C [address] [place] [address] 09/12/2024 8:30 AM EDT Office Visit Dermatology [facility] [place] [address] [facility] [place] [address] Kai Mcclain MD [address] [facility] [place] [address] 11/25/2024 2:10 PM EDT Office Visit Family Medicine [address] [phone] [address] [place] [address] 03/29/2025 5:00 PM EDT Office Visit Nephrology, [facility] [address] [facility] [place] [address] Edwin Guerrero MD [address] [facility] [place] [address] Scheduled Orders Name Type Priority Associated Diagnoses Orde r Schedule CBC WITH WBC DIFFERENTIAL Lab Routine Kidney replaced by transplant Expected: 07/15/2024 (Approximate), Expires: 01/11/2025 HEPATIC FUNCTION PANEL Lab Routine Kidney replaced by transplant Expected: 07/15/2024 (Approximate), Expires: 01/11/2025 RENAL FUNCTION PANEL Lab Routine Kidney replaced by transplant Expected: 07/15/2024 (Approximate), Expires: 01/11/2025 PROTEIN/ CREATININE RATIO, URINE Lab Routine Kidney replaced by transplant Expected: 07/15/2024 (Approximate), Expires: 01/11/2025 URINALYSIS WITH MICROSCOPIC EXAM Lab Routine Kidney replaced by transplant Expected: 07/15/2024 (Approximate), Expires: 01/11/2025 TACROLIMUS LEVEL Lab Routine Kidney replaced by transplant Expected: 07/15/2024 (Approximate), Expires: 01/11/2025 PTH Lab Routine Tertiary hyperparathyroidism (HCC) Expected: 07/15/2024 (Approximate), Expires: 01/11/2025 Scheduled Procedures Name Priority Associated Diagnoses Date/Ti [...] this encounter Medical Devices Implanted Type Area Channel Installer Device Identifier Shelf Expiration Date Model / Serial / Lot Coil Vortex 35 Pltinm [id number] - [id number] Implanted:Qty: 1 on 07/13/2018 by Collin Stroud MD at OR [facility] [place] [place] Left: Lower Arm [employer] : NEURO INTR 03/31/2021 [id number] Coil Vortex 35 Pltinm [id number] - [id number] Implanted:Qty: 1 on 07/13/2018 by Collin Srtoud MD at OR [facility] [place] [place] Left: Lower Arm [employer] : NEURO INTR 03/31/2021 [id number] documented as of this encounter Visit Diagnoses Diagnosis Kidney replaced by transplant- Primary Tertiary hyperparathyroidism (HCC) Other hyperparathyroidism HTN, goal below 140/90 Unspecified essential hypertension documented in this encounter Advance Directives * [...] the patient have Health Care Power of Flosser? No Care Teams Control Officer Relationship Specialty Start Date End Date Julia Garcia DO [address] [place] [address] [place] [phone] PCP - General Internal Medicine 05/28/23 documented as of this encounter
--- OUTSIDE RECORDS SUMMARY | 2024-09-27 16:22 | External Medical Summary ---
Author Name Unknown Address Unknown Organization [id number]:LAB[facility]ATORY [facility] [place] - [address] [place] [address] Laboratory Report Ordering Provider Test Date Status ANIL BYERS 07/20/2024 07:46:21 Final Observation Date Value Abnormality Reference (Units ) Status Parathyrin.intact [Mass/volume] in Serum or Plasma 07/20/2024 07:46:21 307 Above high normal 15-65 (pg/mL) Final Performing Location LAB[facility]ATORY [facility] [place] - [address] [place] [address]
--- OUTSIDE RECORDS SUMMARY | 2024-09-27 16:22 | External Medical Summary ---
Author Name Unknown Address Unknown Organization [id number]:[facility]ORY [place] [address] - [address] [place] [address] Laboratory Report Ordering Provider Test Date Status CESAR BYERSCLARISSA 07/20/2024 07:46:21 Final Observation Date Value Abnormality Reference (Units ) Status Bilirubin, Direct 07/20/2024 07:46:21 0.4 Above high normal 0.0-0.3 (mg/dL) Final Performing Location [facility] [address] [place] [address]
--- OUTSIDE RECORDS SUMMARY | 2024-09-27 16:22 | External Medical Summary | Summary of Care ---
Author Name Unknown Organization [facility] Address [address] [address] Phone [phone] Care Team Providers Care Envelope Stamping Machine Operator Name Role Phone Julia Garcia DO Primary Care Provider [phone] Reason for Visit * Reason Onset Date Comments Appointment 03/22/2024 Colonoscopy Encounter Details Date Type Department Care Team (Late st Contact Info) Description 03/22/2024 Telephone Family Medicine [address] [phone] Julia Garcia DO [address] [place], [place] [address] [address] Appointment (Colonoscopy ) Allergies No known active allergiesdocumented as of this encounter (statuses as of 04/22/2024) Medications aspirin enteric coated 81 MG TBECIndications:K [...] hours as needed. 3 Active Saline Nasal [place] 0.65 % Nasal Solution ([facility] [facility]) Administer 2 Sprays into nostril as needed. 3 Active Magnesium 300 MG Oral Capsule Take by mouth. Ac tive Cinacalcet HCl 30 MG Oral Tablet (Sensipar) Take 1 tablet by mouth every evening. 90 Tablet 2 04/20/2024 3:32 PM EST 4 10/15/19 25 Active Tacrolimus ER 0.75 MG Oral Tablet Extended Release 24 Hour (Envarsus XR) Take 2 tablets by mouth in the morning. 60 Tablet 5 04/20/2024 3:32 PM EST 4 Active Mycophenolate Sodium 180 MG Oral Tablet Delayed Release (Myfortic) take 3 tablets by mouth in the morning and 3 tablets before bedtime 180 Tablet 5 4 Active cloNIDine HCl 0.1 MG Oral Tablet (Catapres)Indicat ions:Primary hypertension TAKE ONE TABLET BY MOUTH TWICE DAILY 180 Tablet 1 4 Active Lisinopril 20 MG Oral Tablet (Prinivil) TAKE ONE TABLET BY MOUTH IN THE MORNING 30 Tablet 5 4 Active Simvastatin 20 MG Oral Tablet (Zocor)Indication s:Kidney replaced by transplant,Hyperl ipidemia with target LDL less than 70 TAKE ONE TABLET BY MOUTH EVERY DAY 90 Tablet 3 4 Active hydroCHLOROthiazi de 12.5 MG Oral CapsuleIndication s:HTN, goal below 130/80 Take 1 Capsule by mouth in the morning. On days that you do not work.. 30 Capsule 5 4 Active Levalbuterol Tartrate 45 MCG/ACT Inhalation Aerosol (Xopenex HFA)Indications:S hortness of breath Inhale 1 Puff by mouth every 4 hours as needed for Wheezing or Shortness of Breath. 15 g 1 4 Active Carvedilol 25 MG Oral Tablet (Coreg)Indication s:HTN, goal below 130/80 Take 1 Tablet by mouth in the morning and 1 Tablet before bedtime. 60 Tablet 5 4 Active Hospital, Clinic, or Other Facility Administered Medication Ordered Dose Route Frequency Start Date End Date Status Tixagevimab inj 150 mgIndications:Kidney replaced by transplant 150 mg IM [id number] 08/02/2021 Active Cilgavimab inj 150 mgIndications:Kidney replaced by transplant 150 mg IM [id number] 08/02/2021 Active documented as of this encounter (statuses as of 04/22/2024) Active Problems Problem Noted Date Diagnosed Date [...] as of this encounter (statuses as of 04/22/2024) Resolved Problems Problem Noted Date Diagnosed Date [...] as of this encounter (statuses as of 04/22/2024) Immunizations Name Administration Dates Next Due COVID-19, MRNA-LNP, PF, 30 M CG/0.3 mL, 12 YRS AND ABOVE, IM (PFIZER-Comirnaty) 04/02/2023 Covid-19 Ad26, Single Dose (Sue/J&J) 09/24/2020 Covid-19, Mrna, Lnp-s, Pf, B ivalent, 30 Mcg, IM, 12 yrs and above (Pfizer) 03/15/2024,05/05/2022 Pneumococcal Conjugate Vacci ne, 20-valent ([id number]) 03/29/2024 Pneumococcal Polysaccharide PPV23 (Pneumovax) 09/02/2018 RSV [...] encounter Miscellaneous Notes * Telephone Encounter - Mihaela Brunson OSA - 04/22/2024 3:19 PM EST Letter sent SIDRA [place] 04/22/2024 2:29 PM * Telephone Encounter - Mihaela Brunson OSA - 04/13/2024 4:00 PM EDT [facility] SIDRA [place] 04/13/2024 4:00 PM * Telephone Encounter - Mihaela Brunson OSA - 03/24/2024 1:59 PM EDT [facility] SIDRA [place] 03/24/2024 1:59 PM * Telephone Encounter - Rimma Flynn OSA - 03/22/2024 9:08 AM EDT [place] edwards scheduled for colonoscopy for: History of colon polyps [Z86.010] documented in this encounter Plan of Treatment Upcoming Encounters Date Type Department Care Team (Late st Contact Info) Description 09/12/2024 8:30 AM EDT Office Visit Dermatology [facility] [place] [address] [facility] [place] [address] Kai Mcclain MD [address] [facility] [place] [address] 09/13/2024 11:40 AM EDT Office Visit Nephrology, [facility] [address] [facility] [place] [address] Edwin Guerrero MD [address] [facility] [place] [address] 11/25/2024 2:10 PM EDT Office Visit Family Medicine [address] [phone] [place] [address] Scheduled Procedures Name Priority Associated Diagnoses Date/Ti [...] this encounter Medical Devices Implanted Type Area Transformation Coach Device Identifier Shelf Expiration Date Model / Serial / Lot Coil Vortex 35 Pltinm [id number] - [id number] Implanted:Qty: 1 on 07/13/2018 by Collin Stroud MD at [facility] Left: Lower Arm [employer] : NEURO INTR 03/31/2021 [id number] Coil Vortex 35 Pltinm [id number] - [id number] Implanted:Qty: 1 on 07/13/2018 by Collin Stroud MD at [facility] Left: Lower Arm [employer] : NEURO INTR 03/31/2021 [id number] documented as of this encounter Advance Directives [...] the patient have Health Care Power of Frame Bander? No Care Teams Envelope Stamping Machine Operator Relationship Specialty Start Date End Date Julia Garcia DO [address] [place] [address] [place] [address] PCP - General Internal Medicine 05/28/23 documented as of this encounter
--- OUTSIDE RECORDS SUMMARY | 2024-09-27 16:22 | External Medical Summary ---
Author Name Unknown Address Unknown Organization K01[place] [place] [address] [address] Laboratory Report Ordering Provider Test Date Status ANIL BYERS 07/20/2024 07:46:21 Final Test performed by Immunoassa y on Vettro. Therapeutic ranges vary with type of transplant, time post-transplant, clinical protocols, and testing methodology. Results should be interpreted with clinical presentation and any signs rejection/toxicity. Observation Date Value Abnormality Reference (Units ) Status Tacrolimus (FK506) 07/20/2024 07:46:21 9.2 4 .0-12.0 (ng/mL) Final Performing Location [facility] [place] [address] [place] [address]
--- OUTSIDE RECORDS SUMMARY | 2024-09-27 16:22 | External Medical Summary ---
Author Name Unknown Address Unknown Organization [id number]:[facility] [place] [address] - [address] [place] [address] Laboratory Report Ordering Provider Test Date Status ANIL BYERS 07/20/2024 07:46:21 Final Observation Date Value Abnormality Reference (Units ) Status Protein 07/20/2024 07:46:21 6.4 6.0-8.3 (g /dL) Final Performing Location [facility] [place] [address] - [address] [place] [address]
--- OUTSIDE RECORDS SUMMARY | 2024-09-27 16:22 | External Medical Summary | Summary of Care ---
Author Name Unknown Organization [facility] Address [address] [facility] [place] [address] Phone [phone] Care Team Providers Care Materials Engineer Name Role Phone GarciaJulia DO Primary Care Provider [phone] Reason for Visit * Reason Comments Medication Refill Encounter Details Date Type Department Care Team (Late st Contact Info) Description 07/19/2024 Refill Nephrology, [facility] 200 [facility] [place] [address] Zeeshan Guerrero MD 200 [facility] [place] [address] Allergies No known active allergiesdocumented as of [...] as needed. 05/25/20 23 Active Saline Nasal [place] 0.65 % Nasal Solution ([place]) Administer 2 Sprays into nostril as needed. [...] 90 Tablet 2 07/19/19 25 026 Active Cinacalcet HCl 30 MG Oral Tablet (Sensipar) Take 1 tablet by mouth every evening. 90 Tablet 2 06/23/2024 3:04 PM EST 10/15/19 24 025 Discontin ued(Refil l) Tacrolimus ER 0.75 MG Oral Tablet Extended Release 24 Hour (Envarsus XR) Take 2 tablets by mouth in the morning. 60 Tablet 5 06/23/2024 3:04 PM EST 12/30/19 24 025 Discontin ued(Refil l) Hospital, Clinic, or Other Facility Administered Medication Ordered Dose Route Frequency Start Date End Date Status Tixagevimab inj 150 mgIndications:Kidney replaced by transplant 150 mg IM [id number] 08/02/2021 Active Cilgavimab inj 150 mgIndications:Kidney replaced by transplant 150 mg IM [id number] 08/02/2021 Active documented as of this encounter [...] (Pfizer) 03/15/2024,05/05/2022 Pneumococcal Conjugate Vacci ne, 20-valent ([id number]) 03/29/2024 Pneumococcal Polysaccharide PPV23 (Pneumovax) 09/02/2018 RSV [...] Author No 08/21/2019 3:36 PM BRAYDENT Praveena Garcia, YANA * Are you blind or do you have serious difficulty seeing, even when wearing glasses? Answer Date of Assessment Author No 08/21/2019 3:36 PM BRAYDENT Praveena Cabrera, RN * Do you have serious difficulty walking or climbing stairs? (5 years old or older) Answer Date of Assessment Author No 08/21/2019 3:36 PM BRAYDENT Praveena Garcia, RN * Do you have [...] Telephone Encounter - Zeeshan Guerrero MD - 07/19/2024 12:13 PM ESTSigned Prescriptions: Disp Refills Cinacalcet HCl 30 MG Oral Tablet (Sensipar)90 Tab*2 Sig: Take 1 tablet by mouth every evening.Authorizing Provider: ZEESHAN GUERRERO documented in this encounter Plan of Treatment Upcoming Encounters Date Type Department Care Team (Late st Contact Info) Description 08/02/2024 2:30 PM EST Office Visit Cardiology, [facility] [address] [place] [address] Sarai Nash PA-C 132 [place] [address] 09/12/2024 8:30 AM EDT Office Visit Dermatology [facility] [address] [place] [id number] Kai Mcclain MD [address] [place] [address] 11/25/2024 2:10 PM EDT Office Visit Family Medicine [address] [place] [phone] Garcia Juila Wiley[address] [place] [address] 03/29/2025 5:00 PM EDT Office Visit Nephrology, [place] 200 [facility] [place] [address] Zeeshan Guerrero MD 200 [facility] [place] [address] Scheduled Procedures Name Priority Associated Diagnoses Date/Ti [...] this encounter Medical Devices Implanted Type Area Tire And Lube Technician Device Identifier Shelf Expiration Date Model / Serial / Lot Coil Vortex 35 Pltinm [id number] - [id number] Implanted:Qty: 1 on 07/13/2018 by Collin Stroud MD [place] [facility] [place]: Lower Arm [employer] : NEURO INTR 03/31/2021 [id number] Coil Vortex 35 Pltinm [id number] - [id number] Implanted:Qty: 1 on 07/13/2018 by Collin Stroud MD at [place] [facility] Left: Lower Arm [employer] : NEURO INTR 03/31/2021 [id number] documented as of this encounter Advance Directives [...] the patient have Health Care Power of Professor Of Apologetics? No Care Teams Materials Engineer Relationship Specialty Start Date End Date Julia Garcia DO [address] [place] [address] [place] [address] PCP - General Internal Medicine 05/28/23 documented as of this encounter
--- OUTSIDE RECORDS SUMMARY | 2024-09-27 16:22 | External Medical Summary ---
Author Name Unknown Address Unknown Organization K01[place] [place] [address] [place] [address] Laboratory Report Ordering Provider Test Date Status ANIL BYERS 07/20/2024 07:51:47 Final Normal: � � � <150 mg/ g creatinine
High: � � � � � 150-500 mg/g creatinine
Very High: � >500 mg/g creatinine
Nephrotic: � >3000 mg/g creatinine Observation Date Value Abnormality Reference (Units ) Status Protein/Creatinine [Ratio] in Urine 07/20/2024 07:51:47 738 Above high normal <150 (mg/g ) Final Protein, Urine 07/20/2024 07:51:47 45 (mg/dL) Final Creatinine, Urine 07/20/2024 07:51:47 61 (mg/dL) Final Performing Location [facility] [place] [address] [place] [address]
--- OUTSIDE RECORDS SUMMARY | 2024-09-27 16:22 | External Medical Summary ---
Author Name Unknown Address Unknown Organization K0G[facility] [address] [place] [address] Laboratory Report Ordering Provider Test Date Status ANIL BYERS 07/20/2024 07:46:21 Final Observation Date Value Abnormality Reference (Units ) Status Alk Phos 07/20/2024 07:46:21 97 35-130 (U/ L) Final Performing Location [facility] 0 - [address] [place] [address]
--- OUTSIDE RECORDS SUMMARY | 2024-09-27 16:22 | External Medical Summary ---
Author Name Unknown Address Unknown [facility] [address] [place] [address] Laboratory Report Ordering Provider Test Date Status ANIL BYERS 07/20/2024 07:46:21 Final Observation Date Value Abnormality Reference (Units ) Status Bilirubin, Total 07/20/2024 07:46:21 1.1 <=1 .2 (mg/dL) Final Performing [facility] - [address] [place] [address]
--- OUTSIDE RECORDS SUMMARY | 2024-09-27 16:23 | External Medical Summary | Summary of Care ---
Author Name Unknown Organization [facility] Address [address] [facility] [address] Phone [phone] Care Team Providers Care Floorworker Name Role Phone Julia Garcia DO Primary Care Provider Reason for Visit * Reason Onset Date Comments Appointment 03/22/2024 Colonoscopy Encounter Details Date Type Department Care Team (Late st Contact Info) Description 03/22/2024 Telephone Family Medicine [address] [phone] Julia Garcia DO [address] [place], [place] [address] [address] Appointment (Colonoscopy ) Allergies No known active allergiesdocumented as of this encounter (statuses as of 04/13/2024) Medications Medication Sig Dispensed Refills Start Date End Date Status aspirin enteric coated 81 MG TBECIndications:Kiddurga ey replaced by transplant,Need for prophylactic immunotherapy Take 1 Tab by mouth daily. 30 Tab 11 03/18/2019 Active acetaminophen (TYLENOL) 500 MG Tablet Take 1 Tablet by mouth every 6 hours as needed for Pain. Active Magnesium Oxide 400 MG TabletIndications:CK D (chronic kidney disease), stage III (HCC) Take 1 Tab by mouth daily. 30 Tab 5 12/02/2019 Active Ipratropium-Albutero l 0.5-2.5 (3) MG/3ML Inhalation Solution (Duoneb) Inhale 3 mL via nebulizer every 6 hours as needed. 05/25/2023 Active Saline Nasal [place] 0.65 % Nasal Solution ([place]) Administer 2 Sprays into nostril as needed. 05/25/2023 Active Magnesium 300 MG Oral Capsule Take by mouth. Active Cinacalcet HCl 30 MG Oral Tablet (Sensipar) Take 1 tablet by mouth every evening. 90 Tablet 2 10/15/2023 10/14/2024 Active Tacrolimus ER 0.75 MG Oral Tablet Extended Release 24 Hour (Envarsus XR) Take 2 tablets by mouth in the morning. 60 Tablet 5 12/30/2023 Active Mycophenolate Sodium 180 MG Oral Tablet Delayed Release (Myfortic) take 3 tablets by mouth in the morning and 3 tablets before bedtime 180 Tablet 5 01/11/2024 Active cloNIDine HCl 0.1 MG Oral Tablet (Catapres)Indication s:Primary hypertension TAKE ONE TABLET BY MOUTH TWICE DAILY 180 Tablet 1 01/12/2024 Active Lisinopril 20 MG Oral Tablet (Prinivil) TAKE ONE TABLET BY MOUTH IN THE MORNING 30 Tablet 5 01/18/2024 Active Simvastatin 20 MG Oral Tablet (Zocor)Indications:K idney replaced by transplant,Hyperlipi demia with target LDL less than 70 TAKE ONE TABLET BY MOUTH EVERY DAY 90 Tablet 3 01/22/2024 Active hydroCHLOROthiazide 12.5 MG Oral CapsuleIndications:H TN, goal below 130/80 Take 1 Capsule by mouth in the morning. On days that you do not work.. 30 Capsule 5 03/22/2024 Active Levalbuterol Tartrate 45 MCG/ACT Inhalation Aerosol (Xopenex HFA)Indications:Shor tness of breath Inhale 1 Puff by mouth every 4 hours as needed for Wheezing or Shortness of Breath. 15 g 1 03/22/2024 Active Carvedilol 25 MG Oral Tablet (Coreg)Indications:H TN, goal below 130/80 Take 1 Tablet by mouth in the morning and 1 Tablet before bedtime. 60 Tablet 5 03/22/2024 Active Hospital, Clinic, or Other Facility Administered Medication Ordered Dose Route Frequency Start Date End Date Status Tixagevimab inj 150 mgIndications:Kidney replaced by transplant 150 mg IM [id number] 08/02/2021 Active Cilgavimab inj 150 mgIndications:Kidney replaced by transplant 150 mg IM [id number] 08/02/2021 Active documented as of this encounter (statuses as of 04/13/2024) Active Problems Problem Noted Date Diagnosed Date [...] as of this encounter (statuses as of 04/13/2024) Resolved Problems Problem Noted Date Diagnosed Date [...] as of this encounter (statuses as of 04/13/2024) Immunizations Name Administration Dates Next Due COVID-19, MRNA-LNP, 23-24, P F, 30 MCG/0.3 mL, 12 YRS AND ABOVE, IM ([employer]-Comirnaty) 04/02/2023 Covid-19 Ad26, Single Dose (Sue/J&J) 09/24/2020 Covid-19, Mrna, Lnp-s, Pf, B ivalent, 30 Mcg, IM, 12 yrs and above (Pfizer) 03/15/2024,05/05/2022 Pneumococcal Conjugate Vacci ne, 20-valent ([id number]) 03/29/2024 Pneumococcal Polysaccharide PPV23 (Pneumovax) 09/02/2018 RSV [...] Brunson OSA - 04/13/2024 4:00 PM EDT Lmm Mihaela Brunson, SIDRA 04/13/2024 4:00 PM * Telephone Encounter - Mihaela Brunson OSA - 03/24/2024 1:59 PM EDT Lmm SIDRA [place] 03/24/2024 1:59 PM * Telephone Encounter - Rimma Flynn OSA - 03/22/2024 9:08 AM EDT [place] edwards scheduled for colonoscopy for: History of colon polyps [Z86.010] documented in this encounter Plan of Treatment Upcoming Encounters Date Type Department Care Team (Late st Contact Info) Description 09/12/2024 8:30 AM EDT Office Visit Dermatology [facility] [place] 200 [facility] [place] [address] Kai Mcclain MD 200 [facility] [place] [address] 09/13/2024 11:40 AM EDT Office Visit Nephrology, [facility] [place] [address] Edwin Guerrero MD [facility] [place] [address] 11/25/2024 2:10 PM EDT Office Visit Family Medicine [address] [place] [phone] [place] [address] Scheduled Procedures Name Priority Associated Diagnoses Date/Ti me COLONOSCOPY FLEXIBLE PROXIMA L DIAGNOSTIC Recall Family history of colonic polyps Health Maintenance Due Date Last Done Comments Zoster Vaccines (1 of 2) 1980 Cologuard 2006 Fecal Occult Blood Test 2006 Sigmoidoscopy 2006 Depression Screening 03/14/2021 03/14/2020 Colonoscopy 06/29/2023 06/29/2018 Colorectal Cancer Screening 06/29/2023 GFR 01/15/2025 01/16/2024, 06/15, 12/06/2022, Additional history exists Albumin/Creatinine Ratio 06/27/2026 024, 12/06/2022, 09/13/2022, Additional history exists Diabetes Screening 01/15/2027 01/16/2024, 0 06/27/2023, 12/06/2022, Additional history exists DTap/Tdap Vaccines (2 - Td or Tdap) 10/20/2027 10/19/2017 Lipid Panel 06/27/2028 06/27/2023, 07/16, 09/08/2020, Additional history exists RETIRED - COLONOSCOPY-EVERY 5 YRS AGES 18-100 Discontinued 06/29/2018 COVID-19 Vaccine Completed 03/15/2024, , 04/02/2023, Additional history exists Influenza Vaccine (FLU shot) Completed 03/15/2024, 03/14/2024, [...] this encounter Medical Devices Implanted Type Area Extension Supervisor Device Identifier Shelf Expiration Date Model / Serial / Lot Coil Vortex 35 Pltinm [id number] - [id number] Implanted:Qty: 1 on 07/13/2018 by Collin Stroud MD [place] [facility] [place]: Lower Arm [employer] : NEURO INTR 03/31/2021 [id number] Coil Vortex 35 Pltinm [id number] - [id number] Implanted:Qty: 1 on 07/13/2018 by Collin Stroud MD [place] [facility] [place]: Lower Arm [employer] : NEURO INTR 03/31/2021 [id number] documented as of this encounter Advance Directives [...] the patient have Health Care Power of Net Washer? No Care Teams Floorworker Relationship Specialty Start Date End Date Julia Garcia DO [address] [place] [address] [place] [address] PCP - General Internal Medicine 05/28/23 documented as of this encounter
[2024-09-27] MEDS ORDERED: ONDANSETRON INJ 2 MG/ML 2 ML VIAL IV PRN (20:41)
[2024-09-27] MEDS ORDERED: ACETAMINOPHEN 325 MG TAB PO PRN (20:41)
[2024-09-27] MEDS ORDERED: POLYETHYLENE (MIRALAX) 17 GM PACK PO PRN (20:41)
[2024-09-27] MEDS ORDERED: methylPREDNISolone 125 MG/2 ML VIAL IV SCH (21:00)
[2024-09-27] MEDS: APIXABAN 5 MG TABLET PO SCH (21:44)
[2024-09-27] MEDS: CEFEPIME 2000MG 2,000 MG/20 ML SYR IV SCH (21:45)
[2024-09-27] MEDS: TORSEMIDE 20 MG TAB PO SCH (21:45)
[2024-09-27] MEDS: cloNIDine HCL 0.1 MG TAB PO SCH (21:45)
[2024-09-27] MEDS: methylPREDNISolone 40 MG in SYRINGE 0 ML IV SCH (21:45)
[2024-09-27] MEDS: carvediloL 25 MG TAB PO SCH (21:45)
[2024-09-27] MEDS: CINACALCET HCL 30 MG TAB PO SCH (21:45)
[2024-09-27] MEDS: MYCOPHENOLATE SODIUM 180 MG TAB PO SCH (21:45)
[2024-09-28 01:20] LABS: Calcium 9.9 mg/dl (8.6-10.3); Magnesium 1.5 mg/dl (1.7-2.4); Potassium 3.9 mmol/L (3.5-5.1)
[2024-09-28 01:25] LABS: BUN Creatinine Ratio 15.6 (10-20)
[2024-09-28] MEDS: MAGNESIUM SULFATE / D5W 1 GM/100 ML BAG IV SCH ×2 (03:37→11:32)
[2024-09-28 05:56] LABS: Hematocrit (blood only) 38.2 % (42.0-52.0); Hemoglobin 13.1 g/dl (14.0-18.0); Mean Corpuscular Hemoglobin 29.2 pg (25.0-34.0); Mean Corpuscular Hgb Conc 34.3 g/dL (32.0-36.0); Mean Corpuscular Volume 85.3 fL (80.0-100.0); Mean Platelet Volume 11.1 fL (9.4-12.4); Platelet Count 178 K/uL (130-400); RDW Standard Deviation 39.9 fL (36.4-46.3); Red Blood Count 4.48 M/uL (4.70-6.10)
[2024-09-28 06:12] LABS: Calcium 9.7 mg/dl (8.6-10.3); Potassium 4.1 mmol/L (3.5-5.1)
[2024-09-28 06:18] LABS: BUN Creatinine Ratio 18.6 (10-20); C Reactive Protein 5.3 mg/dl (0-0.5); Creatinine Clr Calc Pharmacy 77.5 ml/min
[2024-09-28] MEDS: lisinopril 10 MG TAB PO SCH (08:49)
[2024-09-28] MEDS: ASPIRIN 81 MG ECTAB PO SCH (08:49)
[2024-09-28] MEDS: MAGNESIUM OXIDE 400 MG TAB PO SCH (08:50)
--- NOTE | 2024-09-28 10:59 | Cardiology Consultation ---
Date of Consultation September 28, 2024 Assessment & Plan (1) Swelling of right upper extremity: (2) Atrial flutter with controlled response: (3) Chronic heart failure with preserved ejection fraction: (4) Hypertensive heart disease: Plan Patient admitted for right upper extremity and right hand cellulitis. No evidence of upper extremity DVT No evidence of osteomyltiis. Continue antibiotics and steroids per hospitalist. Atrial flutter with controlled rates noted on admission. There was initial concern that EKG also demonstrated ST elevation. Per my review of EKG, it appears the ST abnormality is due to his RBBB and flutter waves. HS troponin negative x2. No anginal complaints The atrial flutter is persistent since at least Jul 2024 when found during routine office visit. Rates have been controlled on carvedilol. He was NOT transitioned to metoprolol for rate control due to difficult to control/labile hypertension. He was started and is maintained on Eliquis 5 mg BID for stroke prevention. Ongoing rate control strategy recommended at this time. Supplement magnesium. History of HFpEF At outpatient visit several months ago he was markedly volume overloaded and non complaint with diuretics. Torsemide 20 mg daily was resumed and he reports compliance since this time. He is down nearly 20 lbs compared to that office visit and volume status currently much improved Continue torsemide 20 mg daily - changed to AM dosing while at the hospital. Stable renal function and electrolytes Severe LVH on outpatient echo - Cardiac MRI ordered but not yet scheduled Due to dyspnea/SOB he was also scheduled for a 2 day nuclear stress test but has not been completed. Continue all other outpatient antihypertensive medications Case discussed with Dr. Delatorre I spent a total of 60 minutes on the date of service in preparation, delivery, and documentation of the care provided to this patient, excluding any time spent in the performance of separately billed services. Sarai Nash PA-C Department of Cardiology, [facility] This chart was completed in part utilizing Speech Voice Recognition Software. Grammatical errors, random word insertions, pronoun errors, and incomplete sentences are an occasional consequence of this system due to software limitations, ambient noise, and hardware issues. Any formal questions or concerns about the content, text, or information contained within the body of this dictation should be directly addressed to the provider for clarification. Supervising Physician Co-Signing Physician Notes Attending attestation: Case reviewed with the advanced practitioner. I have personally performed a history and physical examination on the patient. I have reviewed the advanced practitioner's documentation on the date of service referenced in note, and I agree with, and take responsibility for the plan of care. EKG performed overnight reveals atrial flutter with right bundle branch block. Ventricular rates well-controlled at present. Patient anticoagulated. Right arm remains swollen but patient states that it is drastically improved compared to when he presented to the hospital yesterday. Patient with chronic lower extremity edema. 5 overload actually improved compared to his most recent outpatient cardiology visit but will need to keep an eye on it especially with patient receiving IV corticosteroids. Continue aspirin, Eliquis, carvedilol, lisinopril, clonidine, torsemide. Outpatient cardiac MRI had already been planned for evaluation of left ventricular hypertrophy. Will need to ensure that his kidney function is stable before proceeding. Clinically, left ventricular hypertrophy is likely due to longstanding hypertension in this particular patient. I spent a total of 20 minutes coordinating, documenting, and providing care for this patient excluding time spent in the performance of separately billed services or time spent by another provider. Toni Delatorre, History of Present Illness Reason for Consultation: Atrial flutter Requesting Physician: [facility] Hospitalist Attending Physician: Dr. Delatorre History of Present Illness Patient is a 64 year old male who presented to [facility] yesterday with complaints of right arm swelling and pain. Diagnosed with cellulitis and started on antibiotic. On admission, EKG demonstrated atrial flutter with controlled rates, underlying RBBB. This is similar to EKG in Jul 2024 at [facility]. At that time he was started on Eliquis 5 mg BID for anticoagulation. at that time, patient was non compliant with his diuretics as well, and was markedly volume overloaded. He declined hospital admission. Outpatient diuretics were increased to torsemide 20 mg daily. he reports compliance with diuretics and edema/SOB improved. He lost approx 20 lbs in the last few months with diuresis. On admission, magnesium was low and has been supplemented Negative HS troponin x2. At time of consult, patient resting in chair, feeling well. HE reports improved dyspnea since diuresis. No acute complaints. No chest pain. Ongoing hand/arm discomfort and swelling noted. History includes: 1. PAF - initially diagnosed in 2018. recurrent atrial flutter with variable AV block noted in Jul 2024 - duration unknown. Started on Eliquis for anticoagulation therapy 2. Hypertensive heart disease with LVH - upcoming cardiac MRI for possible infiltrative cardiomyopathy. 3. Difficult to control hypertension - and non compliance 4. Renal transplant in 2019 - following with nephrology Allergies Allergy/AdvReac Type Severity Reaction Status Date / Time No Known Allergies Allergy Verified 10/18/20 17:36 Home Medications Medication Instructions Recorded Confirmed Type cinacalcet 30 mg tablet 30 mg PO PM 04/24/18 09/27/24 History acetaminophen 500 mg tablet 500 mg PO Q6H PRN Pain 06/18/20 09/27/24 History (Tylenol Extra Strength) aspirin 81 mg tablet,delayed 81 mg PO DAILY 06/18/20 09/27/24 History release magnesium oxide 400 mg PO DAILY 06/18/20 09/27/24 History simvastatin 20 mg tablet 20 mg PO DAILY 06/18/20 09/27/24 History carvedilol 25 mg tablet 25 mg PO BID 10/18/20 09/27/24 History mycophenolate sodium 180 mg 540 mg PO BID 05/22/23 09/27/24 History tablet,delayed release sodium chloride 0.65 % nasal spray 2 spray NA NOW PRN dry nasal 05/25/23 09/27/24 Rx aerosol (Saline Mist) passages #45 mL apixaban 5 mg tablet (Eliquis) 5 mg PO BID 09/27/24 09/27/24 History clonidine HCl 0.1 mg tablet 0.1 mg PO BID 09/27/24 09/27/24 History levalbuterol tartrate 45 1 puff inhalation Q4 PRN SOB 09/27/24 09/27/24 History mcg/actuation aerosol inhaler lisinopril 10 mg tablet 10 mg PO QAM 09/27/24 09/27/24 History tacrolimus 0.75 mg tablet,extended 1.5 mg PO QAM 09/27/24 09/27/24 History release 24 hr (Envarsus XR) torsemide 20 mg tablet 20 mg PO PM 09/27/24 09/27/24 History Patient History Medical History Breathlessness Respiratory syncytial virus (RSV) Fever of unknown origin DVT prophylaxis SIRS (systemic inflammatory response syndrome) Cholelithiasis Family hx colonic polyps Hyperphosphatemia End stage renal failure on dialysis Gout Osteoarthritis GERD (gastroesophageal reflux disease) Asthma A CHILD (NO CURRENT PROBLEMS) New onset atrial fibrillation Surgical History History of cholecystectomy Renal transplant recipient Date of transplant 02/17/2019, at [facility] Living donor transplant History of tooth extraction S/P arteriovenous (AV) fistula creation LEFT ARM Family History Brother Family hx colonic polyps Father Heart disease Stroke Mother Coronary heart disease Other Dementia Hypertension Skin cancer Social History Smoking Status: Never smoker Second Hand Exposure: Yes; Do You Dip or Chew Tobacco: No; Hx Alcohol Use: No Hx Substance Use: No Preferred Language: Hong Konger Communication Ability: Effective Visual Impairment: No Limitations Planer Offbearer Required: No Beliefs That Will Affect Care: None marital status: Current Living Situation: Spouse current occupational status: employed Feels Safe at Home: Yes Assistive Devices: None Review of Systems Review of Systems: All systems reviewed & are unremarkable except as noted in HPI & below Physical Exam Constitutional: + morbidly obese; no acute distress Neck: + thick neck Respiratory: normal respiratory effort; no labored breathing Auscultation: + diminished lung sounds; no crackles and no rales Cardiovascular: Rate/Rhythm: + irregularly irregular Heart Sounds: no murmur (distant heart sounds) Vessels: no JVD Extremities: + edema (1+ pretibial edema with chronic stasis changes) Musculoskeletal: right upper extremity/hand with erythema and swelling Neurologic: PERRL, EOMI, accommodation nl, no face palsy, no dysarthria Results & Data Vital Signs (Past 12 Hours) Vital Signs Temp Pulse Pulse Resp BP BP Pulse Ox 09/28/24 09:55 97 H 09/28/24 07:36 36.5 C 94 H 18 163/88 H 95 09/28/24 02:27 87 09/28/24 02:17 09/28/24 02:03 36.7 C 98 H 16 163/98 H 94 09/28/24 01:30 36.6 C 84 130/107 H 92 09/27/24 23:15 48 L 09/27/24 23:06 98 H 16 163/98 H 94 09/27/24 23:00 36.6 C 84 20 117/83 93 O2 Del Method 09/28/24 09:55 09/28/24 07:36 Room Air 09/28/24 02:27 09/28/24 02:17 Room Air 09/28/24 02:03 Room Air 09/28/24 01:30 Room Air 09/27/24 23:15 09/27/24 23:06 Room Air 09/27/24 23:00 Room Air Laboratory Results Cardiac Enzymes 09/27/24 09/28/24 09/28/24 Range/Units 11:50 00:00 05:29 AST 20 (13-39) U/L Troponin I High Sens 17.0 11.3 D (0-20) pg/ml Coagulation 09/27/24 Range/Units 11:50 PT 11.9 (9.0-12.0) Seconds APTT 38 H (21-31) Seconds CBC 09/27/24 09/28/24 Range/Units 11:50 05:29 WBC 8.35 6.80 (4.8-10.8) K/ul RBC 4.69 L 4.48 L (4.70-6.10) M/uL Hgb 13.8 L 13.1 L (14.0-18.0) g/dl Hct 40.3 L 38.2 L (42.0-52.0) % Plt Count 197 178 (130-400) K/uL Neut # (Auto) 6.11 (1.40-6.50) K/uL Lymph # (Auto) 0.75 L (1.20-3.40) K/uL [place] # (Auto) 0.99 H (0.11-0.59) K/uL Eos # (Auto) 0.44 (0.00-0.50) K/uL Baso # (Auto) 0.04 (0.00-0.20) K/uL Comprehensive Metabolic Panel 09/27/24 09/28/24 09/28/24 Range/Units 11:50 00:00 05:29 Sodium 138 138 138 (136-145) mmol/L Potassium 3.7 3.9 4.1 (3.5-5.1) mmol/L Chloride 102 103 104 (98-107) mmol/L Carbon Dioxide 29 29 29 (21-32) mmol/L BUN 20 22 24 H (6-23) mg/dl Creatinine 1.31 1.41 H 1.29 (0.6-1.4) mg/dl Glucose 104 H 147 H 195 H (70-99(Fasting)) mg/dl Calcium 10.2 9.9 9.7 (8.6-10.3) mg/dl AST 20 (13-39) U/L ALT 19 (7-52) U/L Alkaline Phosphatase 99 (34-104) U/L Total Protein 7.4 (6.0-8.3) gm/dl Albumin 4.3 (3.4-5.0) gm/dl Intake and Output 09/27/24 09/28/24 09/28/24 22:59 06:59 14:59 Intake Total 93.333 / 93.333 100 / 100 Balance 93.333 / 93.333 100 / 100 Intake: IV 93.333 / 93.333 100 / 100 Magnesium Sulfate / D5w 1 gm In 93.333 / 93.333 100 / 100 100 ml @ 50 mls/hr IV Q2H [facility] Rx#:[id number] Other: # Unmeasured Voids 1 Weight 117.4 kg Weight Measurement Method Built in [facility] Diagnostic Findings Telemetry reviewed: Persistent atrial flutter with controlled rates ranging 80- 100 bmp EKG reviewed from admission (viewed in MUSE): Atrial flutter with controlled rates underlying RBBB compared with prior EKG in [facility] in Jul 2024 - no significant changes noted Venous Doppler Study 09/27/24 10:23 ULTRASOUND RIGHT UPPER EXTREMITY VENOUS CLINICAL HISTORY: Acute pain of the right upper extremity. COMPARISON STUDY: None. TECHNIQUE: Real-time, grayscale, and color Doppler sonography of the deep veins of the right upper extremity is performed. Compression and augmentation were utilized. FINDINGS: There is no sonographic evidence of deep venous thrombosis identified in the right upper extremity. The right internal jugular, axillary, and brachial veins are patent and normally compressible. Normal venous waveforms and augmentation are seen within the right subclavian vein. The cephalic and basilic veins are clear. The visualized radial and ulnar veins are patent. IMPRESSION: There is no sonographic evidence of deep venous thrombosis identified in the right upper extremity. Forearm CT 09/27/24 13:51 IMPRESSION: 1. Findings suggesting cellulitis without focal abscess or hematoma. 2. No evidence of osteomyelitis seen. Elbow CT 09/27/24 14:22 IMPRESSION: 1. Moderate osteoarthritis of the elbow without acute fracture, dislocation or acute osseous erosion. 2. Small joint effusion with moderate nonspecific subcutaneous and deep tissue edema of the elbow and imaged forearm suspicious for cellulitis/myositis. 3. No discrete fluid collection. Hand CT 09/27/24 14:22 IMPRESSION: 1. Osteoarthritis without acute osseous abnormality identified. 2. Moderate dorsal predominant subcutaneous and deep tissue edema favors cellulitis/myositis. 3. Equivocal extensor tenosynovitis. Correlate with physical exam findings. 4. No drainable fluid collections identified. ACT 112: Negative or not required by law. Outpatient testing reviewed: Echo report from August 2024: Interpretation Summary There was atrial flutter during the examination. The left ventricular cavity size is normal. The LV wall thickness is severely increased (concentric). The asymmetric hypertrophy involves the septum. The maximal LV thickness at end diastole is 2.1 cm. Myocardial is hyperechogenic. Consider infiltrative process in differential diagnoses The qualitative LV ejection fraction is 55-59% (normal). The left atrium is mildly enlarged. A trivial right lateral loculated pericardial effusion is present. No hemodynamic significance Dilated IVC with reduced collapsability with sniff indicates an elevated right atrial pressure of 15mmHg. Mild pulmonary hypertension is present. The estimated pulmonary artery systolic pressure is 40-45mm Hg Medications Administered Current Inpatient Medications Acetaminophen (Acetaminophen 325 Mg Tab) 650 mg PO Q4H PRN PRN Reason: pain/fever Stop: 10/27/24 20:40 Apixaban (Apixaban 5 Mg Tablet) 5 mg PO BID MANNY Stop: 10/27/24 20:59 Last Admin: 09/28/24 08:49 Dose: 5 mg Aspirin (Aspirin 81 Mg Ectab) 81 mg PO DAILY MANNY Stop: 10/28/24 08:59 Last Admin: 09/28/24 08:49 Dose: 81 mg Carvedilol (Carvedilol 25 Mg Tab) 25 mg PO BID MANNY Stop: 10/27/24 20:59 Last Admin: 09/28/24 08:49 Dose: 25 mg Cinacalcet (Cinacalcet Hcl 30 Mg Tab) 30 mg PO DAILYBD MANNY Stop: 10/27/24 20:59 Last Admin: 09/27/24 21:45 Dose: 30 mg Clonidine HCl (Clonidine Hcl 0.1 Mg Tab) 0.1 mg PO BID [facility] Stop: 10/27/24 20:59 Last Admin: 09/28/24 08:49 Dose: 0.1 mg Daptomycin 600 mg/ Syringe 12 mls @ 6 mls/min IV Q24H [facility]; Protocol Stop: 10/04/24 15:29 Last Admin: 09/27/24 15:47 Dose: 6 mls/min Cefepime HCl (Maxipime 2000mg) 2,000 mg in 20 mls @ 5 mls/min IV Q8H [facility]; Protocol Stop: 10/04/24 20:59 Last Admin: 09/28/24 05:28 Dose: 5 mls/min Methylprednisolone 40 mg/ (Syringe) 0.64 mls @ 1.5 mls/min IV Q12H [facility] Stop: 10/27/24 20:59 Last Admin: 09/28/24 08:50 Dose: 1.5 mls/min Magnesium Sulfate/Dextrose (Magnesium Sulfate / D5w) 1 gm in 100 mls @ 50 mls/hr IV Q2H [facility] Stop: 09/28/24 14:59 Last Admin: 09/28/24 11:32 Dose: 50 mls/hr Lisinopril (Lisinopril 10 Mg Tab) 10 mg PO QAM [facility] Stop: 10/28/24 08:59 Last Admin: 09/28/24 08:49 Dose: 10 mg Magnesium Oxide (Magnesium Oxide 400 Mg Tab) 400 mg PO DAILY [facility] Stop: 10/28/24 08:59 Last Admin: 09/28/24 08:50 Dose: 400 mg Miscellaneous (Order Awaiting Action [Tacrolimus [Envarsus Xr] 0.75 Mg Tablet Extended Release 24 Hr)]) 1 each N/A QS [facility] Stop: 10/28/24 00:00 Last Admin: 09/28/24 00:23 Dose: Not Given Mycophenolate Sodium (Mycophenolate Sodium 180 Mg Tab) 540 mg PO BID [facility] Stop: 10/27/24 20:59 Last Admin: 09/28/24 08:50 Dose: 540 mg Ondansetron HCl (Ondansetron Inj 2 Mg/Ml 2 Ml Vial) 4 mg IV Q6H PRN PRN Reason: Nausea Stop: 05/15/25 20:40 Polyethylene Glycol (Polyethylene (Miralax) 17 Gm Pack) 17 gm PO DAILY PRN PRN Reason: Constipation Stop: 10/27/24 20:40 Torsemide (Torsemide 20 Mg Tab) 20 mg PO QAM [facility] Stop: 10/28/24 10:59
[2024-09-28] MEDS: TORSEMIDE 20 MG TAB PO SCH (11:47)
[2024-09-28] MEDS: TACROLIMUS 0.75 MG PO SCH (11:51)
--- NOTE | 2024-09-28 12:01 | Orthopedic Consultation ---
Date of Consultation September 28, 2024 Assessment & Plan (1) Cellulitis of right hand: Patient seems to have cellulitis of the right upper extremity. He states that overall it is improving with elevation, ice and IV antibiotics. Offered him a compressive wrap for the right hand which he declined. He does feel that it would get more swollen if that was on. Will continue to monitor. Continue the ice and elevation for edema control. Allowed for full range of motion of his fingers, wrist, elbow as tolerated. Will recheck in the a.m. and if symptoms continue to improve we will continue to treat conservatively. No plans for surgical intervention at this time. Dr. Peacock present for today's visit. Appreciate consult. Please call [phone] with any questions. Supervising Physician Co-Signing Physician Notes I, Dr. Peacock, saw and examined the patient with my PA and agree with the above findings and plan o f care, I developed. History of Present Illness Reason for Consultation: Right upper extremity swelling x 5 days Requesting Physician: Paddy Peacock MD Attending Physician: Rainer Marks MD History of Present Illness Patient was admitted to the hospital yesterday. He states that on Thursday he started with some right hand swelling and discomfort and warmth and redness. 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 He states he could "feel it coming". He denies any cuts, skin abrasions or wounds to the right upper extremity that he can recall. 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 He is right-hand dominant. Since yesterday his hand is improved. He states is less swollen and less painful. He can move his fingers better. He had a CT scan which showed no evidence of fluid collection or abscess but did show some soft tissue swelling and subcutaneous edema which favors cellulitis as well as possible extensor tenosynovitis. Patient denies any fevers. Allergies Allergy/AdvReac Type Severity Reaction Status Date / Time No Known Allergies Allergy Verified 10/18/20 17:36 Home Medications Medication Instructions Recorded Confirmed Type cinacalcet 30 mg tablet 30 mg PO PM 04/24/18 09/27/24 History acetaminophen 500 mg tablet 500 mg PO Q6H PRN Pain 06/18/20 09/27/24 History (Tylenol Extra Strength) aspirin 81 mg tablet,delayed 81 mg PO DAILY 06/18/20 09/27/24 History release magnesium oxide 400 mg PO DAILY 06/18/20 09/27/24 History simvastatin 20 mg tablet 20 mg PO DAILY 06/18/20 09/27/24 History carvedilol 25 mg tablet 25 mg PO BID 10/18/20 09/27/24 History mycophenolate sodium 180 mg 540 mg PO BID 05/22/23 09/27/24 History tablet,delayed release sodium chloride 0.65 % nasal spray 2 spray NA NOW PRN dry nasal 05/25/23 09/27/24 Rx aerosol (Saline Mist) passages #45 mL apixaban 5 mg tablet (Eliquis) 5 mg PO BID 09/27/24 09/27/24 History clonidine HCl 0.1 mg tablet 0.1 mg PO BID 09/27/24 09/27/24 History levalbuterol tartrate 45 1 puff inhalation Q4 PRN SOB 09/27/24 09/27/24 History mcg/actuation aerosol inhaler lisinopril 10 mg tablet 10 mg PO QAM 09/27/24 09/27/24 History tacrolimus 0.75 mg tablet,extended 1.5 mg PO QAM 09/27/24 09/27/24 History release 24 hr (Envarsus XR) torsemide 20 mg tablet 20 mg PO PM 09/27/24 09/27/24 History Patient History Medical History Breathlessness Respiratory syncytial virus (RSV) Fever of unknown origin DVT prophylaxis SIRS (systemic inflammatory response syndrome) Cholelithiasis Family hx colonic polyps Hyperphosphatemia End stage renal failure on dialysis Gout Osteoarthritis GERD (gastroesophageal reflux disease) Asthma A CHILD (NO CURRENT PROBLEMS) New onset atrial fibrillation Surgical History History of cholecystectomy Renal transplant recipient Date of transplant 02/17/2019, at [facility] Living donor transplant History of tooth extraction S/P arteriovenous (AV) fistula creation LEFT ARM Family History Brother Family hx colonic polyps Father Heart disease Stroke Mother Coronary heart disease Other Dementia Hypertension Skin cancer Social History Smoking Status: Never smoker Second Hand Exposure: Yes; Do You Dip or Chew Tobacco: No; Hx Alcohol Use: No Hx Substance Use: No Preferred Language: Cymro Communication Ability: Effective Visual Impairment: No Limitations Manual Machinist Required: No Beliefs That Will Affect Care: None marital status: Current Living Situation: Spouse current occupational status: employed Feels Safe at Home: Yes Assistive Devices: None and Oxygen - Continuous Physical Exam Musculoskeletal: Exam focused on his right upper extremity: Full active range of motion of the right elbow. Nontender with palpation of the right elbow. No warmth or erythema or edema of the right elbow. Soft tissue swelling in the forearm to the dorsum of the right hand and fingers. Mild tenderness with palpation of the dorsum of his hand diffusely. Mild erythema and warmth. Able to gently extend and flex his fingers. Stiffness and loss of range of motion at the MCP, PIP and DIP joints due to edema. Distal pulses are 1+. Unable to cross fingers. Unable to approximate thumb to all of his fingers but is able to get it to the index and middle. Able to make a [place] with his thumb and index finger. Strength is 4/5. Capillary refill is brisk. Sensation is grossly intact with light touch. Tolerates gentle flexion and extension of the wrist although limited due to the edema. No underlying fluctuance appreciated. No ecchymosis. Skin is intact Results & Data Vital Signs (Past 12 Hours) Vital Signs Temp Pulse Pulse Resp BP Pulse Ox O2 Del Method 09/28/24 11:32 36.4 C L 94 H 18 159/97 H 93 Room Air 09/28/24 09:55 97 H 09/28/24 07:36 36.5 C 94 H 18 163/88 H 95 Room Air 09/28/24 02:27 87 09/28/24 02:17 Room Air 09/28/24 02:03 36.7 C 98 H 16 163/98 H 94 Room Air 09/28/24 01:30 36.6 C 84 130/107 H 92 Room Air Laboratory Results 04/16/25 04/16/25 04/15/25 Range/Units 05:29 00:00 13:02 WBC 6.80 (4.8-10.8) K/ul RBC 4.48 L (4.70-6.10) M/uL Hgb 13.1 L (14.0-18.0) g/dl Hct 38.2 L (42.0-52.0) % MCV 85.3 (80.0-100.0) fL MCH 29.2 (25.0-34.0) pg MCHC 34.3 (32.0-36.0) g/dL RDW Std Deviation 39.9 (36.4-46.3) fL RDW Coeff of Christian 13.0 (11.5-14.5) % Plt Count 178 (130-400) K/uL MPV 11.1 (9.4-12.4) fL Immature Gran % (Auto) % Neut % (Auto) % Lymph % (Auto) % Williams % (Auto) % Eos % (Auto) % Baso % (Auto) % Neut # (Auto) (1.40-6.50) K/uL Lymph # (Auto) (1.20-3.40) K/uL Williams # (Auto) (0.11-0.59) K/uL Eos # (Auto) (0.00-0.50) K/uL Baso # (Auto) (0.00-0.20) K/uL Immature Gran # (Auto) (0.01-0.20) K/uL ESR 51 H (0-20) mm/hr PT (9.0-12.0) Seconds INR (0.9-1.1) APTT (21-31) Seconds PTT Ratio Sodium 138 138 (136-145) mmol/L Potassium 4.1 3.9 (3.5-5.1) mmol/L Chloride 104 103 (98-107) mmol/L Carbon Dioxide 29 29 (21-32) mmol/L Anion Gap 5 6 (3-11) BUN 24 H 22 (6-23) mg/dl Creatinine 1.29 1.41 H (0.6-1.4) mg/dl Est Cr Clr Drug Dosing 77.5 71.0 ml/min eGFR 62.30 56.00 BUN/Creatinine Ratio 18.6 15.6 (10-20) Glucose 195 H 147 H (70-99(Fasting)) mg/dl Uric Acid (2.6-7.2) mg/dl Calcium 9.7 9.9 (8.6-10.3) mg/dl Magnesium 1.5 L (1.7-2.4) mg/dl Total Bilirubin (0.2-1.0) mg/dl AST (13-39) U/L ALT (7-52) U/L Alkaline Phosphatase (34-104) U/L Total Creatine Kinase (30-223) U/L Troponin I High Sens 11.3 D 17.0 (0-20) pg/ml C-Reactive Protein 5.30 H (0-0.5) mg/dl Total Protein (6.0-8.3) gm/dl Albumin (3.4-5.0) gm/dl Globulin (2.5-4.0) gm/dl Albumin/Globulin Ratio (0.9-2) Procalcitonin (0-0.5) ng/ml Nasal Screen MRSA (PCR) Negative (Negative) Lyme Disease Screen (Negative) 09/27/24 Range/Units 11:50 WBC 8.35 (4.8-10.8) K/ul RBC 4.69 L (4.70-6.10) M/uL Hgb 13.8 L (14.0-18.0) g/dl Hct 40.3 L (42.0-52.0) % MCV 85.9 (80.0-100.0) fL MCH 29.4 (25.0-34.0) pg MCHC 34.2 (32.0-36.0) g/dL RDW Std Deviation 39.6 (36.4-46.3) fL RDW Coeff of Christian 12.9 (11.5-14.5) % Plt Count 197 (130-400) K/uL MPV 11.4 (9.4-12.4) fL Immature Gran % (Auto) 0.2 % Neut % (Auto) 73.1 % Lymph % (Auto) 9.0 % Williams % (Auto) 11.9 % Eos % (Auto) 5.3 % Baso % (Auto) 0.5 % Neut # (Auto) 6.11 (1.40-6.50) K/uL Lymph # (Auto) 0.75 L (1.20-3.40) K/uL Williams # (Auto) 0.99 H (0.11-0.59) K/uL Eos # (Auto) 0.44 (0.00-0.50) K/uL Baso # (Auto) 0.04 (0.00-0.20) K/uL Immature Gran # (Auto) 0.02 (0.01-0.20) K/uL ESR 50 H (0-20) mm/hr PT 11.9 (9.0-12.0) Seconds INR 1.1 (0.9-1.1) APTT 38 H (21-31) Seconds PTT Ratio 1.4 Sodium 138 (136-145) mmol/L Potassium 3.7 (3.5-5.1) mmol/L Chloride 102 (98-107) mmol/L Carbon Dioxide 29 (21-32) mmol/L Anion Gap 7 (3-11) BUN 20 (6-23) mg/dl Creatinine 1.31 (0.6-1.4) mg/dl Est Cr Clr Drug Dosing 76.4 ml/min eGFR 61.16 BUN/Creatinine Ratio 15.3 (10-20) Glucose 104 H (70-99(Fasting)) mg/dl Uric Acid 10.5 H (2.6-7.2) mg/dl Calcium 10.2 (8.6-10.3) mg/dl Magnesium (1.7-2.4) mg/dl Total Bilirubin 1.3 H (0.2-1.0) mg/dl AST 20 (13-39) U/L ALT 19 (7-52) U/L Alkaline Phosphatase 99 (34-104) U/L Total Creatine Kinase 48 (30-223) U/L Troponin I High Sens (0-20) pg/ml C-Reactive Protein 8.07 H (0-0.5) mg/dl Total Protein 7.4 (6.0-8.3) gm/dl Albumin 4.3 (3.4-5.0) gm/dl Globulin 3.1 (2.5-4.0) gm/dl Albumin/Globulin Ratio 1.4 (0.9-2) Procalcitonin 0.38 (0-0.5) ng/ml Nasal Screen MRSA (PCR) (Negative) Lyme Disease Screen Negative (Negative) Diagnostic Findings Forearm CT 09/27/24 13:51 CT forearm RT wo con CLINICAL HISTORY: swelling and erythema of right elbow and hand COMPARISON STUDY: None FINDINGS: There is motion artifact. There is soft tissue edema at the visualized elbow and proximal forearm. No focal soft tissue abscess or hematoma seen. No evidence of osteomyelitis. There are mild degenerative changes at the elbow and wrist. IMPRESSION: 1. Findings suggesting cellulitis without focal abscess or hematoma. 2. No evidence of osteomyelitis seen. ACT 112: Negative or not required by law. Electronically signed by: Peter Godinez M.D. 09/27/2024 3:[address] 09/27/24 14:22 CT elbow RT wo con HISTORY: 64 years-old Male right elbow swelling and pain acute pain and swelling of the right upper extremity COMPARISON: CT right forearm of same day TECHNIQUE: Multiple axial CT images of the right elbow were obtained without IV contrast. A dose lowering technique was used consistent with the principals of ALARA. FINDINGS: There is moderate subcutaneous and deep tissue edema of the elbow, proximal to mid forearm which is most pronounced along the dorsal and dorsomedial margins. No drainable fluid collection or discrete mass identified by CT. Arterial calcifications are noted. There is also heterogeneity and edema noted within the anterior and posterior compartment musculature of the forearm and also within the distal myotendinous junction of the triceps. No intra-articular loose bodies identified. There is moderate joint space narrowing with subcortical cystic changes and marginal osteophytic spurring involving the radiocapitellar and trochlear olecranon articulations. The radial head appears intact. No acute fracture, dislocation or definite acute osseous erosion identified by CT. Small joint effusion of the elbow. IMPRESSION: 1. Moderate osteoarthritis of the elbow without acute fracture, dislocation or acute osseous erosion. 2. Small joint effusion with moderate nonspecific subcutaneous and deep tissue edema of the elbow and imaged forearm suspicious for cellulitis/myositis. 3. No discrete fluid collection. ACT 112: Negative or not required by law. The above report was generated using voice recognition software. It may contain grammatical, syntax or spelling errors. Electronically signed by: Jerome Toribio M.D. 09/27/2024 3:[address] 09/27/24 14:22 CT hand RT wo con HISTORY: 64 years-old Male right hand swelling and pain acute pain and swelling of the right upper extremity COMPARISON: CT right elbow and forearm studies of same day TECHNIQUE: Multiple axial CT images of the right hand were obtained without IV contrast. A dose lowering technique was used consistent with the principals of Yanelis GODINEZ. FINDINGS: Moderate dorsal prominent subcutaneous and deep tissue edema of the hand and distal forearm. A cortical extensor tenosynovitis. No discrete fluid collections. Tendons and ligaments are not well evaluated by CT technique. Multifocal osteoarthritis, moderate to severe within the first carpometacarpal joint with chronic remodeling. No acute fracture, dislocation or osseous erosion is identified. Probable small radiocarpal effusion. IMPRESSION: 1. Osteoarthritis without acute osseous abnormality identified. 2. Moderate dorsal predominant subcutaneous and deep tissue edema favors cellulitis/myositis. 3. Equivocal extensor tenosynovitis. Correlate with physical exam findings. 4. No drainable fluid collections identified. ACT 112: Negative or not required by law. The above report was generated using voice recognition software. It may contain grammatical, syntax or spelling errors. Electronically signed by: Jerome Toribio M.D. 09/27/2024 3:25 PM
--- NOTE | 2024-09-28 16:30 | Hospitalist Progress Note ---
Date of Service September 28, 2024 Assessment & Plan (1) Cellulitis of right hand: (2) Swelling of right upper extremity: (3) History of kidney transplant: (4) Immunosuppressed status: (5) Atrial fibrillation: (6) HTN (hypertension): (7) HLD (hyperlipidemia): (8) Hyperparathyroidism due to renal insufficiency: Plan Patient is a 64 year old male with PMH significant for PAF, HTN, HLD, hyperparathyroidism, s/p renal transplant (2018) with chronic immunotherapy who presented to the ED today with right upper extremity pain and swelling for 5 days. Cellulitis of right hand, right upper extremity swelling Immunocompromise state H/O Gout suspected acute flare Elevated Uric acid levels --R Forearm CT:Findings suggesting cellulitis without focal abscess or hematoma. No evidence of osteomyelitis seen. --R Elbow CT:Moderate osteoarthritis of the elbow without acute fracture, dislocation or acute osseous erosion. Small joint effusion with moderate nonspecific subcutaneous and deep tissue edema of the elbow and imaged forearm suspicious for cellulitis/myositis. No discrete fluid collection. --Hand CT:Osteoarthritis without acute osseous abnormality identified. Moderate dorsal predominant subcutaneous and deep tissue edema favors cellulitis/myositis. Equivocal extensor tenosynovitis. Correlate with physical exam findings. No drainable fluid collections identified. --Venous Doppler:There is no sonographic evidence of deep venous thrombosis identified in the right upper extremity. -- Blood cultures pending --Empirically on daptomycin, cefepime Also on steroids We will consider arthrocentesis if no improvement clinically s/p renal transplant, immunocompromised state Renal function stable Continue tacrolimus and mycophenolate per home dosing Nephrology consulted Atrial flutter Abnormal EKG Troponin negative Continue carvedilol Continue Eliquis for anticoagulation Appreciate cardiology input Monitor and replete electrolytes as needed Chronic heart failure with preserved ejection fraction H/O noncompliance with diuretics --ECHO: Moderate concentric LVH. No regional wall motion abnormality. EF 55 to 60%. Right ventricle is normal size and function. Left atrium is severely dilated. Mild tricuspid regurgitation. Pulmonary systolic pressure estimated to be 35 mmHg. Grade 1 diastolic dysfunction. --Continue torsemide 20 mg daily Monitor volume status Appreciate cardiology input Was to be scheduled for cardiac MRI and 2D nuclear stress test as outpatient Hypomagnesemia Replace and monitor HTN Continue lisinopril and clonidine Monitor blood pressure HLD Holding statin while on daptomycin Hyperparathyroidism Continue cinacalcet per home dosing DVT Px: Eliquis Code Status: FULL CODE Disposition: Likely discharge home as able Admission and Anticipated Discharge Date Admission Date: September 27, 2024 Subjective Patient is seen and examined at bedside Still has significant right upper extremity erythema, edema, tenderness Nausea resolved Denies any chest pain, dyspnea, abdominal pain No other complaints Review of Systems Review of Systems: All systems reviewed & are unremarkable except as noted in Subjective Physical Exam Physical Exam: Physical Exam: Vitals signs as noted above General Appearance:Moderately built and nourished, no apparent distress Head: normocephalic, Atraumatic Eyes: normal inspection, EOMI Neck: supple, Trachea midline Respiratory/Chest: Decreased breath sounds, CTA, No accessory muscle use Cardiovascular: Irregularly irregular, No murmur Abdomen/GI:Soft, Non tender, Bowel sounds present Extremities/Musculoskeletal:normal inspection, 1-2+edema LE, RUE erythema, swelling, tender, decreased ROM Neurologic/Psych:AAOX3, grossly no focal neurological deficits Skin: normal color, warm Results & Data Results & Data Vital Signs (Past 12 Hours) Vital Signs Temp Pulse Pulse Resp BP Pulse Ox O2 Del Method 09/28/24 11:32 36.4 C L 94 H 18 159/97 H 93 Room Air 09/28/24 09:55 97 H 09/28/24 07:36 36.5 C 94 H 18 163/88 H 95 Room Air Laboratory Results Short CBC 09/28/24 Range/Units 05:29 WBC 6.80 (4.8-10.8) K/ul Hgb 13.1 L (14.0-18.0) g/dl Hct 38.2 L (42.0-52.0) % Plt Count 178 (130-400) K/uL BMP 09/28/24 09/28/24 00:00 05:29 Sodium 138 138 Potassium 3.9 4.1 Chloride 103 104 Carbon Dioxide 29 29 BUN 22 24 H Creatinine 1.41 H 1.29 Glucose 147 H 195 H Calcium 9.9 9.7 (6) HTN (hypertension) Hypertension type: unspecified Qualified Code(s): I10 - Essential (primary) hypertension
--- NOTE | 2024-09-28 17:11 | Nephrology Consultation ---
Date of Consultation September 28, 2024 Assessment & Plan (1) Immunosuppressed status: Kidney transplant recipient. Baseline creatinine most recently 1.1-1.2. Presented with creatinine 1.4, improved to 1.3 today. Continue torsemide and lisinopril along with other medications Daily basic metabolic panel Agree with work to get patient's own immunosuppression Continue tacrolimus and MMF outpatient doses No indication to check tacro levels at this time since they come back too late to be useful clinically allograft at baseline; check urine studie sif not done (2) Cellulitis of right hand: As per primary service and orthopedics; for conservative management with some improvement per report today Continue daptomycin and cefepime (3) Chronic heart failure with preserved ejection fraction: Cardiology following the patient inpatient and outpatient. Several months ago on the outpatient side he was started on daily torsemide because of significant volume overload. Initially nonadherent to this but recently has been taking appropriately. TTE outpatient notable for severe LVH and cardiac MRI ordered but not yet scheduled; also 2-day nuclear stress test recommended for exertional dyspnea: This has not yet been done either Evaluate for nephrotic syndrome > urine studies; cont aggressive diarrhea Continue Coreg, clonidine, lisinopril, torsemide current doses (4) Hyperuricemia: Admitting uric acid level (admits to have extended possible gout attack) 10.5 > no colchicine or alluprinol for now; + staroids History of Present Illness Reason for Consultation: Kidney transplant Requesting Physician: Dr. Marks Attending Physician: Rainer Marks MD History of Present Illness 64-year-old male whom I am asked to evaluate for kidney transplant status was admitted yesterday for management of right upper extremity swelling and right hand cellulitis after presenting with migration of right elbow pain to right hand over the course of about 5 days. Past medical history includes living donor renal transplant 2018 [facility] baseline allograft function creat 1.2-1.3 and about 1 gm albuminuria, chronic stage 2 hypertension, hypertensive heart disease, gout, hyperlipidemia, paroxysmal atrial fibrillation one time dx 2018 and no documented recurrence/not on AC. Admitted here May 2023 for RSV pneumonia with acute hypoxic respiratory failure. He had to use his right hand a lot more recently because of the machine he usually uses at work malfunctioning. Presented with 7 out of 10 pain in the right elbow and hand as well as some decreased mobility with chills nausea vomiting. He was started on cefepime, daptomycin, and empiric therapy for hyperuricemia with methylprednisolone. His mycophenolate was continued. He takes long-acting tacrolimus which was not initially continued because it is nonformulary. OP charting shows wt gain 20 lb in past year-pt tells me he's lost 20 lb since starting torsemide late June. no sob, states LE edema m uch better. States that right upper extremity pain also improved today and that hand is one half the size of yesterday. Thinks gout may be involved because he tends to have foamy urine he states when this happens. No other new or worrisome voiding symptoms no gross hematuria. Stable chronic diarrhea no fever chills recently. No rash. No abdominal pain or pain over allograft. Allergies Allergy/AdvReac Type Severity Reaction Status Date / Time No Known Allergies Allergy Verified 10/18/20 17:36 Home Medications Medication Instructions Recorded Confirmed Type cinacalcet 30 mg tablet 30 mg PO PM 04/24/18 09/27/24 History acetaminophen 500 mg tablet 500 mg PO Q6H PRN Pain 06/18/20 09/27/24 History (Tylenol Extra Strength) aspirin 81 mg tablet,delayed 81 mg PO DAILY 06/18/20 09/27/24 History release magnesium oxide 400 mg PO DAILY 06/18/20 09/27/24 History simvastatin 20 mg tablet 20 mg PO DAILY 06/18/20 09/27/24 History carvedilol 25 mg tablet 25 mg PO BID 10/18/20 09/27/24 History mycophenolate sodium 180 mg 540 mg PO BID 05/22/23 09/27/24 History tablet,delayed release sodium chloride 0.65 % nasal spray 2 spray NA NOW PRN dry nasal 05/25/23 09/27/24 Rx aerosol (Saline Mist) passages #45 mL apixaban 5 mg tablet (Eliquis) 5 mg PO BID 09/27/24 09/27/24 History clonidine HCl 0.1 mg tablet 0.1 mg PO BID 09/27/24 09/27/24 History levalbuterol tartrate 45 1 puff inhalation Q4 PRN SOB 09/27/24 09/27/24 History mcg/actuation aerosol inhaler lisinopril 10 mg tablet 10 mg PO QAM 09/27/24 09/27/24 History tacrolimus 0.75 mg tablet,extended 1.5 mg PO QAM 09/27/24 09/27/24 History release 24 hr (Envarsus XR) torsemide 20 mg tablet 20 mg PO PM 09/27/24 09/27/24 History Patient History Medical History Breathlessness Respiratory syncytial virus (RSV) Fever of unknown origin DVT prophylaxis SIRS (systemic inflammatory response syndrome) Cholelithiasis Family hx colonic polyps Hyperphosphatemia End stage renal failure on dialysis Gout Osteoarthritis GERD (gastroesophageal reflux disease) Asthma A CHILD (NO CURRENT PROBLEMS) New onset atrial fibrillation Surgical History History of cholecystectomy Renal transplant recipient Date of transplant 02/17/2019, at [facility] Living donor transplant History of tooth extraction S/P arteriovenous (AV) fistula creation LEFT ARM Family History Brother Family hx colonic polyps Father Heart disease Stroke Mother Coronary heart disease Other Dementia Hypertension Skin cancer Social History Smoking Status: Never smoker Second Hand Exposure: Yes; Do You Dip or Chew Tobacco: No; Hx Alcohol Use: No Hx Substance Use: No Preferred Language: Jordanian Communication Ability: Effective Visual Impairment: No Limitations Rap Artist Required: No Beliefs That Will Affect Care: None marital status: Current Living Situation: Spouse current occupational status: employed Feels Safe at Home: Yes Assistive Devices: None Review of Systems 2 Review of Systems: All systems reviewed & are unremarkable except as noted in HPI & below Physical Exam 2 Constitutional: well developed (Sitting up in chair on room air), well nourished, + obese and cooperative; no acute distress Eyes: EOM intact bilaterally ENMT: Mouth: + dry oral mucous membranes Neck: no nuchal rigidity Respiratory: normal respiratory effort Auscultation: + diminished lung sounds Cardiovascular: Rate/Rhythm: regular rate and regular rhythm Extremities: + edema (3++ bilateral lower extremity edema right greater than left; right hand 4+ ) Gastrointestinal (Abdomen): Inspection/Auscultation: normal bowel sounds P ercussion/Palpation: abdomen soft; abdomen nontender Musculoskeletal: Extremities: strength 5/5 throughout Skin: no rashes, warm and dry Neurologic: fletcher, fluent speech, no tremor Results & Data Vital Signs (Past 12 Hours) Vital Signs Temp Pulse Pulse Resp BP Pulse Ox O2 Del Method 09/28/24 16:21 36.5 C 92 H 18 169/95 H 97 Room Air 09/28/24 11:32 36.4 C L 94 H 18 159/97 H 93 Room Air 09/28/24 09:55 97 H 09/28/24 07:36 36.5 C 94 H 18 163/88 H 95 Room Air Laboratory Results 09/28/24 05:29 09/28/24 05:[address] elbow right Noncon 1. Moderate osteoarthritis of the elbow without acute fracture, dislocation or acute osseous erosion. 2. Small joint effusion with moderate nonspecific subcutaneous and deep tissue edema of the elbow and imaged forearm suspicious for cellulitis/myositis. 3. No discrete fluid collection. No DVT identified on upper extremity Doppler right
[2024-09-29 06:13] LABS: Calcium 10.4 mg/dl (8.6-10.3); Magnesium 1.9 mg/dl (1.7-2.4); Potassium 4.4 mmol/L (3.5-5.1)
[2024-09-29 06:14] LABS: Appearance Urine Clear (Clear); Bacteria Urine Automated None Seen (None Seen); Bilirubin Urine Negative (Negative); Blood Urine Negative (Negative); Color Urine Yellow; Epithelial Cell Urine Auto 0-2 /hpf (0-2); Glucose Urine UA Negative (Negative); Ketones Urine Trace (Negative); Leukocyte Esterase Urine Negative (Negative); Nitrite Urine Negative (Negative); Protein Urine 1+ (Negative); RBC Urine Automated 0-2 /hpf (0-2); Specific Gravity Urine 1.019 (1.000-1.030); Urobilinogen Urine Negative (Negative); WBC Urine Automated 0-5 /hpf (0-5); pH Urine 5.5 (4.5-7.5)
[2024-09-29 06:19] LABS: BUN Creatinine Ratio 24.2 (10-20); Creatinine Clr Calc Pharmacy 83.3 ml/min
[2024-09-29 07:11] LABS: Total Protein Urine Random 35.7 mg/dl (0-11.9)
[2024-09-29 07:17] LABS: Creatinine Urine Random 92.8 mg/dl; Protein Creatinine Ratio Urine 0.4 (0-0.2)
--- NOTE | 2024-09-29 09:21 | Electrocardiogram Report ---
Test Reason : Blood Pressure : */* mmHG Vent. Rate : 83 BPM Atrial Rate : 83 BPM P-R Int : * ms QRS Dur : 86 ms QT Int : 396 ms P-R-T Axes : 240 228 59 degrees QTcB Int : 465 ms Atrial flutter with variable A-V block with premature ventricular or aberrantly conducted complexes Right superior axis deviation possible Inferior infarct (cited on or before 24-May-2023) Incomplete right bundle branch block Abnormal ECG When compared with ECG of 24-May-2023 10:21, Atrial flutter has replaced Sinus rhythm QRS axis Shifted left Confirmed by Timothy Morel ([id number]) on 09/29/2024 9:21:05 AM Referred By: REFERRED SELF Confirmed By: Timothy Morel
[2024-09-29] MEDS: lisinopril 10 MG TAB PO ONE (09:52)
--- NOTE | 2024-09-29 10:56 | Orthopedic Progress Note ---
Date of Service September 29, 2024 Assessment & Plan (1) Cellulitis of right hand: Plan: The patient was educated regarding today's findings. Conservative care measures were discussed. His antibiotics seem to be making a difference. Redness and swelling have improved. He does not require any surgical intervention. Continue with elevation and ice. He may consider a compression wrap for the edema control. No additional intervention at this time. Orthopedics will sign off of management unless new issues arise. Care plan was discussed with Dr. Peacock. Admission and Anticipated Discharge Date Admission Date: September 28, 2024 Subjective This 64-year-old male is seen today in his room. He states his right hand and arm cellulitis has improved considerably. His pain is also improved. He denies any fevers or chills. No additional complaints. He denies any numbness or tingling in the right upper extremity. [id number]. Physical Exam Physical Exam: General: Well-developed, well-nourished, middle-aged white male, in no acute distress. Sitting in a bedside chair. Alert and oriented. Skin: Warm dry with good turgor. No rashes. Mild erythema is present over the dorsum of his right hand. No erythema on the forearm or upper arm. There is also very mild edema present in the dorsum of the hand extending into the digits. No open wounds. Musculoskeletal: The patient has full motion of his right elbow, wrist, and d igits. He is able to make a full fist. He is able to cross his fingers, make the okay sign, and oppose to the little finger. He states his hand feels stiff when doing so. Strength is 5/5 for resisted flexion, extension, and abduction of the digits. Neurologic: Gross sensation is intact across each of the digits of the right hand by soft touch. Peripheral pulses are 2+. Lymphatics: Brachial and axillary lymph nodes were palpated and are not enlarged or tender. Results & Data Vital Signs (Past 12 Hours) Vital Signs Temp Pulse Resp BP Pulse Ox O2 Del Method 09/29/24 07:29 36.3 C L 96 H 19 165/114 H 94 Room Air 09/29/24 02:39 36.7 C 90 18 154/81 H 93 Room Air Laboratory Results PRP obtained this morning shows normal electrolytes. Normal creatinine. BUN is mildly elevated at 29. Glucose is also elevated at 167.
--- NOTE | 2024-09-29 11:29 | Cardiology Progress Note ---
Date of Service September 29, 2024 Assessment & Plan (1) Swelling of right upper extremity: (2) Atrial flutter with controlled response: (3) Chronic heart failure with preserved ejection fraction: (4) Hypertensive heart disease: Plan 09/28/24 Patient admitted for right upper extremity and right hand cellulitis. No evidence of upper extremity DVT No evidence of osteomyltiis. Continue antibiotics and steroids per hospitalist. Atrial flutter with controlled rates noted on admission. There was initial concern that EKG also demonstrated ST elevation. Per my review of EKG, it appears the ST abnormality is due to his RBBB and flutter waves. HS troponin negative x2. No anginal complaints The atrial flutter is persistent since at least Jul 2024 when found during routine office visit. Rates have been controlled on carvedilol. He was NOT transitioned to metoprolol for rate control due to difficult to control/labile hypertension. He was started and is maintained on Eliquis 5 mg BID for stroke prevention. Ongoing rate control strategy recommended at this time. Supplement magnesium. History of HFpEF At outpatient visit several months ago he was markedly volume overloaded and non complaint with diuretics. Torsemide 20 mg daily was resumed and he reports compliance since this time. He is down nearly 20 lbs compared to that office visit and volume status currently much improved Continue torsemide 20 mg daily - changed to AM dosing while at the hospital. Stable renal function and electrolytes Severe LVH on outpatient echo - Cardiac MRI ordered but not yet scheduled Due to dyspnea/SOB he was also scheduled for a 2 day nuclear stress test but has not been completed. Continue all other outpatient antihypertensive medications 09/29/24; Interval improvement in right upper hand cellulitis Continue antibiotics and steroids per hospitalist. Chronic/persistent atrial flutter with controlled rates Continue Eliquis and carvedilol Echo with severely dilated LA making rhythm control challenging. ongoing rate control recommended. history of HFpEF -volume status grealty improved since outpatient visit several months ago Continue torsemide 20 mg daily Daily weight with standing scale. HTN -continues to be elevated -long history of HTN heart disease -s/p renal transplant -increase lisinopril from 10 to 20 mg -monitor BMP Given his prior complaints of dyspnea, he was arranged to have a 2day nuclear stress test, this is coming up He has severe LVH on outpatient echo as well, and was recommended to have cardiac MRI. This was not yet arranged per review of outpatient records. Telephone encounter sent. Otherwise stable cardiac symptoms. continue antibiotics. No further cardiac testing warranted. Will sign off. Please contact supervisor fabrication department cardiology provider with additional questions or concerns. Case discussed with Dr. Delatorre I spent a total of 30 minutes on the date of service in preparation, delivery, and documentation of the care provided to this patient, excluding any time spent in the performance of separately billed services. Sarai Nash PA-C Department of Cardiology, [facility] This chart was completed in part utilizing Speech Voice Recognition Software. Grammatical errors, random word insertions, pronoun errors, and incomplete sentences are an occasional consequence of this system due to software limitations, ambient noise, and hardware issues. Any formal questions or concerns about the content, text, or information contained within the body of this dictation should be directly addressed to the provider for clarification. Admission and Anticipated Discharge Date Admission Date: September 28, 2024 Supervising Physician Co-Signing Physician Notes Attending attestation: Case reviewed with the advanced practitioner. I have personally performed a history and physical examination on the patient. I have reviewed the advanced practitioner's documentation on the date of service referenced in note, and I agree with, and take responsibility for the plan of care. Continue aspirin, Eliquis, carvedilol, lisinopril, clonidine, torsemide. I spent a total of 20 minutes coordinating, documenting, and providing care for this patient excluding time spent in the performance of separately billed services or time spent by another provider. Toni Delatorre, DO Subjective Patient resting in chair. Feeling well. Hand swelling/stiffness and pain much improved from admission. No chest pain, palpitations, SOB. BP remains elevated Review of Systems Review of Systems: All systems reviewed & are unremarkable except as noted in HPI & below Physical Exam Constitutional: + morbidly obese; no acute distress Neck: + thick neck Respiratory: normal respiratory effort; no labored breathing Auscultation: + diminished lung sounds; no crackles and no rales Cardiovascular: Rate/Rhythm: + irregularly irregular Heart Sounds: no murmur (distant heart sounds) Vessels: no JVD Extremities: + edema (1+ pretibial edema with chronic stasis changes) Neurologic: PERRL, EOMI, accommodation nl, no face palsy, no dysarthria Results & Data Vital Signs (Past 12 Hours) Vital Signs Temp Pulse Resp BP Pulse Ox O2 Del Method 09/29/24 07:29 36.3 C L 96 H 19 165/114 H 94 Room Air 09/29/24 02:39 36.7 C 90 18 154/81 H 93 Room Air Laboratory Results Comprehensive Metabolic Panel 09/29/24 Range/Units 05:32 Sodium 137 (136-145) mmol/L Potassium 4.4 (3.5-5.1) mmol/L Chloride 102 (98-107) mmol/L Carbon Dioxide 28 (21-32) mmol/L BUN 29 H (6-23) mg/dl Creatinine 1.20 (0.6-1.4) mg/dl Glucose 167 H (70-99(Fasting)) mg/dl Calcium 10.4 H (8.6-10.3) mg/dl Intake and Output 09/28/24 09/29/24 09/29/24 22:59 06:59 14:59 Intake Total 100 / 896.667 Balance 100 / 895.667 Intake: IV 100 / 296.667 Magnesium Sulfate / D5w 1 gm In 100 / 196.667 100 ml @ 50 mls/hr IV Q2H [facility] Rx#:[id number] Diagnostic Findings Telemetry reviewed: Atrial flutter with variable rates mostly ranging 90-100's Echo report reviewed form 09/28 Moderate LVH No regional wall motion abnormalities LVEF 55-60% LA is severely dilated Mild TR PUlm artery systolic pressure is 35 mmHg Grade I diastolic dysfunction Medications Administered Current Inpatient Medications Acetaminophen (Acetaminophen 325 Mg Tab) 650 mg PO Q4H PRN PRN Reason: pain/fever Stop: 10/27/24 20:40 Apixaban (Apixaban 5 Mg Tablet) 5 mg PO BID MANNY Stop: 10/27/24 20:59 Last Admin: 09/29/24 08:27 Dose: 5 mg Aspirin (Aspirin 81 Mg Ectab) 81 mg PO DAILY MANNY Stop: 10/28/24 08:59 Last Admin: 09/29/24 08:27 Dose: 81 mg Carvedilol (Carvedilol 25 Mg Tab) 25 mg PO BID MANYN Stop: 10/27/24 20:59 Last Admin: 09/29/24 08:27 Dose: 25 mg Cinacalcet (Cinacalcet Hcl 30 Mg Tab) 30 mg PO DAILYBD MANNY Stop: 10/27/24 20:59 Last Admin: 09/28/24 17:24 Dose: 30 mg Clonidine HCl (Clonidine Hcl 0.1 Mg Tab) 0.1 mg PO BID MANNY Stop: 10/27/24 20:59 Last Admin: 09/29/24 08:42 Dose: 0.1 mg Daptomycin 600 mg/ Syringe 12 mls @ 6 mls/min IV Q24H [facility]; Protocol Stop: 10/04/24 15:29 Last Admin: 09/28/24 16:11 Dose: 6 mls/min Cefepime HCl (Maxipime 2000mg) 2,000 mg in 20 mls @ 5 mls/min IV Q8H [facility]; Protocol Stop: 10/04/24 20:59 Last Admin: 09/29/24 05:39 Dose: 5 mls/min Methylprednisolone 40 mg/ (Syringe) 0.64 mls @ 1.5 mls/min IV Q12H [facility] Stop: 10/27/24 20:59 Last Admin: 09/29/24 08:27 Dose: 1.5 mls/min Magnesium Sulfate/Dextrose (Magnesium Sulfate / D5w) 1 gm in 100 mls @ 50 mls/hr IV ONE ONE Stop: 09/29/24 13:10 Last Admin: 09/29/24 11:34 Dose: 50 mls/hr Lisinopril (Lisinopril 20 Mg Tab) 20 mg PO QAM [facility] Stop: 10/30/24 08:59 Magnesium Oxide (Magnesium Oxide 400 Mg Tab) 400 mg PO DAILY [facility] Stop: 10/28/24 08:59 Last Admin: 09/29/24 08:27 Dose: 400 mg Mycophenolate Sodium (Mycophenolate Sodium 180 Mg Tab) 540 mg PO BID [facility] Stop: 10/27/24 20:59 Last Admin: 09/29/24 08:27 Dose: 540 mg Ondansetron HCl (Ondansetron Inj 2 Mg/Ml 2 Ml Vial) 4 mg IV Q6H PRN PRN Reason: Nausea Stop: 10/27/24 20:40 Polyethylene Glycol (Polyethylene (Miralax) 17 Gm Pack) 17 gm PO DAILY PRN PRN Reason: Constipation Stop: 10/27/24 20:40 Tacrolimus (Tacrolimus Xr 0.75 Mg Ertab) 1.5 mg PO QD [facility] Stop: 10/28/24 11:44 Last Admin: 09/29/24 10:20 Dose: 1.5 mg Torsemide (Torsemide 20 Mg Tab) [address] [facility] Stop: 10/28/24 10:59 Last Admin: 09/29/24 08:27 Dose: 20 mg
[2024-09-29] MEDS: MAGNESIUM SULFATE / D5W 1 GM/100 ML BAG IV ONE (11:34)
--- NOTE | 2024-09-29 13:38 | Nephrology Progress Note ---
Date of Service September 29, 2024 Assessment & Plan (1) Immunosuppressed status: Plan: Kidney transplant recipient. Baseline creatinine most recently 1.1-1.2. Presented with creatinine 1.4, improved to 1.2 today. proteinuria 400 mg /g here, decreasing comp to Feb levels 738 mg/gm in epic Continue torsemide and lisinopril along with other medications Daily basic metabolic panel Agree with work to get patient's own immunosuppression some of which is off hospital formulary Continue tacrolimus and MMF outpatient doses No indication to check tacro levels at this time since they come back too late to be useful clinically Will sign off NEPHRO D/C RECS -continue current BP meds and tacro, MMF dosing -recently saw Dr Guerrero in June > provided that upcoming txplt labs due early September and already ordered are at goal, no need for hospital d/c appt w/ nephro; will ask horser up to move up appt from March to November/December as was originally requested -agree w/ plan for OP rheum eval Care Coordinated w/ Dr Marks in person re d/c labs, f/u appts; we are in agreement (2) Cellulitis of right hand: Plan: As per primary service and orthopedics; for conservative management with some improvement per report today; OP rheum eval Continue daptomycin and cefepime (3) Chronic heart failure with preserved ejection fraction: Plan: Cardiology following the patient inpatient and outpatient. Several months ago on the outpatient side he was started on daily torsemide because of significant volume overload. Initially nonadherent to this but recently has been taking appropriately. TTE outpatient notable for severe LVH and cardiac MRI ordered but not yet scheduled; also 2-day nuclear stress test recommended for exertional dyspnea: This has not yet been done either Evaluate for nephrotic syndrome > urine studies; cont aggressive diarrhea Continue Coreg, clonidine, lisinopril, torsemide current doses (4) Hyperuricemia: Plan: Admitting uric acid level (admits to have extended possible gout attack) 10.5 > no colchicine or alluprinol for now; + staroids Admission and Anticipated Discharge Date Admission Date: September 28, 2024 Subjective no interval events clinically; hand improving but still very swollen; urine study w/ 400 mg proteinuria, similar to OP labs or a bit better Review of Systems 2 Review of Systems: All systems reviewed & are unremarkable except as noted in Subjective Physical Exam 2 Constitutional: well developed (Sitting up in chair on room air), well nourished, + obese and cooperative; no acute distress Eyes: EOM intact bilaterally ENMT: Mouth: + dry oral mucous membranes Neck: no nuchal rigidity Respiratory: normal respiratory effort Auscultation: + diminished lung sounds Cardiovascular: Rate/Rhythm: regular rate and regular rhythm Extremities: + edema (3++ bilateral lower extremity edema right greater than left; right hand 2+ ) Gastrointestinal (Abdomen): Inspection/Auscultation: normal bowel sounds P ercussion/Palpation: abdomen soft; abdomen nontender Musculoskeletal: Extremities: strength 5/5 throughout Skin: no rashes, warm and dry Results & Data Vital Signs (Past 12 Hours) Vital Signs Temp Pulse Resp BP Pulse Ox O2 Del Method 09/29/24 11:40 36.6 C 100 H 19 185/105 H 96 Room Air 09/29/24 07:29 36.3 C L 96 H 19 165/114 H 94 Room Air 09/29/24 02:39 36.7 C 90 18 154/81 H 93 Room Air Laboratory Results 09/28/24 05:29 09/29/24 05:32 UA reviewed
--- NOTE | 2024-09-29 15:41 | Hospitalist Progress Note ---
Date of Service September 29, 2024 Assessment & Plan (1) Cellulitis of right hand: (2) Swelling of right upper extremity: (3) History of kidney transplant: (4) Immunosuppressed status: (5) Atrial fibrillation: (6) HTN (hypertension): (7) HLD (hyperlipidemia): (8) Hyperparathyroidism due to renal insufficiency: Plan Patient is a 64 year old male with PMH significant for PAF, HTN, HLD, hyperparathyroidism, s/p renal transplant (2019) with chronic immunotherapy who presented to the ED today with right upper extremity pain and swelling for 5 days. Cellulitis of right hand, right upper extremity swelling Immunocompromise state H/O Gout suspected acute flare Elevated Uric acid levels --R Forearm CT:Findings suggesting cellulitis without focal abscess or hematoma. No evidence of osteomyelitis seen. --R Elbow CT:Moderate osteoarthritis of the elbow without acute fracture, dislocation or acute osseous erosion. Small joint effusion with moderate nonspecific subcutaneous and deep tissue edema of the elbow and imaged forearm suspicious for cellulitis/myositis. No discrete fluid collection. --Hand CT:Osteoarthritis without acute osseous abnormality identified. Moderate dorsal predominant subcutaneous and deep tissue edema favors cellulitis/myositis. Equivocal extensor tenosynovitis. Correlate with physical exam findings. No drainable fluid collections identified. --Venous Doppler:There is no sonographic evidence of deep venous thrombosis identified in the right upper extremity. -- Blood cultures: Negative to date --Empirically on daptomycin, cefepime Also on steroids Clinically improving Refused compressive wrap per Ortho No surgical intervention needed currently Might benefit from following with rheumatology as outpatient Transition to oral antibiotics on discharge s/p renal transplant, immunocompromised state Renal function stable Continue tacrolimus and mycophenolate per home dosing Appreciate nephrology input Needs follow-up with nephrology Dr. Guerrero as outpatient Atrial flutter Abnormal EKG Troponin negative Continue carvedilol Continue Eliquis for anticoagulation Appreciate cardiology input Monitor and replete electrolytes as needed Chronic heart failure with preserved ejection fraction H/O noncompliance with diuretics --ECHO: Moderate concentric LVH. No regional wall motion abnormality. EF 55 to 60%. Right ventricle is normal size and function. Left atrium is severely dilated. Mild tricuspid regurgitation. Pulmonary systolic pressure estimated to be 35 mmHg. Grade 1 diastolic dysfunction. --Continue torsemide 20 mg daily Monitor volume status Appreciate cardiology input Was to be scheduled for cardiac MRI and 2D nuclear stress test as outpatient Hypomagnesemia Replace and monitor HTN Continue lisinopril and clonidine Increased lisinopril to 20 mg daily for better BP control Monitor blood pressure HLD Holding statin while on daptomycin Hyperparathyroidism Continue cinacalcet per home dosing DVT Px: Eliquis Code Status: FULL CODE Disposition: Likely discharge home as able Admission and Anticipated Discharge Date Admission Date: September 28, 2024 Subjective Patient is seen and examined at bedside Right upper extremity erythema, edema, tenderness improved Denies any chest pain, dyspnea, abdominal pain No new complaints Eager to get discharged Review of Systems Review of Systems: All systems reviewed & are unremarkable except as noted in Subjective Physical Exam Physical Exam: Physical Exam: Vitals signs as noted above General Appearance:Moderately built and nourished, no apparent distress Head: normocephalic, Atraumatic Eyes: normal inspection, EOMI Neck: supple, Trachea midline Respiratory/Chest: Decreased breath sounds, CTA, No accessory muscle use Cardiovascular: Irregularly irregular, No murmur Abdomen/GI:Soft, Non tender, Bowel sounds present Extremities/Musculoskeletal:normal inspection, 1-2+edema LE, RUE erythema, swelling, tender, decreased ROM improving Neurologic/Psych:AAOX3, grossly no focal neurological deficits Skin: normal color, warm Results & Data Results & Data Vital Signs (Past 12 Hours) Vital Signs Temp Pulse Resp BP Pulse Ox O2 Del Method 09/29/24 11:40 36.6 C 100 H 19 185/105 H 96 Room Air 09/29/24 07:29 36.3 C L 96 H 19 165/114 H 94 Room Air Laboratory Results BMP 09/29/24 05:32 Sodium 137 Potassium 4.4 Chloride 102 Carbon Dioxide 28 BUN 29 H Creatinine 1.20 Glucose 167 H Calcium 10.4 H Urine 09/29/24 Range/Units 05:00 Urine Color Yellow Urine Appearance Clear (Clear) Urine pH 5.5 (4.5-7.5) Ur Specific [place] 1.019 (1.000-1.030) Urine Protein 1+ H (Negative) Urine Glucose (UA) Negative (Negative) (6) HTN (hypertension) Hypertension type: unspecified Qualified Code(s): I10 - Essential (primary) hypertension
[2024-09-29] MEDS ORDERED: LABETALOL HCL IV 5 MG/ML 20ML IV PRN (16:40)
[2024-09-29] MEDS: LABETALOL HCL IV 5 MG/ML 20ML IV ONE (17:00)
[2024-09-29] MEDS: cloNIDine HCL 0.1 MG TAB PO ONE (17:22)
[2024-09-29] MEDS: ENALAPRILAT 0.625 MG in DEXTROSE 5% 25 ML IV ONE (18:44)
[2024-09-29] MEDS: cloNIDine HCL 0.1 MG TAB PO SCH (20:40)
[2024-09-30] MEDS: carvediloL 25 MG TAB PO ONE (04:55)
[2024-09-30] MEDS: predniSONE 20 MG TAB PO SCH (09:08)
[2024-09-30] MEDS: lisinopril 20 MG TAB PO SCH (09:08)
[2024-09-30] MEDS: amLODIPine BESYLATE 5 MG TAB PO SCH (10:04)
[2024-09-30 11:06] VITALS: BP 155/93; RESP 18; TEMP 97.9; O2SAT 98
[2024-09-30 11:50] LABS: Hematocrit (blood only) 42.6 % (42.0-52.0); Hemoglobin 14.2 g/dl (14.0-18.0); Mean Corpuscular Hemoglobin 29.3 pg (25.0-34.0); Mean Corpuscular Hgb Conc 33.3 g/dL (32.0-36.0); Mean Corpuscular Volume 87.8 fL (80.0-100.0); Mean Platelet Volume 11.1 fL (9.4-12.4); Platelet Count 222 K/uL (130-400); RDW Standard Deviation 41.8 fL (36.4-46.3); Red Blood Count 4.85 M/uL (4.70-6.10); White Blood Count 10.51 K/ul (4.8-10.8)
[2024-09-30 12:05] LABS: BUN Creatinine Ratio 30.4 (10-20); Calcium 10.4 mg/dl (8.6-10.3); Creatinine Clr Calc Pharmacy 79.9 ml/min; Magnesium 1.9 mg/dl (1.7-2.4); Potassium 4.3 mmol/L (3.5-5.1)
--- NOTE | 2024-09-30 13:31 | Hospitalist Progress Note ---
Date of Service September 30, 2024 Assessment & Plan (1) Cellulitis of right hand: (2) Swelling of right upper extremity: (3) History of kidney transplant: (4) Immunosuppressed status: (5) Atrial fibrillation: (6) HTN (hypertension): (7) HLD (hyperlipidemia): (8) Hyperparathyroidism due to renal insufficiency: Plan Patient is a 64 year old male with PMH significant for PAF, HTN, HLD, hyperparathyroidism, s/p renal transplant (2018) with chronic immunotherapy who presented to the ED today with right upper extremity pain and swelling for 5 days. Cellulitis of right hand, right upper extremity swelling Immunocompromise state H/O Gout suspected acute flare Elevated Uric acid levels --R Forearm CT:Findings suggesting cellulitis without focal abscess or hematoma. No evidence of osteomyelitis seen. --R Elbow CT:Moderate osteoarthritis of the elbow without acute fracture, dislocation or acute osseous erosion. Small joint effusion with moderate nonspecific subcutaneous and deep tissue edema of the elbow and imaged forearm suspicious for cellulitis/myositis. No discrete fluid collection. --Hand CT:Osteoarthritis without acute osseous abnormality identified. Moderate dorsal predominant subcutaneous and deep tissue edema favors cellulitis/myositis. Equivocal extensor tenosynovitis. Correlate with physical exam findings. No drainable fluid collections identified. --Venous Doppler:There is no sonographic evidence of deep venous thrombosis identified in the right upper extremity. -- Blood cultures: Negative to date --Empirically on daptomycin, cefepime Also on steroids--tapered down to prednisone Refused compressive wrap per Ortho No surgical intervention needed currently Might benefit from following with rheumatology as outpatient Transition to oral antibiotics on discharge Plan to be discharged home today s/p renal transplant, immunocompromised state Renal function stable Continue tacrolimus and mycophenolate per home dosing Appreciate nephrology input Needs follow-up with nephrology Dr. Guerrero as outpatient Atrial flutter Abnormal EKG Troponin negative Continue carvedilol Continue Eliquis for anticoagulation Appreciate cardiology input Monitor and replete electrolytes as needed Chronic heart failure with preserved ejection fraction H/O noncompliance with diuretics --ECHO: Moderate concentric LVH. No regional wall motion abnormality. EF 55 to 60%. Right ventricle is normal size and function. Left atrium is severely dilated. Mild tricuspid regurgitation. Pulmonary systolic pressure estimated to be 35 mmHg. Grade 1 diastolic dysfunction. --Continue torsemide 20 mg daily Monitor volume status Appreciate cardiology input Was to be scheduled for cardiac MRI and 2D nuclear stress test as outpatient Hypomagnesemia Replace and monitor HTN Continue lisinopril and clonidine Increased lisinopril to 20 mg daily for better BP control Increased Clonidine to 0.1mg TID Also started on Amlodipine 2.5mg daily Monitor blood pressure HLD Holding statin while on daptomycin Hyperparathyroidism Continue cinacalcet per home dosing DVT Px: Eliquis Code Status: FULL CODE Disposition: Home Admission and Anticipated Discharge Date Admission Date: September 28, 2024 Subjective Patient is seen and examined at bedside No new complaints Right upper extremity erythema, edema, tenderness almost resolved Denies any chest pain, dyspnea, abdominal pain Prefers to be discharged home today Review of Systems Review of Systems: All systems reviewed & are unremarkable except as noted in Subjective Physical Exam Physical Exam: Physical Exam: Vitals signs as noted above General Appearance:Moderately built and nourished, no apparent distress Head: normocephalic, Atraumatic Eyes: normal inspection, EOMI Neck: supple, Trachea midline Respiratory/Chest: Decreased breath sounds, CTA, No accessory muscle use Cardiovascular: Irregularly irregular, No murmur Abdomen/GI:Soft, Non tender, Bowel sounds present Extremities/Musculoskeletal:normal inspection, 1-2+edema LE, RUE erythema, swelling, tender, decreased ROM improving Neurologic/Psych:AAOX3, grossly no focal neurological deficits Skin: normal color, warm Results & Data Results & Data Vital Signs (Past 12 Hours) Vital Signs Temp Pulse Pulse Pulse Resp BP Pulse Ox 09/30/24 11:06 36.6 C 76 18 155/93 H 98 09/30/24 07:49 78 09/30/24 07:20 36.5 C 80 19 153/105 H 95 09/30/24 05:30 148/83 H 09/30/24 04:08 36.7 C 82 20 166/103 H 94 O2 Del Method 09/30/24 11:06 Room Air 09/30/24 07:49 09/30/24 07:20 Room Air 09/30/24 05:30 09/30/24 04:08 Room Air Laboratory Results Short CBC 09/30/24 Range/Units 11:12 WBC 10.51 (4.8-10.8) K/ul Hgb 14.2 (14.0-18.0) g/dl Hct 42.6 (42.0-52.0) % Plt Count 222 (130-400) K/uL BMP 09/30/24 11:12 Sodium 139 Potassium 4.3 Chloride 102 Carbon Dioxide 30 BUN 38 H Creatinine 1.25 Glucose 147 H Calcium 10.4 H (6) HTN (hypertension) Hypertension type: unspecified Qualified Code(s): I10 - Essential (primary) hypertension
--- NOTE | 2024-09-30 13:51 | Discharge Summary ---
Date of Service September 30, 2024 Admission HPI Per Admitting Provider 64 year old male with PMH significant for PAF, HTN, HLD, hyperparathyroidism, s/p renal transplant (2019) with chronic immunotherapy who presented to the ED today with right upper extremity pain and swelling for 5 days. Patient states that he noticed swelling of his right elbow that started on and attributed it to overuse of his right arm. 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 He notes that he has had problems with joint swelling in the past that usually resolve after a few days. However, he noticed the swelling and pain started to spread to his right hand on Thursday. He is now having 7/10 pain, decreased mobility of his right elbow and hand, numbness/tingling, chills, and nausea which prompted him to seek evaluation in the ED. He denies any recent trauma or injury to his right arm as well as any chest pain or SOB. He notes that he used to have gout which was managed with colchicine but he has not taken that for the last few years due to his kidney disease. He lives at home with his and dog. He denies tobacco, alcohol, and drug use. He eats a mostly well balanced diet. Admission Exam Per Admitting Provider General/Psych: WD/WN, sitting up in bed, NAD, conversing easily, euthymic affect Head: normocephalic, atraumatic Eyes: normal inspection, PERRL, conjunctivae pink, anicteric sclerae ENT: external ear and nose normal, oropharynx normal Neck: normal visual inspection, trachea midline, no thyromegaly Respiratory: normal respiratory effort, lungs clear to auscultation, no wheeze/rales/rhonchi, no accessory muscle use Cardiovascular: regular rate and rhythm, no murmur/rub/gallop, no JVD Extremities: right elbow with edema and slight erythema, right hand and digits with edema and bright erythema, BLE 3+ pitting edema, normal peripheral pulses Abdomen/GI: normal bowel sounds, soft, nontender, no hepatosplenomegaly Neurologic/MSK: A+Ox3, decreased ROM in right elbow and hand Skin: warm and dry Principal Diagnosis Right upper extremity cellulitis Suspected gout Hypertension Discharge Data Allergies Allergy/AdvReac Type Severity Reaction Status Date / Time No Known Allergies Allergy Verified 10/18/20 17:36 Consultations 09/27/24 13:00 ED Decision to Admit Stat 09/27/24 20:41 Consult Orthopedic Surgery Routine 09/28/24 08:00 Consult Cardiology Routine 09/28/24 11:31 Consult Nephrology Routine Procedures Performed Laboratory Results WBC 10.51 K/ul (4.8-10.8) 09/30/24 11:12 RBC 4.85 M/uL (4.70-6.10) 09/30/24 11:12 Hgb 14.2 g/dl (14.0-18.0) 09/30/24 11:12 Hct 42.6 % (42.0-52.0) 09/30/24 11:12 MCV 87.8 fL (80.0-100.0) 09/30/24 11:12 MCH 29.3 pg (25.0-34.0) 09/30/24 11:12 MCHC 33.3 g/dL (32.0-36.0) 09/30/24 11:12 RDW Std Deviation 41.8 fL (36.4-46.3) 09/30/24 11:12 RDW Coeff of Christian 13.0 % (11.5-14.5) 09/30/24 11:12 Plt Count 222 K/uL (130-400) 09/30/24 11:12 MPV 11.1 fL (9.4-12.4) 09/30/24 11:12 Immature Gran % (Auto) 0.2 % 09/27/24 11:50 Neut % (Auto) 73.1 % 09/27/24 11:50 Lymph % (Auto) 9.0 % 09/27/24 11:50 [place] % (Auto) 11.9 % 09/27/24 11:50 Eos % (Auto) 5.3 % 09/27/24 11:50 Baso % (Auto) 0.5 % 09/27/24 11:50 Neut # (Auto) 6.11 K/uL (1.40-6.50) 09/27/24 11:50 Lymph # (Auto) 0.75 K/uL (1.20-3.40) L 09/27/24 11:50 [place] # (Auto) 0.99 K/uL (0.11-0.59) H 09/27/24 11:50 Eos # (Auto) 0.44 K/uL (0.00-0.50) 09/27/24 11:50 Baso # (Auto) 0.04 K/uL (0.00-0.20) 09/27/24 11:50 Immature Gran # (Auto) 0.02 K/uL (0.01-0.20) 09/27/24 11:50 ESR 51 mm/hr (0-20) H 09/28/24 05:29 PT 11.9 Seconds (9.0-12.0) 09/27/24 11:50 INR 1.1 (0.9-1.1) 09/27/24 11:50 APTT 38 Seconds (21-31) H 09/27/24 11:50 PTT Ratio 1.4 09/27/24 11:50 Sodium 139 mmol/L (136-145) 09/30/24 11:12 Potassium 4.3 mmol/L (3.5-5.1) 09/30/24 11:12 Chloride 102 mmol/L (98-107) 09/30/24 11:12 Carbon Dioxide 30 mmol/L (21-32) 09/30/24 11:12 Anion Gap 7 (3-11) 09/30/24 11:12 BUN 38 mg/dl (6-23) H 09/30/24 11:12 Creatinine 1.25 mg/dl (0.6-1.4) 09/30/24 11:12 Est Cr Clr Drug Dosing 79.9 ml/min 09/30/24 11:12 eGFR 64.70 09/30/24 11:12 BUN/Creatinine Ratio 30.4 (10-20) H 09/30/24 11:12 Glucose 147 mg/dl (70-99(Fasting)) H 09/30/24 11:12 Uric Acid 10.5 mg/dl (2.6-7.2) H 09/27/24 11:50 Calcium 10.4 mg/dl (8.6-10.3) H 09/30/24 11:12 Magnesium 1.9 mg/dl (1.7-2.4) 09/30/24 11:12 Total Bilirubin 1.3 mg/dl (0.2-1.0) H 09/27/24 11:50 AST 20 U/L (13-39) 09/27/24 11:50 ALT 19 U/L (7-52) 09/27/24 11:50 Alkaline Phosphatase 99 U/L (34-104) 09/27/24 11:50 Total Creatine Kinase 48 U/L (30-223) 09/27/24 11:50 Troponin I High Sens 11.3 pg/ml (0-20) D 09/28/24 05:29 C-Reactive Protein 5.30 mg/dl (0-0.5) H 09/28/24 05:29 Total Protein 7.4 gm/dl (6.0-8.3) 09/27/24 11:50 Albumin 4.3 gm/dl (3.4-5.0) 09/27/24 11:50 Globulin 3.1 gm/dl (2.5-4.0) 09/27/24 11:50 Albumin/Globulin Ratio 1.4 (0.9-2) 09/27/24 11:50 Procalcitonin 0.38 ng/ml (0-0.5) 09/27/24 11:50 Urine Color Yellow 09/29/24 05:00 Urine Appearance Clear (Clear) 09/29/24 05:00 Urine pH 5.5 (4.5-7.5) 09/29/24 05:00 Ur Specific [place] 1.019 (1.000-1.030) 09/29/24 05:00 Urine Protein 1+ (Negative) H 09/29/24 05:00 Urine Glucose (UA) Negative (Negative) 09/29/24 05:00 Urine Ketones Trace (Negative) H 09/29/24 05:00 Urine Blood Negative (Negative) 09/29/24 05:00 Urine Nitrite Negative (Negative) 09/29/24 05:00 Urine Bilirubin Negative (Negative) 09/29/24 05:00 Urine Urobilinogen Negative (Negative) 09/29/24 05:00 Ur Leukocyte Esterase Negative (Negative) 09/29/24 05:00 Urine WBC (Auto) 0-5 /hpf (0-5) 09/29/24 05:00 Urine RBC (Auto) 0-2 /hpf (0-2) 09/29/24 05:00 U Hyaline Cast (Auto) 3-5 /lpf (0-2) H 09/29/24 05:00 U Epithel Cells (Auto) 0-2 /hpf (0-2) 09/29/24 05:00 Urine Bacteria (Auto) None Seen (None Seen) 09/29/24 05:00 Ur Random Creatinine 92.8 mg/dl 09/29/24 05:46 U Random Total Protein 35.7 mg/dl (0-11.9) H 09/29/24 05:46 Protein/Creatinin Ratio 0.4 (0-0.2) H 09/29/24 05:46 Nasal Screen MRSA (PCR) Negative (Negative) 09/27/24 13:02 Lyme Disease Screen Negative (Negative) 09/27/24 11:50 Impressions Venous Doppler Study 09/27/24 10:23 ULTRASOUND RIGHT UPPER EXTREMITY VENOUS CLINICAL HISTORY: Acute pain of the right upper extremity. COMPARISON STUDY: None. TECHNIQUE: Real-time, grayscale, and color Doppler sonography of the deep veins of the right upper extremity is performed. Compression and augmentation were utilized. FINDINGS: There is no sonographic evidence of deep venous thrombosis identified in the right upper extremity. The right internal jugular, axillary, and brachial veins are patent and normally compressible. Normal venous waveforms and augmentation are seen within the right subclavian vein. The cephalic and basilic veins are clear. The visualized radial and ulnar veins are patent. IMPRESSION: There is no sonographic evidence of deep venous thrombosis identified in the right upper extremity. ACT 112: Negative or not required by law. Electronically signed by: Jerome Toribio M.D. 09/27/2024 11:[address] 09/27/24 13:51 CT forearm RT wo con CLINICAL HISTORY: swelling and erythema of right elbow and hand COMPARISON STUDY: None FINDINGS: There is motion artifact. There is soft tissue edema at the visualized elbow and proximal forearm. No focal soft tissue abscess or hematoma seen. No evidence of osteomyelitis. There are mild degenerative changes at the elbow and wrist. IMPRESSION: 1. Findings suggesting cellulitis without focal abscess or hematoma. 2. No evidence of osteomyelitis seen. ACT 112: Negative or not required by law. Electronically signed by: Peter Godinez M.D. 09/27/2024 3:[address] 09/27/24 14:22 CT elbow RT wo con HISTORY: 64 years-old Male right elbow swelling and pain acute pain and swelling of the right upper extremity COMPARISON: CT right forearm of same day TECHNIQUE: Multiple axial CT images of the right elbow were obtained without IV contrast. A dose lowering technique was used consistent with the principals of ALARA. FINDINGS: There is moderate subcutaneous and deep tissue edema of the elbow, proximal to mid forearm which is most pronounced along the dorsal and dorsomedial margins. No drainable fluid collection or discrete mass identified by CT. Arterial calcifications are noted. There is also heterogeneity and edema noted within the anterior and posterior compartment musculature of the forearm and also within the distal myotendinous junction of the triceps. No intra-articular loose bodies identified. There is moderate joint space narrowing with subcortical cystic changes and marginal osteophytic spurring involving the radiocapitellar and trochlear olecranon articulations. The radial head appears intact. No acute fracture, dislocation or definite acute osseous erosion identified by CT. Small joint effusion of the elbow. IMPRESSION: 1. Moderate osteoarthritis of the elbow without acute fracture, dislocation or acute osseous erosion. 2. Small joint effusion with moderate nonspecific subcutaneous and deep tissue edema of the elbow and imaged forearm suspicious for cellulitis/myositis. 3. No discrete fluid collection. ACT 112: Negative or not required by law. The above report was generated using voice recognition software. It may contain grammatical, syntax or spelling errors. Electronically signed by: Jerome Toribio M.D. 09/27/2024 3:[address] 09/27/24 14:22 CT hand RT wo con HISTORY: 64 years-old Male right hand swelling and pain acute pain and swelling of the right upper extremity COMPARISON: CT right elbow and forearm studies of same day TECHNIQUE: Multiple axial CT images of the right hand were obtained without IV contrast. A dose lowering technique was used consistent with the principals of ALARA. FINDINGS: Moderate dorsal prominent subcutaneous and deep tissue edema of the hand and distal forearm. A cortical extensor tenosynovitis. No discrete fluid collections. Tendons and ligaments are not well evaluated by CT technique. Multifocal osteoarthritis, moderate to severe within the first carpometacarpal joint with chronic remodeling. No acute fracture, dislocation or osseous erosion is identified. Probable small radiocarpal effusion. IMPRESSION: 1. Osteoarthritis without acute osseous abnormality identified. 2. Moderate dorsal predominant subcutaneous and deep tissue edema favors cellulitis/myositis. 3. Equivocal extensor tenosynovitis. Correlate with physical exam findings. 4. No drainable fluid collections identified. ACT 112: Negative or not required by law. The above report was generated using voice recognition software. It may contain grammatical, syntax or spelling errors. Electronically signed by: Jerome Toribio M.D. 09/27/2024 3:25 PM Ordered Studies 09/27/24 10:23 US venous doppler UE RT Stat 09/27/24 13:51 CT arm [CT forearm RT wo con] Stat 09/27/24 14:22 CT elbow RT wo con Stat CT hand RT wo con Stat Hospital Course (1) Cellulitis of right hand: (2) Swelling of right upper extremity: (3) History of kidney transplant: (4) Immunosuppressed status: (5) Atrial fibrillation: (6) HTN (hypertension): (7) HLD (hyperlipidemia): (8) Hyperparathyroidism due to renal insufficiency: Plan Patient is a 64 year old male with PMH significant for PAF, HTN, HLD, hyperparathyroidism, s/p renal transplant (2018) with chronic immunotherapy who presented to the ED today with right upper extremity pain and swelling for 5 days. Cellulitis of right hand, right upper extremity swelling Immunocompromise state H/O Gout suspected acute flare Elevated Uric acid levels --R Forearm CT:Findings suggesting cellulitis without focal abscess or hematoma. No evidence of osteomyelitis seen. --R Elbow CT:Moderate osteoarthritis of the elbow without acute fracture, dislocation or acute osseous erosion. Small joint effusion with moderate nonspecific subcutaneous and deep tissue edema of the elbow and imaged forearm suspicious for cellulitis/myositis. No discrete fluid collection. --Hand CT:Osteoarthritis without acute osseous abnormality identified. Moderate dorsal predominant subcutaneous and deep tissue edema favors cellulitis/myositis. Equivocal extensor tenosynovitis. Correlate with physical exam findings. No drainable fluid collections identified. --Venous Doppler:There is no sonographic evidence of deep venous thrombosis identified in the right upper extremity. -- Blood cultures: Negative to date --Empirically on daptomycin, cefepime Also on steroids--tapered down to prednisone Refused compressive wrap per Ortho No surgical intervention needed currently Might benefit from following with rheumatology as outpatient Transition to oral antibiotics on discharge Plan to be discharged home today s/p renal transplant, immunocompromised state Renal function stable Continue tacrolimus and mycophenolate per home dosing Appreciate nephrology input Needs follow-up with nephrology Dr. Guerrero as outpatient Atrial flutter Abnormal EKG Troponin negative Continue carvedilol Continue Eliquis for anticoagulation Appreciate cardiology input Monitor and replete electrolytes as needed Chronic heart failure with preserved ejection fraction H/O noncompliance with diuretics --ECHO: Moderate concentric LVH. No regional wall motion abnormality. EF 55 to 60%. Right ventricle is normal size and function. Left atrium is severely dilated. Mild tricuspid regurgitation. Pulmonary systolic pressure estimated to be 35 mmHg. Grade 1 diastolic dysfunction. --Continue torsemide 20 mg daily Monitor volume status Appreciate cardiology input Was to be scheduled for cardiac MRI and 2D nuclear stress test as outpatient Hypomagnesemia Replace and monitor HTN Continue lisinopril and clonidine Increased lisinopril to 20 mg daily for better BP control Increased Clonidine to 0.1mg TID Also started on Amlodipine 2.5mg daily Monitor blood pressure HLD Holding statin while on daptomycin Hyperparathyroidism Continue cinacalcet per home dosing DVT Px: Eliquis Code Status: FULL CODE Disposition: Home Total Time Total Time Spent Total Time Spent (In Minutes): 55 minutes Discharge Plan Discharge Items Patient Disposition: Home - Self-Care Reason For Visit: RIGHT ARM PAIN AND SWELLING,ABNORMAL EKG Discharge Diagnosis: Right upper extremity cellulitis Suspected gout Hypertension Condition on Discharge: Good Activity: Per Instructions section Exercise/Sports: Gradually increase as tolerated Non-emergency contact: Primary Care Provider and Security Operations Center Operator Call non-emergency contact if: you have any medication questions, your symptoms worsen, your pain is concerning for you and you have a fever Follow-up/Referrals: Myles Peacock MD [Physician] - (as needed) Julia Garcia DO [Primary Care Provider] - Diet: Heart Healthy Addtl Attending Provider Instructions: Follow-up with your primary care physician in 1 week Follow-up with your orthopedic surgeon Dr. Peacock/energy control officer as needed Follow-up with your microwave oven assembler in 3-4 weeks -- Your final blood cultures are pending at the time of discharge. Follow-up with your physician for results. -- Complete the antibiotic course cefuroxime and Doxycycline as prescribed -- Complete prednisone taper course as prescribed Prednisone taper course Start taking prednisone 20 mg daily for 2 days, then take 10 mg daily for 2 days and stop. -- Monitor blood pressure daily as advised. Discussed with your primary care physician/microwave oven assembler for further recommendations for managing your blood pressure. Seek immediate medical attention if your symptoms reoccur or worsen Please review medication list provided on discharge for any medication changes as instructed. Please call if you have any questions or problems. You can reach a [facility] hospitalist on duty at [facility] 24 hours a day by calling [phone] Pending Studies at Discharge: Yes Studies:: Blood culture Stand-Alone Forms: My [facility], Smoking Cessation Medications and DC Order Prescriptions: New amlodipine [Norvasc] 5 mg Tablet 2.5 mg PO QAM Qty: 30 0RF Advanced Probiotic 625 mg (10 billion cell) Capsule 1 cap PO DAILY Qty: 10 0RF prednisone 10 mg tablet 20 mg PO UD Qty: 6 0RF Rx Instructions: Start taking prednisone 20 mg daily for 2 days, then take 10 mg daily for 2 days and stop cefuroxime axetil 500 mg tablet 500 mg PO BID Qty: 10 0RF doxycycline hyclate 100 mg capsule 100 mg PO BID Qty: 10 0RF Continued cinacalcet 30 mg tablet 30 mg PO PM Rx Instructions: TAKE THIS MEDICATION ONCE DAILY WITH EVENING MEAL aspirin 81 mg Tablet,Delayed Release (Dr/Ec) 81 mg PO DAILY acetaminophen [Tylenol Extra Strength] 500 mg Tablet 500 mg PO Q6H PRN (Reason: Pain) simvastatin 20 mg Tablet 20 mg PO DAILY magnesium oxide 400 mg magnesium Tablet 400 mg PO DAILY carvedilol 25 mg tablet 25 mg PO BID mycophenolate sodium 180 mg tablet,delayed release (DR/EC) 540 mg PO BID Saline Mist 0.65 % Aerosol,[place] 2 spray NA NOW PRN (Reason: dry nasal passages) Qty: 45 0RF torsemide 20 mg tablet 20 mg PO PM Eliquis 5 mg tablet 5 mg PO BID Envarsus XR 0.75 mg tablet extended release 24 hr 1.5 mg PO QAM Rx Instructions: 0.75mg x2 po qam levalbuterol tartrate 45 mcg/actuation HFA aerosol inhaler 1 puff INHALATION Q4 PRN (Reason: SOB) Changed lisinopril 10 mg tablet 20 mg PO QAM Qty: 60 0RF clonidine HCl 0.1 mg tablet 0.1 mg PO TID Qty: 0 0RF Discharge Orders: Discharge Order (Routine); Ordered 09/30/24 Ordered By: Rainer Marks Admission Data Admit Date/Time: 09/28/24 17:19 Attending Provider: Rainer Marks Admit Provider: Jai Billingsley Primary Care Provider: Julia Garcia Other Providers: Jai Billingsley; Myles Peacock; Toni Delatorre
[2024-09-30 13:57] VITALS: PULSE 82
[2024-09-30] MEDS ORDERED: carvediloL 25 MG TAB PO SCH (21:00)
[2024-10-01] MEDS ORDERED: predniSONE 20 MG TAB PO SCH (09:00)
[2024-10-01] MEDS ORDERED: ADVANCED PROBIOTIC 625 MG CAPSULE PO SCH (09:00)
== END 2024-09-30 14:51 | disposition home or self-care (01) | DRG 603 ==
LOC: EDINP 09:54 → ED 09:54 → SUATTDRO 14:42 → 2S 20:40
DX: I50.32 Chronic diastolic (congestive) heart failure; Z79.621 Long term (current) use of calcineurin inhibitor; I48.0 Paroxysmal atrial fibrillation; D84.821 Immunodeficiency due to drugs; M10.9 Gout, unspecified; Z79.899 Other long term (current) drug therapy; E83.42 Hypomagnesemia; Z94.0 Kidney transplant status; N25.81 Secondary hyperparathyroidism of renal origin; N18.9 Chronic kidney disease, unspecified; I13.0 Hypertensive heart and chronic kidney disease with heart failure and stage 1 through stage 4 chronic kidney disease, or unspecified chronic kidney disease; Z79.82 Long term (current) use of aspirin; L03.113 Cellulitis of right upper limb; E78.5 Hyperlipidemia, unspecified; Z79.01 Long term (current) use of anticoagulants

== ENCOUNTER 2024-10-06 19:42 | Inpatient (IN) ==
--- NOTE | 2024-10-06 20:19 | Emergency Department Note ---
Impression & Plan Cellulitis of right hand ED Provider Note NAME: OC MARTINEZ AGE: 64 SEX: M : 1960 ARRIVES VIA: Walk-In INFORMANT: Patient, ED PROVIDER(S): Arden Palafox DO CHIEF COMPLAINT: Cellulitis HPI: The patient is a 64-year-old male who presented to the emergency department for an evaluation of cellulitis. The patient was recently admitted to our facility for infection of the right hand. The patient was started on an antibiotic. He was admitted to our facility for blood pressure management as well as the infection in the hand. The patient has a history of atrial flutter. He does take a blood thinner. The patient has a history of a kidney transplant. He started having return of swelling of his hand. He was scheduled for follow-up with appointment with his family doctor but called to try to be seen earlier. He was sent to the emergency department for further evaluation. ROS: See above HPI for pertinent positives & negatives. A total of 10 systems reviewed and were otherwise negative. PAST MEDICAL HISTORY: See Below PAST SURGICAL HISTORY: See Below FAMILY HISTORY: See Below SOCIAL HISTORY: See Below HOME MEDICATIONS: See Below ALLERGIES: See Below VITALS: See Below PHYSICAL EXAMINATION: GENERAL: Patient is awake alert in no acute distress patient is resting comfortably and showing no signs of anxiety EYES: The conjunctivae are clear. The pupils are round and reactive. EARS, NOSE, MOUTH AND THROAT: The nose is without any evidence of any deformity. NECK: The neck is nontender and supple. RESPIRATORY: Normal respiratory effort is noted there is no evidence of wheezing rhonchi or rales CARDIOVASCULAR: Regular rate and rhythm noted there no murmurs rubs or gallops normal S1 normal S2. GASTROINTESTINAL: The abdomen is soft. Abdomen is nontender. MUSCULOSKELETAL/EXTREMITIES: There is no evidence of gross deformity full range of motion is noted in the hips and shoulders. SKIN: There is symmetric swelling noted of the right hand. There is diffuse erythema noted. Pulses are symmetric in both wrist. NEUROLOGIC: Patient is awake alert and oriented x3 MEDICAL DECISION MAKING: The patient is a 64-year-old male who has a history of renal transplant who presented to the emergency department for an evaluation of right hand swelling. The patient has a history of cellulitis to this hand. He was seen in our facility recently and was admitted for IV antibiotics. The patient went for follow-up with his family doctor and was found to have return of swelling. He was sent back to the emergency department for further evaluation. I discussed patient's laboratory and radiographic studies with him. Given his immunocompromise state I do feel the patient would be a better candidate for inpatient management. For this reason I discussed his condition with the on- call [facility] hospitalist. They have agreed to evaluate the patient in the emergency department for further management and disposition. Triage Nursing notes reviewed. Prior medical records reviewed Vital Signs: reviewed and remarkable for elevated blood pressure. Differential diagnosis: Cellulitis, abscess, MRSA infection, DVT, necrotizing fasciitis, dermatitis, drug eruption, allergic reaction, as well as other pathologies. ER treatment provided: See below Diagnostics interpreted by me: ECG: EKG was obtained in the emergency department. My interpretation is atrial flutter with 96 bpm. No PVCs were noted. Nonspecific ST segment abnormalities are noted. Inferior Q waves are noted. This was compared to a tracing from September 27, 2024, no changes were noted. Cardiac Monitoring: An order was placed for continuous cardiac monitoring. The monitor shows a rate of 74 bpm with atrial fibrillation. Laboratory studies: As stated above and show below. Imaging studies: See below. Radiographic imaging was reviewed by myself Consultation(s): I discussed this case with Dr. Maldonado [facility]. Past Med/Surg History Problem List (Updated 10/06/24 @ 22:36 by Arden Palafox DO) Hyperuricemia Hypertensive heart disease Chronic heart failure with preserved ejection fraction Atrial flutter with controlled response Swelling of right upper extremity (Acute) Cellulitis of right hand (Acute) HLD (hyperlipidemia) ESRD (end stage renal disease) s/p 2019 renal txplt Immunosuppressed status (Acute) History of kidney transplant (Acute) Atrial fibrillation A FIB EVENT X 1 (WITH 2ND DIALYSIS) Hyperparathyroidism due to renal insufficiency (Chronic) HTN (hypertension) (Chronic) Medical History Breathlessness Respiratory syncytial virus (RSV) Fever of unknown origin DVT prophylaxis SIRS (systemic inflammatory response syndrome) Cholelithiasis Family hx colonic polyps Hyperphosphatemia End stage renal failure on dialysis Gout Osteoarthritis GERD (gastroesophageal reflux disease) Asthma A CHILD (NO CURRENT PROBLEMS) New onset atrial fibrillation Surgical History History of cholecystectomy Renal transplant recipient Date of transplant 02/17/2019, at [facility] Living donor transplant History of tooth extraction S/P arteriovenous (AV) fistula creation LEFT ARM Family History Brother Family hx colonic polyps Father Heart disease Stroke Mother Coronary heart disease Other Dementia Hypertension Skin cancer Social History Smoking Status: Never smoker Second Hand Exposure: Yes; Do You Dip or Chew Tobacco: No; Hx Alcohol Use: No Hx Substance Use: No Preferred Language: Tunisian Communication Ability: Effective Visual Impairment: No 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 Beliefs That Will Affect Care: None marital status: Current Living Situation: Spouse current occupational status: employed Feels Safe at Home: Yes Assistive Devices: None Allergies Allergies Allergy/AdvReac Type Severity Reaction Status Date / Time No Known Allergies Allergy Verified 10/06/24 21:49 Home Meds Home Medications Medication Instructions Recorded Confirmed cinacalcet 30 mg tablet 30 mg PO PM 04/24/18 10/06/24 acetaminophen 500 mg tablet 500 mg PO Q6H PRN Pain 06/18/20 10/06/24 (Tylenol Extra Strength) aspirin 81 mg tablet,delayed 81 mg PO DAILY 06/18/20 10/06/24 release magnesium oxide 400 mg PO DAILY 06/18/20 10/06/24 simvastatin 20 mg tablet 20 mg PO DAILY 06/18/20 10/06/24 carvedilol 25 mg tablet 25 mg PO BID 10/18/20 10/06/24 mycophenolate sodium 180 mg 540 mg PO BID 05/22/23 10/06/24 tablet,delayed release apixaban 5 mg tablet (Eliquis) 5 mg PO BID 09/27/24 10/06/24 levalbuterol tartrate 45 1 puff inhalation Q4 PRN SOB 09/27/24 10/06/24 mcg/actuation aerosol inhaler tacrolimus 0.75 mg tablet,extended 1.5 mg PO QAM 09/27/24 10/06/24 release 24 hr (Envarsus XR) torsemide 20 mg tablet 20 mg PO PM 09/27/24 10/06/24 sodium chloride 0.65 % nasal spray 2 spray NA DIRECTED PRN dry 10/06/24 10/06/24 aerosol (Saline Mist) nasal passages Previous Rx's Medication Instructions Recorded L.acidop,casei,lactis,rham-B.lact,shantell 1 cap PO DAILY #10 caps 09/30/24 625 mg (10 billion cell) capsule (Advanced Probiotic) amlodipine 5 mg tablet (Norvasc) 2.5 mg (1/2 x 5 mg) PO QAM #30 tabs 09/30/24 clonidine HCl 0.1 mg tablet 0.1 mg PO TID #0 tabs 09/30/24 lisinopril 10 mg tablet 20 mg (2 x 10 mg) PO QAM #60 tabs 09/30/24 Results & Data (ED) Vital Signs Vital Signs - 24 hr 10/06/24 19:45 10/06/24 20:11 10/06/24 20:13 Temperature 36.3 C L Temperature Source Temporal Artery Scan Pulse Rate 101 H 97 H Pulse Rate [Right Finger] 96 H Pulse Rhythm [Right Finger] Regular Pulse Strength [Right Finger] Normal Respiratory Rate 18 20 21 Respiratory Effort / Characteristics Non-Labored Respiratory Depth Normal Respiratory Pattern Regular Blood Pressure 156/92 H Blood Pressure [Right Arm] 151/108 H Blood Pressure Mean 113 Blood Pressure Mean [Right Arm] 122 Blood Pressure Position [Right Arm] Lying Pulse Oximetry 94 95 94 Oxygen Delivery Method Room Air Room Air Room Air Sepsis Recent Fever Within 48 Hours No Sepsis New/Unexplained Change in Mental Status No Sepsis Action Taken by Nursing No Action Required 10/06/24 20:35 10/06/24 22:02 Temperature Temperature Source Pulse Rate 103 H Pulse Rate [Right Finger] 74 Pulse Rhythm [Right Finger] Regular Pulse Strength [Right Finger] Normal Respiratory Rate 17 Respiratory Effort / Characteristics Non-Labored Respiratory Depth Normal Respiratory Pattern Regular Blood Pressure Blood Pressure [Right Arm] 143/89 H Blood Pressure Mean Blood Pressure Mean [Right Arm] 107 Blood Pressure Position [Right Arm] Lying Pulse Oximetry 95 Oxygen Delivery Method Room Air Sepsis Recent Fever Within 48 Hours Sepsis New/Unexplained Change in Mental Status Sepsis Action Taken by [facility] Medications Current Medication List: was personally reviewed by me Laboratory Data Attestation: I reviewed the patient's lab results. 10/06/24 20:08 10/06/24 20:08 Lab Results 10/06/24 Range/Units 20:08 WBC 9.85 (4.8-10.8) K/ul RBC 4.85 (4.70-6.10) M/uL Hgb 14.0 (14.0-18.0) g/dl Hct 41.2 L (42.0-52.0) % MCV 84.9 (80.0-100.0) fL MCH 28.9 (25.0-34.0) pg MCHC 34.0 (32.0-36.0) g/dL RDW Std Deviation 38.5 (36.4-46.3) fL RDW Coeff of Christian 12.6 (11.5-14.5) % Plt Count 214 (130-400) K/uL MPV 10.0 (9.4-12.4) fL Immature Gran % (Auto) 0.7 % Neut % (Auto) 70.7 % Lymph % (Auto) 12.2 % Luce % (Auto) 11.0 % Eos % (Auto) 5.0 % Baso % (Auto) 0.4 % Neut # (Auto) 6.97 H (1.40-6.50) K/uL Lymph # (Auto) 1.20 (1.20-3.40) K/uL Luce # (Auto) 1.08 H (0.11-0.59) K/uL Eos # (Auto) 0.49 (0.00-0.50) K/uL Baso # (Auto) 0.04 (0.00-0.20) K/uL Immature Gran # (Auto) 0.07 (0.01-0.20) K/uL ESR 20 (0-20) mm/hr PT 11.5 (9.0-12.0) Seconds INR 1.1 (0.9-1.1) APTT 29 (21-31) Seconds PTT Ratio 1.1 Sodium 139 (136-145) mmol/L Potassium 4.4 (3.5-5.1) mmol/L Chloride 103 (98-107) mmol/L Carbon Dioxide 31 (21-32) mmol/L Anion Gap 5 (3-11) BUN 33 H (6-23) mg/dl Creatinine 1.20 (0.6-1.4) mg/dl Est Cr Clr Drug Dosing 80.5 ml/min eGFR 67.95 BUN/Creatinine Ratio 27.5 H (10-20) Glucose 140 H (70-99(Fasting)) mg/dl Lactate 1.3 (0.4-2.0) mmol/L Uric Acid 9.0 H (2.6-7.2) mg/dl Calcium 10.6 H (8.6-10.3) mg/dl Total Bilirubin 0.7 (0.2-1.0) mg/dl AST 21 (13-39) U/L ALT 24 (7-52) U/L Alkaline Phosphatase 83 (34-104) U/L Troponin I High Sens 14.7 (0-20) pg/ml Total Protein 7.4 (6.0-8.3) gm/dl Albumin 4.1 (3.4-5.0) gm/dl Globulin 3.3 (2.5-4.0) gm/dl Albumin/Globulin Ratio 1.2 (0.9-2) Lipase 97 H (11-82) U/L Procalcitonin 0.21 (0-0.5) ng/ml Administered Medications Discontinued Medications Piperacillin Sod/Tazobactam Sod (Zosyn) 4.5 gm in 100 mls @ 200 mls/hr IV NOW ONE; Protocol Stop: 10/06/24 20:44 Last Infusion: 10/06/24 21:10 Dose: Infused Documented By: Admin: 10/06/24 20:31 Dose: 200 mls/hr Documented By: ROSE MARIE Imaging Data Attestation: I personally reviewed and interpreted this imaging study as follows: My Impression: 1 view chest x-ray was obtained in the emergency department. My interpretation is no free air or definite infiltrate, final report below. Radiologist's Impression: Chest X-Ray 10/06/24 20:13 Exam(s): XR CXR 1 VIEW EXAM: XR Chest, 1 View CLINICAL HISTORY: Reason for exam: infection. TECHNIQUE: Frontal view of the chest. COMPARISON: 05/22/2023 FINDINGS: Lungs: No consolidation. No overt edema. Pleural space: No pleural effusion. No pneumothorax. Heart: Unremarkable. No cardiomegaly. IMPRESSION: No acute cardiopulmonary abnormality. Electronically signed by: Anastacio Nash MD 10/06/24 22:11 PM Hand X-Ray 10/06/24 20:13 Exam(s): XR RIGHT HAND, 3 views EXAM: XR Right Hand Complete, 3 or More Views CLINICAL HISTORY: Reason for exam: infection. TECHNIQUE: Frontal, lateral and oblique views of the right hand. COMPARISON: No relevant prior studies available. FINDINGS: Bones/joints: No fracture or malalignment. No evidence of osteomyelitis. Degenerative changes most pronounced at the MCP joints and first CMC joint. Soft tissues: Unremarkable. No radiopaque foreign body. IMPRESSION: No evidence of osteomyelitis. Electronically signed by: Anastacio Nash MD 10/06/24 22:10 PM Discharge Plan Visit Data Chief Complaint: Swelling/Edema to Extremity Stated Complaint: SWELLING OF HAND, DONE WITH ANTIBIOTICS ED Provider: Arden Palafox Discharge Problem: Cellulitis of right hand Patient Disposition: Being Evaluated by Hospitalist Forms Stand Alone Forms: My [facility] Prescriptions Prescriptions: No Action cinacalcet 30 mg tablet 30 mg PO PM Rx Instructions: TAKE THIS MEDICATION ONCE DAILY WITH EVENING MEAL aspirin 81 mg Tablet,Delayed Release (Dr/Ec) 81 mg PO DAILY acetaminophen [Tylenol Extra Strength] 500 mg Tablet 500 mg PO Q6H PRN (Reason: Pain) simvastatin 20 mg Tablet 20 mg PO DAILY magnesium oxide 400 mg magnesium Tablet 400 mg PO DAILY carvedilol 25 mg tablet 25 mg PO BID mycophenolate sodium 180 mg tablet,delayed release (DR/EC) 540 mg PO BID torsemide 20 mg tablet 20 mg PO PM Eliquis 5 mg tablet 5 mg PO BID Envarsus XR 0.75 mg tablet extended release 24 hr 1.5 mg PO QAM Rx Instructions: 0.75mg x2 po qam levalbuterol tartrate 45 mcg/actuation HFA aerosol inhaler 1 puff INHALATION Q4 PRN (Reason: SOB) amlodipine [Norvasc] 5 mg Tablet 2.5 mg PO QAM Qty: 30 0RF Advanced Probiotic 625 mg (10 billion cell) Capsule 1 cap PO DAILY Qty: 10 0RF clonidine HCl 0.1 mg tablet 0.1 mg PO TID Qty: 0 0RF lisinopril 10 mg tablet 20 mg PO QAM Qty: 60 0RF Saline Mist 0.65 % aerosol,spray 2 spray NA DIRECTED PRN (Reason: dry nasal passages) Referrals Referrals: Julia Garcia DO [Primary Care Provider] -
[2024-10-06 20:22] LABS: Basophils # (auto) 0.04 K/uL (0.00-0.20); Basophils % (auto) 0.4 %; Eosinophils # (auto) 0.49 K/uL (0.00-0.50); Hematocrit (blood only) 41.2 % (42.0-52.0); Immature Granulocytes # (auto) 0.07 K/uL (0.01-0.20); Immature Granulocytes % (auto) 0.7 %; Lymphocytes % (auto) 12.2 %; Mean Corpuscular Hemoglobin 28.9 pg (25.0-34.0); Mean Corpuscular Volume 84.9 fL (80.0-100.0); Monocytes # (auto) 1.08 K/uL (0.11-0.59); Neutrophils # (auto) 6.97 K/uL (1.40-6.50); Neutrophils % (auto) 70.7 %; Platelet Count 214 K/uL (130-400); RDW Coefficient of Variation 12.6 % (11.5-14.5); RDW Standard Deviation 38.5 fL (36.4-46.3); Red Blood Count 4.85 M/uL (4.70-6.10); White Blood Count 9.85 K/ul (4.8-10.8)
[2024-10-06] MEDS: PIPERACILLIN/TAZOBACTAM 4.5 GM/100 ML BAG IV ONE (20:31)
[2024-10-06 20:42] LABS: Albumin Globulin Ratio 1.2 (0.9-2); Albumin Level 4.1 gm/dl (3.4-5.0); BUN Creatinine Ratio 27.5 (10-20); Bilirubin,Total 0.7 mg/dl (0.2-1.0); Calcium 10.6 mg/dl (8.6-10.3); Creatinine Clr Calc Pharmacy 80.5 ml/min; Globulin 3.3 gm/dl (2.5-4.0); Potassium 4.4 mmol/L (3.5-5.1); Total Protein 7.4 gm/dl (6.0-8.3)
[2024-10-06 20:47] LABS: Troponin I High Sensitivity 14.7 pg/ml (0-20)
[2024-10-06 21:10] LABS: INR 1.1 (0.9-1.1); Partial Thromboplastin Ratio 1.1; Partial Thromboplastin Time 29 Seconds (21-31); Prothrombin Time 11.5 Seconds (9.0-12.0)
--- NOTE | 2024-10-06 22:11 | XRay Report ---
Exam(s): XR RIGHT HAND, 3 views EXAM: XR Right Hand Complete, 3 or More Views CLINICAL HISTORY: Reason for exam: infection. TECHNIQUE: Frontal, lateral and oblique views of the right hand. COMPARISON: No relevant prior studies available. FINDINGS: Bones/joints: No fracture or malalignment. No evidence of osteomyelitis. Degenerative changes most pronounced at the MCP joints and first CMC joint. Soft tissues: Unremarkable. No radiopaque foreign body. IMPRESSION: No evidence of osteomyelitis. Electronically signed by: Anastacio Nash MD 10/06/24 22:10 PM
--- NOTE | 2024-10-06 22:13 | XRay Report ---
Exam(s): XR CXR 1 VIEW EXAM: XR Chest, 1 View CLINICAL HISTORY: Reason for exam: infection. TECHNIQUE: Frontal view of the chest. COMPARISON: 05/22/2023 FINDINGS: Lungs: No consolidation. No overt edema. Pleural space: No pleural effusion. No pneumothorax. Heart: Unremarkable. No cardiomegaly. IMPRESSION: No acute cardiopulmonary abnormality. Electronically signed by: Anastacio Nash MD 10/06/24 22:11 PM
[2024-10-06 22:45] LABS: C Reactive Protein 0.95 mg/dl (0-0.5)
[2024-10-07] MEDS: cloNIDine HCL 0.1 MG TAB PO ONE (02:01)
[2024-10-07] MEDS: ACETAMINOPHEN 500 MG TAB PO STA (02:01)
[2024-10-07] MEDS: methylPREDNISolone 125 MG/2 ML VIAL IV STA (02:05)
[2024-10-07] MEDS ORDERED: POLYETHYLENE (MIRALAX) 17 GM PACK PO PRN (02:07)
[2024-10-07] MEDS ORDERED: SODIUM CHLORIDE 0.65% NA SOLN 45 ML (OCEAN) PRN (02:07)
[2024-10-07] MEDS ORDERED: LEVALBUTEROL TARTRATE 15 GM HFA.AER.AD INH PRN (02:07)
[2024-10-07] MEDS ORDERED: ACETAMINOPHEN 325 MG TAB PO PRN (02:07)
--- NOTE | 2024-10-07 02:16 | History & Physical Report ---
Date of Service October 07, 2024 Assessment & Plan (1) Cellulitis of right hand: Plan: 64-year-old male with past medical history significant for hypertension, hyperlipidemia, secondary hyperparathyroidism, status post renal transplant in 2019 with chronic immunotherapy, history of paroxysmal atrial fibrillation, was recently in the hospital for right hand cellulitis/gout comes back with a right hand infection. Patient was admitted on September 27, 2024 and was discharged on September 30, 2024. During that admission he was treated for cellulitis of right hand with daptomycin and cefepime. He was also given steroids for suspected gout flare as uric acid was high. Patient was also noted to have A flutter and seen by cardiology was started on Eliquis and is also on Coreg. He was discharged on cefuroxime and doxycycline and prednisone taper. Patient says he completed antibiotics on Thursday. Last admission right hand was much swollen and that is improved with antibiotic per patient. And today again right hand started to swell and also having pain and he called his PCP office and was advised to come to the ER. Having painful movement of the right hand. Mild swelling and erythema seen. Denies any fevers. Denies any chest pain or shortness of breath. No cough. No nausea. No abdominal pain. No headache. No runny nose or sore throat. Bowels are loose. Micturating okay. Sitting in the chair comfortably and hemodynamics are okay. Cellulitis of right hand Uric acid 9 Possible gout flare Recently in the hospital was treated with cefepime and Dapto and prednisone In the ER received Zosyn Continue with Zosyn and Dapto and steroids Ortho consult in a.m. Will monitor the response Hypertension On Coreg, amlodipine, clonidine, lisinopril and torsemide Will monitor S/p renal transplant On Envarsus and mycophenolate If any concern will consult nephrology Paroxysmal atrial fibrillation On Coreg and Eliquis We will monitor Chronic heart failure with preserved ejection fraction There is a plan for cardiac MRI and nuclear stress test as outpatient Continue torsemide Will monitor DVT prophylaxis On Eliquis Disposition Med/telemetry Full code. Admission and Anticipated Discharge Date Admission Date: October 07, 2024 History of Present Illness Chief Complaint: Right hand cellulitis Primary Care Provider: Julia Garcia DO 64-year-old male with past medical history significant for hypertension, hyperlipidemia, secondary hyperparathyroidism, status post renal transplant in 2019 with chronic immunotherapy, history of paroxysmal atrial fibrillation, was recently in the hospital for right hand cellulitis/gout comes back with a right hand infection. Patient was admitted on September 27, 2024 and was discharged on September 30, 2024. During that admission he was treated for cellulitis of right hand with daptomycin and cefepime. He was also given steroids for suspected gout flare as uric acid was high. Patient was also noted to have A flutter and seen by cardiology was started on Eliquis and is also on Coreg. He was discharged on cefuroxime and doxycycline and prednisone taper. Patient says he completed antibiotics on Thursday. Last admission right hand was much swollen and that is improved with antibiotic per patient. And today again right hand started to swell and also having pain and he called his PCP office and was advised to come to the ER. Having painful movement of the right hand. Mild swelling and erythema seen. Denies any fevers. Denies any chest pain or shortness of breath. No cough. No nausea. No abdominal pain. No headache. No runny nose or sore throat. Bowels are loose. Micturating okay. Sitting in the chair comfortably and hemodynamics are okay. Past medical history. As mentioned above Past surgical history. Colonoscopy. Laparoscopic cholecystectomy. Renal transplant. Social history. . No smoking. No alcohol use. No drug use. Family history. Father had heart disease. Stroke. Mother had heart disease. Brother had testicular cancer. Sister has liver problem. Allergies Allergy/AdvReac Type Severity Reaction Status Date / Time No Known Allergies Allergy Verified 10/06/24 21:49 Home Medications Medication Instructions Recorded Confirmed Type cinacalcet 30 mg tablet 30 mg PO PM 04/24/18 10/06/24 History acetaminophen 500 mg tablet 500 mg PO Q6H PRN Pain 06/18/20 10/06/24 History (Tylenol Extra Strength) aspirin 81 mg tablet,delayed 81 mg PO DAILY 06/18/20 10/06/24 History release magnesium oxide 400 mg PO DAILY 06/18/20 10/06/24 History simvastatin 20 mg tablet 20 mg PO DAILY 06/18/20 10/06/24 History carvedilol 25 mg tablet 25 mg PO BID 10/18/20 10/06/24 History mycophenolate sodium 180 mg 540 mg PO BID 05/22/23 10/06/24 History tablet,delayed release apixaban 5 mg tablet (Eliquis) 5 mg PO BID 09/27/24 10/06/24 History levalbuterol tartrate 45 1 puff inhalation Q4 PRN SOB 09/27/24 10/06/24 History mcg/actuation aerosol inhaler tacrolimus 0.75 mg tablet,extended 1.5 mg PO QAM 09/27/24 10/06/24 History release 24 hr (Envarsus XR) torsemide 20 mg tablet 20 mg PO PM 09/27/24 10/06/24 History L.acidop,casei,lactis,rham-B.lact,shantell 1 cap PO DAILY #10 caps 09/30/24 10/06/24 Rx 625 mg (10 billion cell) capsule (Advanced Probiotic) amlodipine 5 mg tablet (Norvasc) 2.5 mg (1/2 x 5 mg) PO QAM #30 tabs 09/30/24 10/06/24 Rx clonidine HCl 0.1 mg tablet 0.1 mg PO TID #0 tabs 09/30/24 10/06/24 Rx lisinopril 10 mg tablet 20 mg (2 x 10 mg) PO QAM #60 tabs 09/30/24 10/06/24 Rx sodium chloride 0.65 % nasal spray 2 spray NA DIRECTED PRN dry 10/06/24 10/06/24 History aerosol (Saline Mist) nasal passages Past Med/Surg History Problem List (Updated 10/06/24 @ 22:36 by Arden Palafox DO) Hyperuricemia Hypertensive heart disease Chronic heart failure with preserved ejection fraction Atrial flutter with controlled response Swelling of right upper extremity (Acute) Cellulitis of right hand (Acute) HLD (hyperlipidemia) ESRD (end stage renal disease) s/p 2019 renal txplt Immunosuppressed status (Acute) History of kidney transplant (Acute) Atrial fibrillation A FIB EVENT X 1 (WITH 2ND DIALYSIS) Hyperparathyroidism due to renal insufficiency (Chronic) HTN (hypertension) (Chronic) Medical History Breathlessness Respiratory syncytial virus (RSV) Fever of unknown origin DVT prophylaxis SIRS (systemic inflammatory response syndrome) Cholelithiasis Family hx colonic polyps Hyperphosphatemia End stage renal failure on dialysis Gout Osteoarthritis GERD (gastroesophageal reflux disease) Asthma A CHILD (NO CURRENT PROBLEMS) New onset atrial fibrillation Surgical History History of cholecystectomy Renal transplant recipient Date of transplant 02/17/2019, at [facility] Living donor transplant History of tooth extraction S/P arteriovenous (AV) fistula creation LEFT ARM Family History Brother Family hx colonic polyps Father Heart disease Stroke Mother Coronary heart disease Other Dementia Hypertension Skin cancer Social History Smoking Status: Never smoker Second Hand Exposure: Yes; Do You Dip or Chew Tobacco: No; Hx Alcohol Use: No Hx Substance Use: No Preferred Language: Citizen Of [place] Communication Ability: Effective Visual Impairment: No Limitations Campus Supervisor Required: No Beliefs That Will Affect Care: None marital status: Current Living Situation: Family current occupational status: employed Other Information That Helps Us Care for You: No Feels Safe at Home: Yes Safety Concerns: Feels Safe At This Time Assistive Devices: None Review of Systems Review of Systems: All systems reviewed & are unremarkable except as noted in HPI & below Physical Exam Physical Exam: General- Not in distress Head- atraumatic Eyes- PERRL. ENT- oropharynx clear Neck- supple, no JVD. Lungs- clear to auscultation no wheezing or crackles Heart- regular rhythm; no murmur, no gallop. Abdomen- normal bowel sounds, soft, nontender, no distension Extremities- right hand and wrist dorsal aspect mildly erythematous and swollen and warm on palpation Neuro- alert, oriented PERRL, no facial palsy; no dysarthria; moves extremities Results & Data Results & Data Vital Signs (Past 12 Hours) Vital Signs Temp Pulse Pulse Resp BP BP Pulse Ox 10/07/24 01:10 70 10/07/24 00:00 82 18 148/97 H 94 10/06/24 22:02 74 17 143/89 H 95 10/06/24 20:35 103 H 10/06/24 20:13 97 H 21 94 10/06/24 20:11 96 H 20 151/108 H 95 10/06/24 19:45 36.3 C L 101 H 18 156/92 H 94 O2 Del Method 10/07/24 01:10 10/07/24 00:00 Room Air 10/06/24 22:02 Room Air 10/06/24 20:35 10/06/24 20:13 Room Air 10/06/24 20:11 Room Air 10/06/24 19:45 Room Air Diagnostic Findings Laboratory Results WBC 9.85 K/ul (4.8-10.8) 10/06/24 20:08 RBC 4.85 M/uL (4.70-6.10) 10/06/24 20:08 Hgb 14.0 g/dl (14.0-18.0) 10/06/24 20:08 Hct 41.2 % (42.0-52.0) L 10/06/24 20:08 MCV 84.9 fL (80.0-100.0) 10/06/24 20:08 MCH 28.9 pg (25.0-34.0) 10/06/24 20:08 MCHC 34.0 g/dL (32.0-36.0) 10/06/24 20:08 RDW Std Deviation 38.5 fL (36.4-46.3) 10/06/24 20:08 RDW Coeff of Christian 12.6 % (11.5-14.5) 10/06/24 20:08 Plt Count 214 K/uL (130-400) 10/06/24 20:08 MPV 10.0 fL (9.4-12.4) 10/06/24 20:08 Immature Gran % (Auto) 0.7 % 10/06/24 20:08 Neut % (Auto) 70.7 % 10/06/24 20:08 Lymph % (Auto) 12.2 % 10/06/24 20:08 Jones % (Auto) 11.0 % 10/06/24 20:08 Eos % (Auto) 5.0 % 10/06/24 20:08 Baso % (Auto) 0.4 % 10/06/24 20:08 Neut # (Auto) 6.97 K/uL (1.40-6.50) H 10/06/24 20:08 Lymph # (Auto) 1.20 K/uL (1.20-3.40) 10/06/24 20:08 Jones # (Auto) 1.08 K/uL (0.11-0.59) H 10/06/24 20:08 Eos # (Auto) 0.49 K/uL (0.00-0.50) 10/06/24 20:08 Baso # (Auto) 0.04 K/uL (0.00-0.20) 10/06/24 20:08 Immature Gran # (Auto) 0.07 K/uL (0.01-0.20) 10/06/24 20:08 ESR 20 mm/hr (0-20) 10/06/24 20:08 PT 11.5 Seconds (9.0-12.0) 10/06/24 20:08 INR 1.1 (0.9-1.1) 10/06/24 20:08 APTT 29 Seconds (21-31) 10/06/24 20:08 PTT Ratio 1.1 10/06/24 20:08 Sodium 139 mmol/L (136-145) 10/06/24 20:08 Potassium 4.4 mmol/L (3.5-5.1) 10/06/24 20:08 Chloride 103 mmol/L (98-107) 10/06/24 20:08 Carbon Dioxide 31 mmol/L (21-32) 10/06/24 20:08 Anion Gap 5 (3-11) 10/06/24 20:08 BUN 33 mg/dl (6-23) H 10/06/24 20:08 Creatinine 1.20 mg/dl (0.6-1.4) 10/06/24 20:08 Est Cr Clr Drug Dosing 80.5 ml/min 10/06/24 20:08 eGFR 67.95 10/06/24 20:08 BUN/Creatinine Ratio 27.5 (10-20) H 10/06/24 20:08 Glucose 140 mg/dl (70-99(Fasting)) H 10/06/24 20:08 Lactate 1.3 mmol/L (0.4-2.0) 10/06/24 20:08 Uric Acid 9.0 mg/dl (2.6-7.2) H 10/06/24 20:08 Calcium 10.6 mg/dl (8.6-10.3) H 10/06/24 20:08 Total Bilirubin 0.7 mg/dl (0.2-1.0) 10/06/24 20:08 AST 21 U/L (13-39) 10/06/24 20:08 ALT 24 U/L (7-52) 10/06/24 20:08 Alkaline Phosphatase 83 U/L (34-104) 10/06/24 20:08 Troponin I High Sens 14.7 pg/ml (0-20) 10/06/24 20:08 C-Reactive Protein 0.95 mg/dl (0-0.5) H 10/06/24 20:08 Total Protein 7.4 gm/dl (6.0-8.3) 10/06/24 20:08 Albumin 4.1 gm/dl (3.4-5.0) 10/06/24 20:08 Globulin 3.3 gm/dl (2.5-4.0) 10/06/24 20:08 Albumin/Globulin Ratio 1.2 (0.9-2) 10/06/24 20:08 Lipase 97 U/L (11-82) H 10/06/24 20:08 Procalcitonin 0.21 ng/ml (0-0.5) 10/06/24 20:08 Impressions Chest X-Ray 10/06/24 20:13 Exam(s): XR CXR 1 VIEW EXAM: XR Chest, 1 View CLINICAL HISTORY: Reason for exam: infection. TECHNIQUE: Frontal view of the chest. COMPARISON: 05/22/2023 FINDINGS: Lungs: No consolidation. No overt edema. Pleural space: No pleural effusion. No pneumothorax. Heart: Unremarkable. No cardiomegaly. IMPRESSION: No acute cardiopulmonary abnormality. Electronically signed by: Anastacio Nash MD 10/06/24 22:11 PM Hand X-Ray 10/06/24 20:13 Exam(s): XR RIGHT HAND, 3 views EXAM: XR Right Hand Complete, 3 or More Views CLINICAL HISTORY: Reason for exam: infection. TECHNIQUE: Frontal, lateral and oblique views of the right hand. COMPARISON: No relevant prior studies available. FINDINGS: Bones/joints: No fracture or malalignment. No evidence of osteomyelitis. Degenerative changes most pronounced at the MCP joints and first CMC joint. Soft tissues: Unremarkable. No radiopaque foreign body. IMPRESSION: No evidence of osteomyelitis. Electronically signed by: Anastacio Nash MD 10/06/24 22:10 PM ECG Additional Comments: EKG. A flutter with variable AV block at rate of 96. Left axis deviation. QTc 477 Code Status & VTE Plan VTE Prophylaxis Plan VTE Prophylaxis will be ordered: Yes
[2024-10-07] MEDS: DAPTOmycin 500 MG in SYRINGE 0 ML IV SCH (02:57)
--- OUTSIDE RECORDS SUMMARY | 2024-10-07 04:04 | External Medical Summary | Summary of Care ---
Author Name Unknown Organization [facility] Address [address] [place] [address] Phone [phone] Care Team Providers Care Multiple Pressure Riveter Operator Name Role Phone Julia Garcia DO Primary Care Provider [phone] Reason for Referral * Precert (Within 10 days (routine)) - Authorized Specialty Diagnoses / Procedures Referred By Contac t Referred To Contact Radiology Diagnoses LVH (left ventricular hypertrophy) Procedures NM MYOCARD PERF IMG SPECT MULT STUDIES WITH PHARM INTERV Sarai Nash PA-C [address] [place] [address] Phone: tel: fax: Referral ID Status Reason Start Date Expiration Date V isits Requested Visits Authorized [id number] Authorized Precert 09/27/2024 11/11/2024 1 1 * Precert (Within 10 days (routine)) - Pending Review Specialty Diagnoses / Procedures Referred By Contac t Referred To Contact Radiology Diagnoses LVH (left ventricular hypertrophy) Procedures MRI CARDIAC, ADULT W WO CONTRAST Sarai Nash PA-C [address] [place] [address] Phone: tel: fax: Referral ID Status Reason Start Date Expiration Date Visits Requested Visits Authorized [id number] Pending Review Precert 08/30/2024 999 999 Reason for Visit * Reason Onset Date Comments Test Results 08/26/2024 Appointment 08/26/2024 Encounter Details Date Type Department Care Team (Late st Contact Info) Description 08/26/2024 Telephone Cardiology, [facility] [address] [place] [address] Sarai Nash PA-C [address] [place] [address] Test Results; Appointment Allergies No known active allergiesdocumented as of this encounter (statuses as of 09/29/2024) Medications aspirin enteric coated 81 MG TBECIndications:K [...] hours as needed. 3 Active Saline Nasal [place] 0.65 % Nasal Solution ([place]) Administer 2 Sprays into nostril as needed. [...] by mouth every evening. 90 Tablet 2 09/20/2024 3:10 PM EDT 5 07/19/19 26 Active Tacrolimus ER 0.75 MG Oral Tablet Extended Release 24 Hour (Envarsus XR) Take 2 tablets by mouth in the morning. 60 Tablet 5 09/20/2024 3:10 PM EDT 5 Active Apixaban 5 MG Oral Tablet (Eliquis) Take 1 Tablet by mouth in the morning and 1 Tablet before bedtime. 180 Tablet 3 5 Active Hospital, Clinic, or Other Facility Administered Medication Ordered Dose Route Frequency Start Date End Date Status Tixagevimab inj 150 mgIndications:Kidney replaced by transplant 150 mg IM [id number] 08/02/2021 Active Cilgavimab inj 150 mgIndications:Kidney replaced by transplant 150 mg IM [id number] 08/02/2021 Active documented as of this encounter (statuses as of 09/29/2024) Active Problems Problem Noted Date Diagnosed Date [...] as of this encounter (statuses as of 09/29/2024) Resolved Problems Problem Noted Date Diagnosed Date [...] as of this encounter (statuses as of 09/29/2024) Immunizations Name Administration Dates Next Due COVID-19, MRNA-LNP, PF, 30 M CG/0.3 mL, 12 YRS AND ABOVE, IM (PFIZER-Comirnaty) 04/02/2023 Covid-19 Ad26, Single Dose ([place]/J&J) 09/24/2020 Covid-19, Mrna, Lnp-s, Pf, B ivalent, 30 Mcg, IM, 12 yrs and above ([email or web address]) 03/15/2024,05/05/2022 Pneumococcal Conjugate Vacci ne, 20-valent ([id number]) 03/29/2024 Pneumococcal Polysaccharide PPV23 (Pneumovax) 09/02/2018 RSV [...] Telephone Encounter - Keagan Barr OSA - 09/29/2024 11:25 AM EDT Please assist patient to schedule the Cardiac MRI, thank you. * Telephone Encounter - Sarai Nash PA-C - 09/29/2024 11:17 AM EDT Patient called yesterday and was able to reschedule nuclear study as it needed to be 2 day study. However, it looks like the cardiac MRI was still not arranged/scheduled. Can we please try patient again. He is currently at [facility] for non cardiac related issue sand should be discharged soon. He is aware that the MRI still needs arranged. I think there was some confusion about scheduling 2 separate tests * Telephone Encounter - Jemima Le OSA - 09/02/2024 10:49 AM EDT 09/02/24 lmam/djm 09/01/24 lmam/djm * Telephone Encounter - Keagan Barr OSA - 08/29/2024 3:59 PM EDT Patient is ordered a cardiac study, please assist patient to schedule, thank you. MRI CARDIAC, ADULT W WO CONTRAST [[id number]] (Order [id number] NM MYOCARD PERF IMG SPECT MULT STUDIES WITH PHARM INTERV [96868.02] (Order [id number]) * Telephone Encounter - Pamela Chaudhry LPN [...] Care Team (Late st Contact Info) Description 10/26/2024 9:30 AM EDT Imaging Radiology [facility]st [facility] [address] [address] 11/08/2024 11:00 AM EDT Office Visit Cardiology, [facility] [address] [place] [address] Toni Delatorre, [address] [place] [address] 11/25/2024 2:10 PM EDT Office Visit Family Medicine [address] [place] [phone] Julia Garcia [address] [place] [address] 11/28/2024 10:15 AM EDT Imaging [facility] 2nd Floor [facility] [address] [place] [address] 11/30/2024 8:00 AM EDT Imaging [address] [place] [address] 03/29/2025 5:00 PM EDT Office Visit Nephrology, [facility] [address] [place] [address] Edwin Guerrero MD [address] [facility] [place] [address] 10/02/2025 3:45 PM EDT Office Visit Dermatology [facility] [address] [place] [address] Kai Mcclain MD [address] [facility] [place] [address] Scheduled Orders Name Type Priority Associated Diagnoses [...] Health Maintenance Due Date Last Done Comments Depression Screening 1973 Zoster Vaccines (1 of 2) 1980 Cologuard 2006 Fecal Occult Blood Test 2006 Sigmoidoscopy 2006 Colonoscopy 06/29/2023 06/29/2018 Colorectal Cancer Screening 06/29/2023 [...] this encounter Medical Devices Implanted Type Area Petrol Tanker Driver Device Identifier Shelf Expiration Date Model / Serial / Lot Coil Vortex 35 Pltinm [id number] - [id number] Implanted:Qty: 1 on 07/13/2018 by Collin Stroud MD at [facility] Left: Lower Arm [employer] : NEURO INTR 03/31/2021 [id number] / / [id number] Description:[email or web address] ENH 08/31/24 Static magnetic field of 1.5 Juliet or 3.0 Juliet Static magnetic field gradient < 25 T/m (2500 g/cm) Normal operating mode of the MR system with a maximum whole body averaged specific absorption rate of 2 W/kg and use of transmit/receive head coil and/or whole body transmit coils Coil Vortex 35 Pltin [id number] - [id number] Implanted:Qty: 1 on 07/13/2018 by Collin Stroud MD at [facility] Left: Lower Arm [employer] : NEURO INTR 03/31/2021 [id number] Description:[email or web address] 08/31/24 Static magnetic field of 1.5 [...] the patient have Health Care Power of Senior Telecommunications Consultant? No Care Teams Multiple Pressure Riveter Operator Relationship Specialty Start Date End Date Julia Garcia DO [address] [place] [address] [place] [address] PCP - General Internal Medicine 05/28/23 documented as of this encounter
--- OUTSIDE RECORDS SUMMARY | 2024-10-07 04:04 | External Medical Summary | Summary of Care ---
Author Name Unknown Organization [facility] Address [address] [facility] [place] [address] Phone [phone] Care Team Providers Care Training Representative Name Role Phone Julia Garcia DO Primary Care Provider [phone] Reason for Visit * Reason Onset Date Comments Hospital Follow-Up 10/03/2024 Katiana for [facility] Follow Up 10/03/2024 Patient to call Thursday with BP readings. Encounter Details Date Type Department Care Team (Late st Contact Info) Description 10/03/2024 Telephone Ancillary [address] [place] [address] Ayse Stringer RN Hospital Follow-Up (Katiana for [facility]/); Follow... Allergies No known active allergiesdocumented as of this encounter (statuses as of 10/05/2024) Medications aspirin enteric coated 81 MG TBECIndications:K [...] as needed. 05/25/20 23 Active Saline Nasal [place] 0.65 % Nasal Solution ([place]) Administer 2 Sprays into nostril as needed. 05/25/20 23 Active Simvastatin 20 MG Oral Tablet (Zocor)Indication [...] Breath. 15 g 2 05/20/20 24 Active Torsemide 20 MG Oral Tablet (Demadex) [...] 90 Tablet 2 09/20/2024 3:10 PM EDT 07/19/19 25 026 Active Tacrolimus ER 0.75 MG Oral Tablet Extended Release 24 Hour (Envarsus XR) Take 2 tablets by mouth in the morning. 60 Tablet 5 09/20/2024 3:10 PM EDT 07/19/19 25 Active Apixaban 5 MG Oral Tablet (Eliquis) Take 1 Tablet by mouth in the morning and 1 Tablet before bedtime. 180 Tablet 3 08/04/19 25 Active Triamcinolone Acetonide 0.1 % External Cream (Aristocort)Indic ations:Stasis dermatitis of both legs Apply to eczema on arms and legs twice daily for up to 2 weeks 80 g 5 09/13/19 25 Active Lisinopril 10 MG Oral Tablet (Prinivil) Take 2 Tablets by mouth in the morning. 10/01/19 25 Active Doxycycline Hyclate 100 MG Oral Capsule Take 1 Capsule by mouth in the morning and 1 Capsule before bedtime. 10/01/19 25 Active Cefuroxime Axetil 500 MG Oral Tablet (Ceftin) Take 1 Tablet by mouth in the morning and 1 Tablet before bedtime. 10/01/19 25 Active amLODIPine Besylate 5 MG Oral Tablet (Norvasc) Take 0.5 Tablets by mouth in the morning. 10/01/19 25 Active Advanced Probiotic Oral Capsule Take 1 Capsule by mouth in the morning. 10/01/19 Active predniSONE 10 MG Oral Tablet (Deltasone) Take 2 Tablets by mouth in the morning. As directed . 10/01/19 25 Active cloNIDine HCl 0.1 MG Oral Tablet (Catapres)Indicat ions:Primary hypertension TAKE ONE TABLET BY MOUTH THREE x DAILY 10/04/19 25 Active Magnesium 300 MG Oral Capsule Take by mouth. 025 Discontin ued(Medic ation List Clean Up) cloNIDine HCl 0.1 MG Oral Tablet (Catapres)Indicat ions:Primary hypertension TAKE ONE TABLET BY MOUTH TWICE DAILY 180 Tablet 1 07/13/19 25 025 Discontin ued(Medic ation/Dos e Changed) Lisinopril 40 MG Oral Tablet Take 1 Tablet by mouth in the morning. 30 Tablet 5 07/15/19 25 025 Discontin ued(Medic ation/Dos e Changed) Hospital, Clinic, or Other Facility Administered Medication Ordered Dose Route Frequency Start Date End Date Status Tixagevimab inj 150 mgIndications:Kidney replaced by transplant 150 mg IM [id number] 08/02/2021 Active Cilgavimab inj 150 mgIndications:Kidney replaced by transplant 150 mg IM [id number] 08/02/2021 Active documented as of this encounter (statuses as of 10/05/2024) Active Problems Problem Noted Date Diagnosed Date [...] as of this encounter (statuses as of 10/05/2024) Resolved Problems Problem Noted Date Diagnosed Date [...] as of this encounter (statuses as of 10/05/2024) Immunizations Name Administration Dates Next Due COVID-19, MRNA-LNP, PF, 30 M CG/0.3 mL, 12 YRS AND ABOVE, IM (PFIZER-Comirnaty) 04/02/2023 Covid-19 Ad26, Single Dose ([place]ue/J&J) 09/24/2020 Covid-19, Mrna, Lnp-s, Pf, B ivalent, 30 Mcg, IM, 12 yrs and above (InboundWriter) 03/15/2024,05/05/2022 Pneumococcal Conjugate Vacci ne, 20-valent ([id number]) 03/29/2024 Pneumococcal Polysaccharide PPV23 (Pneumovax) 09/02/2018 RSV [...] 08/21/2019 3:36 PM BRAYDENT Praveena Garcia RN documented as of this encounter Mental Status * Because of a physical, mental, or emotional condition, do you have serious difficulty concentrating, remembering, or making decisions? (5 years old or older) Answer Entry Date Author No 08/21/2019 3:36 PM Praveena Pastrana RN documented in this encounter Miscellaneous Notes * Telephone Encounter - Ayse Stringer RN - 10/05/2024 9:21 AM EDT Spoke to , she states he did take his BP last night and it was 120/78, so he felt that was low for him so he didn't take his "second pill" she was unsure what one that was. I counseled her that is a normal BP. I counseled her he needs to take his meds as directed and log BP in the morning, evening and anytime he gets "shakey" she is to call me Thursday with the readings. Patient is staying hydrated, states he drinks a lot of water.I did psychologist counseling her he needs to stay hydrated and change positions slowly. I am unable to call patient at work per his request. I will await reading on Thursday, patient HD appointment is 10/10/24 * Telephone Encounter - Julia Garcia DO - 10/04/2024 10:27 PM EDT We need an actual BP reading to determine if he is overmedicated, especially since he is complaining of feeling 'shaky' not lightheaded. Can he check his BP at some point and call us with the reading? * Telephone Encounter - Ayse Stringer RN - 10/03/2024 12:36 PM EDT Transitions of Care Note Reason for Referral:Recent Admission Phone visit for follow up: katiana Admitted to: [facility], Date: 09.28.24 Discharged to: home, Date: 09.30.24 Diagnosis driving hospitalization: Right upper extremity cellulitis Suspected gout Hypertension Source/Contact: Patient SUBJECTIVE Consent: Verbal consent for review of hospital discharge: Yes REVIEW OF SYSTEMS Patient/Other Reports: Current patient/caregiver problems or concerns: patient feels BP is low, patient states he does nothave time to take his BP at home before he leaves for work at 5am and unable to take at work, patient states he gets a "little shakey" and feels its his BP CV: Denies problems Pulmonary: Denies problems Chills/Sweats/Fever:Denies chills/sweats Denies fever Appetite:Denies problems such as nausea, vomiting, burning, decreased appetite Current diet: reg Bowel: patient thinks antibiotics are messeing with his gut, encouraged to take the probiotic Bladder: denies problems, kidney transplant 2019 Wound (If applicable): N/A Pain:Denies Sleep:Denies problems FUNCTIONAL STATUS: ADL'S: Needs Assistance With:N/A as pt is independent IADL'S: Needs Assistance With:N/A as pt is independent Cognitive and Mental Health: denies problems, alert and oriented x 3, and able to communicate, understand instructions, process information. MEDICATION RECONCILIATION Medications: Reports all medications taken as prescribed except probioitic ASSESSMENT Medication Risk Assessment: patient states his BP meds have been changed back and forth and feels he is getting low BP on the amlodipine New amlodipine [Norvasc] 5 mg Tablet 2.5 mg PO QAM Qty: 30 0RF Advanced Probiotic 625 mg (10 billion cell) Capsule 1 cap PO DAILY Qty: 10 0RF prednisone 10 mg tablet 20 mg PO UD Qty: 6 0RF Rx Instructions: Start taking prednisone 20 mg daily for 2 days, then take 10 mg daily for 2 days and stop cefuroxime axetil 500 mg tablet 500 mg PO BID Qty: 10 0RF doxycycline hyclate 100 mg capsule 100 mg PO BID Qty: 10 0RF Changed lisinopril 10 mg tablet 20 mg PO QAM Qty: 60 0RF clonidine HCl 0.1 mg tablet 0.1 mg PO TID Qty: 0 0RF Discharge instructions available for review? Yes PLAN Symptom Monitoring Interventions:Member/caregiver education - signs and symptoms to contact PrimaryCare (DO NOT DELETE-Three galan symptoms patient is to report to PCP) 1. Increased dizziness 2. Worsening symptoms 3. Sob/chest pain Collections AssociateSoftball Core Molder of Care interventions/Action Plan: 5 - 7 day follow-up with PCP in place - Date: 10/07/24 Patient states he needs to cancel this appointment and can only be seen after 4pm. Patient states he has multiple appts he needs to make and he does not have any more time to take at work. Patient states he can not talk any longer because he isat work. I counseled patient I will try to reschedule the HD appointment and call his home phone and leave a message or talk to his per patient. Educated on role of KATIANA completed with patient/caregiver. Educated patient/caregiver on patient right to have input on KATIANA plan of care. Verification of Home Health/DME if indicated: No Identified Care Gaps: Yes Care Gaps closed this call: Transition of Care follow-up communication Re-evaluation of Plan of Care and progress towards goals achievement: Patient education this visit: Verbal, patient to stay hydrated Plan to follow-up as previously scheduled, instructed to call Primary Care Provider with change in symptoms or as needed before next follow-up, verbalizes understanding and agrees with plan. s/p renal transplant, immunocompromised state Renal function stable Continue tacrolimus and mycophenolate per home dosing Needs follow-up with nephrology Dr. Guerrero as outpatient Follow-up with your primary care physician in 1 week -patient did reschedule this appointment for a 4pm appointment with Dr. Borden Follow-up with your orthopedic surgeon Dr. Peacock/insurance investigator as needed, patient states he will not be followning up with ortho or rheumatology due to limited PTO at work. -- Your final blood cultures are pending at the time of discharge. Follow-up with your physician for results. Per Xcalia, blood cultures on 09/30/24 fineal results NO GROWTH after 5 days. -- Complete the antibiotic course cefuroxime and Doxycycline as prescribed -- Complete prednisone taper course as prescribed Prednisone taper course Start taking prednisone 20 mg daily for 2 days, then take 10 mg daily for 2 days and stop. I did reschedule patient for HD appointment with Dr. Borden at 4pm on 10/10, patient to call sooner if problems, I was able to discuss appointment and recommendations with Gaby too. Ayse Stringer, rima Viramontes documented in this encounter Plan of Treatment Upcoming Encounters Date Type Department Care Team (Late st Contact Info) Description 10/10/2024 4:00 PM EDT Office Visit [address] [phone] Julia Livingston MD [address] [place] [address] [place] [phone] 10/26/2024 9:30 AM EDT Imaging Radiology [address], [place] [address] [place] [phone] 11/25/2024 2:10 PM EDT Office Visit Family Medicine [address] [place] [phone] Julia Garcia DO [address] [place] [address] [place] [address] 11/28/2024 10:15 AM EDT Imaging [facility] 2nd [facility] Cardiology, [place] [address] [place] [phone] 11/30/2024 8:00 AM EDT Imaging [address] Cardiology, [place] [address] [place] [address] 03/29/2025 5:00 PM EDT Office Visit Nephrology, [facility] [address] [facility] [address] [place] [address] Edwin Guerrero MD [address] [place] [address] 10/02/2025 3:45 PM EDT Office Visit [facility]atology [facility] [place] [address] [place] [address] Kai Mcclain MD [address] [place] [address] Scheduled Procedures Name Priority Associated Diagnoses Date/Ti [...] this encounter Medical Devices Implanted Type Area Stockroom Selector Device Identifier Shelf Expiration Date Model / Serial / Lot Coil Vortex 35 Pltinm [id number] - [id number] Implanted:Qty: 1 on 07/13/2018 by Collin Stroud MD [place] [facility] [place]: Lower Arm [employer] : NEURO INTR 03/31/2021 [id number] / / [id number] Description:[email or web address] ENH 08/31/24 Static magnetic field of 1.5 Juliet or 3.0 Juliet Static magnetic field gradient < 25 T/m (2500 g/cm) Normal operating mode of the MR system with a maximum whole body averaged specific absorption rate of 2 W/kg and use of transmit/receive head coil and/or whole body transmit coils Coil Vortex [address] [facility] [id number] - [id number] Implanted:Qty: 1 on 07/13/2018 by Collin Stroud MD at [place] [facility] [place] Left: Lower Arm [employer] : NEURO INTR 03/31/2021 [id number] / [id number] Description:[email or web address] ENH 08/31/24 Static magnetic field of 1.5 Juliet or 3.0 Juilet Static magnetic field gradient < 25 T/m (2500 g/cm) Normal operating mode of the MR system with a maximum whole body averaged specific absorption rate of 2 W/kg and use of transmit/receive head coil and/or whole body transmit coils documented as of this encounter Visit Diagnoses Diagnosis Primary hypertension Unspecified essential hypertension documented in this encounter [...] the patient have Health Care Power of Yeast Cake Cutter? No Care Teams Training Representative Relationship Specialty Start Date End Date Julia Garcia DO [address] [place] [address] [place] [phone] PCP - General Internal Medicine 05/28/23 documented as of this encounter
--- OUTSIDE RECORDS SUMMARY | 2024-10-07 04:04 | External Medical Summary | Summary of Care ---
Author Name Unknown Organization [facility] Address [address] [place] [address] Phone [phone] Care Team Providers Care [employer] Camping [employer] Manager Name Role Phone Jose Julia Wiley Primary Care Provider [phone] Reason for Visit * Reason Onset Date Comments Other 09/28/2024 Encounter Details Date Type Department Care Team (Late st Contact Info) Description 09/28/2024 Telephone Nephrology, [address] [address] Services, Scheduling [address] [place] [address] Other Allergies No known active allergiesdocumented as of this encounter (statuses as of 09/28/2024) Medications aspirin enteric coated 81 MG TBECIndications:K [...] hours as needed. 3 Active Saline Nasal [place] 0.65 % Nasal Solution ([place]) Administer 2 Sprays into nostril as needed. [...] mgIndications:Kidney replaced by transplant 150 mg IM [id number] 08/02/2021 Active Cilgavimab inj 150 mgIndications:Kidney replaced by transplant 150 mg IM [id number] 08/02/2021 Active documented as of this encounter (statuses as of 09/28/2024) Active Problems Problem Noted Date Diagnosed Date [...] as of this encounter (statuses as of 09/28/2024) Resolved Problems Problem Noted Date Diagnosed Date [...] as of this encounter (statuses as of 09/28/2024) Immunizations Name Administration Dates Next Due COVID-19, MRNA-LNP, PF, 30 M CG/0.3 mL, 12 YRS AND ABOVE, IM (PFIZER-Comirnaty) 04/02/2023 Covid-19 Ad26, Single Dose ([employer]/J&J) 09/24/2020 Covid-19, Mrna, Lnp-s, Pf, B ivalent, 30 Mcg, IM, 12 yrs and above (Pfizer) 03/15/2024,05/05/2022 Pneumococcal Conjugate Vacci ne, 20-valent (Cominsi36) 03/29/2024 Pneumococcal Polysaccharide PPV23 (Pneumovax) 09/02/2018 RSV [...] encounter Miscellaneous Notes * Telephone Encounter - Shanda Huang RN - 09/28/2024 11:18 AM EDT Addressed by Dr Guerrero. * Telephone Encounter - Edwin Guerrero MD - 09/28/2024 11:[address] Stern who is covering [facility] today * Telephone Encounter - Kassandra Estrada OSA - 09/28/2024 10:50 AM EDT Good morning, Patient calling on behalf the patient. He is hospitalized and they are not giving anit rejections drugs. They have the tacrolimus drug but do not enbarsus medication. And they do want give the patient the generic medication because of the one that that patient is on. She needs you call the hospital to give permission for the generic medication. He is at [facility] in room 242. Any question please reach out spouse. documented in this encounter Plan of Treatment Upcoming Encounters Date Type Department Care Team (Late st Contact Info) Description 10/19/2024 12:30 PM EDT Imaging [facility] [address] [place] [phone] Gw, Excess Time Radiology [address] [place] [address] 11/08/2024 11:00 AM EDT Office Visit Cardiology, [facility] [address] [place] [phone] Toni Delatorre, [address] [place] [address] 11/25/2024 2:10 PM EDT Office Visit Family Medicine [address] [phone] Julia Garcia [address] [place] [address] 03/29/2025 5:00 PM EDT Office Visit Nephrology, [facility] [address] [facility] [place] [address] Edwin Guerrero MD [address] [facility] [place] [address] 10/02/2025 3:45 PM EDT Office Visit Dermatology [facility] [place] [address] [facility] [place] [address] Kai Mcclain MD [address] [facility] [place] [address] Scheduled Procedures Name Priority Associated Diagnoses Date/Ti [...] this encounter Medical Devices Implanted Type Area Cargo Inspector Device Identifier Shelf Expiration Date Model / Serial / Lot Coil Vortex 35 Pltinm [id number] - [id number] Implanted:Qty: 1 on 07/13/2018 by Collin Stroud MD at [place] [facility] [place] Left: Lower Arm [employer] : NEURO INTR 03/31/2021 [id number] Description:[email or web address] ENH 08/31/24 Static magnetic field of 1.5 Juliet or 3.0 Juliet Static magnetic field gradient < 25 T/m (2500 g/cm) Normal operating mode of the MR system with a maximum whole body averaged specific absorption rate of 2 W/kg and use of transmit/receive head coil and/or whole body transmit coils Coil Vortex 35 Pltinm [id number] - [id number] Implanted:Qty: 1 on 07/13/2018 by Collin Stroud MD at OR [facility] [place] Left: Lower Arm [employer] : NEURO INTR 03/31/2021 [id number] Description:[email or web address] ENH 08/31/24 Static magnetic field [...] patient have Health Care Power of Manager Program Management? No Care Teams [employer] Camping Ground Manager Relationship Specialty Start Date End Date Julia Garcia DO [address] [place] [address] [place] [address] PCP - General Internal Medicine 05/28/23 documented as of this encounter
--- OUTSIDE RECORDS SUMMARY | 2024-10-07 04:04 | External Medical Summary | Summary of Care ---
Author Name Unknown Organization [facility] Address [address] [place] [address] Phone [phone] Care Team Providers Care Cardiac Rehabilitation Program Director Name Role Phone Jose Julia Wiley Primary Care Provider Reason for Visit * Reason Onset Date Comments Other 09/28/2024 Encounter Details Date Type Department Care Team (Late st Contact Info) Description 09/28/2024 Telephone Nephrology, [address] [address] Services, Scheduling [address] [place] [address] Other Allergies No known active allergiesdocumented as [...] hours as needed. 3 Active Saline Nasal [place] 0.65 % Nasal Solution ([place]) Administer 2 Sprays into nostril as needed. [...] mgIndications:Kidney replaced by transplant 150 mg IM [id number] 08/02/2021 Active Cilgavimab inj 150 mgIndications:Kidney replaced by transplant 150 mg IM [id number] 08/02/2021 Active documented as of this encounter [...] IM (PFIZER-Comirnaty) 04/02/2023 Covid-19 Ad26, Single Dose ([employer]/J&J) 09/24/2020 Covid-19, Mrna, Lnp-s, Pf, B ivalent, 30 Mcg, IM, 12 yrs and above (Pfizer) 03/15/2024,05/05/2022 Pneumococcal Conjugate Vacci ne, 20-valent (Ilepsti99) 03/29/2024 Pneumococcal Polysaccharide PPV23 (Pneumovax) 09/02/2018 RSV [...] by Dr Guerrero. * Telephone Encounter - Ewdin Guerrero MD - 09/28/2024 11:[address] Stern who is covering [facility] today * Telephone Encounter - Kassandra [...] for the generic medication. He is at [facility] in room 242. Any question please reach out spouse. documented in this encounter Plan of Treatment Upcoming Encounters Date Type Department Care Team (Late st Contact Info) Description 10/19/2024 12:30 PM EDT Imaging [facility] [address] [place] [phone] Gw, Excess Time Radiology [address] [place] [address] 11/08/2024 11:00 AM EDT Office Visit Cardiology, [facility] [address] [place] [phone] Toni Delatorre, [address] [place] [address] 11/25/2024 2:10 PM EDT Office Visit Family Medicine [address] [phone] Julia Garcia [address] [place] [address] 03/29/2025 5:00 PM EDT Office Visit Nephrology, [facility] [address] [facility] [place] [address] Edwin Guerrero MD [address] [facility] [place] [address] 10/02/2025 3:45 PM EDT [facility] [place] [address] [facility] [place] [address] Kai Mcclain MD [address] [facility] [place] [address] Scheduled Procedures Name Priority Associated Diagnoses Date/Ti [...] this encounter Medical Devices Implanted Type Area Cotton Agent Device Identifier Shelf Expiration Date Model / Serial / Lot Coil Vortex 35 Pltinm [id number] - [id number] Implanted:Qty: 1 on 07/13/2018 by Collin Stroud MD at [place] [facility] [place] Left: Lower Arm [employer] : NEURO INTR 03/31/2021 [id number] Description:[email or web address] ENH 08/31/24 Static magnetic field of 1.5 Juliet or 3.0 Juliet Static magnetic field gradient < 25 T/m (2500 g/cm) Normal operating mode of the MR system with a maximum whole body averaged specific absorption rate of 2 W/kg and use of transmit/receive head coil and/or whole body transmit coils Coil Vortex 35 Pltinm [id number] - [id number] Implanted:Qty: 1 on 07/13/2018 by Collin Stroud MD at [place] [facility] [place] Left: Lower Arm [employer] : NEURO INTR 03/31/2021 [id number] Description:[email or web address] ENH 08/31/24 Static magnetic field [...] patient have Health Care Power of Sheet Rock Sander? No Care Teams Cardiac Rehabilitation Program Director Relationship Specialty Start Date End Date Julia Garcia DO [address] [place] [address] [place] [address] PCP - General Internal Medicine 05/28/23 documented as of this encounter
--- OUTSIDE RECORDS SUMMARY | 2024-10-07 04:04 | External Medical Summary | Summary of Care ---
Author Name Unknown Organization [facility] Address [address] [place] [address] Phone [phone] Care Team Providers Care Skein Bander Name Role Phone Julia Garcia DO Primary Care Provider [phone] Reason for Referral * Precert (Within 10 days (routine)) - Authorized Specialty Diagnoses / Procedures Referred By Contac t Referred To Contact Radiology Diagnoses LVH (left ventricular hypertrophy) Procedures NM MYOCARD PERF IMG SPECT MULT STUDIES WITH PHARM INTERV Sarai Nash PA-C [address] [place] [address] Phone: tel: fax: Referral ID Status Reason Start Date Expiration Date V isits Requested Visits Authorized [id number] Authorized Precert 09/27/2024 11/11/2024 1 1 * Precert (Within 10 days (routine)) - Pending Review Specialty Diagnoses / Procedures Referred By Contac t Referred To Contact Radiology Diagnoses LVH (left ventricular hypertrophy) Procedures MRI CARDIAC, ADULT W WO CONTRAST Sarai Nash PA-C [address] [place] [address] Phone: tel: fax: Referral ID Status Reason Start Date Expiration Date Visits Requested Visits Authorized [id number] Pending Review Precert 08/30/2024 999 999 Reason for Visit * Reason Onset Date Comments Test Results 08/26/2024 Appointment 08/26/2024 Encounter Details Date Type Department Care Team (Late st Contact Info) Description 08/26/2024 Telephone Cardiology, [facility] [address] [place] [address] Sarai Nash PA-C [address] [place] [id number] Test Results; Appointment Allergies No known active [...] hours as needed. 3 Active Saline Nasal [place] 0.65 % Nasal Solution (Crane) Administer 2 Sprays into nostril as needed. [...] mgIndications:Kidney replaced by transplant 150 mg IM [id number] 08/02/2021 Active Cilgavimab inj 150 mgIndications:Kidney replaced by transplant 150 mg IM [id number] 08/02/2021 Active documented as of this encounter [...] IM (PFIZER-Comirnaty) 04/02/2023 Covid-19 Ad26, Single Dose (Dopplr/J&J) 09/24/2020 Covid-19, Mrna, Lnp-s, Pf, B ivalent, 30 Mcg, IM, 12 yrs and above ([employer]) 03/15/2024,05/05/2022 Pneumococcal Conjugate Vacci ne, 20-valent ([id number]) 03/29/2024 Pneumococcal Polysaccharide PPV23 (Pneumovax) 09/02/2018 RSV [...] try patient again. He is currently at [place] for non cardiac related issue sand should [...] CARDIAC, ADULT W WO CONTRAST [MRCFMB] (Order [id number] NM MYOCARD PERF IMG SPECT MULT STUDIES WITH PHARM INTERV [82072.02] (Order [id number]) * Telephone Encounter - Pamela Chaudhry LPN [...] Description 10/26/2024 9:30 AM EDT Imaging Radiology [facility] 1st [facility] [address] [place] [address] 11/08/2024 11:00 AM EDT Office Visit Cardiology, [facility] [address] [place] [address] Toni Delatorre, [address] [place] [address] 11/25/2024 2:10 PM EDT Office Visit Family Medicine [address] [place] [address] Julia Garcia [address] [place] [address] 11/28/2024 10:15 AM EDT Imaging [facility] 2nd Floor [facility] [address] [place] [address] 11/30/2024 8:00 AM EDT Imaging [address] [place] [address] 03/29/2025 5:00 PM EDT Office Visit Nephrology, [facility] [address] [place] [address] Edwin Guerrero MD [address] [facility] [place] [address] 10/02/2025 3:45 PM EDT Office Visit Dermatology [facility] [address] [place] [address] Kai Mcclain MD 200 [facility] [place] [address] Scheduled Orders Name Type Priority Associated Diagnoses [...] this encounter Medical Devices Implanted Type Area Line Ordering Clinician Device Identifier Shelf Expiration Date Model / Serial / Lot Coil Vortex 35 Pltinm [id number] - [id number] Implanted:Qty: 1 on 07/13/2018 [place] [facility] [place] Lower Arm [employer] : NEURO INTR 03/31/2021 [id number] / / [id number] Description:[email or web address] ENH 08/31/24 Static magnetic field of 1.5 Juliet or 3.0 Juliet Static magnetic field gradient < 25 T/m (2500 g/cm) Normal operating mode of the MR system with a maximum whole body averaged specific absorption rate of 2 W/kg and use of transmit/receive head coil and/or whole body transmit coils Coil Vortex 35 Pltin [id number] - [id number] Implanted:Qty: 1 on 07/13/2018 by Collin Stroud [place] [facility] [place]: Lower Arm [employer] : NEURO INTR 03/31/2021 [id number] Description:[email or web address] ENH 08/31/24 Static magnetic field [...] the patient have Health Care Power of Spine Nurse? No Care Teams Skein Bander Relationship Specialty Start Date End Date Julia Garcia DO [address] [place] [address] [place] [address] PCP - General Internal Medicine 05/28/23 documented as of this encounter
--- OUTSIDE RECORDS SUMMARY | 2024-10-07 04:04 | External Medical Summary | Summary of Care ---
Author Name Unknown Organization [facility] Address [address] [place] [address] Phone [phone] Care Team Providers Care Clinical Case Manager Name Role Phone Jose Julia Wiley Primary Care Provider [phone] Reason for Visit * Reason Onset Date Comments Other 09/28/2024 Encounter Details Date Type Department Care Team (Late st Contact Info) Description 09/28/2024 Telephone Nephrology, [address] [address] Services, Scheduling [address] [place] [address] Other Allergies No known active allergiesdocumented as [...] hours as needed. 3 Active Saline Nasal [place] 0.65 % Nasal Solution (Boyce) Administer 2 Sprays into nostril as needed. [...] mgIndications:Kidney replaced by transplant 150 mg IM [id number] 08/02/2021 Active Cilgavimab inj 150 mgIndications:Kidney replaced by transplant 150 mg IM [id number] 08/02/2021 Active documented as of this encounter [...] IM (PFIZER-Comirnaty) 04/02/2023 Covid-19 Ad26, Single Dose ([employer]/J&J) 09/24/2020 Covid-19, Mrna, Lnp-s, Pf, B ivalent, 30 Mcg, IM, 12 yrs and above (Pfizer) 03/15/2024,05/05/2022 Pneumococcal Conjugate Vacci ne, 20-valent (Zzhrtnf75) 03/29/2024 Pneumococcal Polysaccharide PPV23 (Pneumovax) 09/02/2018 RSV [...] EDT Notified Dr Stern who is covering [facility] today * Telephone Encounter - Kassandra [...] for the generic medication. He is at [facility] in room 242. Any question please reach out spouse. documented in this encounter Plan of Treatment Upcoming Encounters Date Type Department Care Team (Late st Contact Info) Description 10/19/2024 12:30 PM EDT Imaging [facility] [address] [place] [phone] Gw, Excess Time Radiology [address] [place] [address] 11/08/2024 11:00 AM EDT Office Visit Cardiology, [facility] [address] [place] [phone] Toni Delatorre, [address] [place] [address] 11/25/2024 2:10 PM EDT Office Visit Family Medicine [address] [address] Julia Garcia [address] [place] [address] 03/29/2025 5:00 PM EDT Office Visit Nephrology, [facility] 200 [facility] [place] [address] Edwin Guerrero MD 200 [facility] [place] [address] 10/02/2025 3:45 PM EDT Office Visit [facility]ermatology [facility] [place] 200 [facility] [place] [address] Kai Mcclain MD 200 [facility] [place] [address] Scheduled Procedures Name Priority Associated Diagnoses Date/Ti [...] this encounter Medical Devices Implanted Type Area Learning Administrator Device Identifier Shelf Expiration Date Model / Serial / Lot Coil Vortex 35 Pltinm [id number] - [id number] Implanted:Qty: 1 on 07/13/2018 by Collin Stroud MD [place] [facility] [place]: Lower Arm [employer] : NEURO INTR 03/31/2021 [id number] Description:[email or web address] ENH 08/31/24 Static magnetic field of 1.5 Juliet or 3.0 Juliet Static magnetic field gradient < 25 T/m (2500 g/cm) Normal operating mode of the MR system with a maximum whole body averaged specific absorption rate of 2 W/kg and use of transmit/receive head coil and/or whole body transmit coils Coil Vortex 35 Pltinm [id number] - [id number] Implanted:Qty: 1 on 07/13/2018 by Collin Stroud MD [place] [facility] [place] Left: Lower Arm [employer] : NEURO INTR 03/31/2021 [id number] Description:[email or web address] ENH 08/31/24 Static magnetic field [...] the patient have Health Care Power of Global Technical Writer? No Care Teams Clinical Case Manager Relationship Specialty Start Date End Date Julia Garcia DO [address] [place] [address] [place] [address] PCP - General Internal Medicine 05/28/23 documented as of this encounter
--- OUTSIDE RECORDS SUMMARY | 2024-10-07 04:04 | External Medical Summary | Summary of Care ---
Author Name Unknown Organization [facility] Address [address] [facility] [place] [address] Phone [phone] Care Team Providers Care Sewer Inspector Name Role Phone Julia Garcia DO Primary Care Provider [phone] Reason for Visit * Reason Onset Date Comments Hospital Follow-Up 10/03/2024 Katiana for [facility] Follow Up 10/03/2024 Patient to call Thursday with BP readings. Encounter Details Date Type Department Care Team (Late st Contact Info) Description 10/03/2024 Telephone Ancillary [address] [place] [address] Ayse Stringer RN Hospital Follow-Up (Katiana for [facility]/); Follow... Allergies No known active allergiesdocumented as [...] as needed. 05/25/20 23 Active Saline Nasal [place] 0.65 % Nasal Solution ([place]) Administer 2 Sprays into nostril as needed. [...] mgIndications:Kidney replaced by transplant 150 mg IM [id number] 08/02/2021 Active Cilgavimab inj 150 mgIndications:Kidney replaced by transplant 150 mg IM [id number] 08/02/2021 Active documented as of this encounter [...] 30 Mcg, IM, 12 yrs and above ([employer]) 03/15/2024,05/05/2022 Pneumococcal Conjugate Vacci ne, 20-valent (Ndengar22) 03/29/2024 Pneumococcal Polysaccharide PPV23 (Pneumovax) 09/02/2018 RSV [...] encounter Miscellaneous Notes * Telephone Encounter - Asye Stringer RN - 10/05/2024 9:21 AM EDT [...] he drinks a lot of water.I did automobile travel club counselor her he needs to stay hydrated and [...] visit for follow up: katiana Admitted to: [facility], Date: 09.28.24 Discharged to: home, Date: 09.30.24 [...] dizziness 2. Worsening symptoms 3. Sob/chest pain Pulmonologist/IntensivistRegistered Public Surveyor of Care interventions/Action Plan: 5 - 7 [...] Borden Follow-up with your orthopedic surgeon Dr. Peacock/beer coil cleaner as needed, patient states he will not be followning up with ortho or rheumatology due to limited PTO at work. -- Your final blood cultures are pending at the time of discharge. Follow-up with your physician for results. Per [email or web address], blood cultures on 09/30/24 fineal results NO [...] Description 10/10/2024 4:00 PM EDT Office Visit [address] [phone] Julia Livingston MD [address] [place] [address] [place] [address] 10/26/2024 9:30 AM EDT Imaging Radiology [address], [place] [address] [place] [address] 11/25/2024 2:10 PM EDT Office Visit Family Medicine [address] [place] [address] Julia Garcia DO [address] [place] [address] [place] [address] 11/28/2024 10:15 AM EDT Imaging [facility] 2nd [facility] Cardiology, [place] [address] [place] [address] 11/30/2024 8:00 AM EDT Imaging [address] Cardiology, [place] [address] [place] [address] 03/29/2025 5:00 PM EDT Office Visit Nephrology, [facility] [address] [facility] [address] [place] [address] Edwin Guerrero MD [address] [place] [address] 10/02/2025 3:45 PM EDT [facility] [place] [address] [place] [address] Kai Mcclain MD [address] [place] [address] Scheduled Procedures Name Priority Associated Diagnoses Date/Ti [...] this encounter Medical Devices Implanted Type Area Printer Assistant Device Identifier Shelf Expiration Date Model / Serial / Lot Coil Vortex 35 Pltinm 136700 - [id number] Implanted:Qty: 1 on 07/13/2018 [place] [facility] [place] Arm [employer] : NEURO INTR 03/31/2021 [id number] / / [id number] Description:[email or web address] ENH 08/31/24 Static magnetic field of 1.5 Juliet or 3.0 Juliet Static magnetic field gradient < 25 T/m (2500 g/cm) Normal operating mode of the MR system with a maximum whole body averaged specific absorption rate of 2 W/kg and use of transmit/receive head coil and/or whole body transmit coils Coil Vortex 35 [facility] [id number] - [id number] Implanted:Qty: 1 on 07/13/2018 [place]lin [place] [facility] [place] Lower Arm [employer] : NEURO INTR 03/31/2021 [id number] / [id number] Description:[email or web address] ENH 08/31/24 Static magnetic field [...] the patient have Health Care Power of Brusher And Shearer? No Care Teams Sewer Inspector Relationship Specialty Start Date End Date Julia Garcia DO [address] [place] [address] [place] [phone] PCP - General Internal Medicine 05/28/23 documented as of this encounter
--- OUTSIDE RECORDS SUMMARY | 2024-10-07 04:04 | External Medical Summary | Summary of Care ---
Author Name Unknown Organization [facility] Address [address] [facility] [place] [address] Phone [phone] Care Team Providers Care Development Specialist Name Role Phone GarciaJulia DO Primary Care Provider Reason for Visit * Reason Onset Date Comments Hospital Follow-Up 10/03/2024 [facility] for [facility] Encounter Details Date Type Department Care Team (Late st Contact Info) Description 10/03/2024 Telephone Ancillary [address] [place] [address] Ayse Stringer, [facility] Hospital Follow-Up ([facility] for [facility]) Allergies No known active allergiesdocumented as of this encounter (statuses as of 10/03/2024) Medications aspirin enteric coated 81 MG TBECIndications:K [...] as needed. 05/25/20 23 Active Saline Nasal [place] 0.65 % Nasal Solution (Haywood) Administer 2 Sprays into nostril as needed. [...] morning and 1 Tablet before bedtime. 10/01/19 Active amLODIPine Besylate 5 MG Oral Tablet (Norvasc) Take 0.5 Tablets by mouth in the morning. 10/01/19 Active Advanced Probiotic Oral Capsule Take 1 Capsule by mouth in the morning. 10/01/19 Active predniSONE 10 MG Oral Tablet (Deltasone) Take 2 Tablets by mouth in the morning. As directed . 10/01/19 Active cloNIDine HCl 0.1 MG Oral Tablet (Catapres)Indicat ions:Primary hypertension TAKE ONE TABLET BY MOUTH THREE x DAILY 10/04/19 Active Magnesium 300 MG Oral Capsule Take [...] mgIndications:Kidney replaced by transplant 150 mg IM [id number] 08/02/2021 Active Cilgavimab inj 150 mgIndications:Kidney replaced by transplant 150 mg IM [id number] 08/02/2021 Active documented as of this encounter (statuses as of 10/03/2024) Active Problems Problem Noted Date Diagnosed Date [...] as of this encounter (statuses as of 10/03/2024) Resolved Problems Problem Noted Date Diagnosed Date [...] as of this encounter (statuses as of 10/03/2024) Immunizations Name Administration Dates Next Due COVID-19, MRNA-LNP, PF, 30 M CG/0.3 mL, 12 YRS AND ABOVE, IM ([employer]-ComirnatSurprise Ride) 04/02/2023 Covid-19 Ad26, Single Dose ([employer]/J&J) 09/24/2020 Covid-19, Mrna, Lnp-s, Pf, B ivalent, 30 Mcg, IM, 12 yrs and above ([employer]) 03/15/2024,05/05/2022 Pneumococcal Conjugate Vacci ne, 20-valent (Pdlgcds24) 03/29/2024 Pneumococcal Polysaccharide PPV23 (Pneumovax) 09/02/2018 RSV [...] visit for follow up: katiana Admitted to: [facility], Date: 09.28.24 Discharged to: home, Date: 09.30.24 [...] dizziness 2. Worsening symptoms 3. Sob/chest pain Shank ScourerLens Blank Gauger of Care interventions/Action Plan: 5 - 7 [...] Borden Follow-up with your orthopedic surgeon Dr. Peacock/supervisor assembly room as needed, patient states he will not be followning up with ortho or rheumatology due to limited PTO at work. -- Your final blood cultures are pending at the time of discharge. Follow-up with your physician for results. Per [employer], blood cultures on 09/30/24 fineal results NO GROWTH after 5 days. -- Complete the antibiotic course cefuroxime and Doxycycline as prescribed -- Complete prednisone taper course as prescribed Prednisone taper course Start taking prednisone 20 mg daily for 2 days, then take 10 mg daily for 2 days and stop. I did reschedule patient for HD appointment with Dr. Cattoi at 4pm on 10/10, patient to call sooner if problems, I was able to discuss appointment and recommendations with Gaby too. Ayse Stringer, RN rima Steele documented in this encounter Plan of Treatment Upcoming Encounters Date Type Department Care Team (Late st Contact Info) Description 10/10/2024 4:00 PM EDT Office Visit Family Medicine [address] [address] Julia Livingston MD [address] [place] [address] [place] [address] 10/26/2024 9:30 AM EDT Imaging Radiology [facility] 1st [facility] [place] [address] [place] [address] 11/08/2024 11:00 AM EDT Office Visit Cardiology, [facility] [address] [place] [address] Toni Delatorre, [facility] [address] [place] [address] 11/25/2024 2:10 PM EDT Office Visit [address] [address] Julia Garcia [address] [place] [address] 11/28/2024 10:15 AM EDT Imaging [facility] 2nd Floor Cardiology, [place] [address] [place] [address] 11/30/2024 8:00 AM EDT Imaging [facility] 2nd Floor Cardiology, [place] [address] [place] [phone] 03/29/2025 5:00 PM EDT Office Visit Nephrology, [facility] 200 [facility] [place], [place] [address] Edwin Guerrero MD [address] [facility] [address] [place] [address] 10/02/2025 3:45 PM EDT Office Visit Dermatology [facility] [place] [address] [facility] [address] [place] [address] Kai Mcclain MD 200 [facility] [place] [address] Scheduled Procedures Name Priority Associated Diagnoses Date/Ti [...] this encounter Medical Devices Implanted Type Area Hay Sorter Device Identifier Shelf Expiration Date Model / Serial / Lot Coil Vortex 35 Pltin [id number] - [id number] Implanted:Qty: 1 on 07/13/2018 by Collin Stroud MD [place] [facility] [place] Left: Lower Arm [employer] : NEURO INTR 03/31/2021 [id number] Description:[email or web address] ENH 08/31/24 Static magnetic field of 1.5 Juliet or 3.0 Juliet Static magnetic field gradient < 25 T/m (2500 g/cm) Normal operating mode of the MR system with a maximum whole body averaged specific absorption rate of 2 W/kg and use of transmit/receive head coil and/or whole body transmit coils Coil Vortex 35 [facility] [id number] - [id number] Implanted:Qty: 1 on 07/13/2018 by Collin Stroud MD at [place] [facility] [place] Left: Lower Arm [employer] : NEURO INTR 03/31/2021 [id number] Description:[email or web address] ENH 08/31/24 Static magnetic field [...] the patient have Health Care Power of Poultry Farmer Egg? No Care Teams Development Specialist Relationship Specialty Start Date End Date Julia Garcia DO [address] [place] [address] [place] [address] PCP - General Internal Medicine 05/28/23 documented as of this encounter
--- OUTSIDE RECORDS SUMMARY | 2024-10-07 04:04 | External Medical Summary | Summary of Care ---
Author Name Unknown Organization [facility] Address [address] [facility] [place] [address] Phone [phone] Care Team Providers Care Director Global Medical Affairs Name Role Phone GarciaJulia DO Primary Care Provider Reason for Visit * Reason Onset Date Comments Hospital Follow-Up 10/03/2024 Katiana for [facility] Encounter Details Date Type Department Care Team (Late st Contact Info) Description 10/03/2024 Telephone Ancillary [address] [place] [address] Ayse Stringer, YANA Hospital Follow-Up (Katiana for [facility]) Allergies No known active allergiesdocumented as of [...] as needed. 05/25/20 23 Active Saline Nasal [place] 0.65 % Nasal Solution (Sk[place]it) Administer 2 Sprays into nostril as needed. [...] mgIndications:Kidney replaced by transplant 150 mg IM [id number] 08/02/2021 Active Cilgavimab inj 150 mgIndications:Kidney replaced by transplant 150 mg IM [id number] 08/02/2021 Active documented as of this encounter [...] CG/0.3 mL, 12 YRS AND ABOVE, IM (Quintic-ComirnatStamp.it) 04/02/2023 Covid-19 Ad26, Single Dose (Westinghouse Solar/J&J) 09/24/2020 Covid-19, Mrna, Lnp-s, Pf, B ivalent, 30 Mcg, IM, 12 yrs and above (GigSocial) 03/15/2024,05/05/2022 Pneumococcal Conjugate Vacci ne, 20-valent ([id number]) 03/29/2024 Pneumococcal Polysaccharide PPV23 (Pneumovax) 09/02/2018 RSV [...] encounter Miscellaneous Notes * Telephone Encounter - Julia Garcia DO [...] visit for follow up: katiana Admitted to: [facility], Date: 09.28.24 Discharged to: home, Date: [...] dizziness 2. Worsening symptoms 3. Sob/chest pain Optician Apprentice DispensingCurriculum Manager of Care interventions/Action Plan: 5 - 7 [...] Borden Follow-up with your orthopedic surgeon Dr. Peacock/child's nurse as needed, patient states he will not be followning up with ortho or rheumatology due to limited PTO at work. -- Your final blood cultures are pending at the time of discharge. Follow-up with your physician for results. Per [employer], blood cultures on 09/30/24 fineal results NO [...] recommendations with Gaby too. Ayse Stringer, RN Litten,rima documented in this encounter Plan of Treatment Upcoming Encounters Date Type Department Care Team (Late st Contact Info) Description 10/10/2024 4:00 PM EDT Office Visit Family Medicine [address] [place] [address] Julia Livingston MD [address] [place] [address] [place] [address] 10/26/2024 9:30 AM EDT Imaging Radiology [facility] [place] [address] [place] [address] 11/25/2024 2:10 PM EDT Office Visit Family [address] [place] [address] Julia Garcia DO [address] [place] [address] [place] [address] 11/28/2024 10:15 AM EDT Imaging [facility] 2nd Floor Cardiology, [place] [address] [place] [address] 11/30/2024 8:00 AM EDT [facility] [address] [place] [address] 03/29/2025 5:00 PM EDT Office Visit Nephrology, [facility] [address] [place] [address] Edwin Guerrero MD [address] [place] [address] 10/02/2025 3:45 PM EDT Office Visit Dermatology [facility] [place] [address] [place] [address] Kai Mcclain MD [address] [place] [address] Scheduled Procedures Name Priority Associated Diagnoses Date/Ti [...] this encounter Medical Devices Implanted Type Area Drafting Layout Worker Device Identifier Shelf Expiration Date Model / Serial / Lot Coil Vortex 35 Pltin [id number] - [id number] Implanted:Qty: 1 on 07/13/2018 by Collin Stroud MD at [place] [facility] Left: Lower Arm [employer] : NEURO INTR 03/31/2021 [id number] / / [id number] Description:[email or web address] ENH 08/31/24 Static magnetic field of 1.5 Juliet or 3.0 Juliet Static magnetic field gradient < 25 T/m (2500 g/cm) Normal operating mode of the MR system with a maximum whole body averaged specific absorption rate of 2 W/kg and use of transmit/receive head coil and/or whole body transmit coils Coil Vortex 35 Pltin [id number] - [id number] Implanted:Qty: 1 on 07/13/2018 by Collin Stroud MD at OR [facility] Left: Lower Arm [employer] : NEURO INTR 03/31/2021 [id number] Description:[email or web address] ENH 08/31/24 Static magnetic field [...] the patient have Health Care Power of Asphalt Paving Foreman? No Care Teams Director Global Medical Affairs Relationship Specialty Start Date End Date Julia Garcia DO [address] [place] [address] [place] [phone] PCP - General Internal Medicine 05/28/23 documented as of this encounter
--- OUTSIDE RECORDS SUMMARY | 2024-10-07 04:05 | External Medical Summary | Summary of Care ---
Author Name Unknown Organization [facility] Address [address] [place] [address] Phone [phone] Care Team Providers Care Medical Staff Manager Name Role Phone Jose Julia Wiley Primary Care Provider [phone] Reason for Visit * Reason Onset Date Comments Other 09/28/2024 Encounter Details Date Type Department Care Team (Late st Contact Info) Description 09/28/2024 Telephone Nephrology, [address] [address] Services, Scheduling [address] [place] [address] Other Allergies No known active allergiesdocumented as [...] hours as needed. 3 Active Saline Nasal [place] 0.65 % Nasal Solution (Hagan) Administer 2 Sprays into nostril as needed. [...] mgIndications:Kidney replaced by transplant 150 mg IM [id number] 08/02/2021 Active Cilgavimab inj 150 mgIndications:Kidney replaced by transplant 150 mg IM [id number] 08/02/2021 Active documented as of this encounter [...] IM (PFIZER-Comirnaty) 04/02/2023 Covid-19 Ad26, Single Dose (HeySpace/J&J) 09/24/2020 Covid-19, Mrna, Lnp-s, Pf, B ivalent, 30 Mcg, IM, 12 yrs and above (Pfizer) 03/15/2024,05/05/2022 Pneumococcal Conjugate Vacci ne, 20-valent ([id number]) 03/29/2024 Pneumococcal Polysaccharide PPV23 (Pneumovax) 09/02/2018 RSV [...] EDT Notified Dr Stern who is covering [facility] today * Telephone Encounter - Kassandra Estrada [...] for the generic medication. He is at [facility] in room 242. Any question please reach out spouse. documented in this encounter Plan of Treatment Upcoming Encounters Date Type Department Care Team (Late st Contact Info) Description 10/19/2024 12:30 PM EDT Imaging [facility] [address] [place] [phone] Gw, Excess Time Radiology [address] [place] [address] 11/08/2024 11:00 AM EDT Office Visit Cardiology, [facility] [address] [place] [phone] Toni Delatorre, [address] [place] [address] 11/25/2024 2:10 PM EDT Office Visit Family Medicine [address] [address] Julia Garcia [address] [place] [address] 03/29/2025 5:00 PM EDT Office Visit Nephrology, [facility] [address] [facility] [place] [address] Edwin Guerrero MD [address] [facility] [place] [address] 10/02/2025 3:45 PM EDT Office Visit Dermatology [facility] [place] [address] [facility] [place] [address] Kai Mcclain MD [address] [facility] [place] [address] Scheduled Procedures Name Priority Associated Diagnoses Date/Ti [...] this encounter Medical Devices Implanted Type Area Mobile Manager Device Identifier Shelf Expiration Date Model / Serial / Lot Coil Vortex 35 Pltinm [id number] - [id number] Implanted:Qty: 1 on 07/13/2018 by Collin Stroud MD at OR [facility] [place] Left: Lower Arm [employer] : NEURO INTR 03/31/2021 [id number] Description:[email or web address] ENH 08/31/24 Static magnetic field of 1.5 Juliet or 3.0 Juliet Static magnetic field gradient < 25 T/m (2500 g/cm) Normal operating mode of the MR system with a maximum whole body averaged specific absorption rate of 2 W/kg and use of transmit/receive head coil and/or whole body transmit coils Coil Vortex 35 Pltinm [id number] - [id number] Implanted:Qty: 1 on 07/13/2018 by Collin Stroud MD at OR [facility] [place] Left: Lower Arm [employer] : NEURO INTR 03/31/2021 [id number] Description:[email or web address] ENH 08/31/24 Static magnetic field [...] the patient have Health Care Power of Sludge Control Operator? No Care Teams Medical Staff Manager Relationship Specialty Start Date End Date Julia Garcia DO [address] [place] [address] [place] [address] PCP - General Internal Medicine 05/28/23 documented as of this encounter
[2024-10-07] MEDS: PIPERACILLIN/TAZOBACTAM 4.5 GM/100 ML BAG IV SCH (04:33)
--- OUTSIDE RECORDS SUMMARY | 2024-10-07 06:05 | External Medical Summary | Summary of Care ---
Author Name Unknown Organization [facility] Address [address] [facility] [address] Phone [phone] Care Team Providers Care Flooring Grader Name Role Phone Julia Garcia DO Primary Care Provider + [phone] Reason for Visit * Reason Onset Date Comments Hospital Follow-Up 10/03/2024 Katiana for [facility] Follow Up 10/03/2024 Patient to call Thursday with BP readings. Advice 10/03/2024 Hand swelling, a sking if pt should go to ER Encounter Details Date Type Department Care Team (Late st Contact Info) Description 10/03/2024 Telephone Ancillary [address] [place] [address] Ayse Stringer, YANA Hospital Follow-Up (Katiana for [facility]/); Follow... Allergies No known active allergiesdocumented as of this encounter (statuses as of 10/07/2024) Medications aspirin enteric coated 81 MG TBECIndications:K [...] as needed. 05/25/20 23 Active Saline Nasal [place] 0.65 % Nasal Solution (Ali Chuk) Administer 2 Sprays into nostril as needed. [...] morning and 1 Capsule before bedtime. 10/01/19 Active Cefuroxime Axetil 500 MG Oral Tablet [...] mgIndications:Kidney replaced by transplant 150 mg IM [id number] 08/02/2021 Active Cilgavimab inj 150 mgIndications:Kidney replaced by transplant 150 mg IM [id number] 08/02/2021 Active documented as of this encounter (statuses as of 10/07/2024) Active Problems Problem Noted Date Diagnosed Date [...] as of this encounter (statuses as of 10/07/2024) Resolved Problems Problem Noted Date Diagnosed Date [...] as of this encounter (statuses as of 10/07/2024) Immunizations Name Administration Dates Next Due COVID-19, MRNA-LNP, PF, 30 M CG/0.3 mL, 12 YRS AND ABOVE, IM (ADITU SAS-Comirnaty) 04/02/2023 Covid-19 Ad26, Single Dose (ClearFit/J&J) 09/24/2020 Covid-19, Mrna, Lnp-s, Pf, B ivalent, 30 Mcg, IM, 12 yrs and above (Cruise Compare) 03/15/2024,05/05/2022 Pneumococcal Conjugate Vacci ne, 20-valent (Omdhwwe44) 03/29/2024 Pneumococcal Polysaccharide PPV23 (Pneumovax) 09/02/2018 RSV [...] encounter Miscellaneous Notes * Telephone Encounter - Brigid Garrison RN - 10/06/2024 5:32 PM EDT Please see separate black puller Encounter. Encounter was already closed and added on to an encounter originally dated 10/03/2024. * Telephone Encounter - Gretchen Burton OSA - 10/06/2024 5:23 PM EDT What is the reason for call? Pt Gaby, calling in advising pt hand is re- swelling after finishing the antibiotic. Gaby wants to know if she should take pt back to ER. What Clinic is the patient trying to reach? [facility]: [facility] - CallType: Red Flag- route the telephone encounter as routine to black puller p [phone] Call was routed "routine" to the [facility] nurse triage basket (p [phone]). * Telephone Encounter - Ayse Stringer RN [...] he drinks a lot of water.I did substance abuse counselor her he needs to stay hydrated and change positions slowly. I am unable to call patient at work per his request. I will await reading on Thursday, patient HD appointment is 10/10/24 * Telephone Encounter - GarciaJulia comer DO - 10/04/2024 10:27 PM EDT We [...] visit for follow up: katiana Admitted to: [facility], Date: 09.28.24 Discharged to: home, Date: 09.30.24 [...] dizziness 2. Worsening symptoms 3. Sob/chest pain Shaker FlatworkCat Wagon Operator of Care interventions/Action Plan: 5 - 7 [...] Borden Follow-up with your orthopedic surgeon Dr. Peacock/client development consultant as needed, patient states he will not be followning up with ortho or rheumatology due to limited PTO at work. -- Your final blood cultures are pending at the time of discharge. Follow-up with your physician for results. Per [employer], blood cultures on 09/30/24 fineal results NO [...] discuss appointment and recommendations with Gaby too. YANA Richards donal documented in this encounter Plan of Treatment Upcoming Encounters Date Type Department Care Team (Late st Contact Info) Description 10/10/2024 4:00 PM EDT Office Visit Family [address] [place] [address] Julia Livingston MD [address] [place] [address] [place] [address] 10/26/2024 9:30 AM EDT Imaging Radiology [facility] 1st [facility] [place] [address] [place] [address] 11/25/2024 2:10 PM EDT Office Visit Family [address] [place] [address] Julia Garcia DO [address] [place] [address] [place] [address] 11/28/2024 10:15 AM EDT Imaging [facility] 2nd Floor Cardiology, [place] [address] [place] [address] 11/30/2024 8:00 AM EDT [facility] [address] [place] [address] 03/29/2025 5:00 PM EDT Office Visit Nephrology, [facility] [address] [place] [address] Edwin Guerrero MD [address] [place] [address] 10/02/2025 3:45 PM EDT Office Visit Dermatology [facility] [address] [place] [address] Kai Mcclain MD [address] [place] [address] Scheduled Procedures Name Priority Associated Diagnoses Date/Ti [...] this encounter Medical Devices Implanted Type Area Card Puncher Device Identifier Shelf Expiration Date Model / Serial / Lot Coil Vortex 35 Pltin [id number] - [id number] Implanted:Qty: 1 on 07/13/2018 by Collin Stroud MD [place] [facility] [place]: Lower Arm [employer] : NEURO INTR 03/31/2021 [id number] Description:[email or web address] ENH 08/31/24 Static magnetic field of 1.5 Juliet or 3.0 Juliet Static magnetic field gradient < 25 T/m (2500 g/cm) Normal operating mode of the MR system with a maximum whole body averaged specific absorption rate of 2 W/kg and use of transmit/receive head coil and/or whole body transmit coils Coil Vortex 35 [facility] [id number] - [id number] Implanted:Qty: 1 on 07/13/2018 by Collin Stroud MD [place] [facility] Left: Lower Arm [employer] : NEURO INTR 03/31/2021 [id number] Description:[email or web address] ENH 08/31/24 Static magnetic field [...] the patient have Health Care Power of Cranberry Sorter? No Care Teams Flooring Grader Relationship Specialty Start Date End Date Julia Garcia DO [address] [place] [address] [place] [address] PCP - General Internal Medicine 05/28/23 documented as of this encounter
--- OUTSIDE RECORDS SUMMARY | 2024-10-07 06:05 | External Medical Summary | Summary of Care ---
Author Name Unknown Organization [facility] Address [address] [facility] [address] Phone [phone] Care Team Providers Care Substation Electrician Supervisor Name Role Phone Julia Garcia DO Primary Care Provider + [phone] Reason for Visit * Reason Onset Date Comments Hospital Follow-Up 10/03/2024 Katiana for [facility] Follow Up 10/03/2024 Patient to call Thursday with BP readings. Advice 10/03/2024 Hand swelling, a sking if pt should go to ER Encounter Details Date Type Department Care Team (Late st Contact Info) Description 10/03/2024 Telephone Ancillary [address] [place] [address] Ayse Stringer, YANA Hospital Follow-Up (Katiana for [facility]/); Follow... Allergies No known active allergiesdocumented as [...] as needed. 05/25/20 23 Active Saline Nasal [place] 0.65 % Nasal Solution (Colliers) Administer 2 Sprays into nostril as needed. [...] mgIndications:Kidney replaced by transplant 150 mg IM [id number] 08/02/2021 Active Cilgavimab inj 150 mgIndications:Kidney replaced by transplant 150 mg IM [id number] 08/02/2021 Active documented as of this encounter [...] CG/0.3 mL, 12 YRS AND ABOVE, IM (ROLI-Comirnaty) 04/02/2023 Covid-19 Ad26, Single Dose (zwoor.com/J&J) 09/24/2020 Covid-19, Mrna, Lnp-s, Pf, B ivalent, 30 Mcg, IM, 12 yrs and above (Plutonium Paint) 03/15/2024,05/05/2022 Pneumococcal Conjugate Vacci ne, 20-valent (Uzqcghr04) 03/29/2024 Pneumococcal Polysaccharide PPV23 (Pneumovax) 09/02/2018 RSV [...] of Assessment Author No 08/21/2019 3:36 PM Pravenea Pastrana RN * Do you have serious [...] 10/06/2024 5:32 PM EDT Please see separate equipment technician Encounter. Encounter was already closed and added [...] Clinic is the patient trying to reach? [facility]: [facility] - CallType: Red Flag- route the telephone encounter as routine to equipment technician p [phone] Call was routed "routine" to the [facility] nurse triage basket (p [phone]). * Telephone Encounter - Ayse Stringer RN [...] he drinks a lot of water.I did financial counselor her he needs to stay hydrated [...] visit for follow up: katiana Admitted to: [facility], Date: 09.28.24 Discharged to: home, Date: 09.30.24 [...] dizziness 2. Worsening symptoms 3. 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 Peacock/polisher dial as needed, patient states he will not be followning up with ortho or rheumatology due to limited PTO at work. -- Your final blood cultures are pending at the time of discharge. Follow-up with your physician for results. Per Interview, blood cultures on 09/30/24 fineal results NO [...] 10/10/2024 4:00 PM EDT Office Visit Family [address] [place] [address] Julia Livingston MD [address] [place] [address] [place] [address] 10/26/2024 9:30 AM EDT Imaging Radiology [facility] 1st [facility] [place] [address] [place] [address] 11/25/2024 2:10 PM EDT Office Visit Family [address] [place] [phone] Julia Garcia DO [address] [place] [address] [place] [address] 11/28/2024 10:15 AM EDT Imaging [facility] 2nd Floor Cardiology, [place] [address] [place] [address] 11/30/2024 8:00 AM EDT [facility] [address] [place] [address] 03/29/2025 5:00 PM EDT Office Visit Nephrology, [facility] [address] [place] [address] Edwin Guerrero MD [address] [place] [address] 10/02/2025 3:45 PM EDT Office Visit Dermatology [facility] [address] [place] [address] Kai Mcclain MD [address] [place] [address] Scheduled Procedures Name Priority Associated Diagnoses Date/Ti [...] this encounter Medical Devices Implanted Type Area It Risk Advisor Device Identifier Shelf Expiration Date Model / Serial / Lot Coil Vortex 35 Pltin [id number] - [id number] Implanted:Qty: 1 on 07/13/2018 by Collin Stroud MD at [place] [facility] [place] Left: Lower Arm [employer] : NEURO INTR 03/31/2021 [id number] Description:[email or web address] ENH 08/31/24 Static magnetic field of 1.5 Juliet or 3.0 Juliet Static magnetic field gradient < 25 T/m (2500 g/cm) Normal operating mode of the MR system with a maximum whole body averaged specific absorption rate of 2 W/kg and use of transmit/receive head coil and/or whole body transmit coils Coil Vortex 35 [facility] [id number] - [id number] Implanted:Qty: 1 on 07/13/2018 by Collin Stroud MD at OR [facility] [place] Left: Lower Arm [employer] : NEURO INTR 03/31/2021 [id number] Description:[email or web address] ENH 08/31/24 Static magnetic field [...] the patient have Health Care Power of Interventional Technologist? No Care Teams Substation Electrician Supervisor Relationship Specialty Start Date End Date Julia Garcia DO [address] [place] [address] [place] [address] PCP - General Internal Medicine 05/28/23 documented as of this encounter
[2024-10-07 07:17] LABS: Basophils # (auto) 0.02 K/uL (0.00-0.20); Basophils % (auto) 0.2 %; Eosinophils # (auto) 0.14 K/uL (0.00-0.50); Eosinophils % (auto) 1.4 %; Hematocrit (blood only) 41.5 % (42.0-52.0); Hemoglobin 13.9 g/dl (14.0-18.0); Immature Granulocytes # (auto) 0.08 K/uL (0.01-0.20); Immature Granulocytes % (auto) 0.8 %; Lymphocytes # (auto) 0.54 K/uL (1.20-3.40); Lymphocytes % (auto) 5.4 %; Mean Corpuscular Hemoglobin 28.9 pg (25.0-34.0); Mean Corpuscular Hgb Conc 33.5 g/dL (32.0-36.0); Mean Corpuscular Volume 86.3 fL (80.0-100.0); Mean Platelet Volume 10.4 fL (9.4-12.4); Monocytes # (auto) 0.28 K/uL (0.11-0.59); Monocytes % (auto) 2.8 %; Neutrophils # (auto) 9.03 K/uL (1.40-6.50); Neutrophils % (auto) 89.4 %; Platelet Count 196 K/uL (130-400); RDW Coefficient of Variation 12.7 % (11.5-14.5); RDW Standard Deviation 39.8 fL (36.4-46.3); Red Blood Count 4.81 M/uL (4.70-6.10); White Blood Count 10.09 K/ul (4.8-10.8)
[2024-10-07 07:34] LABS: BUN Creatinine Ratio 25.8 (10-20); Calcium 9.9 mg/dl (8.6-10.3); Creatinine Clr Calc Pharmacy 75.5 ml/min; Magnesium 1.6 mg/dl (1.7-2.4)
[2024-10-07] MEDS: cloNIDine HCL 0.1 MG TAB PO SCH (09:17)
[2024-10-07] MEDS: MYCOPHENOLATE SODIUM 180 MG TAB PO SCH (09:17)
[2024-10-07] MEDS: ADVANCED PROBIOTIC 625 MG CAPSULE PO SCH (09:17)
[2024-10-07] MEDS: APIXABAN 5 MG TABLET PO SCH (09:17)
[2024-10-07] MEDS: amLODIPine BESYLATE 5 MG TAB PO SCH (09:18)
[2024-10-07] MEDS: MAGNESIUM OXIDE 400 MG TAB PO SCH (09:18)
[2024-10-07] MEDS: lisinopril 20 MG TAB PO SCH (09:18)
[2024-10-07] MEDS: ASPIRIN 81 MG ECTAB PO SCH (09:20)
[2024-10-07] MEDS: MAGNESIUM SULFATE / D5W 1 GM/100 ML BAG IV SCH (09:21)
[2024-10-07] MEDS: carvediloL 25 MG TAB PO SCH (09:21)
[2024-10-07] MEDS: predniSONE 20 MG TAB PO SCH (09:21)
--- NOTE | 2024-10-07 10:18 | Electrocardiogram Report ---
Test Reason : Blood Pressure : */* mmHG Vent. Rate : 96 BPM Atrial Rate : 256 BPM P-R Int : * ms QRS Dur : 86 ms QT Int : 354 ms P-R-T Axes : * -84 71 degrees QTcB Int : 447 ms Atrial flutter with variable A-V block Left axis deviation Abnormal ECG When compared with ECG of 27-Sep-2024 23:29, Criteria for Inferior infarct are no longer Present Confirmed by Arden rTeadwell ([id number]) on 10/07/2024 10:17:48 AM Referred By: Julia Garcia Confirmed By: Arden Treadwell
--- NOTE | 2024-10-07 10:51 | Orthopedic Consultation ---
Date of Consultation October 07, 2024 Assessment & Plan (1) Cellulitis of right hand: Spoke to hospitalist service ([facility]). They are admitting the patient for IV antibiotics. I advised them that at this point patient is nonsurgical. There is no osteomyelitis, abscess, or open skin areas that need irrigation debridement. They can feed him. I will relay the information to Dr. Peacock. He will most likely evaluate the patient later this afternoon. Supervising Physician Co-Signing Physician Notes I, Dr. Peacock, saw and examined the patient. I discussed the management with my PA. I reviewed my PAs note and agree with the documented findings and attest to completing the substantive portion of medical decision making and plan of care I developed. PE: RUE: Neurovascular unchanged. Significantly decreased swelling, no erythema compared to last admission. Labs: WBC & ESR WNL; CRP improving Impression: RUE cellulitis improved Plan: Continue care per Hospitalist service with IV Abx. No surgical intervention warranted, may eat. Consider Rheumatology evaluation as outpatient. Should follow up with PCP Will sign off. History of Present Illness Reason for Consultation: Right hand cellulitis versus gout Requesting Physician: Myles Peacock MD Attending Physician: Jae Villasenor MD History of Present Illness 64-year-old male is seen in the emergency department for consultation of right hand swelling. He has a past medical history significant for hypertension, hyperlipidemia, secondary hyperparathyroidism, status post renal transplant in 2019 with chronic immunotherapy, history of paroxysmal atrial fibrillation, was recently in the hospital for right hand cellulitis/gout comes back with a right hand infection. Patient was admitted on September 27, 2024 and was discharged on September 30, 2024. During that admission he was treated for cellulitis of right hand with daptomycin and cefepime. He was also given steroids for suspected gout flare as uric acid was high. Patient was also noted to have A flutter and seen by cardiology was started on Eliquis and is also on Coreg. He was discharged on cefuroxime and doxycycline and prednisone taper. Patient says he completed antibiotics on Thursday. Last admission right hand was much swollen and that is improved with antibiotic per patient. And today again right hand started to swell and also having pain and he called his PCP office and was advised to come to the ER. Having painful movement of the right hand. Mild swelling, However he states that the erythema resolved after he was given the first dose of his IV antibiotics (Zosyn). Denies any fevers. Denies any chest pain or shortness of breath. No cough. No nausea. Sitting in the chair comfortably and hemodynamics are okay. Uric acid 9 Recently in the hospital was treated with cefepime and Dapto and prednisone Allergies Allergy/AdvReac Type Severity Reaction Status Date / Time No Known Allergies Allergy Verified 10/06/24 21:49 Home Medications Medication Instructions Recorded Confirmed Type cinacalcet 30 mg tablet 30 mg PO PM 04/24/18 10/06/24 History acetaminophen 500 mg tablet 500 mg PO Q6H PRN Pain 06/18/20 10/06/24 History (Tylenol Extra Strength) aspirin 81 mg tablet,delayed 81 mg PO DAILY 06/18/20 10/06/24 History release magnesium oxide 400 mg PO DAILY 06/18/20 10/06/24 History simvastatin 20 mg tablet 20 mg PO DAILY 06/18/20 10/06/24 History carvedilol 25 mg tablet 25 mg PO BID 10/18/20 10/06/24 History mycophenolate sodium 180 mg 540 mg PO BID 05/22/23 10/06/24 History tablet,delayed release apixaban 5 mg tablet (Eliquis) 5 mg PO BID 09/27/24 10/06/24 History levalbuterol tartrate 45 1 puff inhalation Q4 PRN SOB 09/27/24 10/06/24 History mcg/actuation aerosol inhaler tacrolimus 0.75 mg tablet,extended 1.5 mg PO QAM 09/27/24 10/06/24 History release 24 hr (Envarsus XR) torsemide 20 mg tablet 20 mg PO PM 09/27/24 10/06/24 History L.acidop,casei,lactis,rham-B.lact,shantell 1 cap PO DAILY #10 caps 09/30/24 10/06/24 Rx 625 mg (10 billion cell) capsule (Advanced Probiotic) amlodipine 5 mg tablet (Norvasc) 2.5 mg (1/2 x 5 mg) PO QAM #30 tabs 09/30/24 10/06/24 Rx clonidine HCl 0.1 mg tablet 0.1 mg PO TID #0 tabs 09/30/24 10/06/24 Rx lisinopril 10 mg tablet 20 mg (2 x 10 mg) PO QAM #60 tabs 09/30/24 10/06/24 Rx sodium chloride 0.65 % nasal spray 2 spray NA DIRECTED PRN dry 10/06/24 10/06/24 History aerosol (Saline Mist) nasal passages Patient History Medical History Breathlessness Respiratory syncytial virus (RSV) Fever of unknown origin DVT prophylaxis SIRS (systemic inflammatory response syndrome) Cholelithiasis Family hx colonic polyps Hyperphosphatemia End stage renal failure on dialysis Gout Osteoarthritis GERD (gastroesophageal reflux disease) Asthma A CHILD (NO CURRENT PROBLEMS) New onset atrial fibrillation Surgical History History of cholecystectomy Renal transplant recipient Date of transplant 02/17/2019, at [facility] Living donor transplant History of tooth extraction S/P arteriovenous (AV) fistula creation LEFT ARM Family History Brother Family hx colonic polyps Father Heart disease Stroke Mother Coronary heart disease Other Dementia Hypertension Skin cancer Social History Smoking Status: Never smoker Second Hand Exposure: Yes; Do You Dip or Chew Tobacco: No; Hx Alcohol Use: No Hx Substance Use: No Preferred Language: Hungarian Communication Ability: Effective Visual Impairment: No Limitations Inductor Tester Required: No Beliefs That Will Affect Care: None marital status: Current Living Situation: Family current occupational status: employed Other Information That Helps Us Care for You: No Feels Safe at Home: Yes Safety Concerns: Feels Safe At This Time Assistive Devices: None Review of Systems Review of Systems: All systems reviewed & are unremarkable except as noted in Subjective Physical Exam Physical Exam: Right hand: Visible edema over the entire dorsum of the hand extending to the PIPs of digits 2 through 5. Patient is able to make complete fist. He is able to resist compression of digits 2 through 5. He does have some weakness with applied resistance while performing pincer grasp between thumb and index finger as well as weakness with resisted extension at the IP and MCP joint of his thumb. He does have full range of motion of his wrist without discomfort. His peripheral pulses are 2+. He is able to detect light sensation to touch over the pads of all digits. There is no erythema or ecchymosis. There is no warmth. There is no streaking into his forearm. There are no open skin lesions, palpable fluctuance or drainage noted. Results & Data Vital Signs (Past 12 Hours) Vital Signs Pulse Pulse Resp BP Pulse Ox O2 Del Method 10/07/24 07:56 82 10/07/24 07:00 93 H 20 93 Room Air 10/07/24 05:00 87 18 163/94 H 94 Room Air 10/07/24 03:00 86 18 144/80 H 99 Room Air 10/07/24 01:10 70 10/07/24 00:00 82 18 148/97 H 94 Room Air Diagnostic Findings Laboratory Results WBC 10.09 K/ul (4.8-10.8) 10/07/24 06:34 RBC 4.81 M/uL (4.70-6.10) 10/07/24 06:34 Hgb 13.9 g/dl (14.0-18.0) L 10/07/24 06:34 Hct 41.5 % (42.0-52.0) L 10/07/24 06:34 MCV 86.3 fL (80.0-100.0) 10/07/24 06:34 MCH 28.9 pg (25.0-34.0) 10/07/24 06:34 MCHC 33.5 g/dL (32.0-36.0) 10/07/24 06:34 RDW Std Deviation 39.8 fL (36.4-46.3) 10/07/24 06:34 RDW Coeff of Christian 12.7 % (11.5-14.5) 10/07/24 06:34 Plt Count 196 K/uL (130-400) 10/07/24 06:34 MPV 10.4 fL (9.4-12.4) 10/07/24 06:34 Immature Gran % (Auto) 0.8 % 10/07/24 06:34 Neut % (Auto) 89.4 % 10/07/24 06:34 Lymph % (Auto) 5.4 % 10/07/24 06:34 [place] % (Auto) 2.8 % 10/07/24 06:34 Eos % (Auto) 1.4 % 10/07/24 06:34 Baso % (Auto) 0.2 % 10/07/24 06:34 Neut # (Auto) 9.03 K/uL (1.40-6.50) H 10/07/24 06:34 Lymph # (Auto) 0.54 K/uL (1.20-3.40) L 10/07/24 06:34 [place] # (Auto) 0.28 K/uL (0.11-0.59) 10/07/24 06:34 Eos # (Auto) 0.14 K/uL (0.00-0.50) 10/07/24 06:34 Baso # (Auto) 0.02 K/uL (0.00-0.20) 10/07/24 06:34 Immature Gran # (Auto) 0.08 K/uL (0.01-0.20) 10/07/24 06:34 ESR 20 mm/hr (0-20) 10/06/24 20:08 PT 11.5 Seconds (9.0-12.0) 10/06/24 20:08 INR 1.1 (0.9-1.1) 10/06/24 20:08 APTT 29 Seconds (21-31) 10/06/24 20:08 PTT Ratio 1.1 10/06/24 20:08 Sodium 138 mmol/L (136-145) 10/07/24 06:34 Potassium 5.0 mmol/L (3.5-5.1) 10/07/24 06:34 Chloride 106 mmol/L (98-107) 10/07/24 06:34 Carbon Dioxide 28 mmol/L (21-32) 10/07/24 06:34 Anion Gap 4 (3-11) 10/07/24 06:34 BUN 33 mg/dl (6-23) H 10/07/24 06:34 Creatinine 1.28 mg/dl (0.6-1.4) 10/07/24 06:34 Est Cr Clr Drug Dosing 75.5 ml/min 10/07/24 06:34 eGFR 62.89 10/07/24 06:34 BUN/Creatinine Ratio 25.8 (10-20) H 10/07/24 06:34 Glucose 175 mg/dl (70-99(Fasting)) H 10/07/24 06:34 Lactate 1.3 mmol/L (0.4-2.0) 10/06/24 20:08 Uric Acid 9.0 mg/dl (2.6-7.2) H 10/06/24 20:08 Calcium 9.9 mg/dl (8.6-10.3) 10/07/24 06:34 Magnesium 1.6 mg/dl (1.7-2.4) L 10/07/24 06:34 Total Bilirubin 0.7 mg/dl (0.2-1.0) 10/06/24 20:08 AST 21 U/L (13-39) 10/06/24 20:08 ALT 24 U/L (7-52) 10/06/24 20:08 Alkaline Phosphatase 83 U/L (34-104) 10/06/24 20:08 Troponin I High Sens 14.7 pg/ml (0-20) 10/06/24 20:08 C-Reactive Protein 0.95 mg/dl (0-0.5) H 10/06/24 20:08 Total Protein 7.4 gm/dl (6.0-8.3) 10/06/24 20:08 Albumin 4.1 gm/dl (3.4-5.0) 10/06/24 20:08 Globulin 3.3 gm/dl (2.5-4.0) 10/06/24 20:08 Albumin/Globulin Ratio 1.2 (0.9-2) 10/06/24 20:08 Lipase 97 U/L (11-82) H 10/06/24 20:08 Procalcitonin 0.21 ng/ml (0-0.5) 10/06/24 20:08 Impressions Chest X-Ray 10/06/24 20:13 Exam(s): XR CXR 1 VIEW EXAM: XR Chest, 1 View CLINICAL HISTORY: Reason for exam: infection. TECHNIQUE: Frontal view of the chest. COMPARISON: 05/22/2023 FINDINGS: Lungs: No consolidation. No overt edema. Pleural space: No pleural effusion. No pneumothorax. Heart: Unremarkable. No cardiomegaly. IMPRESSION: No acute cardiopulmonary abnormality. Electronically signed by: Anastacio Nash MD 10/06/24 22:11 PM Hand X-Ray 10/06/24 20:13 Exam(s): XR RIGHT HAND, 3 views EXAM: XR Right Hand Complete, 3 or More Views CLINICAL HISTORY: Reason for exam: infection. TECHNIQUE: Frontal, lateral and oblique views of the right hand. COMPARISON: No relevant prior studies available. FINDINGS: Bones/joints: No fracture or malalignment. No evidence of osteomyelitis. Degenerative changes most pronounced at the MCP joints and first CMC joint. Soft tissues: Unremarkable. No radiopaque foreign body. IMPRESSION: No evidence of osteomyelitis. Electronically signed by: Anastacio Nash MD 10/06/24 22:10 PM
[2024-10-07] MEDS: TORSEMIDE 20 MG TAB PO SCH (17:57)
[2024-10-07] MEDS: CINACALCET HCL 30 MG TAB PO SCH (17:58)
[2024-10-08] MEDS: TACROLIMUS 0.75 MG PO SCH (06:03)
[2024-10-08 07:39] LABS: Hematocrit (blood only) 39.6 % (42.0-52.0); Hemoglobin 13.1 g/dl (14.0-18.0); Mean Corpuscular Hemoglobin 28.9 pg (25.0-34.0); Mean Corpuscular Hgb Conc 33.1 g/dL (32.0-36.0); Mean Corpuscular Volume 87.4 fL (80.0-100.0); Mean Platelet Volume 10.7 fL (9.4-12.4); Platelet Count 188 K/uL (130-400); RDW Coefficient of Variation 12.8 % (11.5-14.5); RDW Standard Deviation 40.1 fL (36.4-46.3); Red Blood Count 4.53 M/uL (4.70-6.10); White Blood Count 10.48 K/ul (4.8-10.8)
[2024-10-08 08:07] LABS: BUN Creatinine Ratio 28.5 (10-20); Calcium 9.8 mg/dl (8.6-10.3); Creatinine Clr Calc Pharmacy 74.3 ml/min; Magnesium 1.8 mg/dl (1.7-2.4); Phosphorus 3.3 mg/dl (2.5-4.9); Potassium 4.5 mmol/L (3.5-5.1)
--- NOTE | 2024-10-08 16:47 | Hospitalist Progress Note ---
Date of Service October 08, 2024 Assessment & Plan (1) Cellulitis of right hand: Plan: 64-year-old male with past medical history significant for hypertension, hyperlipidemia, secondary hyperparathyroidism, status post renal transplant in 2019 with chronic immunotherapy, history of paroxysmal atrial fibrillation, was recently in the hospital for right hand cellulitis/gout comes back with a right hand infection. Patient was admitted on September 27, 2024 and was discharged on September 30, 2024. During that admission he was treated for cellulitis of right hand with daptomycin and cefepime. He was also given steroids for suspected gout flare as uric acid was high. Patient was also noted to have A flutter and seen by cardiology was started on Eliquis and is also on Coreg. He was discharged on cefuroxime and doxycycline and prednisone taper. Patient says he completed antibiotics on Thursday. Last admission right hand was much swollen and that is improved with antibiotic per patient. And today again right hand started to swell and also having pain and he called his PCP office and was advised to come to the ER. Having painful movement of the right hand. Mild swelling and erythema seen. Denies any fevers. Denies any chest pain or shortness of breath. No cough. No nausea. No abdominal pain. No headache. No runny nose or sore throat. Bowels are loose. Micturating okay. Sitting in the chair comfortably and hemodynamics are okay. Cellulitis of right hand Uric acid 9 Possible gout flare Recently in the hospital was treated with cefepime and Dapto and prednisone In the ER received Zosyn Continue with Zosyn and Dapto and steroids Orthopedics consulted - Impression: RUE cellulitis improved Plan: Continue care per Hospitalist service with IV Abx. No surgical intervention warranted Consider Rheumatology evaluation as outpatient. Should follow up with PCP Will monitor the response 10/08 - erythema, edema, pain improved Hypertension On Coreg, amlodipine, clonidine, lisinopril and torsemide Will monitor S/p renal transplant On Envarsus and mycophenolate If any concern will consult nephrology Paroxysmal atrial fibrillation On Coreg and Eliquis We will monitor Chronic heart failure with preserved ejection fraction There is a plan for cardiac MRI and nuclear stress test as outpatient Continue torsemide Will monitor DVT prophylaxis On Eliquis Disposition Med/telemetry Full code. Admission and Anticipated Discharge Date Admission Date: October 07, 2024 Subjective Pt seen in follow up of hand cellulitis, hx of kidney transplant recently admitted and discharged - unfortunately edema, erythema recurred after pt finished abx currently pt feels improved, erythema much improved, edema much improved, pain also improved no fever, chills, chest pain, shortness of breath, abd. pain n/v Review of Systems Review of Systems: All systems reviewed & are unremarkable except as noted in Subjective Physical Exam Physical Exam: General- WD/WN M in NAD Head- atraumatic Eyes- PERRL. Neck- supple, no JVD. Lungs- clear to auscultation no wheezing or crackles Heart- regular rhythm; no murmur, no gallop. Abdomen- normal bowel sounds, soft, nontender, no distension Extremities- right hand and wrist dorsal aspect mildly erythematous (improved), edema improved Neuro- alert, oriented PERRL, no facial palsy; no dysarthria; moves extremities Results & Data Results & Data Vital Signs (Past 12 Hours) Vital Signs Temp Pulse Pulse Resp BP Pulse Ox O2 Del Method 10/08/24 16:08 36.5 C 87 18 142/75 H 95 Room Air 10/08/24 15:07 83 10/08/24 11:29 36.3 C L 62 18 120/71 96 Room Air 10/08/24 08:52 36.7 C 96 H 18 132/78 96 Room Air 10/08/24 05:53 78 Laboratory Results 10/08/24 Range/Units 06:46 WBC 10.48 (4.8-10.8) K/ul RBC 4.53 L (4.70-6.10) M/uL Hgb 13.1 L (14.0-18.0) g/dl Hct 39.6 L (42.0-52.0) % MCV 87.4 (80.0-100.0) fL MCH 28.9 (25.0-34.0) pg MCHC 33.1 (32.0-36.0) g/dL RDW Std Deviation 40.1 (36.4-46.3) fL RDW Coeff of Christian 12.8 (11.5-14.5) % Plt Count 188 (130-400) K/uL MPV 10.7 (9.4-12.4) fL Sodium 136 (136-145) mmol/L Potassium 4.5 (3.5-5.1) mmol/L Chloride 103 (98-107) mmol/L Carbon Dioxide 28 (21-32) mmol/L Anion Gap 5 (3-11) BUN 37 H (6-23) mg/dl Creatinine 1.30 (0.6-1.4) mg/dl Est Cr Clr Drug Dosing 74.3 ml/min eGFR 61.73 BUN/Creatinine Ratio 28.5 H (10-20) Glucose 151 H (70-99(Fasting)) mg/dl Calcium 9.8 (8.6-10.3) mg/dl Phosphorus 3.3 (2.5-4.9) mg/dl Magnesium 1.8 (1.7-2.4) mg/dl Medications Administered Current Inpatient Medications Acetaminophen (Acetaminophen 325 Mg Tab) 650 mg PO Q4H PRN PRN Reason: pain/fever Stop: 11/06/24 02:06 Amlodipine Besylate (Amlodipine Besylate 5 Mg Tab) 2.5 mg PO QAM [facility] Stop: 11/06/24 08:59 Last Admin: 10/08/24 07:52 Dose: 2.5 mg Apixaban (Apixaban 5 Mg Tablet) 5 mg PO BID [facility] Stop: 11/06/24 08:59 Last Admin: 10/08/24 07:51 Dose: 5 mg Aspirin (Aspirin 81 Mg Ectab) 81 mg PO DAILY MANNY Stop: 11/06/24 08:59 Last Admin: 10/08/24 07:52 Dose: 81 mg Carvedilol (Carvedilol 25 Mg Tab) 25 mg PO BID [facility] Stop: 11/06/24 08:59 Last Admin: 10/08/24 07:52 Dose: 25 mg Cinacalcet (Cinacalcet Hcl 30 Mg Tab) 30 mg PO QDD [facility] Stop: 11/06/24 16:29 Last Admin: 10/07/24 17:58 Dose: 30 mg Clonidine HCl (Clonidine Hcl 0.1 Mg Tab) 0.1 mg PO TID [facility] Stop: 11/06/24 08:59 Last Admin: 10/08/24 13:43 Dose: 0.1 mg Piperacillin Sod/Tazobactam Sod (Zosyn) 4.5 gm in 100 mls @ 25 mls/hr IV Q8H [facility]; Protocol Stop: 10/14/24 03:59 Last Infusion: 10/08/24 15:48 Dose: Infused Daptomycin 500 mg/ Syringe 10 mls @ 5 mls/min IV Q24H [facility]; Protocol Stop: 10/14/24 02:59 Last Admin: 10/08/24 03:26 Dose: 5 mls/min Lactobacillus Acidophilus (Advanced Probiotic 625 Mg Capsule) 625 mg PO DAILY MANNY Stop: 11/06/24 08:59 Last Admin: 10/08/24 07:52 Dose: 625 mg Levalbuterol HCl (Levalbuterol Tartrate 15 Gm Hfa.Aer.Ad) 1 puffs INH Q4 PRN PRN Reason: Shortness Of Breath Stop: 11/06/24 02:06 Lisinopril (Lisinopril 20 Mg Tab) 20 mg PO QAM [facility] Stop: 11/06/24 08:59 Last Admin: 10/08/24 07:52 Dose: 20 mg Magnesium Oxide (Magnesium Oxide 400 Mg Tab) 400 mg PO DAILY [facility] Stop: 11/06/24 08:59 Last Admin: 10/08/24 07:51 Dose: 400 mg Mycophenolate Sodium (Mycophenolate Sodium 180 Mg Tab) 540 mg PO BID MANNY Stop: 11/06/24 08:59 Last Admin: 10/08/24 07:51 Dose: 540 mg Polyethylene Glycol (Polyethylene (Miralax) 17 Gm Pack) 17 gm PO DAILY PRN PRN Reason: Constipation Stop: 11/06/24 02:06 Prednisone (Prednisone 20 Mg Tab) 40 mg PO DAILY [facility] Stop: 11/06/24 08:59 Last Admin: 10/08/24 07:52 Dose: 40 mg Sodium Chloride (Sodium Chloride 0.65% Na Soln 45 Ml ([place])) 2 sprays NA UD PRN PRN Reason: dry nasal passages Stop: 11/06/24 02:06 Tacrolimus (Tacrolimus Xr 0.75 Mg Ertab) 1.5 mg PO DAILYBB [facility] Stop: 11/07/24 06:29 Last Admin: 10/08/24 06:03 Dose: 1.5 mg Torsemide (Torsemide 20 Mg Tab) 20 mg PO DAILY@1700 [facility] Stop: 11/06/24 16:59 Last Admin: 10/07/24 17:57 Dose: 20 mg
[2024-10-09 07:19] LABS: Hematocrit (blood only) 42.4 % (42.0-52.0); Hemoglobin 13.9 g/dl (14.0-18.0); Mean Corpuscular Hemoglobin 29.1 pg (25.0-34.0); Mean Corpuscular Hgb Conc 32.8 g/dL (32.0-36.0); Mean Corpuscular Volume 88.9 fL (80.0-100.0); Mean Platelet Volume 10.6 fL (9.4-12.4); Platelet Count 198 K/uL (130-400); RDW Standard Deviation 41.7 fL (36.4-46.3); Red Blood Count 4.77 M/uL (4.70-6.10); White Blood Count 9.73 K/ul (4.8-10.8)
[2024-10-09 07:37] LABS: BUN Creatinine Ratio 33.1 (10-20); Calcium 9.9 mg/dl (8.6-10.3); Creatinine Clr Calc Pharmacy 76.1 ml/min; Magnesium 1.8 mg/dl (1.7-2.4); Potassium 4.5 mmol/L (3.5-5.1)
--- NOTE | 2024-10-09 18:15 | Hospitalist Progress Note ---
Date of Service October 09, 2024 Assessment & Plan (1) Cellulitis of right hand: Plan: 64-year-old male with past medical history significant for hypertension, hyperlipidemia, secondary hyperparathyroidism, status post renal transplant in 2019 with chronic immunotherapy, history of paroxysmal atrial fibrillation, was recently in the hospital for right hand cellulitis/gout comes back with a right hand infection. Patient was admitted on September 27, 2024 and was discharged on September 30, 2024. During that admission he was treated for cellulitis of right hand with daptomycin and cefepime. He was also given steroids for suspected gout flare as uric acid was high. Patient was also noted to have A flutter and seen by cardiology was started on Eliquis and is also on Coreg. He was discharged on cefuroxime and doxycycline and prednisone taper. Patient says he completed antibiotics on Thursday. Last admission right hand was much swollen and that is improved with antibiotic per patient. And today again right hand started to swell and also having pain and he called his PCP office and was advised to come to the ER. Having painful movement of the right hand. Mild swelling and erythema seen. Denies any fevers. Denies any chest pain or shortness of breath. No cough. No nausea. No abdominal pain. No headache. No runny nose or sore throat. Bowels are loose. Micturating okay. Sitting in the chair comfortably and hemodynamics are okay. Cellulitis of right hand Uric acid 9 Possible gout flare Recently in the hospital was treated with cefepime and Dapto and prednisone In the ER received Zosyn Continue with Zosyn and Dapto and steroids Orthopedics consulted - Impression: RUE cellulitis improved Plan: Continue care per Hospitalist service with IV Abx. No surgical intervention warranted Consider Rheumatology evaluation as outpatient. Should follow up with PCP Will monitor the response 10/08 - erythema, edema, pain improved Hypertension On Coreg, amlodipine, clonidine, lisinopril and torsemide Will monitor S/p renal transplant On Envarsus and mycophenolate If any concern will consult nephrology Paroxysmal atrial fibrillation On Coreg and Eliquis We will monitor Chronic heart failure with preserved ejection fraction There is a plan for cardiac MRI and nuclear stress test as outpatient Continue torsemide Will monitor DVT prophylaxis On Eliquis Disposition Med/telemetry Full code. Admission and Anticipated Discharge Date Admission Date: October 07, 2024 Subjective Pt seen in follow up of hand cellulitis, hx of kidney transplant recently admitted and discharged - unfortunately edema, erythema recurred after pt finished abx currently pt feels improved, erythema much improved, edema much improved, pain also improved no fever, chills, chest pain, shortness of breath, abd. pain n/v will discuss w/ ID about DC recs Review of Systems Review of Systems: All systems reviewed & are unremarkable except as noted in Subjective Physical Exam Physical Exam: General- WD/WN M in NAD Head- atraumatic Eyes- PERRL. Neck- supple, no JVD. Lungs- clear to auscultation no wheezing or crackles Heart- regular rhythm; no murmur Abdomen- normal bowel sounds, soft, nontender, no distension Extremities- right hand and wrist dorsal aspect mildly erythematous (much improved), edema improved Neuro- alert, oriented PERRL, no facial palsy; no dysarthria; moves extremities Results & Data Results & Data Vital Signs (Past 12 Hours) Vital Signs Temp Pulse Pulse Resp BP Pulse Ox O2 Del Method 10/09/24 16:29 36.8 C 87 16 151/99 H 95 Room Air 10/09/24 13:01 83 10/09/24 11:36 36.3 C L 65 16 143/91 H 95 Room Air 10/09/24 08:02 36.5 C 64 20 126/80 96 Room Air Laboratory Results 10/10/24 Range/Units 06:13 WBC 10.11 (4.8-10.8) K/ul RBC 4.73 (4.70-6.10) M/uL Hgb 14.0 (14.0-18.0) g/dl Hct 41.7 L (42.0-52.0) % MCV 88.2 (80.0-100.0) fL MCH 29.6 (25.0-34.0) pg MCHC 33.6 (32.0-36.0) g/dL RDW Std Deviation 41.1 (36.4-46.3) fL RDW Coeff of Christian 12.7 (11.5-14.5) % Plt Count 214 (130-400) K/uL MPV 10.8 (9.4-12.4) fL Sodium 140 (136-145) mmol/L Potassium 4.3 (3.5-5.1) mmol/L Chloride 105 (98-107) mmol/L Carbon Dioxide 28 (21-32) mmol/L Anion Gap 7 (3-11) BUN 36 H (6-23) mg/dl Creatinine 1.40 (0.6-1.4) mg/dl Est Cr Clr Drug Dosing 69.0 ml/min eGFR 56.48 BUN/Creatinine Ratio 25.7 H (10-20) Glucose 112 H (70-99(Fasting)) mg/dl Calcium 9.9 (8.6-10.3) mg/dl Magnesium 1.8 (1.7-2.4) mg/dl Medications Administered Current Inpatient Medications Acetaminophen (Acetaminophen 325 Mg Tab) 650 mg PO Q4H PRN PRN Reason: pain/fever Stop: 11/06/24 02:06 Amlodipine Besylate (Amlodipine Besylate 5 Mg Tab) 2.5 mg PO QAM [facility] Stop: 11/06/24 08:59 Last Admin: 10/09/24 07:40 Dose: 2.5 mg Apixaban (Apixaban 5 Mg Tablet) 5 mg PO BID [facility] Stop: 11/06/24 08:59 Last Admin: 10/09/24 20:00 Dose: 5 mg Aspirin (Aspirin 81 Mg Ectab) 81 mg PO DAILY [facility] Stop: 11/06/24 08:59 Last Admin: 10/09/24 07:41 Dose: 81 mg Carvedilol (Carvedilol 25 Mg Tab) 25 mg PO BID [facility] Stop: 11/06/24 08:59 Last Admin: 10/09/24 20:00 Dose: 25 mg Cinacalcet (Cinacalcet Hcl 30 Mg Tab) 30 mg PO QDD [facility] Stop: 11/06/24 16:29 Last Admin: 10/09/24 16:32 Dose: 30 mg Clonidine HCl (Clonidine Hcl 0.1 Mg Tab) 0.1 mg PO TID [facility] Stop: 11/06/24 08:59 Last Admin: 10/09/24 20:02 Dose: 0.1 mg Piperacillin Sod/Tazobactam Sod (Zosyn) 4.5 gm in 100 mls @ 25 mls/hr IV Q8H [facility]; Protocol Stop: 10/14/24 03:59 Last Infusion: 10/10/24 07:32 Dose: Infused Daptomycin 500 mg/ Syringe 10 mls @ 5 mls/min IV Q24H [facility]; Protocol Stop: 10/14/24 02:59 Last Admin: 10/10/24 03:28 Dose: 5 mls/min Lactobacillus Acidophilus (Advanced Probiotic 625 Mg Capsule) 625 mg PO DAILY [facility] Stop: 11/06/24 08:59 Last Admin: 10/09/24 07:40 Dose: 625 mg Levalbuterol HCl (Levalbuterol Tartrate 15 Gm Hfa.Aer.Ad) 1 puffs INH Q4 PRN PRN Reason: Shortness Of Breath Stop: 11/06/24 02:06 Lisinopril (Lisinopril 20 Mg Tab) 20 mg PO QAM [facility] Stop: 11/06/24 08:59 Last Admin: 10/09/24 07:41 Dose: 20 mg Magnesium Oxide (Magnesium Oxide 400 Mg Tab) 400 mg PO DAILY [facility] Stop: 11/06/24 08:59 Last Admin: 10/09/24 07:41 Dose: 400 mg Mycophenolate Sodium (Mycophenolate Sodium 180 Mg Tab) 540 mg PO BID [facility] Stop: 11/06/24 08:59 Last Admin: 10/09/24 20:00 Dose: 540 mg Polyethylene Glycol (Polyethylene (Miralax) 17 Gm Pack) 17 gm PO DAILY PRN PRN Reason: Constipation Stop: 11/06/24 02:06 Prednisone (Prednisone 20 Mg Tab) 40 mg PO DAILY [facility] Stop: 11/06/24 08:59 Last Admin: 10/09/24 07:40 Dose: 40 mg Sodium Chloride (Sodium Chloride 0.65% Na Soln 45 Ml ([place])) 2 sprays NA UD PRN PRN Reason: dry nasal passages Stop: 11/06/24 02:06 Tacrolimus (Tacrolimus Xr 0.75 Mg Ertab) 1.5 mg PO DAILYBB [facility] Stop: 11/07/24 06:29 Last Admin: 10/10/24 06:00 Dose: 1.5 mg Torsemide (Torsemide 20 Mg Tab) 20 mg PO DAILY@1700 [facility] Stop: 11/06/24 16:59 Last Admin: 10/09/24 16:32 Dose: 20 mg
[2024-10-10 02:04] VITALS: O2SAT 95
[2024-10-10 07:04] LABS: Hematocrit (blood only) 41.7 % (42.0-52.0); Mean Corpuscular Hemoglobin 29.6 pg (25.0-34.0); Mean Corpuscular Hgb Conc 33.6 g/dL (32.0-36.0); Mean Corpuscular Volume 88.2 fL (80.0-100.0); Mean Platelet Volume 10.8 fL (9.4-12.4); Platelet Count 214 K/uL (130-400); RDW Coefficient of Variation 12.7 % (11.5-14.5); RDW Standard Deviation 41.1 fL (36.4-46.3); Red Blood Count 4.73 M/uL (4.70-6.10); White Blood Count 10.11 K/ul (4.8-10.8)
[2024-10-10 07:24] LABS: BUN Creatinine Ratio 25.7 (10-20); Calcium 9.9 mg/dl (8.6-10.3); Magnesium 1.8 mg/dl (1.7-2.4); Potassium 4.3 mmol/L (3.5-5.1)
[2024-10-10 07:45] VITALS: BP 140/90; RESP 20; TEMP 97.7
[2024-10-10 09:43] VITALS: PULSE 93
--- NOTE | 2024-10-10 09:43 | Discharge Summary ---
Date of Service October 10, 2024 Admission HPI Per Admitting Provider 64-year-old male with past medical history significant for hypertension, hyperlipidemia, secondary hyperparathyroidism, status post renal transplant in 2019 with chronic immunotherapy, history of paroxysmal atrial fibrillation, was recently in the hospital for right hand cellulitis/gout comes back with a right hand infection. Patient was admitted on September 27, 2024 and was discharged on September 30, 2024. During that admission he was treated for cellulitis of right hand with daptomycin and cefepime. He was also given steroids for suspected gout flare as uric acid was high. Patient was also noted to have A flutter and seen by cardiology was started on Eliquis and is also on Coreg. He was discharged on cefuroxime and doxycycline and prednisone taper. Patient says he completed antibiotics on Thursday. Last admission right hand was much swollen and that is improved with antibiotic per patient. And today again right hand started to swell and also having pain and he called his PCP office and was advised to come to the ER. Having painful movement of the right hand. Mild swelling and erythema seen. Denies any fevers. Denies any chest pain or shortness of breath. No cough. No nausea. No abdominal pain. No headache. No runny nose or sore throat. Bowels are loose. Micturating okay. Sitting in the chair comfortably and hemodynamics are okay. Past medical history. As mentioned above Past surgical history. Colonoscopy. Laparoscopic cholecystectomy. Renal transplant. Social history. . No smoking. No alcohol use. No drug use. Family history. Father had heart disease. Stroke. Mother had heart disease. Brother had testicular cancer. Sister has liver problem. Admission Exam Per Admitting Provider General- Not in distress Head- atraumatic Eyes- PERRL. ENT- oropharynx clear Neck- supple, no JVD. Lungs- clear to auscultation no wheezing or crackles Heart- regular rhythm; no murmur, no gallop. Abdomen- normal bowel sounds, soft, nontender, no distension Extremities- right hand and wrist dorsal aspect mildly erythematous and swollen and warm on palpation Neuro- alert, oriented PERRL, no facial palsy; no dysarthria; moves extremities Principal Diagnosis R hand cellulitis Discharge Exam General- WD/WN M in NAD Head- atraumatic Eyes- PERRL. Neck- supple, no JVD. Lungs- clear to auscultation no wheezing or crackles Heart- regular rhythm; no murmur Abdomen- normal bowel sounds, soft, nontender, no distension Extremities- right hand and wrist dorsal aspect mildly erythematous (much improved), edema improved/resolved Neuro- alert, oriented PERRL, no facial palsy; no dysarthria; moves extremities Discharge Data Allergies Allergy/AdvReac Type Severity Reaction Status Date / Time No Known Allergies Allergy Verified 10/06/24 21:49 Consultations 10/06/24 22:18 ED Decision to Admit Stat 10/07/24 08:00 Consult Orthopedic Surgery Routine 10/09/24 18:10 Consult Infectious Diseases Routine Hospital Course (1) Cellulitis of right hand: 64-year-old male with past medical history significant for hypertension, hyperlipidemia, secondary hyperparathyroidism, status post renal transplant in 2019 with chronic immunotherapy, history of paroxysmal atrial fibrillation, was recently in the hospital for right hand cellulitis/gout comes back with a right hand infection. Patient was admitted on September 27, 2024 and was discharged on September 30, 2024. During that admission he was treated for cellulitis of right hand with daptomycin and cefepime. He was also given steroids for suspected gout flare as uric acid was high. Patient was also noted to have A flutter and seen by cardiology was started on Eliquis and is also on Coreg. He was discharged on cefuroxime and doxycycline and prednisone taper. Patient says he completed antibiotics on Thursday. Last admission right hand was much swollen and that is improved with antibiotic per patient. And today again right hand started to swell and also having pain and he called his PCP office and was advised to come to the ER. Having painful movement of the right hand. Mild swelling and erythema seen. Denies any fevers. Denies any chest pain or shortness of breath. No cough. No nausea. No abdominal pain. No headache. No runny nose or sore throat. Bowels are loose. Micturating okay. Sitting in the chair comfortably and hemodynamics are okay. Cellulitis of right hand Uric acid 9 Possible gout flare Recently in the hospital was treated with cefepime and Dapto and prednisone In the ER received Zosyn Continue with Zosyn and Dapto and steroids Orthopedics consulted - Impression: RUE cellulitis improved Plan: Continue care per Hospitalist service with IV Abx. No surgical intervention warranted Consider Rheumatology evaluation as outpatient. Should follow up with PCP Will monitor the response 10/08 - erythema, edema, pain improved 10/10 Discussed with ID - will finish 14 day course abx - will DC on doxycycline and keflex Hypertension On Coreg, amlodipine, clonidine, lisinopril and torsemide Will monitor S/p renal transplant On Envarsus and mycophenolate If any concern will consult nephrology Paroxysmal atrial fibrillation On Coreg and Eliquis We will monitor Chronic heart failure with preserved ejection fraction There is a plan for cardiac MRI and nuclear stress test as outpatient Continue torsemide Will monitor Total Time Total Time Spent Total Time Spent (In Minutes): 40 Discharge Plan Discharge Items Patient Disposition: Home - Self-Care Reason For Visit: RIGHT HAND CELLULITIS Discharge Diagnosis: R hand cellulitis Activity: Per Instructions section Non-emergency contact: Primary Care Provider Call non-emergency contact if: you have any medication questions and your symptoms worsen Follow-up/Referrals: Julia Garcia DO [Primary Care Provider] - (Date & Time 10/12/2024 11:40 AM Provider: Damaris Fulton PA-C Family [facility] This was the latest appt they had that day. ) Diet: Heart Healthy Addtl Attending Provider Instructions: Follow up with your primary care doctor within 1 week. Finish antibiotic treatment as prescribed. Finish prednisone as prescribed. Pending Studies at Discharge: Yes Studies:: final blood cultx results Stand-Alone Forms: My [facility] Maria Stein Ratio, Work/School Release, Smoking Cessation Medications and DC Order Prescriptions: New doxycycline hyclate 100 mg capsule 100 mg PO BID 10 Days Qty: 20 0RF cephalexin 500 mg capsule 500 mg PO QID 10 Days Qty: 40 0RF prednisone 20 mg tablet 20 mg PO UD Qty: 7 0RF Rx Instructions: take 2 tabs for 2 days, then take 1 tab Continued cinacalcet 30 mg tablet 30 mg PO PM Rx Instructions: TAKE THIS MEDICATION ONCE DAILY WITH EVENING MEAL aspirin 81 mg Tablet,Delayed Release (Dr/Ec) 81 mg PO DAILY acetaminophen [Tylenol Extra Strength] 500 mg Tablet 500 mg PO Q6H PRN (Reason: Pain) simvastatin 20 mg Tablet 20 mg PO DAILY magnesium oxide 400 mg magnesium Tablet 400 mg PO DAILY carvedilol 25 mg tablet 25 mg PO BID mycophenolate sodium 180 mg tablet,delayed release (DR/EC) 540 mg PO BID torsemide 20 mg tablet 20 mg PO PM Eliquis 5 mg tablet 5 mg PO BID Envarsus XR 0.75 mg tablet extended release 24 hr 1.5 mg PO QAM Rx Instructions: 0.75mg x2 po qam levalbuterol tartrate 45 mcg/actuation HFA aerosol inhaler 1 puff INHALATION Q4 PRN (Reason: SOB) amlodipine [Norvasc] 5 mg Tablet 2.5 mg PO QAM Qty: 30 0RF Advanced Probiotic 625 mg (10 billion cell) Capsule 1 cap PO DAILY Qty: 10 0RF clonidine HCl 0.1 mg tablet 0.1 mg PO TID Qty: 0 0RF lisinopril 10 mg tablet 20 mg PO QAM Qty: 60 0RF Saline Mist 0.65 % aerosol,spray 2 spray NA DIRECTED PRN (Reason: dry nasal passages) Discharge Orders: Discharge Order (Routine); Ordered 10/10/24 Ordered By: Jae Villasenor Admission Data Admit Date/Time: 10/07/24 01:35 Attending Provider: Jae Villasenor Admit Provider: Faisal Maldonado Primary Care Provider: Julia Garcia Other Providers: Faisal Maldonado; Myles Peacock; Steve Lopez; Venkata Jackson; Kvng Campos I.; Tin Doan II; Betty Zazueta; Robinson Vega; Ted Silvestre; Antony Aldrich; Jovita Gerber; Cathi Sim
== END 2024-10-10 10:33 | disposition home or self-care (01) | DRG 603 ==
LOC: ED 19:42 → EDINP 10-07 01:35 → 2N 10-07 02:07